=== PATIENT | male | born 1930 | race Caucasian/White ===

== ENCOUNTER 2016-07-08 23:19 | Inpatient (IN) | payer MEDICARE, OTHER ==
[~2016-07-08] VITALS: Ht 172.7 cm; Wt 69.3 kg
[2016-07-08] MEDS ORDERED: SOD CHLORIDE 0.9% 1,000 ML IV STA (23:38)
[2016-07-08] MEDS ORDERED: PIPER-TAZO 3.375 GM IV (PMX) 100 ML IVPB STA (23:38)
[2016-07-08] MEDS ORDERED: SODIUM CHLORIDE 0.9% 1L BAG IV* STA (23:38)
[2016-07-09] VITALS (19 sets, daily range): BP systolic 76–125; BP diastolic 43–66; PULSE 71–87; RESP 16–24; TEMP 97.9; Ht 172.7 cm; Wt 69.3 kg
[2016-07-09] MEDS ORDERED: ETOMIDATE 20 MG INJ ONE
[2016-07-09] MEDS ORDERED: MIDAZOLAM 1 MG/ML 2 ML INJ ONE
[2016-07-09] MEDS ORDERED: ROCURONIUM 50 MG INJ ONE
--- NOTE | 2016-07-09 00:11 | RADRPT ---
PROCEDURE: XR Chest. CLINICAL INDICATION: Shortness of breath. TECHNIQUE: Portable AP supine view of the chest was obtained. COMPARISON: None available. FINDINGS: The cardiomediastinal silhouette is within normal limits. Distal tip of an endotracheal tube projec ts 2.7 cm above the galo, satisfactory in position. Mild left greater than right basilar subsegme ntal atelectasis is present. The right hemidiaphragm is slightly elevated. There is no evidence fo r pleural effusion, pneumothorax or pulmonary vascular congestion. Demineralization is noted with m ild thoracic spondylosis but no evidence of acute osseous abnormality. Clips within the right axilla are seen. Faint calcification of the aortic arch is seen. RPTAT:HJJR IMPRESSION: 1. Distal tip of the endotracheal tube projecting 2.7 cm above the galo in satisfactory position. 2. Mild subsegmental atelectasis of the left greater than right lower lobes with slight elevation o f the right hemidiaphragm. 3. Aortic atherosclerosis is present. Physician Jorge Date Time Electronically viewed and signed by Physician Jorge on 07/09/2016 00:10 JR/
[2016-07-09 00:13] LABS: ADD SCAN DIFF NO; BASOPHILS % 0.4 % (0.0-2.0); EOSINOPHILS # 0.1 10^3/ul (0.0-0.5); EOSINOPHILS % 1.1 % (0.0-7.0); HEMATOCRIT 28.2 % (42.0-52.0); HEMOGLOBIN 9.4 g/dl (14.0-18.0); LYMPHOCYTES # 2.2 10^3/ul (0.8-2.9); MEAN CORPUSCULAR HEMOGLOBIN 33.2 pg (29.0-33.0); MEAN CORPUSCULAR HGB CONC 33.3 g/dl (32.0-37.0); MEAN CORPUSCULAR VOLUME 99.6 fl (82.0-101.0); MEAN PLATELET VOLUME 10.9 fl (7.4-10.4); MONOCYTE # 1.1 10^3/ul (0.3-0.9); MONOCYTES % 9.7 % (0.0-11.0); NEUTROPHIL # 7.6 10^3/ul (1.6-7.5); NEUTROPHILS % 67.6 % (39.0-77.0); PLATELET COUNT 178 10^3/UL (140-415); RED BLOOD COUNT 2.83 10^6/ul (4.70-6.10); RED CELL DISTRIBUTION WIDTH 12.2 % (11.5-14.5); WHITE BLOOD COUNT 11.2 10^3/ul (4.8-10.8)
[2016-07-09 00:22] LABS: AADO2 Arterial 199.9 mmHg (7.0-24.0); Allen Test ACCEPTAB; Arterial Base Excess -3.2 mmol/L (-3.0-3); Arterial COHb 0.3 % (0.0-3.0); Arterial Fraction of Oxyhgb 98.8 % (93.0-99.0); Arterial HCO3 20.8 mmol/L (22.0-26.0); Arterial MetHb 0.6 % (0.0-1.5); Arterial Total Hemglobin 8.6 g/dl (12.0-18.0); MODE VENT - AC
[2016-07-09] MEDS: MIDAZOLAM (DRIP) 50 mg/50 mL 50 ML IV SCH ×2 (00:23→12:31)
[2016-07-09 00:26] LABS: INR 1.1; PROTIME 14.2 Sec (12.2-14.2); PT RATIO 1.1
[2016-07-09 00:27] LABS: PARTIAL THROMBOPLASTIN TIME 30.3 Sec (25.0-35.0)
[2016-07-09 00:29] LABS: ADD UMIC YES; URINE BILIRUBIN (Dip) NEGATIVE (NEGATIVE); URINE BLOOD (Dip) 3+ (NEGATIVE); URINE COLOR YELLOW (YELLOW); URINE GLUCOSE (Dip) NEGATIVE (NEGATIVE); URINE KETONES (Dip) NEGATIVE (NEGATIVE); URINE LEUKOCYTE ESTERASE (Dip) 3+ (NEGATIVE); URINE NITRITE (Dip) NEGATIVE (NEGATIVE); URINE TOTAL PROTEIN (Dip) 2+ (NEGATIVE); URINE UROBILINOGEN (Dip) 1.0 E.U./dL (0.1-1.0)
[2016-07-09] MEDS ORDERED: MIDAZOLAM 1 MG/ML 2 ML INJ IV ONE (00:30)
[2016-07-09 00:33] LABS: ALBUMIN 2.9 g/dl (3.3-4.9); ALBUMIN/GLOBULIN RATIO 0.93; BILIRUBIN,INDIRECT 0.2 mg/dl (0-1.1); BILIRUBIN,TOTAL 0.2 mg/dl (0.2-1.3); CREATININE 1.43 mg/dl (0.61-1.24); POTASSIUM 4.5 mmol/L (3.5-5.1)
[2016-07-09 00:42] LABS: TROPONIN-I 0.043 ng/ml (0.00-0.12)
[2016-07-09 00:59] LABS: BACTERIA,URINE FEW; SQUAMOUS EPITHELIAL CELL,UR FEW; URINE RBCS >200 /HPF (0)
--- NOTE | 2016-07-09 01:27 | ERA ---
ER Documentation Chief Complaint Date/Time DATE: 07/09/16 TIME: 01:25 Chief Complaint SOB 80% ON ROOM AIR, INCREASED ALOC FROM SNF HPI 86-year-old male brought in by ambulance for respiratory distress at his nursing facility with an saturation of 80% on room air. Per EMS, the patient has a history of a subdural hemorrhage about 1 month ago. He is status post neurosurgery. They transported the same patient about 1 week ago to [facility] for similar complaints of shortness of breath, likely secondary to aspiration. Today, about 20 minutes prior to presentation, the [facility] noticed that the patient was more altered than usual and appeared to be in respiratory distress. He was sent here for further evaluation. His saturations improved with supplemental oxygen by face mask in route. There was no report that the patient vomited prior to this episode. Otherwise history is limited as patient is altered and in extremis ROS Review of systems limited as patient is in extremis Medications Home Meds Reported Medications Ranitidine Hcl* (Zantac*) 300 Mg Tablet, 300 MG G-TUBE HS, #30 TAB 07/09/16 Rosuvastatin Calcium* (Crestor*) 10 Mg Tablet, 10 MG G-TUBE QHS, #30 TAB 07/09/16 Magnesium Hydroxide* (Milk Of Magnesia*) 400 Mg/5 Ml Oral.susp, 30 ML G-TUBE DAILY for BOWEL MGT, ML 07/09/16 Guaifenesin-Dextromethorphan* (Robitussin* DM) 100MG/10MG/5ML Syrup, 10 ML G- TUBE Q4H for COUGH, ML 07/09/16 Esomeprazole Mag Trihydrate (Nexium) 40 Mg Capsule.dr, 40 MG G-TUBE AC BREAKFAST , #30 CAP 07/09/16 Dutasteride* (Avodart*) 0.5 Mg Capsule, 0.5 MG G-TUBE DAILY, CAP 07/09/16 Olmesartan-Hydrochlorothiazide (Benicar HCT) 20-12.5 Mg Tablet, 1 TAB G-TUBE DAILY, #30 TAB HOLD IF SBP<110 07/09/16 Ascorbic Acid* (Ascorbic Acid*) 500 Mg/5 Ml Syrup, 500 MG G-TUBE DAILY, #150 ML 07/09/16 Amlodipine Besylate* (Norvasc*) 5 Mg Tablet, 5 MG G-TUBE DAILY, TAB HOLD OF SBP <110 07/09/16 Albuterol Sulfate* (Albuterol Sulfate* Neb) 0.083%-3 Ml Neb, 2.5 MG NEB Q4H, # 30 VIAL TAKE 2.5mg BY NEB EVERY 4HOURS WHILE AWAKE 07/09/16 Multivitamin with Minerals (Multivitamins with Minerals) 1 Each Tablet, 1 EACH G -TUBE DAILY, TAB 07/09/16 Acetaminophen* (Acetaminophen*) 325 Mg Tablet, 325 MG G-TUBE Q4H Y for PAIN LEVEL 1-5, #30 TAB 07/09/16 Lactobac #2-S. Therm-Bifido #1 (Vsl#3 Capsule) 1 Each Capsule, 1 EACH G-TUBE WITH BREAKFAST DINNE, CAP TAKE 1 CAPSULE VIA GTUBE DAILY WITH BREAKFAST & DINNER FOR 20 DAYS 07/09/16 Ipratropium-Albuterol (Ipratropium-Albuterol) 0.5-3 Mg/3 Ml Ampul.neb, 3 ML INHALATION Q6, #30 VIAL 07/09/16 Allergies Allergies: Coded Allergies: No Known Allergy (Unverified , 07/08/16) PMhx/Soc Medical and Surgical Hx: Unable to obtain Hx Neurological Disorder: Yes (Subdural hematoma and subarachnoid hemorrhage in May 2016) Hx Respiratory Disorders: Yes (Aspiration pneumonitis) Smoking Status: Unknown if ever smoked FmHx Family History: other (Unable to obtain) Physical Exam Vitals Vital Signs Date Time Temp Pulse Resp B/P Pulse Ox O2 Delivery O2 Flow Rate FiO2 07/09/16 03:53 92 28 100 40 07/09/16 03:04 80 18 88/43 100 Mechanical Ventilator 07/09/16 02:01 98.3 98 28 90/49 98 Mechanical Ventilator 07/09/16 01:41 102 23 100 40 07/09/16 01:01 98.1 94 19 113/64 99 Mechanical Ventilator 07/09/16 00:44 98.1 82 20 110/57 98 Mechanical Ventilator 07/09/16 00:36 40 07/08/16 23:38 91 20 100 100 07/08/16 23:26 97.7 109 12 60/44 100 Physical Exam INITIAL VITAL SIGNS: Reviewed by me GENERAL: Patient is lying on gurney in respiratory distress, eyes closed HEAD: Head is normocephalic. No evidence of trauma. No scalp or facial swelling. There are multiple scabs on his scalp which are old, likely surgical EYES: No scleral icterus bilaterally, PERRLA ENT: Oropharynx is clear of exudate and erythema, dry mucous membranes NECK: Supple. No meningismus. No masses. No evidence of trauma. No cervical spine bony step-offs or crepitus to palpation RESPIRATORY: Tachypneic, using accessory muscles, diffuse rhonchi bilaterally CV: Regular rate and rhythm. No murmurs, rubs, or gallops ABDOMEN: Soft, non-distended. G-tube in place. No masses BACK: No ecchymoses. No evidence of trauma : Wang in place EXTREMITIES: Normal to inspection and palpation. No deformity SKIN: Warm and dry. No obvious rash. No jaundice NEUROLOGIC: Eyes closed, not responding to verbal stimuli, does not withdraw to pain, nonverbal Result Diagram: 07/08/16 2355 07/08/16 8193 Results 24 hrs Laboratory Tests Test 07/08/16 23:38 07/08/16 23:55 07/08/16 23:59 07/09/16 00:40 Blood Gas Specimen Source Blood arterial Arterial Blood Date Drawn 07/09/2016 12:15:06 AM Arterial Blood pH (Temp corrected) 7.421 Arterial Blood pCO2 (Temp correct) 32.7mmhg Arterial Blood pO2 (Temp corrected) 480.4mmHG Arterial Blood HCO3 20.8mmol/L Arterial Blood Base Excess -3.2mmol/L Arterial Blood Oxygen Saturation 99.7mmHG Tavo Test ACCEPTAB Arterial Blood Gas Puncture Site Right Radial Arterial Blood Carboxyhemoglobin 0.3% Arterial Blood Methemoglobin 0.6% Blood Gas A-a O2 Differential 199.9mmHg Oxyhemoglobin Percent 98.8% Total Hemoglobin 8.6g/dl Blood Gas Temperature 37.0C Blood Gas Respiration Rate 20.0 Blood Gas Actual Respiration Rate 20 Blood Gas Modality VENT - AC FiO2 100.0% Blood Gas Tidal Volume 500.0mL Blood Gas Low PEEP Setting 5.0cmH2O Blood Gas Notified Whom MH Blood Gas Notified Time 07/09/2016 12:22:03 AM White Blood Count 11.210^3/ul Red Blood Count 2.8310^6/ul Hemoglobin 9.4g/dl Hematocrit 28.2% Mean Corpuscular Volume 99.6fl Mean Corpuscular Hemoglobin 33.2pg Mean Corpuscular Hemoglobin Concent 33.3g/dl Red Cell Distribution Width 12.2% Platelet Count 94632^3/UL Mean Platelet Volume 10.9fl Neutrophils % 67.6% Lymphocytes % 20.0% Monocytes % 9.7% Eosinophils % 1.1% Basophils % 0.4% Nucleated Red Blood Cells % 0.0/100WBC Neutrophils # 7.610^3/ul Lymphocytes # 2.210^3/ul Monocytes # 1.110^3/ul Eosinophils # 0.110^3/ul Basophils # 0.010^3/ul Nucleated Red Blood Cells # 0.010^3/ul Prothrombin Time 14.2Sec Prothrombin Time Ratio 1.1 INR International Normalized Ratio 1.10 Activated Partial Thromboplast Time 30.3Sec Sodium Level 128mmol/L Potassium Level 4.5mmol/L Chloride Level 98mmol/L Carbon Dioxide Level 23mmol/L Anion Gap 12 Blood Urea Nitrogen 54mg/dl Creatinine 1.43mg/dl Glucose Level 143mg/dl Lactic Acid Level 3.1mmol/L Calcium Level 9.0mg/dl Total Bilirubin 0.2mg/dl Direct Bilirubin 0.00mg/dl Indirect Bilirubin 0.2mg/dl Aspartate Amino Transf (AST/SGOT) 41IU/L Alanine Aminotransferase (ALT/SGPT) 49IU/L Alkaline Phosphatase 116IU/L Troponin I 0.043ng/ml B-Type Natriuretic Peptide 835PG/ML Total Protein 6.0g/dl Albumin 2.9g/dl Globulin 3.10g/dl Albumin/Globulin Ratio 0.93 Urine Color YELLOW Urine Clarity SLIGHTLY CLOUDY Urine pH 7.0 Urine Specific [place] 1.020 Urine Ketones NEGATIVE Urine Nitrite NEGATIVE Urine Bilirubin NEGATIVE Urine Urobilinogen 1.0 E.U./dL Urine Leukocyte Esterase 3+ Urine Microscopic RBC >200/HPF Urine Microscopic WBC >200/HPF Urine Squamous Epithelial Cells FEW Urine Bacteria FEW Urine Hemoglobin 3+ Urine Glucose NEGATIVE% Urine Total Protein 2+ Bedside Glucose 132mg/dL Test 07/09/16 02:25 Lactic Acid Level 2.7mmol/L Current Medications Medications (Trade) Dose Ordered Sig/Mahnaz Route PRN Reason Start Time Stop Time Status Last Admin Dose Admin Sodium Chloride (NS) 1,000 ml @ 1,000 mls/hr Q1H STAT IV 07/08/16 23:38 07/09/16 00:37 DC 07/08/16 23:47 Sodium Chloride 1250 ml 1,250 ml BOLUS OVER 2 HOURS STAT IV* 07/08/16 23:38 07/08/16 23:41 DC 07/09/16 00:18 Piperacillin Sod/ Tazobactam Sod (Zosyn 3.375gm/ 100 ml (Pmx)) 100 ml @ 200 mls/hr ONCE STAT IVPB 07/08/16 23:38 07/09/16 00:07 DC 07/08/16 23:48 Midazolam HCl 2 mg 2 mg ONCE ONCE IV 07/09/16 00:30 07/09/16 00:31 DC 07/09/16 00:16 Midazolam HCl 50 ml @ 1 mls/hr TITRATE IV 07/09/16 00:30 07/09/16 00:23 Norepinephrine 250 ml @ 1.875 mls/ hr PER PROTOCOL IV 07/09/16 03:00 Dextrose/Sodium Chloride (D5-1/2ns) 1,000 ml @ 80 mls/hr [id number] IV 07/09/16 02:41 07/09/16 02:54 DC Ondansetron HCl (Zofran Inj) 4 mg Q6H PRN IV NAUSEA AND/OR VOMITING 07/09/16 03:00 Albuterol (Ventolin Hfa) 4 puff Q2H RESP THERAPY PRN INH SHORTNESS OF BREATH 07/09/16 03:00 Ipratropium [place] (Atrovent Hfa) 4 puff Q2H RESP THERAPY PRN INH SHORTNESS OF BREATH 07/09/16 03:00 Acetaminophen (Tylenol Supp) 650 mg Q4H PRN NM PAIN LEVEL 1-3 OR FEVER 07/09/16 03:00 Morphine Sulfate (morphine) 2 mg Q4H PRN IV PAIN LEVEL 7-10 07/09/16 03:00 Lorazepam (Ativan) 1 mg Q2H PRN IV ANXIETY 07/09/16 03:00 Famotidine 20 mg 20 mg DAILY IV 07/09/16 09:00 Propofol (Diprivan) 100 ml @ 2.182 mls/ hr PER PROTOCOL IV 07/09/16 03:00 Vancomycin HCl VANCOMYCIN PER PHARMACY PER PROTOCOL XX 07/09/16 03:00 Cefepime HCl 50 ml @ 100 mls/hr Q12 IVPB 07/09/16 09:00 Dextrose/Sodium Chloride 1,000 ml @ 100 mls/hr Q10H IV 07/09/16 03:00 07/09/16 03:00 Vancomycin HCl 1.5 gm/Sodium Chloride 250 ml @ 83.333 mls/ hr ONCE ONCE IVPB 07/09/16 04:00 07/09/16 06:59 Vancomycin HCl (Vancocin) 250 ml @ 125 mls/hr Q24H IVPB 07/10/16 04:00 Procedures/MDM EMERGENT LABS AND DIAGNOSTIC STUDIES: Lab Results above were reviewed and interpreted by me. CBC shows mild leukocytosis and anemia BMP shows hyponatremia, elevated BUN and creatinine Lactate elevated BNP elevated 12-lead EKG was interpreted by Justino Ortiz MD: Normal Sinus Rhythm Normal axis Normal intervals No acute ST or T wave changes suggestive of acute ischemia or STEMI. Radiology Results as interpreted by Radiology below were reviewed by Emmy Ortiz MD: Chest x-ray: IMPRESSION: 1. Distal tip of the endotracheal tube projecting 2.7 cm above the galo in satisfactory position. 2. Mild subsegmental atelectasis of the left greater than right lower lobes with slight elevation of the right hemidiaphragm. 3. Aortic atherosclerosis is present. Physician Jorge Date Time Electronically viewed and signed by Physician Jorge on 07/09/2016 00:10 CT head: IMPRESSION: 1. Bifrontal subdural collections measuring 11 mm on the right side and 12 mm on the left side similar in appearance compared to the patient's prior outside CT scan from July 01, 2016. 2. Moderate diffuse atrophy. 3. Microangiopathic ischemic changes. 4. Left frontal elsa hole. 5. Paranasal sinus mucosal thickening with air-fluid level within the right sphenoid sinus without interval change. 6. Persistent left otomastoid disease. .Yared Webster MD, Date Time Electronically viewed and signed by .Yared Webster MD, MD on 07/09/2016 02:25 Initial Nursing notes reviewed. Previous Medical Records requested via the Electronic Health Record. EMERGENCY DEPARTMENT COURSE / MEDICAL DECISION MAKING: Endotracheal Intubation by me: Pre assessment performed. See preceding note for details. Pre-oxygenation performed with 100% oxygen RSI: Performed w/o complication or hypoxic events. Medications as ordered. Blade: Mac 4 ET Tube: 7.5 cm Depth: 21 cm at the lip Intubation confirmed by colorimetric CO2, equal breath sounds, quiet over the stomach. Chest X-ray 1V Interpreted by me: 2.7 cm above the galo ET tube. Normal soft tissue, No pneumothorax. Patient is presenting with respiratory distress that I suspect is secondary to aspiration. He was emergently intubated for low GCS and respiratory distress. Vitals were notable for hypertension and hypoxia without fever. Other source could be a UTI given the patient's chronic Wang. Urinalysis initially done with urine obtained from Wang that the patient presented with. Repeat urinalysis was sent after Wang was replaced. Broad-spectrum antibiotics were given. His shock may be also secondary to hypovolemia and does not necessarily septic. CT head was done given his history of recent subdural. Extensive subdural hemorrhage was noted bilaterally, however according to the radiologist , his hematoma is stable compared to the CT done on July 01 at the outside hospital. There is no evidence of new bleeding. Thus I do not think an emergent neurosurgical consultation is necessary at this time. patient's symptoms have not stabilized and the patient is at risk of rapid decompensation. The patient will be admitted for careful hydration, antibiotic therapy, and infectious source control. Severe Sepsis Assessment: Infectious Source: Pneumonia End organ damage indicated by: Lactate > 2.0 mmol/L Hypotension( SBP < 90 or >40 mmHG drop or MAP < 65) Acute Resp Failure (sat < 92% w/o oxygen) Severe Sepsis Managment: Blood Cultures X 2 before broad spectrum antibiotics initiated within 3 hours of recognition. 30 ml/kg NS bolus Completed Initial Lactate: 3.1 Repeat Lactate 2.7 Critical Care: Time: 40 minutes Treatments/Evaluations: Emergent fluid management, while maintaining close respiratory support. Immediate broad spectrum antibiotic therapy. Simultaneous assessment for possible sources in order to direct therapy. Consideration for invasive and chemical support to prevent respiratory or cardiac collapse. Septic Shock Assessment (1 hour post 30 ml/kg fluid bolus): Hypotension (SBP < 90 or 40 mmHg drop, MAP < 65): No Lactic acid > 4.0 no Accepting Care Team: Current data and ongoing care discussed. Time: Time of admission Primary Provider: Shanique Consulting: none Outstanding Data: cultures, repeat UA Departure Diagnosis: Primary Impression: Acute respiratory failure Qualified Code: J96.01 - Acute respiratory failure with hypoxia Additional Impressions: Hyponatremia Hypotension Qualified Code: I95.9 - Hypotension, unspecified hypotension type Acute renal failure Qualified Code: N17.9 - Acute renal failure, unspecified acute renal failure type History of subdural hematoma (post traumatic) Condition: Critical EKLANCE ARIAS MD July 09, 2016 01:27
[2016-07-09] MEDS ORDERED: IPRA3AMP INHALATION (01:36)
[2016-07-09] MEDS ORDERED: MULT-105 G-TUBE (02:03)
[2016-07-09] MEDS ORDERED: MAGN400O4 G-TUBE (02:03)
[2016-07-09] MEDS ORDERED: UDROBDM G-TUBE (02:03)
[2016-07-09] MEDS ORDERED: RANI300T3 G-TUBE (02:03)
[2016-07-09] MEDS ORDERED: LACT1CAP24 G-TUBE (02:03)
[2016-07-09] MEDS ORDERED: DUTA0.5C G-TUBE (02:03)
[2016-07-09] MEDS ORDERED: ALBU2.5V3 NEB (02:03)
[2016-07-09] MEDS ORDERED: ASCO500S2 G-TUBE (02:03)
[2016-07-09] MEDS ORDERED: ACET325T45 G-TUBE (02:03)
[2016-07-09] MEDS ORDERED: BENHCT2012 G-TUBE (02:03)
[2016-07-09] MEDS ORDERED: ESOM40CA G-TUBE (02:03)
[2016-07-09] MEDS ORDERED: CRES10 G-TUBE (02:03)
[2016-07-09] MEDS ORDERED: AMLO5TAB4 G-TUBE (02:03)
--- NOTE | 2016-07-09 02:25 | RADRPT ---
PROCEDURE: CT BRAIN WITHOUT CONTRAST CLINICAL INDICATION: 86-year-old male with altered level of consciousness. TECHNIQUE: The study was performed utilizing [place] VCT 64-slice CT scanner. Direct axial sections were obtained from the foramen magnum to the vertex without the use of intravenous contrast material. Sagittal and coronal reformations were obtained. Sagittal and coronal reformations were obtained. One or more the following dose reduction techniques were utilized: automated exposure cont rol, adjustment of the mA and/or kV according to patient's size or use of iterative reconstruction t echnique. The images were viewed on a PACS workstation. CTD/vol = 43.7 mGy; Total Exam DLP = 810.3 mGy-cm. COMPARISON: CT brain July 01, 2016; CT brain June 24, 2016 performed at [facility]. FINDINGS: There is a left frontal elsa hole. There are persistent bilateral frontal subdural collections with the greatest transverse dimension on the right side measuring approximately 11 mm and on the left s juan measuring approximately 12 mm. These are similar in appearance to the patient's prior study. T here is no longer evidence for pneumocephalus. There is moderate degree of diffuse cortical and cent ral atrophy with compensatory ventricular enlargement. There is no evidence for midline shift. The re are periventricular areas of decreased density consistent with microangiopathic ischemic changes. There is no evidence for acute intra or extra-axial blood. There is fluid identified within the na sopharynx. There is mild mucosal thickening within the ethmoid air cells and maxillary sinuses. Th ere is a air-fluid level within the right sphenoid sinus. There is persistent soft tissue within th e left mastoid air cells and middle ear. IMPRESSION: 1. Bifrontal subdural collections measuring 11 mm on the right side and 12 mm on the left side nithin lar in appearance compared to the patient's prior outside CT scan from July 01, 2016. 2. Moderate diffuse atrophy. 3. Microangiopathic ischemic changes. 4. Left frontal elsa hole. 5. Paranasal sinus mucosal thickening with air-fluid level within the right sphenoid sinus without interval change. 6. Persistent left otomastoid disease. .Yared Webster MD, MD Date Time Electronically viewed and signed by .Yared Webster MD, on 07/09/2016 02:25 .Shraddha/
[2016-07-09] MEDS ORDERED: DEXTROSE 5%-0.45% NACL 1,000 ML IV SCH (02:41)
[2016-07-09] MEDS ORDERED: ACETAMINOPHEN 650 MG SUPP PR PRN (03:00)
[2016-07-09] MEDS: DEXTROSE 5%-0.9% NACL 1,000 ML IV SCH ×3 (03:00→18:08)
[2016-07-09] MEDS ORDERED: NORepinephrine 8MG/250 ML (PMX 250 ML IV SCH (03:00)
[2016-07-09] MEDS ORDERED: ONDANSETRON 4 MG INJ IV PRN (03:00)
[2016-07-09] MEDS ORDERED: VANCOMYCIN IV PER PHARMACY XX SCH (03:00)
[2016-07-09] MEDS ORDERED: PROPOFOL 100 ML IV SCH (03:00)
[2016-07-09] MEDS ORDERED: IPRATROPIUM (HFA) 12.9 GM INHALER INH PRN (03:00)
[2016-07-09] MEDS ORDERED: ALBUTEROL 18 GM INHALER INH PRN (03:00)
[2016-07-09] MEDS ORDERED: morphine 2 MG INJ IV PRN (03:00)
[2016-07-09] MEDS ORDERED: LORAZEPAM 2 MG INJ IV PRN (03:00)
[2016-07-09] MEDS ORDERED: VANCOMYCIN 1.5 GM in SOD CHLORIDE 0.9% 250 ML IVPB ONE (04:00)
[2016-07-09 05:56] LABS: ADD SCAN DIFF NO
[2016-07-09 05:58] LABS: ABNORMAL IP MESSAGE 1; HEMATOCRIT 19.7 % (42.0-52.0); MEAN CORPUSCULAR HEMOGLOBIN 32.4 pg (29.0-33.0); MEAN CORPUSCULAR VOLUME 104.8 fl (82.0-101.0); MEAN PLATELET VOLUME 10.2 fl (7.4-10.4); PLATELET COUNT 120 10^3/UL (140-415); RED BLOOD COUNT 1.88 10^6/ul (4.70-6.10); RED CELL DISTRIBUTION WIDTH 12.5 % (11.5-14.5)
[2016-07-09 06:03] LABS: WHITE BLOOD COUNT 7.9 10^3/ul (4.8-10.8)
[2016-07-09 06:07] LABS: HEMOGLOBIN 6.1 g/dl (14.0-18.0)
[2016-07-09 07:48] LABS: HEMATOCRIT 25.3 % (42.0-52.0); HEMOGLOBIN 8.3 g/dl (14.0-18.0)
--- NOTE | 2016-07-09 08:05 | RADRPT ---
PROCEDURE: CT Brain without contrast. CLINICAL INDICATION: Subdural hematoma. Follow-up study. TECHNIQUE: Axial images from the skull base through the vertex without IV contrast. Multiplanar r eformatted images were made. Images were reviewed on a PACS workstation. The CTDIvol is 43.68 mGy and the DLP is 810.25 mGycm. One or more of the following dose reduction techniques were used: auto mated exposure control, adjustment of the mA and/or kV according to patient size, or use of iterativ e reconstruction technique. COMPARISON: 07/09/2016 FINDINGS: Low density bifrontal subdural collections are unchanged. Ventricular dilatation and atrophy again seen. Left frontal elsa hole is again seen. Fluid throughout the paranasal sinuses is similar to p rior. No new abnormality is seen. IMPRESSION: Stable exam. RPTAT: HLBE Physician Joana Date Time Electronically viewed and signed by Annie Rivas Physician on 07/09/2016 08:04 GARIMA/
[2016-07-09 08:06] LABS: ALBUMIN 2.4 g/dl (3.3-4.9); ALBUMIN/GLOBULIN RATIO 0.82; BILIRUBIN,INDIRECT 0.5 mg/dl (0-1.1); BILIRUBIN,TOTAL 0.5 mg/dl (0.2-1.3); CALCIUM 8.1 mg/dl (8.4-10.2); CREATININE 1.24 mg/dl (0.61-1.24); POTASSIUM 4.5 mmol/L (3.5-5.1); TOTAL PROTEIN 5.3 g/dl (6.1-8.1)
--- NOTE | 2016-07-09 08:14 | HP ---
DATE OF ADMISSION: 07/08/2016 TIME SEEN: 6 a.m. CHIEF COMPLAINT: Shortness of breath and worsening mentation. HISTORY OF PRESENT ILLNESS: The patient is an 86-year-old nonverbal male with a history of dementia , hypertension and dyslipidemia. The patient was sent from a [facility] facility for shortness of breath and worsening mentation. The patient is not able to provide any history, and as such, inf ormation was gathered from chart review and from the ER physician. The patient was recently admitte d at [facility] for possible aspiration pneumonia and was actually just discharged a day ago back to the half-way. The patient also was diagnosed with a subdural hemorrhage a month ag o. At the half-way the patient was noted to be hypoxic, with an oxygen saturation in the low 80 s, and also reportedly he was more altered than usual. When he presented to the ER his blood pressure was 60/44, heart rate 109, respiratory rate 12, tempe rature 97.7, oxygen saturation 100%. CT of the brain shows a bifrontal subdural collection measurin g 11 mm on the right side and 12 mm on the left side, similar in appearance compared to the patient' s prior outside CT scan from July 01. Labs show a sodium of 128, BUN 54, creatinine 1.43. Lactic a clifton 3.1, which trended down slightly to 2.7. WBC 11.2, hemoglobin 9.4. Once the patient arrived to the ER he was intubated. Currently the patient is awaiting admission to the ICU. While I was in th e middle of this dictation I was called by the ER nurse and was just notified that was the patient's hemoglobin this morning was 6.1, which is a drop from 9.4 just 5 hours ago. Will send the patient for a stat head CT and will also repeat his hemoglobin to make sure that this actually is accurate. REVIEW OF SYSTEMS: Unable to fully assess. PAST MEDICAL HISTORY: As per HPI. SOCIAL HISTORY: Unknown. ALLERGIES: NO KNOWN DRUG ALLERGIES. HOME MEDICATIONS: 1. Albuterol. 2. Atrovent. 3. Norvasc. 4. Benicar. 5. Crestor. 6. Tylenol. 7. Robitussin. 8. Nexium. 9. Milk of Magnesia. 10. Zantac. 11. Vitamin C. 12. Multivitamin. 13. Avodart. PHYSICAL EXAMINATION: VITAL SIGNS: Blood pressure 103/49, heart rate 74, respiratory rate 16, temperature 98.7, oxygen sa turation 100% on 40% FIO2. GENERAL: The patient is intubated, looks comfortable on the vent. HEENT: Normocephalic, atraumatic. There are some on his scalp. LUNGS: Diminished breath sounds at the bases, with some scattered crackles. CARDIOVASCULAR: Regul ar rate and rhythm. ABDOMEN: Soft. There is a G-tube in place. Positive bowel sounds. EXTREMITIES: No edema. LABORATORY: Pertinent positives as mentioned in the HPI. IMAGING: Brain CT results as mentioned in the HPI. Chest x-ray shows mild subsegmental atelectasis of the left greater than right lower lobes, with a slight elevation of the right hemidiaphragm. IMPRESSION: 1. Shock. 2. Vent-dependent respiratory failure. 3. Severe anemia, with an acute drop in hemoglobin. 4. Recently diagnosed subdural hematoma. 5. Presumed acute kidney injury. 6. Hyponatremia. PLAN: The patient is currently awaiting admission to the ICU. As mentioned in the HPI, I just out there is an acute drop in his hemoglobin, from 9.4 to 6.1. We will send the patient for a stat head CT. Will repeat his H and H to make sure the drop in hemoglobin is accurate. 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 Will co ntinue pressor and ventilator support and wean off as tolerated. Will transfuse PRBCs. Will place a pulmonary consult to help manage the vent. Will correct electrolytes as needed. Further workup and management per clinical course. Dictated By: JORJE CISNEROS/IWONA Conf#: [id number] DID#: [id number]
[2016-07-09] MEDS: FAMOTIDINE 20 MG INJ IV SCH (08:43)
[2016-07-09] MEDS: CEFEPIME 1GM/50 ML (PMX) 50 ML IVPB SCH ×2 (09:03→21:57)
[2016-07-09 13:12] LABS: EOSINOPHILS # 0.1 10^3/ul (0.0-0.5); LYMPHOCYTES # 0.6 10^3/ul (0.8-2.9); MONOCYTE # 0.4 10^3/ul (0.3-0.9); NEUTROPHIL # 6.8 10^3/ul (1.6-7.5)
[2016-07-10] VITALS (34 sets, daily range): BP systolic 90–141; BP diastolic 44–83; PULSE 60–110; RESP 16–27
[2016-07-10] MEDS: VANCOMYCIN 1 GM in NS 250 ML IVPB SCH (04:08)
[2016-07-10] MEDS: DEXTROSE 5%-0.9% NACL 1,000 ML IV SCH ×2 (04:08→18:03)
[2016-07-10 05:57] LABS: ADD SCAN DIFF NO
[2016-07-10 06:01] LABS: BASOPHILS % 0.4 % (0.0-2.0); EOSINOPHILS # 0.2 10^3/ul (0.0-0.5); EOSINOPHILS % 2.7 % (0.0-7.0); HEMATOCRIT 25.1 % (42.0-52.0); HEMOGLOBIN 7.8 g/dl (14.0-18.0); LYMPHOCYTES # 1.6 10^3/ul (0.8-2.9); LYMPHOCYTES % 19.3 % (15.0-51.0); MEAN CORPUSCULAR HGB CONC 31.1 g/dl (32.0-37.0); MEAN CORPUSCULAR VOLUME 102.9 fl (82.0-101.0); MEAN PLATELET VOLUME 10.4 fl (7.4-10.4); MONOCYTE # 0.7 10^3/ul (0.3-0.9); MONOCYTES % 8.4 % (0.0-11.0); NEUTROPHIL # 5.6 10^3/ul (1.6-7.5); NEUTROPHILS % 68.5 % (39.0-77.0); PLATELET COUNT 140 10^3/UL (140-415); RED BLOOD COUNT 2.44 10^6/ul (4.70-6.10); RED CELL DISTRIBUTION WIDTH 12.4 % (11.5-14.5); WHITE BLOOD COUNT 8.2 10^3/ul (4.8-10.8)
[2016-07-10 07:03] LABS: CALCIUM 8.6 mg/dl (8.4-10.2); CREATININE 0.98 mg/dl (0.61-1.24); POTASSIUM 4.3 mmol/L (3.5-5.1)
[2016-07-10 08:08] LABS: MAGNESIUM 2.2 mg/dl (1.7-2.5); PHOSPHORUS 2.8 mg/dl (2.5-4.9)
[2016-07-10] MEDS: FAMOTIDINE 20 MG INJ IV SCH (09:12)
[2016-07-10] MEDS: CEFEPIME 1GM/50 ML (PMX) 50 ML IVPB SCH ×2 (09:12→20:12)
--- NOTE | 2016-07-10 11:06 | CONS ---
DATE OF ADMISSION: 07/09/2016 DATE OF CONSULTATION: 07/09/2016 TYPE OF CONSULTATION: Pulmonary. REASON FOR CONSULTATION: Ventilator management. Thank you, Dr. Bay, for this consultation. HISTORY OF PRESENT ILLNESS: This is an 86-year-old gentleman with a history of dementia, hypertensi on, hyperlipidemia, transferred for increasing shortness of breath, altered mental status, found on admission to have recent subdural hemorrhage which was nonoperative. In addition, on arrival, the p atient was mildly hypoxemic. The patient has dementia and is unable to give me further details. He was noted to have a hemoglobin of 6.1 with no evidence of acute GI bleed. He required emergent int ubation for airway protection and hypoxemia and, in addition, volume resuscitation for his low blood pressure. This morning he is more awake, alert, comfortable, in no acute distress. PAST MEDICAL HISTORY: 1. Dementia. 2. Recent subdural hematoma. 3. Hyperlipidemia. 4. Hypertension. 5. Bronchitis. MEDICATIONS: Per chart. ALLERGIES: NONE. SOCIAL HISTORY: Nonsmoker, no alcohol, no history of drug use. FAMILY HISTORY: Noncontributory. SYSTEMS REVIEW: A 12-point review of systems currently unable to perform. PHYSICAL EXAMINATION: GENERAL: Elderly-appearing gentleman, opens eyes to voice, makes eye contact. VITAL SIGNS: Currently afebrile, temperature 98, pulse 65, blood pressure 125/55, O2 saturation 96% , FIO2 of 40%. NECK: Supple. No JVD or lymphadenopathy. CARDIAC: S1, S2, no added sounds or murmurs. CHEST: Diminished air entry both lung hutchison. ABDOMEN: Soft, nontender. No guarding or rebound. EXTREMITIES: No cyanosis, clubbing, edema. NEUROLOGIC: Generalized weakness. DIAGNOSTIC DATA: Chest x-ray on admission showed mild atelectasis, right hemidiaphragm. LABORATORY DATA: White count 8.2, hemoglobin 7.8, platelets of 140, BUN 31, creatinine 0.98. INR 1 .1. ABG on mechanical ventilation with pH 7.42, pCO2 of 32, PaO2 480. IMPRESSION: 1. Hypoxemic respiratory failure, possibly secondary to altered mental status and alveolar hypovent ilation. 2. Acute anemia, questionable gastrointestinal bleed. We will need GI consultation. 3. Recent subdural hematoma, currently stable on CT brain. No neurosurgical intervention indicated at present. 4. Baseline history of dementia. 5. History of essential hypertension. 6. Likely hypovolemic shock from low hemoglobin. 7. Possible component of septic shock given positive urinalysis. PLAN: The patient will require 1. Continued packed red blood cells. 2. Gastrointestinal evaluation for endoscopy. 3. CPAP weaning trial with safe extubation. 4. Volume resuscitation. 5. Aspiration precautions. 6. Speech therapy evaluation. 7. Deep venous thrombosis and gastrointestinal prophylaxis. Dictated By: MAMTA CONTE/IWONA Conf#: [id number] DID#: [id number]
[2016-07-10 12:02] LABS: AADO2 Arterial 110.4 mmHg (7.0-24.0); Allen Test ACCEPTAB; Arterial Base Excess -3.8 mmol/L (-3.0-3); Arterial COHb 0.3 % (0.0-3.0); Arterial Fraction of Oxyhgb 97.7 % (93.0-99.0); Arterial HCO3 19.8 mmol/L (22.0-26.0); Arterial MetHb 0.6 % (0.0-1.5); Arterial Total Hemglobin 8.3 g/dl (12.0-18.0); Blood Gas PS 10; MODE VENT - CPAP
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
[2016-07-11] VITALS (27 sets, daily range): BP systolic 112–148; BP diastolic 56–108; PULSE 45–94; RESP 18–28
[2016-07-11] MEDS: VANCOMYCIN 1 GM in NS 250 ML IVPB SCH (03:49)
[2016-07-11] MEDS: DEXTROSE 5%-0.9% NACL 1,000 ML IV SCH ×2 (03:49→16:39)
[2016-07-11 06:31] LABS: ADD SCAN DIFF NO
[2016-07-11 06:36] LABS: BASOPHIL # 0.1 10^3/ul (0.0-0.1); BASOPHILS % 0.6 % (0.0-2.0); EOSINOPHILS # 0.2 10^3/ul (0.0-0.5); HEMATOCRIT 24.2 % (42.0-52.0); HEMOGLOBIN 7.8 g/dl (14.0-18.0); LYMPHOCYTES # 1.5 10^3/ul (0.8-2.9); MEAN CORPUSCULAR HEMOGLOBIN 32.8 pg (29.0-33.0); MEAN CORPUSCULAR HGB CONC 32.2 g/dl (32.0-37.0); MEAN CORPUSCULAR VOLUME 101.7 fl (82.0-101.0); MEAN PLATELET VOLUME 10.5 fl (7.4-10.4); MONOCYTE # 0.7 10^3/ul (0.3-0.9); MONOCYTES % 8.1 % (0.0-11.0); NEUTROPHIL # 5.6 10^3/ul (1.6-7.5); NEUTROPHILS % 69.3 % (39.0-77.0); PLATELET COUNT 146 10^3/UL (140-415); RED BLOOD COUNT 2.38 10^6/ul (4.70-6.10); RED CELL DISTRIBUTION WIDTH 12.1 % (11.5-14.5)
[2016-07-11 07:01] LABS: CALCIUM 8.7 mg/dl (8.4-10.2); CREATININE 0.94 mg/dl (0.61-1.24); POTASSIUM 3.7 mmol/L (3.5-5.1)
[2016-07-11] MEDS: FAMOTIDINE 20 MG INJ IV SCH (08:08)
[2016-07-11] MEDS: CEFEPIME 1GM/50 ML (PMX) 50 ML IVPB SCH ×2 (08:09→22:29)
[2016-07-11 08:44] LABS: AADO2 Arterial 67.7 mmHg (7.0-24.0); Arterial Base Excess -2.3 mmol/L (-3.0-3); Arterial COHb 0.3 % (0.0-3.0); Arterial Fraction of Oxyhgb 97.4 % (93.0-99.0); Arterial HCO3 21.6 mmol/L (22.0-26.0); Arterial MetHb 0.5 % (0.0-1.5); Arterial Total Hemglobin 9.4 g/dl (12.0-18.0); MODE NASAL CANNULA
--- NOTE | 2016-07-11 10:52 | CONS ---
Date/Time of Note Date/Time of Note DATE: 07/11/16 TIME: 10:49 Consult Date/Type/Reason Admit Date/Time July 09, 2016 at 02:49 Initial Consult Date Subjective Extubated yesterday. Still very confused. Objective Vital Signs Date Time Temp Pulse Resp B/P Pulse Ox O2 Delivery O2 Flow Rate FiO2 07/11/16 10:00 78 28 134/105 100 07/11/16 09:30 Nasal Cannula 07/11/16 08:00 3.0 07/11/16 07:30 98.5 07/10/16 11:00 40 Intake and Output 07/10/16 07/10/16 07/11/16 15:00 23:00 07:00 Intake Total 806.024 ml 550 ml 1050 ml Output Total 680 ml 1050 ml 525 ml Balance 126.024 ml -500 ml 525 ml Exam HEENT: Neck supple; no JVD; no LAD CVS: RRR, S1 and S2 CHEST: ++rhonchi b/l ABD: Soft, NT, + BS EXT: No c/c/e Results/Medications Result Diagram: 07/11/16 0607 07/11/16 0601 Results 24 hrs Laboratory Tests Test 07/10/16 11:45 07/10/16 12:20 07/10/16 17:40 07/11/16 06:01 Blood Gas Specimen Source Blood arterial Arterial Blood Date Drawn 07/10/2016 11:45:20 AM Arterial Blood pH (Temp corrected) 7.435 Arterial Blood pCO2 (Temp correct) 30.2 L Arterial Blood pO2 (Temp corrected) 140.1 H Arterial Blood HCO3 19.8 L Arterial Blood Base Excess -3.8 L Arterial Blood Oxygen Saturation 98.6 Tavo Test ACCEPTAB Arterial Blood Gas Puncture Site Right Radial Arterial Blood Carboxyhemoglobin 0.3 Arterial Blood Methemoglobin 0.6 Blood Gas A-a O2 Differential 110.4 H Oxyhemoglobin Percent 97.7 Total Hemoglobin 8.3 L Blood Gas Temperature 37.0 Blood Gas Actual Respiration Rate 23 Blood Gas Modality VENT - CPAP FiO2 40.0 Blood Gas Low PEEP Setting 5.0 Blood Gas Pressure Support 10 Blood Gas Notified Whom JLD Blood Gas Notified Time 07/10/2016 12:02:09 PM Lactic Acid Level 0.6 0.7 Sodium Level 135 Potassium Level 3.7 Chloride Level 112 H Carbon Dioxide Level 22 Anion Gap 5 L Blood Urea Nitrogen 20 # Creatinine 0.94 Glucose Level 97 Calcium Level 8.7 Test 07/11/16 06:07 07/11/16 07:00 White Blood Count 8.0 Red Blood Count 2.38 L Hemoglobin 7.8 L Hematocrit 24.2 L Mean Corpuscular Volume 101.7 H Mean Corpuscular Hemoglobin 32.8 Mean Corpuscular Hemoglobin Concent 32.2 Red Cell Distribution Width 12.1 Platelet Count 146 Mean Platelet Volume 10.5 H Neutrophils % 69.3 Lymphocytes % 18.0 Monocytes % 8.1 Eosinophils % 3.0 Basophils % 0.6 Nucleated Red Blood Cells % 0.0 Neutrophils # 5.6 Lymphocytes # 1.5 Monocytes # 0.7 Eosinophils # 0.2 Basophils # 0.1 Nucleated Red Blood Cells # 0.0 Blood Gas Specimen Source Blood arterial Arterial Blood Date Drawn 07/11/2016 8:06:39 AM Arterial Blood pH (Temp corrected) 7.427 Arterial Blood pCO2 (Temp correct) 33.5 L Arterial Blood pO2 (Temp corrected) 128.5 H Arterial Blood HCO3 21.6 L Arterial Blood Base Excess -2.3 Arterial Blood Oxygen Saturation 98.2 Tavo Test N/A Arterial Blood Gas Puncture Site LB Arterial Blood Carboxyhemoglobin 0.3 Arterial Blood Methemoglobin 0.5 Blood Gas A-a O2 Differential 67.7 H Oxyhemoglobin Percent 97.4 Total Hemoglobin 9.4 L Blood Gas Temperature 37.0 Blood Gas Modality NASAL CANNULA FiO2 33.0 Blood Gas Notified Whom AT Blood Gas Notified Time 07/11/2016 8:43:03 AM Medications Current Medications Ondansetron HCl (Zofran Inj) 4 mg Q6H PRN IV NAUSEA AND/OR VOMITING; Start 01/15 at 03:00 Acetaminophen (Tylenol Supp) 650 mg Q4H PRN [place] PAIN LEVEL 1-3 OR FEVER; Start 07/09/16 at 03:00 Morphine Sulfate (morphine) 2 mg Q4H PRN IV PAIN LEVEL 7-10; Start 07/09/16 at 03:00 Lorazepam (Ativan) 1 mg Q2H PRN IV ANXIETY; Start 07/09/16 at 03:00 Famotidine 20 mg 20 mg DAILY IV Last administered on 07/11/16t 08:08; Admin Dose 20 MG; Start 07/09/16 at 09:00 Cefepime HCl 50 ml @ 100 mls/hr Q12 IVPB Last administered on 07/11/16 08:09 ; Admin Dose 100 MLS/HR; Start 07/09/16 at 09:00 Dextrose/Sodium Chloride 1,000 ml @ 100 mls/hr Q10H IV Last administered on 03:49; Admin Dose 100 MLS/HR; Start 07/09/16 at 03:00 Vancomycin HCl (Vancocin) 250 ml @ 125 mls/hr Q24H IVPB Last administered on 03:49; Admin Dose 125 MLS/HR; Start 07/10/16 at 04:00 Assessment/Plan Additional Assessment/Plan IMPRESSION: 1. Hypoxemic respiratory failure--due to reduced LOC, now extubated. 2. Urosepsis 3. Recent subdural hematoma, currently stable on CT brain. No neurosurgical intervention indicated at present. 4. Baseline history of dementia. 5. History of essential hypertension. 6. Likely hypovolemic shock from low hemoglobin. 7. Urosepsis PLAN: 1. Follow H/H 2. Abx; f/u cultures 3. Mobilize OOB 4. Swallow evaluation 5. Aspiration precautions. 6. Chest PT 35 min cc time TANGELA DYER MD July 11, 2016 10:52
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
--- NOTE | 2016-07-11 11:12 | RADRPT ---
PROCEDURE: XR Chest. CLINICAL INDICATION: Pneumonia, CHF TECHNIQUE: Single frontal chest x-ray. COMPARISON: 07/08/2016 FINDINGS: No acute infiltrate, pleural effusion or pneumothorax is identified. Cardiomediastinal silhouette i s within normal limits. Aortic atherosclerotic calcification is noted. Endotracheal tube has been removed. The osseous structures are unremarkable. Surgical clips project over the right axilla. IMPRESSION: 1. No evidence of acute cardiopulmonary process. 2. Endotracheal tube has been removed. 3. Aortic atherosclerosis. RPTAT: QQ .Mateusz Milner MD, MD Date Time Electronically viewed and signed by .Mateusz Milner MD, on 07/11/2016 11:12 .R/
--- NOTE | 2016-07-11 21:31 | SP ---
DATE OF PROCEDURE: 07/11/2016 PROCEDURE: Electroencephalogram. REFERRING PHYSICIAN: Dr. Bay. TECHNIQUE: EEG done using 10-20 International electrode system with photic stimulation. FINDINGS: Bilateral occipital hemisphere view showed delta and theta waves, medium sized, low ampli tude, asymmetric, bilateral. Photic stimulation done did elicit a drive. Some electromyogram artif act recorded. No epileptiform discharge or seizure activity is recorded. IMPRESSION: This is an abnormal electroencephalogram showing generalized slowing consistent with a history of underlying encephalopathy. No epileptiform discharge or seizure activity is recorded. F ollowup EEG may be needed if clinically indicated. Thank you for asking me to see the patient with you. Dictated By: TANGELA ROBERTS/IWONA Conf#: [id number] DID#: [id number]
--- NOTE | 2016-07-11 22:45 | CONS ---
DATE OF ADMISSION: 07/09/2016 DATE OF CONSULTATION: 07/11/2016 Thank you for asking me to see the patient with you. HISTORY OF PRESENT ILLNESS: The patient is 86 years old, status post bilateral subdural hematomas, hypertension, dyslipidemia, dementia, possibility of underlying seizure activity, in which EEG was o rdered. Follow up with the results. CURRENT MEDICATIONS: Includes: 1. Zofran 4 mg every 6 hours as needed. 2. Albuterol 4 puffs every 2 hours respiratory therapy as needed. 3. Atrovent 4 puffs q.2h. respiratory therapy as needed. 4. Inhaler for shortness of breath. 5. Morphine 2 mg every 4 hours. 6. Vancomycin IV by the pharmacy. 7. Dextrose as needed. 8. Cefepime 50 mL of 100 mL per hour q.12h., which was stopped. 9. Pepcid 20 mg IV once a day. PHYSICAL EXAMINATION: GENERAL: On exam today, the patient is alert, awake, can follow simple commands, speaks only Pedro n, looks confused. CRANIAL NERVES: Cranial nerve II: Pupils equal on both sides, reactive to light. Cranial nerves I II, IV and : Extraocular muscles intact. Cranial nerve V: Equal sensation to face. Cranial ner ve VII: Symmetrical face. Cranial nerve VIII: Decreased hearing bilaterally. Cranial nerve IX an d X: Elevates palate. Cranial nerve XI: Elevates shoulder 5/5. Cranial nerve XII: With straight tongue. MOTOR bilateral upper extremity weakness. The patient can move both upper extremities against gravi ty, 3/5. Sensation decreased for glove and sock area for light touch and temperature. COORDINATION: Znalda-ij-cvpr test intact. HEART: Regular rate and rhythm. LUNGS: Equal breath sounds. ABDOMEN: Soft, relaxed, nondistended. No tenderness. ASSESSMENT AND PLAN: 1. The patient is 86 years old status post subdural hematoma. 2. Underlying seizure activity. We will follow up the patient with electroencephalogram for more e valuation and treatment for possible underlying seizure. 3. Status post aspiration pneumonia. The patient is intubated in intensive care unit. 4. Keep the patient under deep venous thrombosis prophylaxis as well as decubitus ulcer prophylaxis . Again, thank you for asking me to see the patient with you. EEG showed generalized slowing consist ent with a history of underlying encephalopathy. Followup EEG may be needed if clinically indicated . Dictated By: TANGELA ROBERTS/IWONA Conf#: [id number] DID#: [id number]
[2016-07-12] VITALS (13 sets, daily range): BP systolic 137–160; BP diastolic 64–83; PULSE 61–97; RESP 18–20
[2016-07-12] MEDS: DEXTROSE 5%-0.9% NACL 1,000 ML IV SCH ×2 (01:00→04:43)
[2016-07-12 03:42] LABS: ADD SCAN DIFF NO
[2016-07-12 04:02] LABS: BASOPHIL # 0.1 10^3/ul (0.0-0.1); BASOPHILS % 0.6 % (0.0-2.0); EOSINOPHILS # 0.2 10^3/ul (0.0-0.5); HEMATOCRIT 25.5 % (42.0-52.0); HEMOGLOBIN 8.5 g/dl (14.0-18.0); LYMPHOCYTES # 1.3 10^3/ul (0.8-2.9); LYMPHOCYTES % 15.4 % (15.0-51.0); MEAN CORPUSCULAR HEMOGLOBIN 32.9 pg (29.0-33.0); MEAN CORPUSCULAR HGB CONC 33.3 g/dl (32.0-37.0); MEAN CORPUSCULAR VOLUME 98.8 fl (82.0-101.0); MEAN PLATELET VOLUME 10.5 fl (7.4-10.4); MONOCYTE # 0.5 10^3/ul (0.3-0.9); MONOCYTES % 5.7 % (0.0-11.0); NEUTROPHIL # 6.2 10^3/ul (1.6-7.5); NEUTROPHILS % 75.8 % (39.0-77.0); PLATELET COUNT 161 10^3/UL (140-415); POTASSIUM 3.6 mmol/L (3.5-5.1); RED BLOOD COUNT 2.58 10^6/ul (4.70-6.10); WHITE BLOOD COUNT 8.1 10^3/ul (4.8-10.8)
[2016-07-12 04:04] LABS: CREATININE 0.89 mg/dl (0.61-1.24)
[2016-07-12 04:05] LABS: CALCIUM 8.8 mg/dl (8.4-10.2)
[2016-07-12] MEDS: VANCOMYCIN 1 GM in NS 250 ML IVPB SCH (05:03)
[2016-07-12] MEDS: FAMOTIDINE 20 MG INJ IV SCH (08:54)
[2016-07-12] MEDS: CEFEPIME 1GM/50 ML (PMX) 50 ML IVPB SCH ×2 (09:42→20:47)
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
[2016-07-12] MEDS: DEXTROSE 5%-0.45% NACL 1,000 ML IV SCH ×2 (12:00→20:49)
--- NOTE | 2016-07-12 15:06 | CONS ---
Date/Time of Note Date/Time of Note DATE: 07/12/16 TIME: 15:05 Consult Date/Type/Reason Admit Date/Time July 09, 2016 at 02:49 Subjective No events overnight. Objective Vital Signs Date Time Temp Pulse Resp B/P Pulse Ox O2 Delivery O2 Flow Rate FiO2 07/12/16 12:20 82 07/12/16 11:10 98.9 20 139/67 98 07/12/16 08:30 Nasal Cannula 2.0 07/10/16 11:00 40 Intake and Output 07/11/16 07/11/16 07/12/16 15:00 23:00 07:00 Intake Total 600 ml 0 ml 0 ml Output Total 670 ml 400 ml 380 ml Balance -70 ml -400 ml -380 ml Exam HEENT: Neck supple; no JVD; no LAD CVS: RRR, S1 and S2 CHEST: ++rhonchi b/l ABD: Soft, NT, + BS EXT: No c/c/e Results/Medications Result Diagram: 07/12/16 0330 07/12/16 0330 Results 24 hrs Laboratory Tests Test 07/12/16 03:30 07/12/16 13:23 White Blood Count 8.1 Red Blood Count 2.58 L Hemoglobin 8.5 L Hematocrit 25.5 L Mean Corpuscular Volume 98.8 Mean Corpuscular Hemoglobin 32.9 Mean Corpuscular Hemoglobin Concent 33.3 Red Cell Distribution Width 12.0 Platelet Count 161 Mean Platelet Volume 10.5 H Neutrophils % 75.8 Lymphocytes % 15.4 Monocytes % 5.7 Eosinophils % 2.0 Basophils % 0.6 Nucleated Red Blood Cells % 0.0 Neutrophils # 6.2 Lymphocytes # 1.3 Monocytes # 0.5 Eosinophils # 0.2 Basophils # 0.1 Nucleated Red Blood Cells # 0.0 Sodium Level 136 Potassium Level 3.6 Chloride Level 107 Carbon Dioxide Level 24 Anion Gap 9 Blood Urea Nitrogen 15 Creatinine 0.89 Glucose Level 103 Calcium Level 8.8 Vancomycin Level Trough 9.9 L Ammonia < 9 L Medications Current Medications Ondansetron HCl (Zofran Inj) 4 mg Q6H PRN IV NAUSEA AND/OR VOMITING; Start 01/15 at 03:00 Acetaminophen (Tylenol Supp) 650 mg Q4H PRN [place] PAIN LEVEL 1-3 OR FEVER; Start 5/11/17 at 03:00 Morphine Sulfate (morphine) 2 mg Q4H PRN IV PAIN LEVEL 7-10; Start 07/09/16 at 03:00 Famotidine 20 mg 20 mg DAILY IV Last administered on 07/12/16 08:54; Admin Dose 20 MG; Start 07/09/16 at 09:00 Cefepime HCl 50 ml @ 100 mls/hr Q12 IVPB Last administered on 07/12/16 09:42 ; Admin Dose 100 MLS/HR; Start 07/09/16 at 09:00 Vancomycin HCl 1.25 gm/Sodium Chloride 250 ml @ 83.333 mls/ hr Q24H IVPB ; Start 07/13/16 at 05:00 Dextrose/Sodium Chloride (D5-1/2ns) 1,000 ml @ 60 mls/hr [id number] IV Last administered on 07/12/16 12:00; Admin Dose 60 MLS/HR; Start 07/12/16 at 12:00 Assessment/Plan Additional Assessment/Plan IMPRESSION: 1. s/p Hypoxemic respiratory failure--due to reduced LOC, now extubated. 2. Urosepsis 3. Recent subdural hematoma, currently stable on CT brain. No neurosurgical intervention indicated at present. 4. Baseline history of dementia. 5. History of essential hypertension. 6. Likely hypovolemic shock from low hemoglobin. 7. Urosepsis PLAN: 1. Swallow eval 2. Abx; f/u cultures 3. Mobilize OOB 4. Aspiration precautions. 5. Chest PT TANGELA DYER MD July 12, 2016 15:06
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
[2016-07-12] MEDS ORDERED: VANCOMYCIN 1.25 GM in SOD CHLORIDE 0.9% 250 ML IVPB SCH (22:00)
[2016-07-13] VITALS (12 sets, daily range): BP systolic 113–140; BP diastolic 60–67; PULSE 50–107; RESP 18–20
[2016-07-13] MEDS: VANCOMYCIN 1.25 GM in SOD CHLORIDE 0.9% 250 ML IVPB SCH (05:24)
[2016-07-13] MEDS: FAMOTIDINE 20 MG INJ IV SCH (09:42)
[2016-07-13] MEDS: CEFEPIME 1GM/50 ML (PMX) 50 ML IVPB SCH ×2 (09:42→20:56)
[2016-07-13 10:00] LABS: ADD SCAN DIFF NO
[2016-07-13 10:02] LABS: BASOPHILS % 0.5 % (0.0-2.0); EOSINOPHILS # 0.3 10^3/ul (0.0-0.5); EOSINOPHILS % 3.8 % (0.0-7.0); HEMATOCRIT 27.7 % (42.0-52.0); LYMPHOCYTES # 1.6 10^3/ul (0.8-2.9); LYMPHOCYTES % 19.9 % (15.0-51.0); MEAN CORPUSCULAR HEMOGLOBIN 32.4 pg (29.0-33.0); MEAN CORPUSCULAR HGB CONC 32.5 g/dl (32.0-37.0); MEAN CORPUSCULAR VOLUME 99.6 fl (82.0-101.0); MEAN PLATELET VOLUME 10.3 fl (7.4-10.4); MONOCYTE # 0.6 10^3/ul (0.3-0.9); MONOCYTES % 7.6 % (0.0-11.0); NEUTROPHIL # 5.6 10^3/ul (1.6-7.5); NEUTROPHILS % 67.7 % (39.0-77.0); PLATELET COUNT 158 10^3/UL (140-415); RED BLOOD COUNT 2.78 10^6/ul (4.70-6.10); WHITE BLOOD COUNT 8.2 10^3/ul (4.8-10.8)
[2016-07-13 10:30] LABS: POTASSIUM 3.6 mmol/L (3.5-5.1)
[2016-07-13 10:33] LABS: CREATININE 0.88 mg/dl (0.61-1.24)
[2016-07-13 10:34] LABS: CALCIUM 8.9 mg/dl (8.4-10.2)
--- NOTE | 2016-07-13 13:42 | CONS ---
Date/Time of Note Date/Time of Note DATE: 07/13/16 TIME: 13:41 Consult Date/Type/Reason Admit Date/Time July 09, 2016 at 02:49 Initial Consult Date Type of Consultation: Pulm Subjective Comfortable. Objective Vital Signs Date Time Temp Pulse Resp B/P Pulse Ox O2 Delivery O2 Flow Rate FiO2 07/13/16 13:08 63 07/13/16 11:34 98.6 20 125/64 99 07/13/16 08:20 2.0 07/13/16 08:05 Nasal Cannula 07/10/16 11:00 40 Intake and Output 07/12/16 07/12/16 07/13/16 15:00 23:00 07:00 Intake Total 50 ml 0 ml 720 ml Output Total 1000 ml Balance 50 ml -1000 ml 720 ml Exam PHYSICAL EXAMINATION: GENERAL: Elderly-appearing gentleman, opens eyes to voice, makes eye contact. VITAL SIGNS: as above NECK: Supple. No JVD or lymphadenopathy. CARDIAC: S1, S2, no added sounds or murmurs. CHEST: Diminished air entry both lung hutchison. ABDOMEN: Soft, nontender. No guarding or rebound. EXTREMITIES: No cyanosis, clubbing, edema. NEUROLOGIC: Generalized weakness. Results/Medications Result Diagram: 07/13/16 0940 07/13/16 0940 Results 24 hrs Laboratory Tests Test 07/13/16 09:40 White Blood Count 8.2 Red Blood Count 2.78 L Hemoglobin 9.0 L Hematocrit 27.7 L Mean Corpuscular Volume 99.6 Mean Corpuscular Hemoglobin 32.4 Mean Corpuscular Hemoglobin Concent 32.5 Red Cell Distribution Width 12.0 Platelet Count 158 Mean Platelet Volume 10.3 Neutrophils % 67.7 Lymphocytes % 19.9 Monocytes % 7.6 Eosinophils % 3.8 Basophils % 0.5 Nucleated Red Blood Cells % 0.0 Neutrophils # 5.6 Lymphocytes # 1.6 Monocytes # 0.6 Eosinophils # 0.3 Basophils # 0.0 Nucleated Red Blood Cells # 0.0 Sodium Level 137 Potassium Level 3.6 Chloride Level 107 Carbon Dioxide Level 23 Anion Gap 11 Blood Urea Nitrogen 15 Creatinine 0.88 Glucose Level 99 Calcium Level 8.9 Medications Current Medications Ondansetron HCl (Zofran Inj) 4 mg Q6H PRN IV NAUSEA AND/OR VOMITING; Start 01/15 at 03:00 Acetaminophen (Tylenol Supp) 650 mg Q4H PRN [place] PAIN LEVEL 1-3 OR FEVER; Start 07/09/16 at 03:00 Morphine Sulfate (morphine) 2 mg Q4H PRN IV PAIN LEVEL 7-10; Start 07/09/16 at 03:00 Famotidine 20 mg 20 mg DAILY IV Last administered on 07/13/16 09:42; Admin Dose 20 MG; Start 07/09/16 at 09:00 Cefepime HCl 50 ml @ 100 mls/hr Q12 IVPB Last administered on 07/13/16 09:42 ; Admin Dose 100 MLS/HR; Start 07/09/16 at 09:00 Vancomycin HCl 1.25 gm/Sodium Chloride 250 ml @ 83.333 mls/ hr Q24H IVPB Last administered on 07/13/16 05:24; Admin Dose 83.333 MLS/HR; Start 07/13/16 at 05: 00 Dextrose/Sodium Chloride (D5-1/2ns) 1,000 ml @ 60 mls/hr [id number] IV Last administered on 07/12/16 20:49; Admin Dose 60 MLS/HR; Start 07/12/16 at 12:00 Assessment/Plan Chief Complaint/Hosp Course IMPRESSION: 1. s/p Hypoxemic respiratory failure--due to reduced LOC, now extubated. 2. Urosepsis 3. Recent subdural hematoma, currently stable on CT brain. No neurosurgical intervention indicated at present. 4. Baseline history of dementia. 5. History of essential hypertension. 6. Likely hypovolemic shock from low hemoglobin. 7. Urosepsis PLAN: 1. ST recs 2. Abx; f/u cultures 3. Mobilize OOB 4. Aspiration precautions. 5. Chest PT Problems: MAMTA MIMS MD, [facility] July 13, 2016 13:42
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
--- NOTE | 2016-07-13 15:35 | RADRPT ---
PROCEDURE: MR Brain. CLINICAL INDICATION: Encephalopathy TECHNIQUE: An MRI of the brain was performed utilizing the following sequences: Sagittal T1 weigh herve, axial T2 weighted, axial FLAIR, coronal GRE, axial diffusion weighted (EPI technique s=[id number]), a xial ADC mapping. The images were reviewed on a high-resolution PACS workstation. COMPARISON: CT brain from 07/09/2016 FINDINGS: MRI BRAIN: Bilateral frontal and temporal subdural fluid collections are seen which are not near CSF at signal intensity. The bilateral subdural fluid collections have not changed significantly in size compared to the prior examination. Diffuse ventriculomegaly is also once again seen which has not changed s ignificantly. A left frontal elsa hole is once again seen. No diffusion weighted abnormalities are seen to suggest the presence of acute ischemia or recent inf arct. No susceptibility abnormality is seen. There is no intracranial hemorrhage, mass effect, or midline shift. No extra-axial fluid collection is seen. Mild diffuse cerebral volume loss is seen. Very mild amount of scattered nonspecific white matter disease in the periventricular white matte r is seen. Normal flow voids are visible the proximal intracranial arteries and dural sinuses, indic ating patency. Retention cyst in the bilateral maxillary sinuses is seen. The remaining visualized paranasal sinuses are clear. The mastoid air cells, orbits, and calvarium are unremarkable. IMPRESSION: 1. Bilateral cerebral convexity subdural fluid collections which have not changed significantly comp ared to the prior examination. 2. Diffuse ventriculomegaly which appears stable. 3. Stable mild volume loss with mild chronic microvascular ischemic changes. RPTAT: HPNM Physician Eboni Date Time Electronically viewed and signed by Physician Eboni on 07/13/2016 15:35 /
[2016-07-13 17:12] LABS: INR 1.31; PROTIME 16.4 Sec (12.2-14.2); PT RATIO 1.3
[2016-07-13 17:13] LABS: PARTIAL THROMBOPLASTIN TIME 37.4 Sec (25.0-35.0)
[2016-07-13] MEDS: DEXTROSE 5%-0.45% NACL 1,000 ML IV SCH (19:44)
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
[2016-07-13] MEDS ORDERED: PRIMIDONE 50 MG TAB GTB SCH (21:00)
[2016-07-14] VITALS (13 sets, daily range): BP systolic 128–163; BP diastolic 61–76; PULSE 49–70; RESP 16–20
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
[2016-07-14] MEDS: VANCOMYCIN 1.25 GM in SOD CHLORIDE 0.9% 250 ML IVPB SCH (04:46)
[2016-07-14] MEDS: FAMOTIDINE 20 MG INJ IV SCH (08:14)
[2016-07-14] MEDS: CEFEPIME 1GM/50 ML (PMX) 50 ML IVPB SCH ×2 (08:14→22:47)
[2016-07-14 10:02] LABS: ADD SCAN DIFF NO
[2016-07-14 10:49] LABS: BASOPHILS % 0.6 % (0.0-2.0); EOSINOPHILS # 0.4 10^3/ul (0.0-0.5); EOSINOPHILS % 5.9 % (0.0-7.0); HEMATOCRIT 29.2 % (42.0-52.0); HEMOGLOBIN 9.7 g/dl (14.0-18.0); LYMPHOCYTES # 1.6 10^3/ul (0.8-2.9); LYMPHOCYTES % 23.4 % (15.0-51.0); MEAN CORPUSCULAR HEMOGLOBIN 32.4 pg (29.0-33.0); MEAN CORPUSCULAR HGB CONC 33.2 g/dl (32.0-37.0); MEAN CORPUSCULAR VOLUME 97.7 fl (82.0-101.0); MEAN PLATELET VOLUME 10.3 fl (7.4-10.4); MONOCYTE # 0.5 10^3/ul (0.3-0.9); MONOCYTES % 6.9 % (0.0-11.0); NEUTROPHIL # 4.3 10^3/ul (1.6-7.5); NEUTROPHILS % 62.5 % (39.0-77.0); PLATELET COUNT 179 10^3/UL (140-415); RED BLOOD COUNT 2.99 10^6/ul (4.70-6.10); RED CELL DISTRIBUTION WIDTH 11.9 % (11.5-14.5); WHITE BLOOD COUNT 6.8 10^3/ul (4.8-10.8)
[2016-07-14] MEDS ORDERED: LEVO500T72 PO (11:12)
[2016-07-14 11:17] LABS: CALCIUM 8.9 mg/dl (8.4-10.2); CREATININE 0.83 mg/dl (0.61-1.24)
--- NOTE | 2016-07-14 14:16 | CONS ---
Date/Time of Note Date/Time of Note DATE: 07/14/16 TIME: 14:15 Consult Date/Type/Reason Admit Date/Time July 09, 2016 at 02:49 Type of Consultation: Pulm Subjective Patient appears comfortable no new events Objective Vital Signs Date Time Temp Pulse Resp B/P Pulse Ox O2 Delivery O2 Flow Rate FiO2 07/14/16 12:26 57 07/14/16 11:14 98.4 18 163/70 98 07/14/16 06:04 2.0 07/13/16 20:00 Nasal Cannula 07/10/16 11:00 40 Intake and Output 07/13/16 07/13/16 07/14/16 15:00 23:00 07:00 Intake Total 330 ml 600 ml Output Total 850 ml Balance 330 ml -250 ml Exam PHYSICAL EXAMINATION: GENERAL: Elderly-appearing gentleman, opens eyes to voice, makes eye contact. VITAL SIGNS: as above NECK: Supple. No JVD or lymphadenopathy. CARDIAC: S1, S2, no added sounds or murmurs. CHEST: Diminished air entry both lung h[place]. ABDOMEN: Soft, nontender. No guarding or rebound. EXTREMITIES: No cyanosis, clubbing, edema. NEUROLOGIC: Generalized weakness. Results/Medications Result Diagram: 07/14/16 0920 07/14/16 0920 Results 24 hrs Laboratory Tests Test 07/13/16 16:45 07/14/16 09:20 Prothrombin Time 16.4 H Prothrombin Time Ratio 1.3 INR International Normalized Ratio 1.31 Activated Partial Thromboplast Time 37.4 H White Blood Count 6.8 Red Blood Count 2.99 L Hemoglobin 9.7 L Hematocrit 29.2 L Mean Corpuscular Volume 97.7 Mean Corpuscular Hemoglobin 32.4 Mean Corpuscular Hemoglobin Concent 33.2 Red Cell Distribution Width 11.9 Platelet Count 179 Mean Platelet Volume 10.3 Neutrophils % 62.5 Lymphocytes % 23.4 Monocytes % 6.9 Eosinophils % 5.9 Basophils % 0.6 Nucleated Red Blood Cells % 0.0 Neutrophils # 4.3 Lymphocytes # 1.6 Monocytes # 0.5 Eosinophils # 0.4 Basophils # 0.0 Nucleated Red Blood Cells # 0.0 Sodium Level 134 L Potassium Level 4.0 Chloride Level 107 Carbon Dioxide Level 23 Anion Gap 8 Blood Urea Nitrogen 14 Creatinine 0.83 Glucose Level 100 Calcium Level 8.9 Medications Current Medications Ondansetron HCl (Zofran Inj) 4 mg Q6H PRN IV NAUSEA AND/OR VOMITING; Start 01/15 at 03:00 Acetaminophen (Tylenol Supp) 650 mg Q4H PRN [place] PAIN LEVEL 1-3 OR FEVER; Start 07/09/16 at 03:00 Morphine Sulfate (morphine) 2 mg Q4H PRN IV PAIN LEVEL 7-10; Start 07/09/16 at 03:00 Famotidine 20 mg 20 mg DAILY IV Last administered on 07/14/16 08:14; Admin Dose 20 MG; Start 07/09/16 at 09:00 Cefepime HCl 50 ml @ 100 mls/hr Q12 IVPB Last administered on 07/14/16 08:14 ; Admin Dose 100 MLS/HR; Start 07/09/16 at 09:00 Vancomycin HCl 1.25 gm/Sodium Chloride 250 ml @ 83.333 mls/ hr Q24H IVPB Last administered on 07/14/16 04:46; Admin Dose 83.333 MLS/HR; Start 07/13/16 at 05: 00 Dextrose/Sodium Chloride (D5-1/2ns) 1,000 ml @ 60 mls/hr [id number] IV Last administered on 07/13/16 19:44; Admin Dose 60 MLS/HR; Start 07/12/16 at 12:00 Primidone (Mysoline) 25 mg QHS GTB ; Start 07/14/16 at 21:00 Assessment/Plan Chief Complaint/Hosp Course IMPRESSION: 1. s/p Hypoxemic respiratory failure--due to reduced LOC, now extubated. 2. Urosepsis 3. Recent subdural hematoma, currently stable on CT brain. No neurosurgical intervention indicated at present. 4. Baseline history of dementia. 5. History of essential hypertension. 6. Likely hypovolemic shock from low hemoglobin. 7. Urosepsis PLAN: 1. ST recs aspiration precautions 2. Abx; f/u cultures 3. Mobilize OOB Transfer to [facility] Problems: MAMTA MIMS [facility] July 14, 2016 14:16
--- NOTE | 2016-07-14 14:44 | PN ---
DATE: 07/14/2016 SUBJECTIVE: The patient was sleeping very comfortably, easily arousable. Once aroused, he seems to track and communicative, but I spoke with the daughter in detail over the telephone. She had a few concerns. First, she was hoping her father could be started on swallow evaluations again, aracely neri also was requesting that physical therapy see the patient in the hospital for in-bed exercises. S he also wanted to know when we would be resuming the patient's tube feeds. She was also somewhat co ncerned that her father's mentation was decreased compared to when he first came in. I explained to her the plan of care in detail and I explained that the mentation issues I expected with the subdur al hematomas, and plan of care and I explained that if the patient remains stable, we will plan on d ischarging the patient back to the alf facility tomorrow. PHYSICAL EXAMINATION: VITAL SIGNS: Temperature 98.4, pulse 57, respirations 18, blood pressure 163/70, saturations were 9 8% on oxygen via nasal cannula at 2 liters. GENERAL: Sleeping but arousable. HEENT: Head is normocephalic, atraumatic. Pupils equal and reactive. Mucous membranes are slightl y dry. CHEST: Diminished breath sounds bilaterally. CARDIOVASCULAR: S1, S2. No murmurs. ABDOMEN: Soft. G-tube in place. Positive bowel sounds. LOWER EXTREMITIES: Negative for edema. LABORATORY DATA: His CBC was essentially unremarkable except for chronic anemia, but his hemoglobin is stable at 9.7. Basic metabolic profile was also normal, but his sodium is low at 134. Coagulat ion profile done yesterday put INR at 1.3 and mildly elevated PT and APTT. Urinalysis back on 07/08 was suggestive of a UTI; however, urine culture on 07/09/2016 was negative. IMAGING STUDIES: He had an MRI that was done yesterday and it showed that his subdural hematomas trent ve not changed significantly compared to prior exam. He was also seen by neurology yesterday and an EEG last done 07/11/2016 at that time had shown some slowing consistent with encephalopathy, but [facility] neurologist's notes yesterday, apparently the patient used to be primidone for essential tremor an d he was restarted on this last night. This supposedly could also help with underlying seizures if present. Also, I spoke extensively with the speech therapist and the patient does have a significan t risk for aspiration pneumonia. At this time, she has recommended just G-tube feedings until he im proves overall clinically. ASSESSMENT: An 86-year-old male with a history of chronic dementia, hypertension and dyslipidemia garcia sunshine was sent to us for shortness of breath and worsening mentation, now with the followin. Bilateral subdural hematomas about 1 month old, with stable findings on CAT scan. The patient i s nonsurgical per neurosurgery. 2. Acute ventilator-dependent respiratory failure secondary to altered mental status and alveolar h ypoventilation. This has significantly improved. The patient currently stable on 2 liters of oxyge n via nasal cannula. 3. Chronic normocytic anemia. Hemoglobin and hematocrit stable, no signs of bleeding. 4. Acute kidney injury, resolved. 5. Urinary tract infection, on antibiotics. 6. Mild right upper extremity cellulitis with blister formation. The patient continues on antibiot ics. 7. Hyponatremia, now resolved. 8. Prior intracranial bleed in the past, status post bur holes on CT. 9. 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 10. Chronic dysphagia, on tube feeds. Not stable for oral trials. PLAN: 1. At this point, the plan is to continue him on current antimicrobials. 2. Resume tube feeds. 3. Repeat urine cultures to ensure that his urinary tract infection is indeed improving. 4. Continue in-house physical therapy and speech therapy. 5. Plan for transfer back to alf facility tomorrow. 6. I am going to also cut back on the dose of the primidone if okay with neurology to see if this m ight improve the patient's mentation somewhat. 7. Plan of care has been discussed with nursing staff. Questions have been answered. 8. For prophylaxis, he remains on sequential compression devices only as well as intravenous famoti dine. Dictated By: GREGORY ESPINO MD, BA/NTS Conf#: [id number] DID#: [id number]
[2016-07-14] MEDS: DEXTROSE 5%-0.45% NACL 1,000 ML IV SCH (15:35)
--- NOTE | 2016-07-14 16:20 | RADRPT ---
PROCEDURE: XR Chest. CLINICAL INDICATION: Cough TECHNIQUE: Single frontal chest x-ray. COMPARISON: 07/11/2016 FINDINGS: There are low lung volumes with hilar vascular crowding and mild bibasilar atelectasis. There are n o acute infiltrates or effusions. . Calcific atherosclerosis of the aorta is present.. The cardiom ediastinal silhouette is unremarkable. The osseous structures are intact. IMPRESSION: Low lung volumes with hilar vascular crowding and bibasilar atelectasis.. RPTAT: JJ .Regan Collins MD, MD Date Time Electronically viewed and signed by .Regan Collins MD, MD on 07/14/2016 16:20 .L/
[2016-07-14 17:34] LABS: ADD UMIC YES; URINE BILIRUBIN (Dip) NEGATIVE (NEGATIVE); URINE BLOOD (Dip) 3+ (NEGATIVE); URINE COLOR LT. YELLOW (YELLOW); URINE GLUCOSE (Dip) NEGATIVE (NEGATIVE); URINE KETONES (Dip) NEGATIVE (NEGATIVE); URINE LEUKOCYTE ESTERASE (Dip) 1+ (NEGATIVE); URINE NITRITE (Dip) NEGATIVE (NEGATIVE); URINE TOTAL PROTEIN (Dip) NEGATIVE (NEGATIVE); URINE UROBILINOGEN (Dip) 0.2 E.U./dL (0.1-1.0)
[2016-07-14 17:51] LABS: SQUAMOUS EPITHELIAL CELL,UR RARE; URINE RBCS >50 /HPF (0)
[2016-07-14] MEDS ORDERED: PRIMIDONE 50 MG TAB GTB SCH (21:00)
[2016-07-15] MEDS: ALBUTEROL/IPRATROPIUM (NEB) 3 ML AMP HHN PRN (01:35)
[2016-07-15] MEDS: VANCOMYCIN 1.25 GM in SOD CHLORIDE 0.9% 250 ML IVPB SCH (05:09)
[2016-07-15 05:31] LABS: ADD SCAN DIFF NO
[2016-07-15 05:36] LABS: BASOPHILS % 0.6 % (0.0-2.0); EOSINOPHILS # 0.3 10^3/ul (0.0-0.5); EOSINOPHILS % 4.3 % (0.0-7.0); HEMATOCRIT 25.1 % (42.0-52.0); HEMOGLOBIN 8.7 g/dl (14.0-18.0); LYMPHOCYTES # 1.4 10^3/ul (0.8-2.9); LYMPHOCYTES % 20.7 % (15.0-51.0); MEAN CORPUSCULAR HEMOGLOBIN 33.2 pg (29.0-33.0); MEAN CORPUSCULAR HGB CONC 34.7 g/dl (32.0-37.0); MEAN CORPUSCULAR VOLUME 95.8 fl (82.0-101.0); MEAN PLATELET VOLUME 9.8 fl (7.4-10.4); MONOCYTE # 0.4 10^3/ul (0.3-0.9); MONOCYTES % 5.9 % (0.0-11.0); NEUTROPHIL # 4.7 10^3/ul (1.6-7.5); NEUTROPHILS % 68.1 % (39.0-77.0); PLATELET COUNT 183 10^3/UL (140-415); RED BLOOD COUNT 2.62 10^6/ul (4.70-6.10); RED CELL DISTRIBUTION WIDTH 11.9 % (11.5-14.5); WHITE BLOOD COUNT 6.9 10^3/ul (4.8-10.8)
[2016-07-15 06:03] LABS: POTASSIUM 3.2 mmol/L (3.5-5.1)
[2016-07-15 06:05] LABS: CREATININE 0.82 mg/dl (0.61-1.24)
[2016-07-15 06:06] LABS: CALCIUM 8.6 mg/dl (8.4-10.2); MAGNESIUM 1.9 mg/dl (1.7-2.5)
[2016-07-15] MEDS: DEXTROSE 5%-0.45% NACL 1,000 ML IV SCH ×3 (06:40→23:20)
[2016-07-15 07:26] VITALS: BP 141/75; RESP 16
[2016-07-15] MEDS: CEFEPIME 1GM/50 ML (PMX) 50 ML IVPB SCH ×2 (09:16→21:30)
[2016-07-15] MEDS: FAMOTIDINE 20 MG INJ IV SCH (09:16)
[2016-07-15] MEDS ORDERED: POTASSIUM CHLORIDE (SR) 20 MEQ TAB PO ONE (13:00)
--- NOTE | 2016-07-15 13:05 | CONS ---
Date/Time of Note Date/Time of Note DATE: 07/15/16 TIME: 13:03 Assessment/Plan Assessment/Plan Additional Assessment/Plan Assessment recommendations; 1. Patient admitted for UTI and sepsis. 2. Advanced dementia. 3. History of hypertension. 4. History of recent subdural hemorrhage. Continue current treatment. Prognosis is poor Consultation Date/Type/Reason Admit Date/Time July 09, 2016 at 02:49 Initial Consult Date Type of Consultation: Pulm 24 HR Interval Summary Free Text/Dictation Patient condition remains stable. Remains essentially unresponsive. Has remained hemodynamically stable. Next General exam; elderly male, currently in no distress. Currently unresponsive. Exam/Review of Systems Vital Signs Vitals Vital Signs Date Time Temp Pulse Resp B/P Pulse Ox O2 Delivery O2 Flow Rate FiO2 07/15/16 07:26 98.2 75 16 141/75 98 07/15/16 02:49 Nasal Cannula 2.0 07/15/16 01:37 21 Intake and Output 07/14/16 07/14/16 07/15/16 15:00 23:00 07:00 Intake Total 55 ml 865 ml 810 ml Output Total 900 ml Balance -845 ml 865 ml 810 ml Exam HEENT exam; supple neck, no JVD. No lymphadenopathy. Midline trachea. No thyromegaly. Pupils are small bilaterally. Chest examination; clear to ulceration. S1-S2 audible, no murmurs. Regular rhythm. Abdomen examination; soft, nondistended. No organomegaly. G-tube in place. Bowel sounds audible. Extremity examination; no peripheral edema. OSTEOLOGY TEACHER examination; patient remains essentially unresponsive. Results Result Diagram: 07/15/16 0515 07/15/16 0515 Results 24 hrs Laboratory Tests Test 07/14/16 15:00 07/15/16 05:15 Urine Color LT. YELLOW Urine Clarity CLEAR Urine pH 6.0 Urine Specific [place] 1.020 Urine Ketones NEGATIVE Urine Nitrite NEGATIVE Urine Bilirubin NEGATIVE Urine Urobilinogen 0.2 E.U./dL Urine Leukocyte Esterase 1+ H Urine Microscopic RBC >50 Urine Microscopic WBC 10-25 Urine Squamous Epithelial Cells RARE Urine Hemoglobin 3+ H Urine Glucose NEGATIVE Urine Total Protein NEGATIVE White Blood Count 6.9 Red Blood Count 2.62 L Hemoglobin 8.7 L Hematocrit 25.1 L Mean Corpuscular Volume 95.8 Mean Corpuscular Hemoglobin 33.2 H Mean Corpuscular Hemoglobin Concent 34.7 Red Cell Distribution Width 11.9 Platelet Count 183 Mean Platelet Volume 9.8 Neutrophils % 68.1 Lymphocytes % 20.7 Monocytes % 5.9 Eosinophils % 4.3 Basophils % 0.6 Nucleated Red Blood Cells % 0.0 Neutrophils # 4.7 Lymphocytes # 1.4 Monocytes # 0.4 Eosinophils # 0.3 Basophils # 0.0 Nucleated Red Blood Cells # 0.0 Sodium Level 135 Potassium Level 3.2 L Chloride Level 105 Carbon Dioxide Level 23 Anion Gap 10 Blood Urea Nitrogen 14 Creatinine 0.82 Glucose Level 147 # Calcium Level 8.6 Magnesium Level 1.9 Medications Medications Current Medications Ondansetron HCl (Zofran Inj) 4 mg Q6H PRN IV NAUSEA AND/OR VOMITING; Start 01/15 at 03:00 Acetaminophen (Tylenol Supp) 650 mg Q4H PRN [place] PAIN LEVEL 1-3 OR FEVER; Start 07/09/16 at 03:00 Morphine Sulfate (morphine) 2 mg Q4H PRN IV PAIN LEVEL 7-10; Start 07/09/16 at 03:00 Famotidine 20 mg 20 mg DAILY IV Last administered on 07/15/16 09:16; Admin Dose 20 MG; Start 07/09/16 at 09:00 Cefepime HCl 50 ml @ 100 mls/hr Q12 IVPB Last administered on 07/15/16 09:16 ; Admin Dose 100 MLS/HR; Start 07/09/16 at 09:00 Vancomycin HCl 1.25 gm/Sodium Chloride 250 ml @ 83.333 mls/ hr Q24H IVPB Last administered on 07/15/16 05:09; Admin Dose 83.333 MLS/HR; Start 07/13/16 at 05: 00 Dextrose/Sodium Chloride (D5-1/2ns) 1,000 ml @ 60 mls/hr [id number] IV Last administered on 07/14/16 15:35; Admin Dose 60 MLS/HR; Start 07/12/16 at 12:00 Primidone (Mysoline) 25 mg QHS GTB Last administered on 07/14/16 22:47; Admin Dose 25 MG; Start 07/14/16 at 21:00 JIGNESH LI July 15, 2016 13:05
[2016-07-15] MEDS ORDERED: POTASSIUM CHLORIDE 250 ML IVPB ONE ×2 (14:30→15:00)
[2016-07-15 19:30] VITALS: BP 135/72; RESP 18
--- NOTE | 2016-07-15 20:12 | PN ---
Date/Time of Note Date/Time of Note DATE: 07/15/16 TIME: 20:07 Assessment/Plan VTE Prophylaxis VTE Prophylaxis Intervention: SCD's Lines/Catheters IV [facility]ter Type ([facility] Peripheral IV Urinary Cath still in place: Yes Reason Cath still needed: urinary retention, other (indicate) (strict I/O) Assessment/Plan Assessment/Plan 1. Bilateral subdural hematomas about 1 month old, with stable findings on CAT scan. s/p Neurosurgery consult- pt is non surgical 2. Acute ventilator-dependent respiratory failure secondary to altered mental status and alveolar hypoventilation. 3. Chronic normocytic anemia. Hemoglobin and hematocrit stable, no signs of bleeding. 4. Acute kidney injury, resolved. 5. Urinary tract infection, on antibiotics. 6. Mild right upper extremity cellulitis with blister formation. The patient continues on antibiotics. 7. Hyponatremia, now resolved. 8. Prior intracranial bleed in the past, status post bur holes on CT. 9. 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 10. Chronic dysphagia, on tube feeds. Not stable for oral trials. KCL replacement Speech therapy consult d/c rios catheter in AM Subjective 24 Hr Interval Summary Free Text/Dictation pt was lethargic , Bp stable Exam/Review of Systems Vital Signs Vitals Vital Signs Date Time Temp Pulse Resp B/P Pulse Ox O2 Delivery O2 Flow Rate FiO2 07/15/16 19:30 99.1 68 18 135/72 97 07/15/16 08:00 Nasal Cannula 2.0 07/15/16 01:37 21 Intake and Output 07/14/16 07/14/16 07/15/16 15:00 23:00 07:00 Intake Total 55 ml 865 ml 810 ml Output Total 900 ml Balance -845 ml 865 ml 810 ml Exam GENERAL: Sleeping but arousable. HEENT: Head is normocephalic, atraumatic. Pupils equal and reactive. Mucous membranes are slightly dry. CHEST: Diminished breath sounds bilaterally. CARDIOVASCULAR: S1, S2. No murmurs. ABDOMEN: Soft. G-tube in place. Positive bowel sounds. LOWER EXTREMITIES: Negative for edema. Results Result Diagram: 07/15/16 0515 07/15/16 0515 Results 24 hrs Laboratory Tests Test 07/15/16 05:15 White Blood Count 6.9 Red Blood Count 2.62 L Hemoglobin 8.7 L Hematocrit 25.1 L Mean Corpuscular Volume 95.8 Mean Corpuscular Hemoglobin 33.2 H Mean Corpuscular Hemoglobin Concent 34.7 Red Cell Distribution Width 11.9 Platelet Count 183 Mean Platelet Volume 9.8 Neutrophils % 68.1 Lymphocytes % 20.7 Monocytes % 5.9 Eosinophils % 4.3 Basophils % 0.6 Nucleated Red Blood Cells % 0.0 Neutrophils # 4.7 Lymphocytes # 1.4 Monocytes # 0.4 Eosinophils # 0.3 Basophils # 0.0 Nucleated Red Blood Cells # 0.0 Sodium Level 135 Potassium Level 3.2 L Chloride Level 105 Carbon Dioxide Level 23 Anion Gap 10 Blood Urea Nitrogen 14 Creatinine 0.82 Glucose Level 147 # Calcium Level 8.6 Magnesium Level 1.9 Medications Medications Current Medications Ondansetron HCl (Zofran Inj) 4 mg Q6H PRN IV NAUSEA AND/OR VOMITING; Start 01/15 at 03:00 Acetaminophen (Tylenol Supp) 650 mg Q4H PRN [place] PAIN LEVEL 1-3 OR FEVER; Start 07/09/16 at 03:00 Morphine Sulfate (morphine) 2 mg Q4H PRN IV PAIN LEVEL 7-10; Start 07/09/16 at 03:00 Famotidine 20 mg 20 mg DAILY IV Last administered on 07/15/16 09:16; Admin Dose 20 MG; Start 07/09/16 at 09:00 Cefepime HCl 50 ml @ 100 mls/hr Q12 IVPB Last administered on 07/15/16 09:16 ; Admin Dose 100 MLS/HR; Start 07/09/16 at 09:00 Vancomycin HCl 1.25 gm/Sodium Chloride 250 ml @ 83.333 mls/ hr Q24H IVPB Last administered on 07/15/16 05:09; Admin Dose 83.333 MLS/HR; Start 07/13/16 at 05: 00 Dextrose/Sodium Chloride (D5-1/2ns) 1,000 ml @ 60 mls/hr [id number] IV Last administered on 07/15/16 14:52; Admin Dose 60 MLS/HR; Start 07/12/16 at 12:00 Miscellaneous Information (*Rx Drug Level Order Reminder*) VANCOMYCIN TROUGH AT 0400 ONCE ONCE XX ; Start 07/16/16 at 04:00; Stop 07/16/16 at 04:01 IMAN BLACKMAN MD July 15, 2016 20:12
--- NOTE | 2016-07-15 20:25 | RADRPT ---
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 Physician: GREGORY ESPINO Quality: Adequate Procedures: Transthoracic echocardiogram with complete 2D, M-Mode, and doppler examination. Indications: RESP. FAILURE. 2D/M Mode Doppler Measurement Value Normal Ranges Measurement Value Normal Ranges LVIDd 2D 4.5 3.5 - 5.6 cm AV Peak Chandu 2.1 m/sec LVIDs 2D 3.3 2.1 - 4.1 cm AV Peak PG 17.5 mmHg LVPWd 2D 1.3 0.6 - 1.1 cm AI Peak PG 13.7 mmHg IVSd 2D 1.3 0.6 - 1.1 cm AI Peak Chandu 1.9 m/sec AoR Diam 2D 3.1 2.0 - 3.7 cm AI PHT 745.1 msec EDV 2D 93.1 cm3 LVOT Peak Chandu 1.2 m/sec ESV 2D 36.0 cm3 LVOT Peak PG 5.3 mmHg LA Dimen 2D 3.7 2.3 - 4.0 cm MV E Peak Chandu 0.7 m/sec MV A Peak Chandu 0.9 m/sec MV E/A 0.8 MV Decel Time 197 msec MV Decel [place] 4 MV E/A 0.8 TR Peak Chandu 2.4 m/sec TR Peak PG 22.5 mmHg Findings Left Ventricle: Normal left ventricular systolic function. Normal left ventricular cavity size. Mild concentric left ventricular hypertrophy. Ejection fraction is visually estimated at 60 %. Tissue Doppler/Mitral Doppler indices are consistent with impaired relaxation (Stage I diastolic dysfunction). Right Ventricle: Normal right ventricular systolic function. Mild enlargement of right ventricle. Left Atrium: The left atrium is normal in size. Right Atrium: Right atrium at upper limits of normal. Mitral Valve: Mild mitral annular calcification. Trace mitral regurgitation. Aortic Valve: Aortic sclerosis without stenosis. Trace aortic valve regurgitation. Tricuspid Valve: Tricuspid valve not well visualized. Estimated peak PA systolic pressure 23 mmHg. There is mild tricuspid regurgitation. Pulmonic Valve: Pulmonic valve not well visualized. No evidence of pulmonic regurgitation. Pericardium: Normal pericardium with no significant pericardial effusion. Aorta: Normal aortic root. IVC: The IVC is not well visualized. Conclusions 1.Normal left ventricular systolic function. Normal left ventricular cavity size. Mild concentric left ventricular hypertrophy. Ejection fraction is visually estimated at 60 %. Tissue Doppler/Mitral Doppler indices are consistent with impaired relaxation (Stage I diastolic dysfunction). 2.Normal right ventricular systolic function. Mild enlargement of right ventricle. 3.Mild mitral annular calcification. Trace mitral regurgitation. 4.Aortic sclerosis without stenosis. Trace aortic valve regurgitation. 5.Tricuspid valve not well visualized. Estimated peak PA systolic pressure 23 mmHg. There is mild tricuspid regurgitation. Electronically Signed By: Miguel Stevens 15-Jul-2016 20:24:41 -0700 Patient Name: GALO BLAIR Study Date: 14-Jul-[id number]
[2016-07-16] MEDS: ALBUTEROL/IPRATROPIUM (NEB) 3 ML AMP HHN PRN ×3 (00:56→20:37)
[2016-07-16 04:00] LABS: ADD SCAN DIFF NO
[2016-07-16 04:07] LABS: BASOPHILS % 0.4 % (0.0-2.0); EOSINOPHILS # 0.3 10^3/ul (0.0-0.5); EOSINOPHILS % 3.5 % (0.0-7.0); HEMATOCRIT 26.3 % (42.0-52.0); HEMOGLOBIN 8.7 g/dl (14.0-18.0); LYMPHOCYTES # 1.5 10^3/ul (0.8-2.9); LYMPHOCYTES % 20.5 % (15.0-51.0); MEAN CORPUSCULAR HEMOGLOBIN 32.5 pg (29.0-33.0); MEAN CORPUSCULAR HGB CONC 33.1 g/dl (32.0-37.0); MEAN CORPUSCULAR VOLUME 98.1 fl (82.0-101.0); MEAN PLATELET VOLUME 9.7 fl (7.4-10.4); MONOCYTE # 0.5 10^3/ul (0.3-0.9); MONOCYTES % 6.2 % (0.0-11.0); NEUTROPHIL # 5.1 10^3/ul (1.6-7.5); NEUTROPHILS % 68.6 % (39.0-77.0); PLATELET COUNT 169 10^3/UL (140-415); RED BLOOD COUNT 2.68 10^6/ul (4.70-6.10); RED CELL DISTRIBUTION WIDTH 12.1 % (11.5-14.5); WHITE BLOOD COUNT 7.4 10^3/ul (4.8-10.8)
[2016-07-16 04:25] LABS: POTASSIUM 3.8 mmol/L (3.5-5.1)
[2016-07-16 04:28] LABS: CREATININE 0.82 mg/dl (0.61-1.24)
[2016-07-16 04:29] LABS: CALCIUM 8.7 mg/dl (8.4-10.2)
[2016-07-16] MEDS: VANCOMYCIN 1.25 GM in SOD CHLORIDE 0.9% 250 ML IVPB SCH (04:41)
[2016-07-16 07:24] VITALS: BP 164/79; RESP 20
[2016-07-16] MEDS: CEFEPIME 1GM/50 ML (PMX) 50 ML IVPB SCH (08:16)
[2016-07-16] MEDS: FAMOTIDINE 20 MG INJ IV SCH (08:16)
[2016-07-16] MEDS ORDERED: FUROSEMIDE 20 MG INJ IV ONE (09:00)
--- NOTE | 2016-07-16 11:56 | CONS ---
Date/Time of Note Date/Time of Note DATE: 07/16/16 TIME: 11:55 Assessment/Plan Assessment/Plan Additional Assessment/Plan Assessment recommendations; 1. Patient admitted for UTI and sepsis with significant clinical improvement. 2. Advanced dementia. Consider stopping antibiotics. Consider discharge. Consultation Date/Type/Reason Admit Date/Time July 09, 2016 at 02:49 Type of Consultation: Pulm 24 HR Interval Summary Free Text/Dictation Patient condition remains stable. Remains essentially unresponsive due to advanced dementia. Has remained hemodynamically stable. General exam; elderly male, currently in no distress, not arousable. Exam/Review of Systems Vital Signs Vitals Vital Signs Date Time Temp Pulse Resp B/P Pulse Ox O2 Delivery O2 Flow Rate FiO2 07/16/16 08:58 67 20 97 Nasal Cannula 07/16/16 08:00 2.0 07/16/16 07:24 98.7 164/79 07/15/16 01:37 21 Intake and Output 07/15/16 07/15/16 07/16/16 15:00 23:00 07:00 Intake Total 300 ml 700 ml 870 ml Output Total 650 ml 750 ml 700 ml Balance -350 ml -50 ml 170 ml Exam H EENT exam is; supple neck, no JVD. No lymphadenopathy. Midline trachea. No neck masses. Chest examination; clear to auscultation. S1-S2 audible, no murmurs. Abdomen examination; soft, G-tube in place. Bowel started. Normal distended abdomen. No organomegaly. Extremity examination; no peripheral edema. HYSTER MACHINE OPERATOR examination; patient remains essentially unresponsive. Results Result Diagram: 07/16/16 0350 07/16/16 0350 Results 24 hrs Laboratory Tests Test 07/16/16 03:50 White Blood Count 7.4 Red Blood Count 2.68 L Hemoglobin 8.7 L Hematocrit 26.3 L Mean Corpuscular Volume 98.1 Mean Corpuscular Hemoglobin 32.5 Mean Corpuscular Hemoglobin Concent 33.1 Red Cell Distribution Width 12.1 Platelet Count 169 Mean Platelet Volume 9.7 Neutrophils % 68.6 Lymphocytes % 20.5 Monocytes % 6.2 Eosinophils % 3.5 Basophils % 0.4 Nucleated Red Blood Cells % 0.0 Neutrophils # 5.1 Lymphocytes # 1.5 Monocytes # 0.5 Eosinophils # 0.3 Basophils # 0.0 Nucleated Red Blood Cells # 0.0 Sodium Level 138 Potassium Level 3.8 Chloride Level 107 Carbon Dioxide Level 24 Anion Gap 11 Blood Urea Nitrogen 14 Creatinine 0.82 Glucose Level 143 Calcium Level 8.7 Magnesium Level 1.9 Vancomycin Level Trough 12.2 Medications Medications Current Medications Ondansetron HCl (Zofran Inj) 4 mg Q6H PRN IV NAUSEA AND/OR VOMITING; Start 01/15 at 03:00 Acetaminophen (Tylenol Supp) 650 mg Q4H PRN [place] PAIN LEVEL 1-3 OR FEVER; Start 07/09/16 at 03:00 Morphine Sulfate (morphine) 2 mg Q4H PRN IV PAIN LEVEL 7-10; Start 07/09/16 at 03:00 Famotidine 20 mg 20 mg DAILY IV Last administered on 07/16/16 08:16; Admin Dose 20 MG; Start 07/09/16 at 09:00 Cefepime HCl 50 ml @ 100 mls/hr Q12 IVPB Last administered on 07/16/16 08:16 ; Admin Dose 100 MLS/HR; Start 07/09/16 at 09:00 Vancomycin HCl 1.25 gm/Sodium Chloride 250 ml @ 83.333 mls/ hr Q24H IVPB Last administered on 07/16/16 04:41; Admin Dose 83.333 MLS/HR; Start 07/13/16 at 05: 00 Dextrose/Sodium Chloride (D5-1/2ns) 1,000 ml @ 60 mls/hr [id number] IV Last administered on 07/15/16 14:52; Admin Dose 60 MLS/HR; Start 07/12/16 at 12:00 Furosemide (Lasix) 40 mg DAILY GTB ; Start 07/17/16 at 09:00 JIGNESH LI July 16, 2016 11:56
[2016-07-16] MEDS: DEXTROSE 5%-0.45% NACL 1,000 ML IV SCH (15:35)
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
[2016-07-16 20:18] VITALS: BP 161/71; RESP 18
[2016-07-17] MEDS: ALBUTEROL/IPRATROPIUM (NEB) 3 ML AMP HHN PRN ×2 (00:43→19:27)
[2016-07-17 06:03] LABS: ADD SCAN DIFF NO
[2016-07-17 06:12] LABS: BASOPHILS % 0.4 % (0.0-2.0); EOSINOPHILS # 0.3 10^3/ul (0.0-0.5); EOSINOPHILS % 2.5 % (0.0-7.0); HEMATOCRIT 27.4 % (42.0-52.0); HEMOGLOBIN 9.1 g/dl (14.0-18.0); LYMPHOCYTES # 1.9 10^3/ul (0.8-2.9); MEAN CORPUSCULAR HEMOGLOBIN 32.6 pg (29.0-33.0); MEAN CORPUSCULAR HGB CONC 33.2 g/dl (32.0-37.0); MEAN CORPUSCULAR VOLUME 98.2 fl (82.0-101.0); MEAN PLATELET VOLUME 9.9 fl (7.4-10.4); MONOCYTE # 0.6 10^3/ul (0.3-0.9); MONOCYTES % 5.3 % (0.0-11.0); NEUTROPHIL # 7.7 10^3/ul (1.6-7.5); NEUTROPHILS % 73.2 % (39.0-77.0); PLATELET COUNT 186 10^3/UL (140-415); RED BLOOD COUNT 2.79 10^6/ul (4.70-6.10); WHITE BLOOD COUNT 10.5 10^3/ul (4.8-10.8)
[2016-07-17 06:36] LABS: CREATININE 0.77 mg/dl (0.61-1.24)
[2016-07-17 06:37] LABS: POTASSIUM 3.7 mmol/L (3.5-5.1)
[2016-07-17 07:19] VITALS: BP 150/91; RESP 20
[2016-07-17 09:10] VITALS: BP 142/89; PULSE 84; PULSE 86; RESP 22
[2016-07-17] MEDS: FAMOTIDINE 20 MG INJ IV SCH (09:17)
[2016-07-17] MEDS: FUROSEMIDE 40 MG TAB GTB SCH (09:21)
[2016-07-17] MEDS: DEXTROSE 5%-0.45% NACL 1,000 ML IV SCH (09:30)
[2016-07-17] MEDS: ASCORBIC ACID 500 MG TAB GTB SCH (13:56)
[2016-07-17] MEDS: AMLODIPINE 5 MG TAB GTB SCH (13:56)
[2016-07-17] MEDS: GUAIFENESIN/DM 5ML CUP GTB PRN (13:57)
[2016-07-17] MEDS: DUTASTERIDE 0.5 MG CAP GTB SCH (15:49)
[2016-07-17 20:00] VITALS: BP 136/83; RESP 20
--- NOTE | 2016-07-17 23:02 | PN ---
Date/Time of Note Date/Time of Note DATE: 07/17/16 TIME: 23:01 Assessment/Plan VTE Prophylaxis VTE Prophylaxis Intervention: SCD's Lines/Catheters IV Catheter Type (from [facility]): Peripheral IV Urinary Cath still in place: Yes Reason Cath still needed: urinary retention Assessment/Plan Assessment/Plan 1. Bilateral subdural hematomas about 1 month old, with stable findings on CAT scan. s/p Neurosurgery consult- pt is non surgical 2. Acute ventilator-dependent respiratory failure secondary to altered mental status and alveolar hypoventilation. 3. Chronic normocytic anemia. Hemoglobin and hematocrit stable, no signs of bleeding. 4. Acute kidney injury, resolved. 5. Urinary tract infection, on antibiotics. 6. Mild right upper extremity cellulitis with blister formation. The patient continues on antibiotics. 7. Hyponatremia, now resolved. 8. Prior intracranial bleed in the past, status post bur holes on CT. 9. 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 10. Chronic dysphagia, on tube feeds. Not stable for oral trials. IVF Bp stable PT follow up pt will need SNF placement Subjective 24 Hr Interval Summary Free Text/Dictation pt was sleepy not waking up , vitals stable Exam/Review of Systems Vital Signs Vitals Vital Signs Date Time Temp Pulse Resp B/P Pulse Ox O2 Delivery O2 Flow Rate FiO2 07/17/16 20:00 98.2 90 20 136/83 98 07/17/16 19:32 2.0 07/17/16 19:27 Nasal Cannula 07/15/16 01:37 21 Intake and Output 07/16/16 07/16/16 07/17/16 15:00 23:00 07:00 Intake Total 520 ml 1210 ml Output Total 900 ml 850 ml Balance -380 ml 360 ml Results Result Diagram: 07/17/16 0535 07/17/16 0535 Results 24 hrs Laboratory Tests Test 07/17/16 05:35 White Blood Count 10.5 # Red Blood Count 2.79 L Hemoglobin 9.1 L Hematocrit 27.4 L Mean Corpuscular Volume 98.2 Mean Corpuscular Hemoglobin 32.6 Mean Corpuscular Hemoglobin Concent 33.2 Red Cell Distribution Width 12.0 Platelet Count 186 Mean Platelet Volume 9.9 Neutrophils % 73.2 Lymphocytes % 18.0 Monocytes % 5.3 Eosinophils % 2.5 Basophils % 0.4 Nucleated Red Blood Cells % 0.0 Neutrophils # 7.7 H Lymphocytes # 1.9 Monocytes # 0.6 Eosinophils # 0.3 Basophils # 0.0 Nucleated Red Blood Cells # 0.0 Sodium Level 135 Potassium Level 3.7 Chloride Level 101 Carbon Dioxide Level 26 Anion Gap 12 Blood Urea Nitrogen 15 Creatinine 0.77 Glucose Level 127 Calcium Level 9.0 Medications Medications Current Medications Ondansetron HCl (Zofran Inj) 4 mg Q6H PRN IV NAUSEA AND/OR VOMITING; Start 01/15 at 03:00 Acetaminophen (Tylenol Supp) 650 mg Q4H PRN [place] PAIN LEVEL 1-3 OR FEVER; Start 07/09/16 at 03:00 Morphine Sulfate (morphine) 2 mg Q4H PRN IV PAIN LEVEL 7-10; Start 07/09/16 at 03:00 Famotidine (Pepcid Iv) 20 mg DAILY IV Last administered on 07/17/16 09:17; Admin Dose 20 MG; Start 07/09/16 at 09:00 Furosemide (Lasix) 40 mg DAILY GTB Last administered on 07/17/16 09:21; Admin Dose 40 MG; Start 07/17/16 at 09:00 Amlodipine Besylate (Norvasc) 5 mg DAILY GTB Last administered on 07/17/16 13: 56; Admin Dose 5 MG; Start 07/17/16 at 14:00 Dutasteride (Avodart) 0.5 mg DAILY GTB Last administered on 07/17/16 15:49; Admin Dose 0.5 MG; Start 07/17/16 at 15:00 Guaifenesin/ Dextromethorphan (Robitussin Dm Liquid Cup) 10 ml Q4H PRN GTB COUGH Last administered on 07/17/16 13:57; Admin Dose 10 ML; Start 07/17/16 at 13:30 Ascorbic Acid (Vitamin C) 500 mg DAILY GTB Last administered on 07/17/16 13:56 ; Admin Dose 500 MG; Start 07/17/16 at 14:00 IMAN BLACKMAN MD July 17, 2016 23:02
[2016-07-18 07:24] VITALS: BP 133/66; RESP 22
[2016-07-18] MEDS ORDERED: ASCORBIC ACID 100 MG/ML 120ML BTL GTB SCH (09:00)
[2016-07-18] MEDS: ASCORBIC ACID 500 MG TAB GTB SCH (09:00)
[2016-07-18] MEDS: FUROSEMIDE 40 MG TAB GTB SCH (09:00)
[2016-07-18] MEDS: AMLODIPINE 5 MG TAB GTB SCH (09:00)
[2016-07-18] MEDS: DUTASTERIDE 0.5 MG CAP GTB SCH (09:00)
[2016-07-18 09:57] VITALS: BP 133/72; RESP 26
[2016-07-18] MEDS: FAMOTIDINE 20 MG INJ IV SCH (10:15)
[2016-07-18] MEDS: ALBUTEROL/IPRATROPIUM (NEB) 3 ML AMP HHN PRN (10:45)
--- NOTE | 2016-07-18 10:45 | RADRPT ---
PROCEDURE: XR Chest AP portable CLINICAL INDICATION: Possible aspiration TECHNIQUE: An AP portable radiograph of the chest was submitted. COMPARISON: 07/18/2016 FINDINGS: Support Hardware: None Cardiovascular: The cardiovascular silhouette appears unremarkable. Lung Hanna: Although exaggerated by suboptimal inspiration, increased density is again seen at the lung bases most extensive through the heart suspicious for infiltrate. Pleural Spaces: No pneumothorax or pleural effusion is identified. Osseous Structures: Mild diffuse degenerative spine changes are noted. Soft Tissues: The soft tissues appear unremarkable. IMPRESSION: 1. Infiltrates again projects to the lung bases, exaggerated by poor inspiratory effort and unchang ed. 2. Mild degenerative spine changes. Physician Pop Date Time Electronically viewed and signed by Physician Pop on 07/18/2016 10:44 RH/
[2016-07-18] MEDS ORDERED: NA PHOSPHATE/BIPHOS 133 ML ENEMA PR ONE (12:00)
[2016-07-18] MEDS ORDERED: ACETAMINOPHEN 325 MG TAB PO ONE (12:00)
[2016-07-18] MEDS: METOCLOPRAMIDE 10 MG INJ IV SCH ×2 (12:52→21:55)
--- NOTE | 2016-07-18 13:16 | PN ---
Date/Time of Note Date/Time of Note DATE: 07/18/16 TIME: 13:09 Assessment/Plan VTE Prophylaxis VTE Prophylaxis Intervention: SCD's Lines/Catheters IV C[facility]ter Type (from [facility]): Peripheral IV Urinary Cath still in place: Yes Reason Cath still needed: urinary retention Assessment/Plan Assessment/Plan 1. Bilateral subdural hematomas about 1 month old, with stable findings on CAT scan. s/p Neurosurgery consult- pt is non surgical 2. Acute ventilator-dependent respiratory failure secondary to altered mental status and alveolar hypoventilation. 3. Chronic normocytic anemia. Hemoglobin and hematocrit stable, no signs of bleeding. 4. Acute kidney injury, resolved. 5. Urinary tract infection, on antibiotics. 6. Mild right upper extremity cellulitis with blister formation. The patient continues on antibiotics. 7. Hyponatremia, now resolved. 8. Prior intracranial bleed in the past, status post bur holes on CT. 9. 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 10. Chronic dysphagia, on tube feeds. Not stable for oral trials. stop tube feeding, due to high residual , start D51/2 NS at 40 cc/hr Reglan 10mg iV Q 8 hr Change lasix to IV 20 mg daily Pt is full code, Palliative care consult requested yesterday SCD for DVT prophylaxis no Heparin/Lovenox duet bilateral Subdural hematoma Subjective 24 Hr Interval Summary Free Text/Dictation pt has Tube feeding problems, becomes Hypoxic, chest x ray showed bibasilar infiltrates Exam/Review of Systems Vital Signs Vitals Vital Signs Date Time Temp Pulse Resp B/P Pulse Ox O2 Delivery O2 Flow Rate FiO2 07/18/16 10:19 113 18 92 Simple Mask 8.0 07/18/16 09:57 101.3 133/72 07/15/16 01:37 21 Intake and Output 07/17/16 07/17/16 07/18/16 15:00 23:00 07:00 Intake Total 1240 ml 1000 ml Output Total 400 ml Balance 1240 ml 1000 ml -400 ml Exam GENERAL: lethargic HEENT: Head is normocephalic, atraumatic. Pupils equal and reactive. Mucous membranes are slightly dry. CHEST: Diminished breath sounds bilaterally. CARDIOVASCULAR: S1, S2. No murmurs. ABDOMEN: Soft. G-tube in place. Positive bowel sounds. LOWER EXTREMITIES: Negative for edema. Constitutional: alert, oriented, well developed Results Result Diagram: 07/17/16 0535 07/17/16 0535 Medications Medications Current Medications Ondansetron HCl (Zofran Inj) 4 mg Q6H PRN IV NAUSEA AND/OR VOMITING; Start 01/15 at 03:00 Acetaminophen (Tylenol Supp) [address] PAIN LEVEL 1-3 OR FEVER Last administered on 07/18/16 10:02; Admin Dose 650 MG; Start 07/09/16 at 03:00 Morphine Sulfate (morphine) 2 mg Q4H PRN IV PAIN LEVEL 7-10; Start 07/09/16 at 03:00 Famotidine (Pepcid Iv) 20 mg DAILY IV Last administered on 07/18/16 10:15; Admin Dose 20 MG; Start 07/09/16 at 09:00 Furosemide (Lasix) 40 mg DAILY GTB Last administered on 07/17/16 09:21; Admin Dose 40 MG; Start 07/17/16 at 09:00 Amlodipine Besylate (Norvasc) 5 mg DAILY GTB Last administered on 07/17/16 13: 56; Admin Dose 5 MG; Start 07/17/16 at 14:00 Dutasteride (Avodart) 0.5 mg DAILY GTB Last administered on 07/17/16 15:49; Admin Dose 0.5 MG; Start 07/17/16 at 15:00 Guaifenesin/ Dextromethorphan (Robitussin Dm Liquid Cup) 10 ml Q4H PRN GTB COUGH Last administered on 07/17/16 13:57; Admin Dose 10 ML; Start 07/17/16 at 13:30 Ascorbic Acid (Vitamin C) 500 mg DAILY GTB Last administered on 07/17/16 13:56 ; Admin Dose 500 MG; Start 07/17/16 at 14:00 Metoclopramide HCl (Reglan) 10 mg Q8 IV Last administered on 07/18/16 12:52; Admin Dose 10 MG; Start 07/18/16 at 13:00 IMAN BLACKMAN MD July 18, 2016 13:16
[2016-07-18] MEDS: D5W-0.45 NACL + KCL 10 MEQ 1,000 ML IV SCH (14:27)
[2016-07-18] MEDS: FUROSEMIDE 20 MG INJ IV SCH (14:27)
--- NOTE | 2016-07-18 16:21 | CONS ---
Date/Time of Note Date/Time of Note DATE: 07/18/16 TIME: 16:19 Assessment/Plan Assessment/Plan Additional Assessment/Plan Chest x-ray was reviewed from today which is essentially clear. Assessment recommendations; next 1. Patient admitted for UTI and sepsis clinically improved. 2. Advanced dementia. 3. Episode of chest congestion, chest x-ray from today is clear. Continue current supportive care. [facility] be [facility]. Consultation Date/Type/Reason Admit Date/Time July 09, 2016 at 02:49 Type of Consultation: Pulm 24 HR Interval Summary Free Text/Dictation Patient's condition is essentially unchanged. However having episodes of chest congestion off and on. General exam; elderly male, unresponsive. Currently in no distress. Exam/Review of Systems Vital Signs Vitals Vital Signs Date Time Temp Pulse Resp B/P Pulse Ox O2 Delivery O2 Flow Rate FiO2 07/18/16 10:19 113 18 92 Simple Mask 8.0 07/18/16 09:57 101.3 133/72 07/15/16 01:37 21 Intake and Output 07/17/16 07/17/16 07/18/16 15:00 23:00 07:00 Intake Total 1240 ml 1000 ml Output Total 400 ml Balance 1240 ml 1000 ml -400 ml Exam HEENT exam is; supple neck, no JVD. No lymphadenopathy. Midline trachea. No thyromegaly. Chest examination; diminished but clear vessel. S1-S2 audible, no murmurs. Abdomen examination; soft, non-distended. G-tube in place. No organomegaly. Bowel sounds audible. Extremity exam; no peripheral edema. [employer] examination; patient remains unresponsive. Results Result Diagram: 07/17/16 0535 07/17/16 0535 Medications Medications Current Medications Ondansetron HCl (Zofran Inj) 4 mg Q6H PRN IV NAUSEA AND/OR VOMITING; Start 01/15 at 03:00 Acetaminophen (Tylenol Supp) [address] PAIN LEVEL 1-3 OR FEVER Last administered on 07/18/16t 10:02; Admin Dose 650 MG; Start 07/09/16 at 03:00 Morphine Sulfate (morphine) 2 mg Q4H PRN IV PAIN LEVEL 7-10; Start 07/09/16 at 03:00 Famotidine (Pepcid Iv) 20 mg DAILY IV Last administered on 07/18/16 10:15; Admin Dose 20 MG; Start 07/09/16 at 09:00 Amlodipine Besylate (Norvasc) 5 mg DAILY GTB Last administered on 07/17/16 13: 56; Admin Dose 5 MG; Start 07/17/16 at 14:00 Dutasteride (Avodart) 0.5 mg DAILY GTB Last administered on 07/17/16 15:49; Admin Dose 0.5 MG; Start 07/17/16 at 15:00 Guaifenesin/ Dextromethorphan (Robitussin Dm Liquid Cup) 10 ml Q4H PRN GTB COUGH Last administered on 07/17/16 13:57; Admin Dose 10 ML; Start 07/17/16 at 13:30 Ascorbic Acid (Vitamin C) 500 mg DAILY GTB Last administered on 07/17/16 13:56 ; Admin Dose 500 MG; Start 07/17/16 at 14:00 Metoclopramide HCl (Reglan) 10 mg Q8 IV Last administered on 07/18/16 12:52; Admin Dose 10 MG; Start 07/18/16 at 13:00 Furosemide 20 mg 20 mg DAILY IV Last administered on 07/18/16 14:27; Admin Dose 20 MG; Start 07/18/16 at 13:30 Potassium Chloride/Dextrose/ Sod Cl (D5-1/2ns + KCl 10 Meq) 1,000 ml @ 40 mls/ hr Q24H IV Last administered on 07/18/16 14:27; Admin Dose 40 MLS/HR; Start at 13:30 JIGNESH LI July 18, 2016 16:20
[2016-07-18 20:00] VITALS: BP 114/66; RESP 20
[2016-07-19] VITALS (12 sets, daily range): BP systolic 97–116; BP diastolic 51–60; PULSE 76–84; RESP 16–20
[2016-07-19] MEDS: METOCLOPRAMIDE 10 MG INJ IV SCH ×3 (05:16→21:24)
[2016-07-19] MEDS: FUROSEMIDE 20 MG INJ IV SCH (08:11)
[2016-07-19] MEDS: AMLODIPINE 5 MG TAB GTB SCH (08:11)
[2016-07-19] MEDS: ASCORBIC ACID 500 MG TAB GTB SCH (08:11)
[2016-07-19] MEDS: FAMOTIDINE 20 MG INJ IV SCH (08:11)
[2016-07-19] MEDS: DUTASTERIDE 0.5 MG CAP GTB SCH (08:12)
--- NOTE | 2016-07-19 10:24 | CONS ---
Date/Time of Note Date/Time of Note DATE: 07/19/16 TIME: 10:23 Assessment/Plan Assessment/Plan Additional Assessment/Plan Assessment recommendations; 1. Patient admitted for UTI and sepsis with clinical improvement. 2. Advanced dementia. 3. Recent history of intracranial bleed. 4. Possibly some element of bronchitis. Continue current treatment. Consider discharge to residential. Prognosis remains poor. Consultation Date/Type/Reason Admit Date/Time July 09, 2016 at 02:49 Type of Consultation: Pulm 24 HR Interval Summary Free Text/Dictation Patient condition remains stable. Remains essentially unresponsive. Remains hemodynamically stable. General exam; elderly male, currently in no distress. Unresponsive. Exam/Review of Systems Vital Signs Vitals Vital Signs Date Time Temp Pulse Resp B/P Pulse Ox O2 Delivery O2 Flow Rate FiO2 07/19/16 08:08 79 07/19/16 07:51 98.4 16 97/51 97 07/19/16 00:55 10.0 07/19/16 00:10 Simple Mask Intake and Output 07/18/16 07/18/16 07/19/16 15:00 23:00 07:00 Intake Total 580 ml 460 ml 220 ml Output Total 350 ml 300 ml Balance 580 ml 110 ml -80 ml Exam HEENT examination; supple neck, no JVD. No lymphadenopathy. Midline trachea. No thyromegaly. Patient is mostly edentulous. Chest examined; diminished but clear vessel. S1-S2 audible, no murmurs. Abdomen exam is; soft, nondistended. No organomegaly. G-tube in place. Bowel sounds audible. Extremity exam is; no peripheral edema. 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 Results Result Diagram: 07/17/16 0535 07/17/16 0535 Medications Medications Current Medications Ondansetron HCl (Zofran Inj) 4 mg Q6H PRN IV NAUSEA AND/OR VOMITING; Start 01/15 at 03:00 Acetaminophen (Tylenol Supp) 650 mg Q4H PRN [place] PAIN LEVEL 1-3 OR FEVER Last administered on 07/18/16t 10:02; Admin Dose 650 MG; Start 07/09/16 at 03:00 Morphine Sulfate (morphine) 2 mg Q4H PRN IV PAIN LEVEL 7-10; Start 07/09/16 at 03:00 Famotidine (Pepcid Iv) 20 mg DAILY IV Last administered on 07/19/16 08:11; Admin Dose 20 MG; Start 07/09/16 at 09:00 Amlodipine Besylate (Norvasc) 5 mg DAILY GTB Last administered on 07/17/16 13: 56; Admin Dose 5 MG; Start 07/17/16 at 14:00 Dutasteride (Avodart) 0.5 mg DAILY GTB Last administered on 07/17/16 15:49; Admin Dose 0.5 MG; Start 07/17/16 at 15:00 Guaifenesin/ Dextromethorphan (Robitussin Dm Liquid Cup) 10 ml Q4H PRN GTB COUGH Last administered on 07/17/16 13:57; Admin Dose 10 ML; Start 07/17/16 at 13:30 Ascorbic Acid (Vitamin C) 500 mg DAILY GTB Last administered on 07/17/16 13:56 ; Admin Dose 500 MG; Start 07/17/16 at 14:00 Metoclopramide HCl (Reglan) 10 mg Q8 IV Last administered on 07/19/16 05:16; Admin Dose 10 MG; Start 07/18/16 at 13:00 Furosemide 20 mg 20 mg DAILY IV Last administered on 07/18/16 14:27; Admin Dose 20 MG; Start 07/18/16 at 13:30 Potassium Chloride/Dextrose/ Sod Cl (D5-1/2ns + KCl 10 Meq) 1,000 ml @ 40 mls/ hr Q24H IV Last administered on 07/18/16 14:27; Admin Dose 40 MLS/HR; Start at 13:30 JIGNESH LI July 19, 2016 10:24
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
[2016-07-19] MEDS ORDERED: VANCOMYCIN IV PER PHARMACY XX SCH (12:00)
[2016-07-19] MEDS: CIPROFLOXACIN 400MG/D5W 200 ML IVPB SCH ×2 (12:56→21:24)
[2016-07-19 14:16] LABS: ADD UMIC YES; URINE BILIRUBIN (Dip) NEGATIVE (NEGATIVE); URINE BLOOD (Dip) 2+ (NEGATIVE); URINE COLOR YELLOW (YELLOW); URINE GLUCOSE (Dip) NEGATIVE (NEGATIVE); URINE KETONES (Dip) NEGATIVE (NEGATIVE); URINE LEUKOCYTE ESTERASE (Dip) NEGATIVE (NEGATIVE); URINE NITRITE (Dip) NEGATIVE (NEGATIVE); URINE TOTAL PROTEIN (Dip) 1+ (NEGATIVE); URINE UROBILINOGEN (Dip) 1.0 E.U./dL (0.1-1.0)
[2016-07-19 14:16] LABS: IRON 17 ug/dl (35-150)
[2016-07-19] MEDS: VANCOMYCIN 1.25 GM in SOD CHLORIDE 0.9% 250 ML IVPB SCH (14:18)
[2016-07-19 14:25] LABS: TOTAL IRON BINDING CAPACITY 184 ug/dl (241-421)
[2016-07-19] MEDS: D5W-0.45 NACL + KCL 10 MEQ 1,000 ML IV SCH (14:30)
[2016-07-19] MEDS: POLYETHYLENE GLYCOL 17 GM PACKET NGT SCH (14:33)
--- NOTE | 2016-07-19 16:13 | CONS ---
DATE OF ADMISSION: 07/09/2016 DATE OF CONSULTATION: 07/19/2016 TYPE OF CONSULTATION: Palliative care. HISTORY OF PRESENT ILLNESS: I have had the opportunity to see this gentleman today. He is on teleme try at this time and was asked to see him by Dr. Pepe Rainey. This is an 86-year-old gentleman wh o was admitted to [facility] on 07/09/2016 in shock, on vent dependent respiratory failure and a recent diagnosis of subdural hematoma and a repeat CT scan done in the emergency room at that time showed bifrontal subdural collection measuring 11 mm on the right side and 12 mm on th e left side, similar in appearance compared to the patient's prior CT scan. Repeat study, MRI at th is time, which was done on 07/13/2016 shows bilateral cerebral convexity subdural fluid collections which have not changed significantly compared to the prior examination, diffuse ventriculomegaly whi ch appears stable and mild volume loss with mild chronic microvascular ischemic changes. Unfortunat megan, 1 week ago prior to this consultation, patient had a sudden deterioration in his overall clinic al condition and became much less responsive. I was asked to speak to family members and at this ti me there are no family members available. However, there is a first-degree family member who is zhou arently on the way to the hospital and I am to be contacted when she arrives here. ASSESSMENT AND PLAN: I have had a brief conversation with patient's first degree relative by phone, which I believe is his daughter and reviewed all clinical conditions at this time. Overall, his di scussion of his cognitive status and a decline which has occurred since he has been here and severe respiratory distress. Most importantly, we spoke about his cognitive abilities. What I do not have is whether or not this patient was cognitively intact prior to this hospitalization. PLAN: To discuss goals of care with family members when they arrive and the rest of this dictation will be done after that meeting. OBJECTIVE: VITAL SIGNS: Blood pressure 97/51, pulse is 79 and regular, respirations of 16, temperature 98.4 de grees, 97% saturation on 10% FIO2. HEENT: He is normocephalic and atraumatic. Anicteric, acyanotic on examination. CHEST: Bilateral distant wheezing, right greater than left, and distant wet crackles. COR: S1, S2, without S3, S4, murmur, gallop, rub. Normal rate, normal rhythm. ABDOMEN: Grossly benign. NEUROLOGIC: He does not follow any commands. He does not respond to any verbal or tactile stimulat ion whatsoever. He has oculocephalics. On examination he is not doing any purposeful activity. He is somewhat tachypneic on examination, but does not appear to be in significant distress. GOALS: As outlined above, the rest of the formal consultation and assessment with family members wi ll be dictated after family conference. Dictated By: KRISTEN GOMES MD LP/NTS Conf#: [id number] DID#: [id number]
[2016-07-20] VITALS (12 sets, daily range): BP systolic 99–138; BP diastolic 55–70; PULSE 65–95; RESP 17–20
[2016-07-20] MEDS: METOCLOPRAMIDE 10 MG INJ IV SCH ×3 (06:22→20:42)
[2016-07-20 08:56] LABS: CREATININE 0.9 mg/dl (0.61-1.24)
[2016-07-20] MEDS: ASCORBIC ACID 500 MG TAB GTB SCH (09:30)
[2016-07-20] MEDS: CIPROFLOXACIN 400MG/D5W 200 ML IVPB SCH ×2 (09:30→23:13)
[2016-07-20] MEDS: FUROSEMIDE 20 MG INJ IV SCH (09:30)
[2016-07-20] MEDS: AMLODIPINE 5 MG TAB GTB SCH (09:30)
[2016-07-20] MEDS: FAMOTIDINE 20 MG INJ IV SCH (09:30)
[2016-07-20] MEDS: POLYETHYLENE GLYCOL 17 GM PACKET NGT SCH (09:31)
[2016-07-20] MEDS: DUTASTERIDE 0.5 MG CAP GTB SCH (09:31)
--- NOTE | 2016-07-20 10:30 | CONS ---
Date/Time of Note Date/Time of Note DATE: 07/20/16 TIME: 10:26 Assessment/Plan Assessment/Plan Additional Assessment/Plan Assessment recommendations; 1. Patient admitted for UTI and sepsis currently on broad-spectrum antibiotic coverage. 2. Advanced dementia. 3. Bronchitis. 4. Poor overall functional status. Continue current treatment. Prognosis is very poor. Consultation Date/Type/Reason Admit Date/Time July 09, 2016 at 02:49 Type of Consultation: Pulm 24 HR Interval Summary Free Text/Dictation Patient condition remains unchanged. Has remained hemodynamically stable. Still requiring high FiO2 for O2 saturation maintenance. General exam; elderly male, unresponsive. Currently in no distress. Exam/Review of Systems Vital Signs Vitals Vital Signs Date Time Temp Pulse Resp B/P Pulse Ox O2 Delivery O2 Flow Rate FiO2 07/20/16 08:25 94 07/20/16 07:30 98.5 20 99/67 97 07/19/16 22:00 Simple Mask 10.0 Intake and Output 07/19/16 07/19/16 07/20/16 15:00 23:00 07:00 Intake Total 200 ml 530 ml 500 ml Output Total 500 ml 400 ml Balance 200 ml 30 ml 100 ml Exam HEENT exam is; supple neck, no JVD. No lymphadenopathy. Midline trachea. No thyromegaly. Pupils are small bilaterally. Chest examination; diminished breath sounds bilaterally. No added sound. S1- S2 audible, no murmurs. Regular rhythm. Abdomen examination; soft, no organomegaly. Bowel sounds audible. G-tube in place. Extremity examination; no peripheral edema. 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 Results Result Diagram: 07/17/16 0535 07/20/16 0758 Results 24 hrs Laboratory Tests Test 07/19/16 13:00 07/20/16 07:58 Iron Level 17 L Total Iron Binding Capacity 184 L Percent Iron Saturation 9 L Ferritin 283.0 H Vitamin B12 Level 913 Rapid Plasma Reagin NONREACTIVE Hepatitis B Surface Antigen NEGATIVE Hepatitis C Antibody NEGATIVE Blood Urea Nitrogen 34 H Creatinine 0.90 Medications Medications Current Medications Ondansetron HCl (Zofran Inj) 4 mg Q6H PRN IV NAUSEA AND/OR VOMITING; Start 01/15 at 03:00 Acetaminophen (Tylenol Supp) 650 mg Q4H PRN [place] PAIN LEVEL 1-3 OR FEVER Last administered on 07/18/16t 10:02; Admin Dose 650 MG; Start 07/09/16 at 03:00 Morphine Sulfate (morphine) 2 mg Q4H PRN IV PAIN LEVEL 7-10; Start 07/09/16 at 03:00 Famotidine (Pepcid Iv) 20 mg DAILY IV Last administered on 07/20/16 09:30; Admin Dose 20 MG; Start 07/09/16 at 09:00 Amlodipine Besylate (Norvasc) 5 mg DAILY GTB Last administered on 07/20/16 09: 30; Admin Dose 5 MG; Start 07/17/16 at 14:00 Dutasteride (Avodart) 0.5 mg DAILY GTB Last administered on 07/20/16 09:31; Admin Dose 0.5 MG; Start 07/17/16 at 15:00 Guaifenesin/ Dextromethorphan (Robitussin Dm Liquid Cup) 10 ml Q4H PRN GTB COUGH Last administered on 07/17/16 13:57; Admin Dose 10 ML; Start 07/17/16 at 13:30 Ascorbic Acid (Vitamin C) 500 mg DAILY GTB Last administered on 07/20/16 09:30 ; Admin Dose 500 MG; Start 07/17/16 at 14:00 Metoclopramide HCl (Reglan) 10 mg Q8 IV Last administered on 07/20/16 06:22; Admin Dose 10 MG; Start 07/18/16 at 13:00 Furosemide 20 mg 20 mg DAILY IV Last administered on 07/20/16 09:30; Admin Dose 20 MG; Start 07/18/16 at 13:30 Potassium Chloride/Dextrose/ Sod Cl (D5-1/2ns + KCl 10 Meq) 1,000 ml @ 40 mls/ hr Q24H IV Last administered on 07/19/16 14:30; Admin Dose 40 MLS/HR; Start at 13:30 Polyethylene Glycol 17 gm 17 gm DAILY NGT Last administered on 07/20/16 09:31 ; Admin Dose 17 GM; Start 07/19/16 at 11:30 Ciprofloxacin/ Dextrose 200 ml @ 200 mls/hr Q12 IVPB Last administered on 07/20 09:30; Admin Dose 200 MLS/HR; Start 07/19/16 at 12:00 Vancomycin HCl/ Sodium Chloride (Vancocin/NS) 250 ml @ 83.333 mls/ hr Q24H IVPB Last administered on 07/19/16t 14:18; Admin Dose 83.333 MLS/HR; Start at 13:00 JIGNESH LI July 20, 2016 10:30
[2016-07-20] MEDS: D5W-0.45 NACL + KCL 10 MEQ 1,000 ML IV SCH ×2 (13:30→22:35)
[2016-07-20] MEDS ORDERED: DUTASTERIDE 0.5 MG CAP GTB SCH (13:30)
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
[2016-07-20] MEDS: VANCOMYCIN 1.25 GM in SOD CHLORIDE 0.9% 250 ML IVPB SCH (14:48)
[2016-07-20] MEDS: HEPARIN 5,000 UNIT/0.5 ML VIAL SC SCH ×2 (14:54→20:45)
[2016-07-20] MEDS: metroNIDAZOLE 500 MG/NS (PMX) 100 ML IVPB SCH ×2 (15:16→20:43)
[2016-07-20] MEDS: GUAIFENESIN/DM 5ML CUP GTB PRN (18:48)
[2016-07-20] MEDS: ATORVASTATIN 20 MG TAB GTB SCH (20:43)
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
[2016-07-21] VITALS (11 sets, daily range): BP systolic 104–156; BP diastolic 56–91; PULSE 59–110; RESP 18–20
[2016-07-21] MEDS: LANSOPRAZOLE 30 MG CAP GTB SCH (05:48)
[2016-07-21] MEDS: metroNIDAZOLE 500 MG/NS (PMX) 100 ML IVPB SCH ×3 (05:48→22:13)
[2016-07-21] MEDS: METOCLOPRAMIDE 10 MG INJ IV SCH ×3 (05:48→22:11)
[2016-07-21] MEDS ORDERED: PANTOPRAZOLE (EC) 40 MG TAB PO SCH (06:00)
[2016-07-21 08:29] LABS: ADD SCAN DIFF NO
[2016-07-21 08:36] LABS: BASOPHILS % 0.4 % (0.0-2.0); EOSINOPHILS # 0.3 10^3/ul (0.0-0.5); EOSINOPHILS % 3.4 % (0.0-7.0); HEMATOCRIT 25.3 % (42.0-52.0); LYMPHOCYTES # 1.5 10^3/ul (0.8-2.9); LYMPHOCYTES % 20.6 % (15.0-51.0); MEAN CORPUSCULAR HGB CONC 31.6 g/dl (32.0-37.0); MEAN CORPUSCULAR VOLUME 101.2 fl (82.0-101.0); MEAN PLATELET VOLUME 10.3 fl (7.4-10.4); MONOCYTE # 0.5 10^3/ul (0.3-0.9); MONOCYTES % 6.6 % (0.0-11.0); NEUTROPHILS % 68.2 % (39.0-77.0); PLATELET COUNT 263 10^3/UL (140-415); RED CELL DISTRIBUTION WIDTH 12.3 % (11.5-14.5); WHITE BLOOD COUNT 7.4 10^3/ul (4.8-10.8)
[2016-07-21] MEDS ORDERED: DUTASTERIDE 0.5 MG CAP GTB SCH (09:00)
[2016-07-21] MEDS: AMLODIPINE 2.5 MG TAB PO SCH (09:07)
[2016-07-21] MEDS: POLYETHYLENE GLYCOL 17 GM PACKET NGT SCH (09:07)
[2016-07-21] MEDS: HEPARIN 5,000 UNIT/0.5 ML VIAL SC SCH ×2 (09:07→22:12)
[2016-07-21] MEDS: ASCORBIC ACID 500 MG TAB GTB SCH (09:07)
[2016-07-21] MEDS: CIPROFLOXACIN 400MG/D5W 200 ML IVPB SCH (09:07)
[2016-07-21] MEDS: FUROSEMIDE 20 MG INJ IV SCH (09:07)
[2016-07-21 09:10] LABS: CALCIUM 8.9 mg/dl (8.4-10.2); CREATININE 0.84 mg/dl (0.61-1.24); POTASSIUM 4.2 mmol/L (3.5-5.1)
[2016-07-21] MEDS: GUAIFENESIN/DM 5ML CUP GTB PRN ×2 (09:24→22:39)
--- NOTE | 2016-07-21 09:45 | CONS ---
Date/Time of Note Date/Time of Note DATE: 07/21/16 TIME: 09:43 Assessment/Plan Assessment/Plan Additional Assessment/Plan Assessment recommendations; next 1. Patient admitted for UTI and sepsis with significant improvement with most recent urine analysis negative. 2. Advanced dementia. 3. Status post G-tube placement. 4. Underlying chronic bronchitis. Discontinue ciprofloxacin and vancomycin. Consider stopping Flagyl as well. Continue other medications. Prognosis is poor. Consider transfer to custodial. Consultation Date/Type/Reason Admit Date/Time July 09, 2016 at 02:49 Type of Consultation: Pulm 24 HR Interval Summary Free Text/Dictation Patient condition remains unchanged. Remains unresponsive. Has remained hemodynamically stable. General exam; elderly male, currently in no distress, unresponsive. Exam/Review of Systems Vital Signs Vitals Vital Signs Date Time Temp Pulse Resp B/P Pulse Ox O2 Delivery O2 Flow Rate FiO2 07/21/16 08:10 65 07/21/16 07:42 98.9 20 104/56 100 07/21/16 06:18 10.0 07/20/16 21:00 Simple Mask Intake and Output 07/20/16 07/20/16 07/21/16 15:00 23:00 07:00 Intake Total 200 ml 1250 ml 588 ml Output Total 1300 ml Balance 200 ml -50 ml 588 ml Exam HEENT examination; supple neck, no JVD. No lymphadenopathy. Midline trachea. No thyromegaly. Pupils are small bilaterally. Chest examination; diminished breath sound bilaterally no added sounds S1-S2 audible, no murmurs. Abdomen examination; soft, G-tube in place. Bowel sounds audible. Abdomen is nondistended. Extremity examination; no peripheral edema. EMERGENCY SERVICE RESTORER examination; patient remains unresponsive. Results Result Diagram: 07/21/16 0734 07/21/16 0734 Results 24 hrs Laboratory Tests Test 07/21/16 07:34 White Blood Count 7.4 # Red Blood Count 2.50 L Hemoglobin 8.0 L Hematocrit 25.3 L Mean Corpuscular Volume 101.2 H Mean Corpuscular Hemoglobin 32.0 Mean Corpuscular Hemoglobin Concent 31.6 L Red Cell Distribution Width 12.3 Platelet Count 263 # Mean Platelet Volume 10.3 Neutrophils % 68.2 Lymphocytes % 20.6 Monocytes % 6.6 Eosinophils % 3.4 Basophils % 0.4 Nucleated Red Blood Cells % 0.0 Neutrophils # 5.0 Lymphocytes # 1.5 Monocytes # 0.5 Eosinophils # 0.3 Basophils # 0.0 Nucleated Red Blood Cells # 0.0 Sodium Level 134 L Potassium Level 4.2 Chloride Level 104 Carbon Dioxide Level 27 Anion Gap 7 L Blood Urea Nitrogen 27 H Creatinine 0.84 Glucose Level 114 Calcium Level 8.9 Medications Medications Current Medications Ondansetron HCl (Zofran Inj) 4 mg Q6H PRN IV NAUSEA AND/OR VOMITING; Start 01/15 at 03:00 Acetaminophen (Tylenol Supp) 650 mg Q4H PRN [place] PAIN LEVEL 1-3 OR FEVER Last administered on 07/18/16 10:02; Admin Dose 650 MG; Start 07/09/16 at 03:00 Morphine Sulfate (morphine) 2 mg Q4H PRN IV PAIN LEVEL 7-10; Start 07/09/16 at 03:00 Guaifenesin/ Dextromethorphan (Robitussin Dm Liquid Cup) 10 ml Q4H PRN GTB COUGH Last administered on 07/21/16 09:24; Admin Dose 10 ML; Start 07/17/16 at 13:30 Ascorbic Acid (Vitamin C) 500 mg DAILY GTB Last administered on 07/21/16 09:07 ; Admin Dose 500 MG; Start 07/17/16 at 14:00 Metoclopramide HCl (Reglan) 10 mg Q8 IV Last administered on 07/21/16 05:48; Admin Dose 10 MG; Start 07/18/16 at 13:00 Furosemide 20 mg 20 mg DAILY IV Last administered on 07/21/16 09:07; Admin Dose 20 MG; Start 07/18/16 at 13:30 Potassium Chloride/Dextrose/ Sod Cl (D5-1/2ns + KCl 10 Meq) 1,000 ml @ 40 mls/ hr Q24H IV Last administered on 07/20/16 22:35; Admin Dose 40 MLS/HR; Start at 13:30 Polyethylene Glycol 17 gm 17 gm DAILY NGT Last administered on 07/21/16 09:07 ; Admin Dose 17 GM; Start 07/19/16 at 11:30 Ciprofloxacin/ Dextrose 200 ml @ 200 mls/hr Q12 IVPB Last administered on 07/21 09:07; Admin Dose 200 MLS/HR; Start 07/19/16 at 12:00 Vancomycin HCl/ Sodium Chloride (Vancocin/NS) 250 ml @ 83.333 mls/ hr Q24H IVPB Last administered on 07/20/16 14:48; Admin Dose 83.333 MLS/HR; Start at 13:00 Amlodipine Besylate (Norvasc) 2.5 mg DAILY PO Last administered on 07/21/16 09 :07; Admin Dose 2.5 MG; Start 07/21/16 at 09:00 Atorvastatin Calcium (Lipitor) 20 mg HS GTB Last administered on 07/20/16 20: 43; Admin Dose 20 MG; Start 07/20/16 at 21:00 Heparin Sodium (Porcine) 5000 unit 5,000 unit BID SC Last administered on 09:07; Admin Dose 5,000 UNIT; Start 07/20/16 at 13:30 Metronidazole (Flagyl 500 Mg (Pmx)) 100 ml @ 100 mls/hr Q8 IVPB Last administered on 07/21/16 05:48; Admin Dose 100 MLS/HR; Start 07/20/16 at 14:00 Lansoprazole (Prevacid) 30 mg DAILY@06 GTB Last administered on 07/21/16 05:48 ; Admin Dose 30 MG; Start 07/21/16 at 06:00 Dutasteride (Avodart) 0.5 mg DAILY GTB ; Start 07/21/16 at 09:00; Status Future Hold JIGNESH LI July 21, 2016 09:45
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
[2016-07-21 16:16] LABS: ADD SCAN DIFF NO
[2016-07-21 16:18] LABS: BASOPHILS % 0.2 % (0.0-2.0); EOSINOPHILS # 0.2 10^3/ul (0.0-0.5); EOSINOPHILS % 2.7 % (0.0-7.0); HEMATOCRIT 26.2 % (42.0-52.0); HEMOGLOBIN 8.5 g/dl (14.0-18.0); LYMPHOCYTES # 1.8 10^3/ul (0.8-2.9); LYMPHOCYTES % 22.5 % (15.0-51.0); MEAN CORPUSCULAR HEMOGLOBIN 32.6 pg (29.0-33.0); MEAN CORPUSCULAR HGB CONC 32.4 g/dl (32.0-37.0); MEAN CORPUSCULAR VOLUME 100.4 fl (82.0-101.0); MEAN PLATELET VOLUME 9.8 fl (7.4-10.4); MONOCYTE # 0.6 10^3/ul (0.3-0.9); NEUTROPHIL # 5.5 10^3/ul (1.6-7.5); NEUTROPHILS % 66.9 % (39.0-77.0); PLATELET COUNT 300 10^3/UL (140-415); RED BLOOD COUNT 2.61 10^6/ul (4.70-6.10); RED CELL DISTRIBUTION WIDTH 12.4 % (11.5-14.5); WHITE BLOOD COUNT 8.2 10^3/ul (4.8-10.8)
[2016-07-21] MEDS: LACTULOSE 30ML CUP PO PRN (17:15)
[2016-07-21] MEDS: ATORVASTATIN 20 MG TAB GTB SCH (22:12)
[2016-07-22] VITALS (10 sets, daily range): BP systolic 120–148; BP diastolic 64–68; PULSE 57–70; RESP 16–24
[2016-07-22] MEDS: METOCLOPRAMIDE 10 MG INJ IV SCH ×2 (05:30→13:52)
[2016-07-22] MEDS: LANSOPRAZOLE 30 MG CAP GTB SCH (05:30)
[2016-07-22] MEDS: D5W-0.45 NACL + KCL 10 MEQ 1,000 ML IV SCH (05:51)
[2016-07-22] MEDS: metroNIDAZOLE 500 MG/NS (PMX) 100 ML IVPB SCH ×2 (05:56→14:54)
[2016-07-22] MEDS ORDERED: LEVOFLOXACIN 500 MG TAB GTB SCH (06:00)
[2016-07-22] MEDS: ASCORBIC ACID 500 MG TAB GTB SCH (09:06)
[2016-07-22] MEDS: AMLODIPINE 2.5 MG TAB PO SCH (09:06)
[2016-07-22] MEDS: FUROSEMIDE 20 MG INJ IV SCH (09:07)
[2016-07-22] MEDS: LACTULOSE 30ML CUP PO PRN (09:07)
[2016-07-22] MEDS: POLYETHYLENE GLYCOL 17 GM PACKET NGT SCH (09:07)
[2016-07-22] MEDS: HEPARIN 5,000 UNIT/0.5 ML VIAL SC SCH (09:12)
[2016-07-22 09:14] LABS: CREATININE 0.79 mg/dl (0.61-1.24); POTASSIUM 4.4 mmol/L (3.5-5.1)
--- NOTE | 2016-07-22 09:50 | CONS ---
Date/Time of Note Date/Time of Note DATE: 07/22/16 TIME: 09:48 Assessment/Plan Assessment/Plan Additional Assessment/Plan Assessment recommendations; 1. Patient admitted for UTI with significant clinical improvement. 2. Advanced dementia. 3. Bronchitis with interval improvement. Continue current treatment. Patient can be discharged to long-term. Prognosis remains poor. Consultation Date/Type/Reason Admit Date/Time July 09, 2016 at 02:49 Type of Consultation: Pulm 24 HR Interval Summary Free Text/Dictation Patient condition is stable. Remains essentially unresponsive due to advanced dementia. Has remained hemodynamically stable. General exam; elderly male, currently in no distress, unresponsive. Exam/Review of Systems Vital Signs Vitals Vital Signs Date Time Temp Pulse Resp B/P Pulse Ox O2 Delivery O2 Flow Rate FiO2 07/22/16 08:09 10.0 07/22/16 08:00 68 07/22/16 07:52 98.6 22 144/67 100 07/21/16 23:58 Simple Mask Intake and Output 07/21/16 07/21/16 07/22/16 15:00 23:00 07:00 Intake Total 900 ml 1680 ml Output Total 1500 ml 650 ml Balance -600 ml 1030 ml Exam HEENT examination; supple neck, no JVD. No lymphadenopathy. Midline trachea. No thyromegaly. Chest examined; improved breath sounds bilaterally. No crackles. S1-S2 audible , no murmurs. Abdomen examination; soft, non-distended. G-tube in place. Bowel sounds audible. Extremity examination; no peripheral edema. RUBY DEVELOPER examination; patient remains unresponsive. Results Result Diagram: 07/21/16 1520 07/22/16 0752 Results 24 hrs Laboratory Tests Test 07/21/16 15:20 07/22/16 07:52 White Blood Count 8.2 Red Blood Count 2.61 L Hemoglobin 8.5 L Hematocrit 26.2 L Mean Corpuscular Volume 100.4 Mean Corpuscular Hemoglobin 32.6 Mean Corpuscular Hemoglobin Concent 32.4 Red Cell Distribution Width 12.4 Platelet Count 300 Mean Platelet Volume 9.8 Neutrophils % 66.9 Lymphocytes % 22.5 Monocytes % 7.0 Eosinophils % 2.7 Basophils % 0.2 Nucleated Red Blood Cells % 0.0 Neutrophils # 5.5 Lymphocytes # 1.8 Monocytes # 0.6 Eosinophils # 0.2 Basophils # 0.0 Nucleated Red Blood Cells # 0.0 Sodium Level 134 L Potassium Level 4.4 Chloride Level 104 Carbon Dioxide Level 28 Anion Gap 6 L Blood Urea Nitrogen 23 H Creatinine 0.79 Glucose Level 116 Calcium Level 9.0 Medications Medications Current Medications Ondansetron HCl (Zofran Inj) 4 mg Q6H PRN IV NAUSEA AND/OR VOMITING; Start 01/15 at 03:00 Acetaminophen (Tylenol Supp) 650 mg Q4H PRN [place] PAIN LEVEL 1-3 OR FEVER Last administered on 07/18/16 10:02; Admin Dose 650 MG; Start 07/09/16 at 03:00 Morphine Sulfate (morphine) 2 mg Q4H PRN IV PAIN LEVEL 7-10; Start 07/09/16 at 03:00 Guaifenesin/ Dextromethorphan (Robitussin Dm Liquid Cup) 10 ml Q4H PRN GTB COUGH Last administered on 07/21/16 22:39; Admin Dose 10 ML; Start 07/17/16 at 13:30 Ascorbic Acid (Vitamin C) 500 mg DAILY GTB Last administered on 07/22/16 09:06 ; Admin Dose 500 MG; Start 07/17/16 at 14:00 Metoclopramide HCl (Reglan) 10 mg Q8 IV Last administered on 07/22/16 05:30; Admin Dose 10 MG; Start 07/18/16 at 13:00 Furosemide 20 mg 20 mg DAILY IV Last administered on 07/22/16 09:07; Admin Dose 20 MG; Start 07/18/16 at 13:30 Potassium Chloride/Dextrose/ Sod Cl (D5-1/2ns + KCl 10 Meq) 1,000 ml @ 40 mls/ hr Q24H IV Last administered on 07/22/16 05:51; Admin Dose 40 MLS/HR; Start at 13:30 Polyethylene Glycol (Miralax) 17 gm DAILY NGT Last administered on 07/22/16 09 :07; Admin Dose 17 GM; Start 07/19/16 at 11:30 Amlodipine Besylate (Norvasc) 2.5 mg DAILY PO Last administered on 07/22/16 09 :06; Admin Dose 2.5 MG; Start 07/21/16 at 09:00 Atorvastatin Calcium (Lipitor) 20 mg HS GTB Last administered on 07/21/16 22: 12; Admin Dose 20 MG; Start 07/20/16 at 21:00 Heparin Sodium (Porcine) 5000 unit 5,000 unit BID SC Last administered on 09:12; Admin Dose 5,000 UNIT; Start 07/20/16 at 13:30 Metronidazole (Flagyl 500 Mg (Pmx)) 100 ml @ 100 mls/hr Q8 IVPB Last administered on 07/22/16 05:56; Admin Dose 100 MLS/HR; Start 07/20/16 at 14:00 Lansoprazole (Prevacid) 30 mg DAILY@06 GTB Last administered on 07/22/16 05:30 ; Admin Dose 30 MG; Start 07/21/16 at 06:00 Dutasteride (Avodart) 0.5 mg DAILY GTB ; Start 07/21/16 at 09:00; Status Future Hold Levofloxacin (Levaquin) 500 mg DAILY@06 GTB Last administered on 07/22/16 05: 30; Admin Dose 500 MG; Start 07/22/16 at 06:00 Lactulose (Enulose) 30 gm BID PRN PO CONSTIPATION Last administered on 09:07; Admin Dose 30 GM; Start 07/21/16 at 17:00 JIGNESH IL July 22, 2016 09:50
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
== END 2016-07-22 18:42 | DRG 871 ==
LOC: E/R 23:19 → ICU 07-09 02:49 → TEL 07-11 13:12 → MS2 07-14 16:47 → MS4 07-18 23:56
PROVIDERS: ADMIT Internal Medicine; ATTEND Internal Medicine
PROC: 5A1945Z Respiratory Ventilation, 24-96 Consecutive Hours (ICD-10-PCS; principal; 2016-07-08)
PROC: 0BH17EZ Insertion of Endotracheal Airway into Trachea, Via Natural or Artificial Opening (ICD-10-PCS; 2016-07-08)
DX: A41.9 Sepsis, unspecified organism (principal); R57.1 Hypovolemic shock; J96.21 Acute and chronic respiratory failure with hypoxia; J69.0 Pneumonitis due to inhalation of food and vomit; J18.9 Pneumonia, unspecified organism; N17.9 Acute kidney failure, unspecified; G92 Toxic encephalopathy; E87.1 Hypo-osmolality and hyponatremia; N39.0 Urinary tract infection, site not specified; R71.0 Precipitous drop in hematocrit; L03.113 Cellulitis of right upper limb; H70.002 Acute mastoiditis without complications, left ear; D64.9 Anemia, unspecified; R40.2432 Glasgow coma scale score 3-8, at arrival to emergency department; I10 Essential (primary) hypertension; G40.909 Epilepsy, unspecified, not intractable, without status epilepticus; F03.90 Unspecified dementia, unspecified severity, without behavioral disturbance, psychotic disturbance, mood disturbance, and anxiety; R47.02 Dysphasia; G25.0 Essential tremor; N40.1 Benign prostatic hyperplasia with lower urinary tract symptoms; E78.00 Pure hypercholesterolemia, unspecified; Z87.820 Personal history of traumatic brain injury; J42 Unspecified chronic bronchitis
CPT/HCPCS: 31500; 36415; 36600; 70450; 70551; 71010; 80048; 80053; 80202; 81001; 81003; 82140; 82565; 82607; 82728; 82803; 82962; 83540; 83605; 83735; 83880; 84100; 84484; 84520; 85014; 85018; 85025; 85610; 85730; 86592; 86803; 86850; 86900; 86901; 86920; 87040; 87081; 87086; 87340; 92610; 93005; 93306; 94002; 94003; 94640; 94664; 94770; 95819; 96365; 96366; 96367; 96368; 96375; 96376; 97110; 97162; 97530; J1940; J0692; J0744; J1644; J2250; J2405; J2543; J2765; J3370; J3480; J7030; J7042; J7050

== ENCOUNTER 2016-08-07 00:23 | Inpatient (IN) | payer MEDICARE, OTHER ==
[2016-08-07] VITALS (24 sets, daily range): BP systolic 97–121; BP diastolic 38–88; PULSE 94–111; RESP 16–31; Ht 165.1 cm; Wt 59.1 kg
[~2016-08-07] VITALS: Ht 165.1 cm; Wt 59.1 kg
[~2016-08-07 00:23] MED LIST: ACET325T45 G-TUBE; ALBU2.5V3 NEB; AMLO5TAB4 G-TUBE; ASCO500S2 G-TUBE; BENHCT2012 G-TUBE; CRES10 G-TUBE; DUTA0.5C G-TUBE; ESOM40CA G-TUBE; IPRA3AMP INHALATION; LACT1CAP24 G-TUBE; LEVO500T72 PO; MAGN400O4 G-TUBE; MULT-105 G-TUBE; UDROBDM G-TUBE
[2016-08-07] MEDS ORDERED: ACETAMINOPHEN 650 MG SUPP PR PRN (00:30)
[2016-08-07] MEDS ORDERED: ONDANSETRON 4 MG INJ IV PRN (00:30)
[2016-08-07] MEDS ORDERED: ALBUTEROL/IPRATROPIUM (NEB) 3 ML AMP HHN PRN (00:30)
[2016-08-07] MEDS ORDERED: LACTULOSE 30ML CUP GTB PRN (00:30)
[2016-08-07] MEDS ORDERED: IPRATROPIUM (HFA) 12.9 GM INHALER INH PRN (00:30)
[2016-08-07] MEDS ORDERED: NYSTATIN 30 GM POWDER BTL TOP PRN (01:00)
[2016-08-07] MEDS ORDERED: PENDING SANTYL ORDER FOR WOUND CARE XX PRN (04:00)
[2016-08-07] MEDS ORDERED: LANSOPRAZOLE 30 MG CAP GTB SCH (06:00)
[2016-08-07 07:23] LABS: ADD SCAN DIFF NO
[2016-08-07 07:27] LABS: BASOPHILS % 0.2 % (0.0-2.0); EOSINOPHILS % 0.1 % (0.0-7.0); HEMATOCRIT 36.8 % (42.0-52.0); HEMOGLOBIN 11.2 g/dl (14.0-18.0); LYMPHOCYTES # 3.1 10^3/ul (0.8-2.9); LYMPHOCYTES % 18.1 % (15.0-51.0); MEAN CORPUSCULAR HGB CONC 30.4 g/dl (32.0-37.0); MEAN CORPUSCULAR VOLUME 108.6 fl (82.0-101.0); MEAN PLATELET VOLUME 11.5 fl (7.4-10.4); MONOCYTE # 0.8 10^3/ul (0.3-0.9); MONOCYTES % 4.7 % (0.0-11.0); NEUTROPHIL # 12.9 10^3/ul (1.6-7.5); NEUTROPHILS % 76.4 % (39.0-77.0); PLATELET COUNT 268 10^3/UL (140-415); RED BLOOD COUNT 3.39 10^6/ul (4.70-6.10); RED CELL DISTRIBUTION WIDTH 14.5 % (11.5-14.5); WHITE BLOOD COUNT 16.9 10^3/ul (4.8-10.8)
[2016-08-07 07:49] LABS: CALCIUM 10.1 mg/dl (8.4-10.2); CREATININE 1.03 mg/dl (0.61-1.24); MAGNESIUM 2.9 mg/dl (1.7-2.5); PHOSPHORUS 4.6 mg/dl (2.5-4.9); POTASSIUM 4.3 mmol/L (3.5-5.1)
[2016-08-07] MEDS: LACTOBACILLUS RHAMNOSUS CAP GTB SCH ×2 (09:00→20:43)
[2016-08-07] MEDS: ASCORBIC ACID 500 MG TAB GTB SCH (09:00)
[2016-08-07] MEDS: AMLODIPINE 2.5 MG TAB GTB SCH (09:00)
[2016-08-07] MEDS: FINASTERIDE 5 MG TAB GTB SCH (09:00)
[2016-08-07] MEDS ORDERED: ALBUTEROL/IPRATROPIUM (NEB) 3 ML AMP HHN SCH (09:00)
[2016-08-07] MEDS ORDERED: HEPARIN 5,000 UNIT/0.5 ML VIAL SC SCH (09:00)
[2016-08-07] MEDS: ACETYLCYSTEINE 20% 4 ML VIAL NEB SCH ×2 (09:15→20:08)
[2016-08-07 09:26] LABS: INR 1.26; PROTIME 15.9 Sec (12.2-14.2); PT RATIO 1.2
[2016-08-07 09:27] LABS: PARTIAL THROMBOPLASTIN TIME 33.7 Sec (25.0-35.0)
[2016-08-07] MEDS: NYSTATIN 30 GM POWDER BTL TOP SCH ×2 (09:37→20:44)
[2016-08-07] MEDS: ARTIFICIAL TEARS 15 ML OPH BOTH EYES SCH ×2 (09:37→20:43)
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
[2016-08-07] MEDS ORDERED: LEVOFLOXACIN 500MG/D5W (PMX) 100 ML IVPB SCH ×2 (12:00)
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
[2016-08-07] MEDS ORDERED: LACTOBACILLUS RHAMNOSUS CAP PO SCH (13:00)
[2016-08-07] MEDS: SOD CHLORIDE 0.45% 1,000 ML IV SCH (13:19)
[2016-08-07 15:33] LABS: ADD UMIC YES; UR BILIRUBIN (Dip) NEGATIVE (NEGATIVE); UR BLOOD (Dip) NEGATIVE (NEGATIVE); UR CLARITY CLEAR (CLEAR); UR COLOR LT. YELLOW (YELLOW); UR GLUCOSE (Dip) NEGATIVE (NEGATIVE); UR KETONES (Dip) NEGATIVE (NEGATIVE); UR LEUKOCYTE ESTERASE (Dip) TRACE (NEGATIVE); UR NITRITE (Dip) NEGATIVE (NEGATIVE); UR TOTAL PROTEIN (Dip) TRACE (NEGATIVE); UR UROBILINOGEN (Dip) 0.2 E.U./dL (0.1-1.0)
--- NOTE | 2016-08-07 15:33 | RADRPT ---
PROCEDURE: XR Abdomen. CLINICAL INDICATION: Abdominal pain, gastrostomy tube evaluation. TECHNIQUE: AP abdomen x-ray. COMPARISON: None. FINDINGS: Gastrostomy tube has its distal end over the expected location of the stomach. Scattered air and st ool are noted in the colon. No dilated loops of small bowel are observed. No organomegaly is observ ed. Rounded calcifications are seen over the right upper quadrant. Degenerative changes are seen i n the hips and spine. IMPRESSION: Gastrostomy tube with its distal end over the expected location of the stomach. Nonspecific bowel gas pattern. Rounded calcifications of the right upper quadrant that may reflect gallstones or potentially renal stones. If further characterization is needed CT can be considered. If further characterization of the abdomen is needed CT is recommended. RPTAT: AA .Rico Null MD, Date Time Electronically viewed and signed by .Rico Null MD, on 08/07/2016 15:33 .P/
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
[2016-08-07 15:40] LABS: UR BACTERIA FEW
[2016-08-07] MEDS: ALBUTEROL/IPRATROPIUM (NEB) 3 ML AMP HHN SCH (16:17)
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
--- NOTE | 2016-08-07 18:33 | RADRPT ---
PROCEDURE: MR Brain with and without contrast. CLINICAL INDICATION: Encephalopathy. TECHNIQUE: Multiplanar multisequence MRI of the brain was performed before and after the administra tion of 10 cc of Magnevist. COMPARISON: Noncontrast CT of the head from August 05, 2016 as well as the noncontrast MRI of the brai n from July 13, 2016. FINDINGS: There is a left frontal elsa hole. There is severe ventricular dilatation greater than mild sulcal prominence suggesting central greate r than peripheral volume loss. There are 9 mm bilateral frontal subdural collection/hygromas. There is a thin peripheral dural enh ancement within this region without evidence of circumferential peripheral enhancement to suggest pompa bdural empyema. This is unchanged in appearance compared to the prior examination. There is moderate bilateral hippocampal volume loss. There are moderate confluent periventricular scattered bilateral subcortical T2 hyperintensities sug gesting chronic microvascular ischemic changes. There is no acute infarction. There is no intracranial hemorrhage or extra-axial fluid collection. There is no midline shift. The brainstem is within normal limits. The posterior fossa is unremarkable. The normal intracranial, intravascular flow voids are preserved. The orbits are grossly unremarkable. The visualized paranasal sinuses are well-aerated. There is no destructive osseous lesion. There are moderate to extensive left and mild right mastoid air cell effusions which are unchanged. IMPRESSION: No significant change since MRI of the brain from July 13, 2016. 1. No acute infarction or intracranial hemorrhage. 2. Severe ventriculomegaly which is greater than sulcal prominence suggesting central greater than p eripheral volume loss. A component of normal pressure hydrocephalus is not excluded. 3. Stable chronic bilateral frontal subdural collections/hygromas without evidence of subdural empy emas. 4. Moderate bilateral hippocampal volume loss. 5. Left frontal elsa hole. 6. No abnormal intracranial enhancement. Further findings as detailed above. RPTAT: PP .Mervin Blake MD, Date Time Electronically viewed and signed by .Mervin Blake MD, MD on 08/07/2016 18:32 .F/
[2016-08-07] MEDS: ALBUTEROL/IPRATROPIUM (NEB) 3 ML AMP HHN PRN (20:08)
[2016-08-07] MEDS: FAMOTIDINE 20 MG TAB GTB SCH (20:43)
[2016-08-07] MEDS: ATORVASTATIN 20 MG TAB GTB SCH (20:43)
[2016-08-07] MEDS: METOPROLOL 25 MG TAB PO SCH (20:44)
[2016-08-08] VITALS (23 sets, daily range): BP systolic 97–136; BP diastolic 62–109; PULSE 81–110; RESP 23–36
[2016-08-08] MEDS: ALBUTEROL/IPRATROPIUM (NEB) 3 ML AMP HHN SCH ×3 (01:00→16:42)
[2016-08-08] MEDS: CEFTRIAXONE 1 GM/50 ML (PMX) 50 ML IVPB SCH (01:45)
[2016-08-08] MEDS ORDERED: METOCLOPRAMIDE 10 MG INJ IV ONE (03:00)
[2016-08-08 06:31] LABS: ADD SCAN DIFF NO
[2016-08-08 06:35] LABS: BASOPHILS % 0.2 % (0.0-2.0); EOSINOPHILS # 0.1 10^3/ul (0.0-0.5); EOSINOPHILS % 0.5 % (0.0-7.0); HEMOGLOBIN 10.8 g/dl (14.0-18.0); LYMPHOCYTES # 2.3 10^3/ul (0.8-2.9); LYMPHOCYTES % 17.5 % (15.0-51.0); MEAN CORPUSCULAR HEMOGLOBIN 32.9 pg (29.0-33.0); MEAN CORPUSCULAR VOLUME 109.8 fl (82.0-101.0); MEAN PLATELET VOLUME 11.8 fl (7.4-10.4); MONOCYTE # 0.7 10^3/ul (0.3-0.9); MONOCYTES % 5.3 % (0.0-11.0); NEUTROPHILS % 75.7 % (39.0-77.0); PLATELET COUNT 243 10^3/UL (140-415); RED BLOOD COUNT 3.28 10^6/ul (4.70-6.10); RED CELL DISTRIBUTION WIDTH 14.5 % (11.5-14.5); WHITE BLOOD COUNT 13.2 10^3/ul (4.8-10.8)
[2016-08-08 06:52] LABS: INR 1.22; PROTIME 15.5 Sec (12.2-14.2); PT RATIO 1.2
[2016-08-08 07:02] LABS: PHOSPHORUS 4.7 mg/dl (2.5-4.9)
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
[2016-08-08 08:13] LABS: ALBUMIN 3.2 g/dl (3.3-4.9); ALBUMIN/GLOBULIN RATIO 1.18; BILIRUBIN,INDIRECT 0.2 mg/dl (0-1.1); BILIRUBIN,TOTAL 0.2 mg/dl (0.2-1.3); CALCIUM 10.5 mg/dl (8.4-10.2); CREATININE 1.18 mg/dl (0.61-1.24); POTASSIUM 4.1 mmol/L (3.5-5.1); TOTAL PROTEIN 5.9 g/dl (6.1-8.1)
[2016-08-08] MEDS: ACETYLCYSTEINE 20% 4 ML VIAL NEB SCH ×2 (08:21→19:29)
[2016-08-08] MEDS: AMLODIPINE 2.5 MG TAB GTB SCH (08:31)
[2016-08-08] MEDS: LACTOBACILLUS RHAMNOSUS CAP GTB SCH ×2 (08:31→21:07)
[2016-08-08] MEDS: ASCORBIC ACID 500 MG TAB GTB SCH (08:31)
[2016-08-08] MEDS: BACLOFEN 10 MG TAB PO PRN (08:31)
[2016-08-08] MEDS: FINASTERIDE 5 MG TAB GTB SCH (08:31)
[2016-08-08] MEDS: METOPROLOL 25 MG TAB PO SCH ×2 (08:31→21:08)
[2016-08-08] MEDS: NYSTATIN 30 GM POWDER BTL TOP SCH ×2 (08:32→21:08)
[2016-08-08] MEDS: SOD CHLORIDE 0.45% 1,000 ML IV SCH (08:32)
[2016-08-08 08:33] LABS: THYROID STIMULATING HORMONE 2.49 MIU/L (0.465-4.680)
[2016-08-08] MEDS: ARTIFICIAL TEARS 15 ML OPH BOTH EYES SCH ×2 (08:33→21:07)
[2016-08-08 09:31] LABS: AADO2 Arterial 74.4 mmHg (7.0-24.0); Arterial Base Excess -1.7 mmol/L (-3.0-3); Arterial COHb 0.3 % (0.0-3.0); Arterial Fraction of Oxyhgb 94.6 % (93.0-99.0); Arterial HCO3 21.3 mmol/L (22.0-26.0); Arterial MetHb 0.3 % (0.0-1.5); Arterial Total Hemglobin 11.8 g/dl (12.0-18.0); MODE NASAL CANNULA
--- NOTE | 2016-08-08 10:17 | RADRPT ---
PROCEDURE: XR Chest. CLINICAL INDICATION: Congestive heart failure. Pneumonia. TECHNIQUE: Single frontal chest x-ray. COMPARISON: 07/30/2016 FINDINGS: The lungs are clear of acute infiltrates, edema, effusions, or masses. Low volumes with mild bibasil ar atelectasis unchanged.. The cardiomediastinal silhouette is unremarkable. The osseous structures are intact. Right axillary node dissection clips are present. Multiple artifacts overlying the ch est limit evaluation. IMPRESSION: Low lung volumes with mild bibasilar atelectasis unchanged.. RPTAT: QQ .Regan Collins MD, Date Time Electronically viewed and signed by .Regan Collins MD, MD on 08/08/2016 10:17 .L/
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
[2016-08-08] MEDS ORDERED: LEVOFLOXACIN 250MG/D5W (PMX) 50 ML IVPB SCH (12:00)
[2016-08-08] MEDS: DEXTROSE 5% 1,000 ML IV SCH ×2 (12:12→22:41)
--- NOTE | 2016-08-08 15:12 | CONS ---
Date/Time of Note Date/Time of Note DATE: 08/08/16 TIME: 15:10 Consult Date/Type/Reason Admit Date/Time Aug 07, 2016 at 00:23 Initial Consult Date 08/07/16 Type of Consultation: Pulm Ordering Provider: JESUS STUART Subjective Remains confused. Objective Vital Signs Date Time Temp Pulse Resp B/P Pulse Ox O2 Delivery O2 Flow Rate FiO2 08/08/16 15:00 108 23 120/91 98 Nasal Cannula 2.0 08/08/16 12:00 97.0 08/08/16 08:31 28 Intake and Output 08/07/16 08/07/16 08/08/16 15:00 23:00 07:00 Intake Total 490 ml 430 ml 450 ml Output Total 300 ml 470 ml 170 ml Balance 190 ml -40 ml 280 ml Exam HEENT: Neck supple; no JVD; no LAD CVS: RRR, S1 and S2 CHEST: Clear ABD: Soft, NT, + BS EXT: No c/c/e Results/Medications Result Diagram: 08/08/16 0600 08/08/16 0600 Results 24 hrs Laboratory Tests Test 08/07/16 15:15 08/07/16 18:50 08/08/16 00:39 08/08/16 06:00 Urine Color LT. YELLOW Urine Clarity CLEAR Urine pH 6.5 Urine Specific [place] 1.015 Urine Ketones NEGATIVE Urine Nitrite NEGATIVE Urine Bilirubin NEGATIVE Urine Urobilinogen 0.2 E.U./dL Urine Leukocyte Esterase TRACE H Urine Microscopic RBC 5-10 Urine Microscopic WBC 10-25 Urine Epithelial Cells FEW Urine Bacteria FEW Urine Hemoglobin NEGATIVE Urine Osmolality 764 Urine Glucose NEGATIVE Urine Total Protein TRACE Troponin I 0.035 0.034 0.038 White Blood Count 13.2 #H Red Blood Count 3.28 L Hemoglobin 10.8 L Hematocrit 36.0 L Mean Corpuscular Volume 109.8 H Mean Corpuscular Hemoglobin 32.9 Mean Corpuscular Hemoglobin Concent 30.0 L Red Cell Distribution Width 14.5 Platelet Count 243 Mean Platelet Volume 11.8 H Neutrophils % 75.7 Lymphocytes % 17.5 Monocytes % 5.3 Eosinophils % 0.5 Basophils % 0.2 Nucleated Red Blood Cells % 0.0 Neutrophils # 10.0 H Lymphocytes # 2.3 Monocytes # 0.7 Eosinophils # 0.1 Basophils # 0.0 Nucleated Red Blood Cells # 0.0 Prothrombin Time 15.5 H Prothrombin Time Ratio 1.2 INR International Normalized Ratio 1.22 Sodium Level 161 *H Potassium Level 4.1 Chloride Level 124 H Carbon Dioxide Level 24 Anion Gap 17 H Blood Urea Nitrogen 80 H Creatinine 1.18 Glucose Level 98 Hemoglobin A1c 4.4 Osmolality 350 H Uric Acid 8.7 H Calcium Level 10.5 H Phosphorus Level 4.7 Magnesium Level 3.0 H Total Bilirubin 0.2 Direct Bilirubin 0.00 Indirect Bilirubin 0.2 Aspartate Amino Transf (AST/SGOT) 31 Alanine Aminotransferase (ALT/SGPT) 61 Alkaline Phosphatase 107 Total Protein 5.9 L Albumin 3.2 L Globulin 2.70 Albumin/Globulin Ratio 1.18 Thyroid Stimulating Hormone (TSH) 2.490 Test 08/08/16 07:00 Blood Gas Specimen Source Blood arterial Arterial Blood Date Drawn 08/08/2016 9:15:55 AM Arterial Blood pH (Temp corrected) 7.459 H Arterial Blood pCO2 (Temp correct) 30.7 L Arterial Blood pO2 (Temp corrected) 81.8 Arterial Blood HCO3 21.3 L Arterial Blood Base Excess -1.7 Arterial Blood Oxygen Saturation 95.2 Tavo Test N/A Arterial Blood Gas Puncture Site Right Brachial Arterial Blood Carboxyhemoglobin 0.3 Arterial Blood Methemoglobin 0.3 Blood Gas A-a O2 Differential 74.4 H Oxyhemoglobin Percent 94.6 Total Hemoglobin 11.8 L Blood Gas Temperature 37.0 Blood Gas Modality NASAL CANNULA FiO2 27.0 Blood Gas Notified Whom CW Blood Gas Notified Time 08/08/2016 9:30:45 AM Medications Current Medications Lactobacillus Acidophilus/ Rhamnosus (Culturelle) 1 cap BID GTB Last administered on 08/08/16 08:31; Admin Dose 1 CAP; Start 08/07/16 at 09:00 Lactulose (Enulose) 20 gm BID PRN GTB CONSTIPATION; Start 08/07/16 at 00:30 Nystatin (Nystatin Powder) 1 applic Q12 TOP Last administered on 08/08/16 08: 32; Admin Dose 1 APPLIC; Start 08/07/16 at 09:00 Nystatin (Nystatin Powder) 1 applic PRN PRN TOP NEEDED; Start 08/07/16 at 01: 00 Ondansetron HCl (Zofran Inj) 4 mg Q6H PRN IV NAUSEA AND/OR VOMITING; Start 08/07 at 00:30 Acetaminophen (Tylenol Supp) 650 mg Q4H PRN [place] PAIN AND OR ELEVATED TEMP; Start 08/07/16 at 00:30 Amlodipine Besylate (Norvasc) 2.5 mg DAILY GTB Last administered on 08/08/16 08:31; Admin Dose 2.5 MG; Start 08/07/16 at 09:00 Eye Lubricant (Artificial Tears Oph) 1 drop Q12 BOTH EYES Last administered on 08/08/16 08:33; Admin Dose 1 DROP; Start 08/07/16 at 09:00 Eye Lubricant (Artificial Tears Oph) 1 drop PRN PRN BOTH EYES DRY EYES; Start 08/07/16 at 01:00 Ascorbic Acid (Vitamin C) 500 mg DAILY GTB Last administered on 08/08/16 08:31 ; Admin Dose 500 MG; Start 08/07/16 at 09:00 Atorvastatin Calcium (Lipitor) 20 mg DAILY@21 GTB Last administered on 20:43; Admin Dose 20 MG; Start 08/07/16 at 21:00 Finasteride (Proscar) 5 mg DAILY GTB Last administered on 08/08/16 08:31; Admin Dose 5 MG; Start 08/07/16 at 09:00 Miscellaneous Information This patient trent... PRN PRN XX WOUND CARE; Start at 04:00 Levofloxacin/ Dextrose (Levaquin 250 Mg/ D5W 50 ml (Pmx)) 50 ml @ 50 mls/hr Q24H IVPB Last administered on 08/08/16 11:57; Admin Dose 50 MLS/HR; Start 12/15 at 12:00 Famotidine (Pepcid) 20 mg HS GTB Last administered on 08/07/16 20:43; Admin Dose 20 MG; Start 08/07/16 at 21:00 Metoprolol Tartrate 25 mg 25 mg BID PO Last administered on 08/08/16 08:31; Admin Dose 25 MG; Start 08/07/16 at 21:00 Ceftriaxone Sodium (Rocephin) 50 ml @ 100 mls/hr Q24H IVPB Last administered on 08/08/16 01:45; Admin Dose 100 MLS/HR; Start 08/08/16 at 01:00 Baclofen 10 mg 10 mg TID PRN PO NOTE Last administered on 08/08/16 08:31; Admin Dose 10 MG; Start 08/08/16 at 03:00 Dextrose (D5W) 1,000 ml @ 125 mls/hr Q8H IV Last administered on 08/08/16 12: 12; Admin Dose 125 MLS/HR; Start 08/08/16 at 12:30 Assessment/Plan Additional Assessment/Plan IMP: 1. 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 HyperNa+ 4. Anemia RECS: 1. Aspiration precautions 2. Await [employer] [employer] shunt placement by NS 3. Follow Na+ TANGELA DYER MD Aug 08, 2016 15:12
[2016-08-08] MEDS: ALBUTEROL/IPRATROPIUM (NEB) 3 ML AMP HHN PRN (19:30)
[2016-08-08 19:36] LABS: AADO2 Arterial 95.7 mmHg (7.0-24.0); Arterial Base Excess -1.5 mmol/L (-3.0-3); Arterial COHb 0.3 % (0.0-3.0); Arterial Fraction of Oxyhgb 95.3 % (93.0-99.0); Arterial HCO3 20.8 mmol/L (22.0-26.0); Arterial MetHb 0.3 % (0.0-1.5); MODE NASAL CANNULA
[2016-08-08] MEDS: FAMOTIDINE 20 MG TAB GTB SCH (21:07)
[2016-08-08] MEDS: ATORVASTATIN 20 MG TAB GTB SCH (21:07)
[2016-08-09] VITALS (24 sets, daily range): BP systolic 99–137; BP diastolic 62–89; PULSE 67–94; RESP 16–30
[2016-08-09] MEDS: CEFTRIAXONE 1 GM/50 ML (PMX) 50 ML IVPB SCH (01:10)
[2016-08-09] MEDS ORDERED: LEVOFLOXACIN 250 MG TAB GTB SCH (06:00)
[2016-08-09 06:06] LABS: ADD SCAN DIFF NO
[2016-08-09 06:13] LABS: BASOPHILS % 0.2 % (0.0-2.0); EOSINOPHILS % 0.2 % (0.0-7.0); LYMPHOCYTES # 2.1 10^3/ul (0.8-2.9); LYMPHOCYTES % 16.7 % (15.0-51.0); MEAN CORPUSCULAR HEMOGLOBIN 31.6 pg (29.0-33.0); MEAN CORPUSCULAR HGB CONC 29.4 g/dl (32.0-37.0); MEAN CORPUSCULAR VOLUME 107.6 fl (82.0-101.0); MEAN PLATELET VOLUME 11.8 fl (7.4-10.4); MONOCYTE # 0.7 10^3/ul (0.3-0.9); MONOCYTES % 5.6 % (0.0-11.0); NEUTROPHIL # 9.7 10^3/ul (1.6-7.5); PLATELET COUNT 226 10^3/UL (140-415); RED BLOOD COUNT 3.16 10^6/ul (4.70-6.10); RED CELL DISTRIBUTION WIDTH 14.3 % (11.5-14.5); WHITE BLOOD COUNT 12.5 10^3/ul (4.8-10.8)
[2016-08-09 06:35] LABS: CREATININE 1.13 mg/dl (0.61-1.24); MAGNESIUM 2.8 mg/dl (1.7-2.5); PHOSPHORUS 4.2 mg/dl (2.5-4.9); POTASSIUM 3.3 mmol/L (3.5-5.1)
[2016-08-09] MEDS: DEXTROSE 5% 1,000 ML IV SCH ×3 (07:26→17:30)
[2016-08-09] MEDS: ACETYLCYSTEINE 20% 4 ML VIAL NEB SCH ×2 (07:31→19:30)
[2016-08-09] MEDS: ALBUTEROL/IPRATROPIUM (NEB) 3 ML AMP HHN SCH ×3 (07:31→16:00)
[2016-08-09] MEDS: FINASTERIDE 5 MG TAB GTB SCH (08:33)
[2016-08-09] MEDS: ASCORBIC ACID 500 MG TAB GTB SCH (08:33)
[2016-08-09] MEDS: LACTOBACILLUS RHAMNOSUS CAP GTB SCH ×2 (08:34→21:27)
[2016-08-09] MEDS: BACLOFEN 10 MG TAB PO PRN ×2 (08:34→21:27)
[2016-08-09] MEDS: METOPROLOL 25 MG TAB PO SCH ×2 (08:34→21:00)
[2016-08-09] MEDS: NYSTATIN 30 GM POWDER BTL TOP SCH ×2 (08:34→21:27)
--- NOTE | 2016-08-09 08:34 | RADRPT ---
PROCEDURE: XR Chest. CLINICAL INDICATION: Shortness of breath. TECHNIQUE: Single frontal chest x-ray. COMPARISON: 08/08/2016 07:56 a.m. FINDINGS: The lung apices are not included on this exam. There is mild central vascular crowding versus conge stion. Otherwise, the lungs are clear of acute infiltrates, edema, effusions, or masses. Low volume s with mild bibasilar atelectasis unchanged. The cardiomediastinal silhouette is unremarkable. The osseous structures are intact. Right axillary node dissection clips are present. Multiple artifact s overlying the chest limit evaluation. IMPRESSION: Hypoinflation with mild central vascular crowding versus mild congestion. Otherwise, no significant interval change. RPTAT: AA .Wagner Mariano MD, Date Time Electronically viewed and signed by .Wagner Mariano MD, on 08/09/2016 08:34 .A/
[2016-08-09] MEDS: ARTIFICIAL TEARS 15 ML OPH BOTH EYES SCH ×2 (08:35→21:28)
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
[2016-08-09] MEDS ORDERED: ONDANSETRON 4 MG INJ IV PRN (12:30)
[2016-08-09] MEDS ORDERED: ACETAMINOPHEN 325 MG TAB PO PRN (12:30)
[2016-08-09] MEDS ORDERED: NACL 0.9% 3 ML SYG IV SCH (12:30)
[2016-08-09] MEDS ORDERED: ACETAMINOPHEN 650 MG SUPP PR PRN (12:30)
--- NOTE | 2016-08-09 14:03 | CONS ---
Date/Time of Note Date/Time of Note DATE: 08/09/16 TIME: 14:01 Consult Date/Type/Reason Admit Date/Time Aug 07, 2016 at 00:23 Initial Consult Date 08/07/16 Type of Consultation: Pulm Ordering Provider: JESUS STUART Subjective Appreciate cards input. No events. Objective Vital Signs Date Time Temp Pulse Resp B/P Pulse Ox O2 Delivery O2 Flow Rate FiO2 08/09/16 13:00 22 120/69 98 Nasal Cannula 2.0 08/09/16 12:00 97.8 70 08/09/16 04:33 27 Intake and Output 08/08/16 08/08/16 08/09/16 15:00 23:00 07:00 Intake Total 675 ml 1000 ml 775 ml Output Total 165 ml 350 ml 100 ml Balance 510 ml 650 ml 675 ml Exam HEENT: Neck supple; no JVD; no LAD CVS: RRR, S1 and S2 CHEST: Clear ABD: Soft, NT, + BS EXT: No c/c/e Results/Medications Result Diagram: 08/09/16 0536 08/09/16 0536 Results 24 hrs Laboratory Tests Test 08/08/16 19:03 08/09/16 05:36 Blood Gas Specimen Source Blood arterial Arterial Blood Date Drawn 08/08/2016 7:20:48 PM Arterial Blood pH (Temp corrected) 7.486 H Arterial Blood pCO2 (Temp correct) 28.2 L Arterial Blood pO2 (Temp corrected) 85.1 Arterial Blood HCO3 20.8 L Arterial Blood Base Excess -1.5 Arterial Blood Oxygen Saturation 95.9 Tavo Test N/A Arterial Blood Gas Puncture Site Right Brachial Arterial Blood Carboxyhemoglobin 0.3 Arterial Blood Methemoglobin 0.3 Blood Gas A-a O2 Differential 95.7 H Oxyhemoglobin Percent 95.3 Total Hemoglobin 12.0 Blood Gas Temperature 37.0 Blood Gas Modality NASAL CANNULA FiO2 30.0 Blood Gas Notified Whom UP Blood Gas Notified Time 08/08/2016 7:36:49 PM White Blood Count 12.5 H Red Blood Count 3.16 L Hemoglobin 10.0 L Hematocrit 34.0 L Mean Corpuscular Volume 107.6 H Mean Corpuscular Hemoglobin 31.6 Mean Corpuscular Hemoglobin Concent 29.4 L Red Cell Distribution Width 14.3 Platelet Count 226 Mean Platelet Volume 11.8 H Neutrophils % 77.0 Lymphocytes % 16.7 Monocytes % 5.6 Eosinophils % 0.2 Basophils % 0.2 Nucleated Red Blood Cells % 0.0 Neutrophils # 9.7 H Lymphocytes # 2.1 Monocytes # 0.7 Eosinophils # 0.0 Basophils # 0.0 Nucleated Red Blood Cells # 0.0 Sodium Level 151 H Potassium Level 3.3 L Chloride Level 119 H Carbon Dioxide Level 25 Anion Gap 10 # Blood Urea Nitrogen 74 H Creatinine 1.13 Glucose Level 147 # Calcium Level 10.0 Phosphorus Level 4.2 Magnesium Level 2.8 H Medications Current Medications Lactobacillus Acidophilus/ Rhamnosus (Culturelle) 1 cap BID GTB Last administered on 08/09/16 08:34; Admin Dose 1 CAP; Start 08/07/16 at 09:00 Lactulose (Enulose) 20 gm BID PRN GTB CONSTIPATION; Start 08/07/16 at 00:30 Nystatin (Nystatin Powder) 1 applic Q12 TOP Last administered on 08/09/16 08: 34; Admin Dose 1 APPLIC; Start 08/07/16 at 09:00 Nystatin (Nystatin Powder) 1 applic PRN PRN TOP NEEDED; Start 08/07/16 at 01: 00 Ondansetron HCl (Zofran Inj) 4 mg Q6H PRN IV NAUSEA AND/OR VOMITING; Start 08/07 at 00:30 Eye Lubricant (Artificial Tears Oph) 1 drop Q12 BOTH EYES Last administered on 08/09/16 08:35; Admin Dose 1 DROP; Start 08/07/16 at 09:00 Eye Lubricant (Artificial Tears Oph) 1 drop PRN PRN BOTH EYES DRY EYES; Start 08/07/16 at 01:00 Ascorbic Acid (Vitamin C) 500 mg DAILY GTB Last administered on 08/09/16 08:33 ; Admin Dose 500 MG; Start 08/07/16 at 09:00 Atorvastatin Calcium (Lipitor) 20 mg DAILY@21 GTB Last administered on 21:07; Admin Dose 20 MG; Start 08/07/16 at 21:00 Finasteride (Proscar) 5 mg DAILY GTB Last administered on 08/09/16 08:33; Admin Dose 5 MG; Start 08/07/16 at 09:00 Miscellaneous Information (Pending Santyl Order For Wound Care) This patient trent... PRN PRN XX WOUND CARE; Start 08/07/16 at 04:00 Famotidine (Pepcid) 20 mg HS GTB Last administered on 08/08/16 21:07; Admin Dose 20 MG; Start 08/07/16 at 21:00 Metoprolol Tartrate 25 mg 25 mg BID PO Last administered on 08/09/16 08:34; Admin Dose 25 MG; Start 08/07/16 at 21:00 Ceftriaxone Sodium (Rocephin) 50 ml @ 100 mls/hr Q24H IVPB Last administered on 08/09/16 01:10; Admin Dose 100 MLS/HR; Start 08/08/16 at 01:00 Baclofen 10 mg 10 mg TID PRN PO NOTE Last administered on 08/09/16 08:34; Admin Dose 10 MG; Start 08/08/16 at 03:00 Dextrose (D5W) 1,000 ml @ 80 mls/hr [id number] IV Last administered on 08/09/16 09:00; Admin Dose 125 MLS/HR; Start 08/08/16 at 12:30 Levofloxacin (Levaquin) 250 mg DAILY@06 GTB Last administered on 08/09/16 05: 40; Admin Dose 250 MG; Start 08/09/16 at 06:00 Docusate Sodium (Colace Liquid Cup) 100 mg HS GTB ; Start 08/09/16 at 21:00 Ondansetron HCl (Zofran Inj) 4 mg Q4 PRN IV NAUSEA AND/OR VOMITING; Start 08/09 at 12:30 Acetaminophen (Tylenol Tab) 650 mg Q6H PRN [place] PAIN LEVEL 1-3 OR FEVER; Start at 12:30 Acetaminophen (Tylenol Supp) 650 mg Q6H PRN [place] PAIN LEVEL 1-3 OR FEVER; Start 08/09/16 at 12:30 Morphine Sulfate (morphine) 2 mg Q3H PRN IV MODERATE PAIN LEVEL 4-6; Start 01/15 at 12:30 Assessment/Plan Additional Assessment/Plan IMP: 1. 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 HyperNa+ 4. Anemia RECS: 1. Aspiration precautions 2. Ok to proceed to CERTIFIED TECHNICIAN SPECIALIST shunt placement 3. Follow Na+ TANGELA DYER MD Aug 09, 2016 14:03
[2016-08-09] MEDS ORDERED: POTASSIUM CHLORIDE 20 MEQ POWDER FOR ORAL SOLN GTB ONE (17:30)
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
[2016-08-09] MEDS: ALBUTEROL/IPRATROPIUM (NEB) 3 ML AMP HHN PRN (19:30)
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
[2016-08-09 20:48] LABS: INR 1.15; PROTIME 14.7 Sec (12.2-14.2); PT RATIO 1.1
[2016-08-09] MEDS: DOCUSATE SODIUM 10 MG/ML (10ML CUP) GTB SCH (21:27)
[2016-08-09] MEDS: ATORVASTATIN 20 MG TAB GTB SCH (21:27)
[2016-08-09] MEDS: FAMOTIDINE 20 MG TAB GTB SCH (21:27)
[2016-08-09] MEDS: PIPER-TAZO 3.375 GM IV (PMX) 100 ML IVPB SCH (22:42)
[2016-08-10] VITALS (33 sets, daily range): BP systolic 98–138; BP diastolic 50–116; PULSE 54–94; RESP 12–40
[2016-08-10] MEDS: PIPER-TAZO 3.375 GM IV (PMX) 100 ML IVPB SCH (06:27)
[2016-08-10] MEDS ORDERED: NEOSTIGMINE 3 MG/3 ML SYRINGE ONE (07:00)
[2016-08-10] MEDS ORDERED: LIDOCAINE 2% (SDV) 5 ML INJ ONE (07:00)
[2016-08-10 07:10] LABS: ADD SCAN DIFF NO
[2016-08-10 07:20] LABS: BASOPHILS % 0.2 % (0.0-2.0); EOSINOPHILS # 0.1 10^3/ul (0.0-0.5); EOSINOPHILS % 1.3 % (0.0-7.0); HEMATOCRIT 30.4 % (42.0-52.0); HEMOGLOBIN 9.5 g/dl (14.0-18.0); LYMPHOCYTES # 1.8 10^3/ul (0.8-2.9); LYMPHOCYTES % 16.2 % (15.0-51.0); MEAN CORPUSCULAR HEMOGLOBIN 32.5 pg (29.0-33.0); MEAN CORPUSCULAR HGB CONC 31.3 g/dl (32.0-37.0); MEAN CORPUSCULAR VOLUME 104.1 fl (82.0-101.0); MEAN PLATELET VOLUME 11.4 fl (7.4-10.4); MONOCYTE # 0.6 10^3/ul (0.3-0.9); MONOCYTES % 5.8 % (0.0-11.0); NEUTROPHIL # 8.3 10^3/ul (1.6-7.5); PLATELET COUNT 191 10^3/UL (140-415); RED BLOOD COUNT 2.92 10^6/ul (4.70-6.10); RED CELL DISTRIBUTION WIDTH 13.7 % (11.5-14.5)
--- NOTE | 2016-08-10 07:25 | PN ---
DATE: 08/09/2016 SUBJECTIVE: The patient is lying comfortably in bed. He is afebrile. LABORATORY DATA: WBC today 12.5, platelets 226, H 10 and 34, no shift. BUN 74 , creatinine 1.13. MICROBIOLOGY: Urine culture on 08/08/2016 growing enterococcus and gram- negative rods. ANTIMICROBIALS: The patient is on: 1. Oral Levaquin. 2. Rocephin. DIAGNOSTICS: Chest x-ray from yesterday revealed low lung volume ____ with mild bibasilar atelectasis. INDWELLINGS: Wang catheter. PHYSICAL EXAMINATION: GENERAL: Fragile, elderly ____. HEENT: Sclerae anicteric. Buccal mucosa dry. NECK: Supple. CHEST: Rise symmetrical. Breath sounds diminished to bases. HEART: S1, S2. ABDOMEN: Soft. Bowel tones present. EXTREMITIES: Without cyanosis. ASSESSMENT: 1. Acute encephalopathy, possible normal pressure hydrocephalus, possibly toxic metabolic given positive urine cultures. 2. Urinary tract infection 3. Anemia. 4. Aspiration risk. 5. History of traumatic subdural hemorrhage. PLAN: The patient is hemodynamically stable. He is being seen by multiple consultants. White blood cell count is tracing down. We are going to change antibiotics to Zosyn to cover both enterococcus and gram-negative rods. Dictated By: ROMINA SCHREIBER HEEL TRIMMER for SARAHY JIMENEZ MD NI/NTS Conf#: [id number] DID#: [id number] CC: JESUS STUART MD;*EndCC* MTDD
[2016-08-10 07:36] LABS: CALCIUM 9.7 mg/dl (8.4-10.2); CREATININE 1.03 mg/dl (0.61-1.24); INR 1.2; MAGNESIUM 2.6 mg/dl (1.7-2.5); POTASSIUM 3.6 mmol/L (3.5-5.1); PROTIME 15.3 Sec (12.2-14.2); PT RATIO 1.2
[2016-08-10 07:37] LABS: PARTIAL THROMBOPLASTIN TIME 31.6 Sec (25.0-35.0)
[2016-08-10] MEDS: ALBUTEROL/IPRATROPIUM (NEB) 3 ML AMP HHN SCH ×4 (08:20→23:36)
--- NOTE | 2016-08-10 08:32 | RADRPT ---
PROCEDURE: CT Brain without contrast. CLINICAL INDICATION: Hydrocephalus , neurologic deficit TECHNIQUE: A CT of the brain was performed on multidetector high-resolution CT scanner utilizing a xial sections from the skull base through the vertex without contrast. One or more of the following dose reduction techniques were used: Automated exposure control, Adjustment of the mA and/or kV acc ording to patient size, and/or use of iterative reconstruction technique. DOSE: CTDI = 40 mGy and the DLP = 854 mGy-cm. COMPARISON: Head CT 08/05/2016 FINDINGS: Old left frontal craniotomy. 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 No acute intracranial hemorrh age, progressive mass effect or midline shift. Periventricular hypoattenuation again noted. The ventricles are diffusely enlarged but not significantly changed in size since 08/05/2016. The b ifrontal horn diameter measures 61 mm, unchanged from prior. Generalized volume loss. Opacified left mastoid and middle ear cavity with associated sclerosis. Sclerotic appearance of the right mastoid . Paranasal sinus mucosal thickening with retention cysts. Right ethmoid sinus 4 mm osteoma. IMPRESSION: No significant interval change. 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 Stable appearance of hydrocephalus and transependymal edema. RPTAT: AA .Jad Jin MD, Date Time Electronically viewed and signed by .Jad Jin MD, MD on 08/10/2016 08:31 .T/
[2016-08-10] MEDS: ACETYLCYSTEINE 20% 4 ML VIAL NEB SCH ×2 (08:34→20:21)
[2016-08-10] MEDS: METOPROLOL 25 MG TAB PO SCH ×2 (08:46→21:00)
[2016-08-10] MEDS: FINASTERIDE 5 MG TAB GTB SCH (08:46)
[2016-08-10] MEDS: LACTOBACILLUS RHAMNOSUS CAP GTB SCH ×2 (08:47→20:50)
[2016-08-10] MEDS: NYSTATIN 30 GM POWDER BTL TOP SCH ×2 (08:47→20:50)
[2016-08-10] MEDS: ASCORBIC ACID 500 MG TAB GTB SCH (08:47)
[2016-08-10] MEDS: ARTIFICIAL TEARS 15 ML OPH BOTH EYES SCH ×2 (08:48→21:04)
--- NOTE | 2016-08-10 09:19 | RADRPT ---
Vent Rate: 84 bpm RR Interval: 0 msec ID Interval: 168 msec QRS Duration: 106 msec QT Interval: 392 msec QTC Interval: 463 msec P-R-T [place]: 61 - -22 - 57 degrees Normal sinus rhythm Poor R-wave progression LAD Left Anterior Hemiblock Minimal voltage criteria for LVH, may be normal variant Abnormal ECG No previous tracing available for comparison Electronically Signed By: Regan Sullivan [id number]
[2016-08-10] MEDS: BACLOFEN 10 MG TAB PO PRN (09:42)
--- NOTE | 2016-08-10 09:42 | CONS ---
Date/Time of Note Date/Time of Note DATE: 08/10/16 TIME: 09:35 Assessment/Plan Assessment/Plan Additional Assessment/Plan Assesment and Plan He is an ill-appearing 86-year-old gentleman who was admitted to the intensive care unit for her progressively increasing mental status changes, respiratory distress. 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 The patient is in the intensive care unit because of acute on chronic mental status changes. The patient is a non-historian and no family members are available at bedside where I could speak to them. He has multiple fluid and electrolyte abnormalities when presenting, which is possibly contributing to his underlying mental status changes. He is presumed to be encephalopathic at this time. Following the trend of notes from Dr. Beckett, Dr. Padilla, Dr. Rhodes, Dr. Stevens, and ____, patient, according to ____, is stable at this point to proceed with INSOLE PRESSER shunt placement. Plan..Will contact family members today Isues to be discussed Patient's baseline mental status..? Dementia Patient's ability to do any activities of daily living Acceptable quality of life Communication preferences Caregiver concerns code Code status Goals of care Prognosis Surrogates Consultation Date/Type/Reason Admit Date/Time Aug 07, 2016 at 00:23 Initial Consult Date 08/07/16 Type of Consultation: Pulm Referring Provider: JESUS STUART Exam/Review of Systems Vital Signs Vitals Vital Signs Date Time Temp Pulse Resp B/P Pulse Ox O2 Delivery O2 Flow Rate FiO2 08/10/16 08:00 78 08/10/16 06:00 27 121/76 95 Nasal Cannula 2.0 08/10/16 04:00 98.3 08/10/16 01:58 27 Intake and Output 08/09/16 08/09/16 08/10/16 15:00 23:00 07:00 Intake Total 1075 ml 930 ml 240 ml Output Total 130 ml 410 ml 300 ml Balance 945 ml 520 ml -60 ml Results Result Diagram: 08/10/16 0700 08/10/16 0700 Results 24 hrs Laboratory Tests Test 08/09/16 20:29 08/10/16 07:00 Prothrombin Time 14.7 H 15.3 H Prothrombin Time Ratio 1.1 1.2 INR International Normalized Ratio 1.15 1.20 White Blood Count 11.0 H Red Blood Count 2.92 L Hemoglobin 9.5 L Hematocrit 30.4 L Mean Corpuscular Volume 104.1 H Mean Corpuscular Hemoglobin 32.5 Mean Corpuscular Hemoglobin Concent 31.3 L Red Cell Distribution Width 13.7 Platelet Count 191 Mean Platelet Volume 11.4 H Neutrophils % 76.0 Lymphocytes % 16.2 Monocytes % 5.8 Eosinophils % 1.3 Basophils % 0.2 Nucleated Red Blood Cells % 0.0 Neutrophils # 8.3 H Lymphocytes # 1.8 Monocytes # 0.6 Eosinophils # 0.1 Basophils # 0.0 Nucleated Red Blood Cells # 0.0 Activated Partial Thromboplast Time 31.6 Sodium Level 146 H Potassium Level 3.6 Chloride Level 115 H Carbon Dioxide Level 24 Anion Gap 11 Blood Urea Nitrogen 50 H Creatinine 1.03 Glucose Level 97 # Calcium Level 9.7 Magnesium Level 2.6 H Medications Medications Current Medications Lactobacillus Acidophilus/ Rhamnosus (Culturelle) 1 cap BID GTB Last administered on 08/09/16 21:27; Admin Dose 1 CAP; Start 08/07/16 at 09:00 Lactulose (Enulose) 20 gm BID PRN GTB CONSTIPATION; Start 08/07/16 at 00:30 Nystatin (Nystatin Powder) 1 applic Q12 TOP Last administered on 08/10/16 08: 47; Admin Dose 1 APPLIC; Start 08/07/16 at 09:00 Nystatin (Nystatin Powder) 1 applic PRN PRN TOP NEEDED; Start 08/07/16 at 01: 00 Ondansetron HCl (Zofran Inj) 4 mg Q6H PRN IV NAUSEA AND/OR VOMITING; Start 08/07 at 00:30 Eye Lubricant (Artificial Tears Oph) 1 drop Q12 BOTH EYES Last administered on 08/10/16 08:48; Admin Dose 1 DROP; Start 08/07/16 at 09:00 Eye Lubricant (Artificial Tears Oph) 1 drop PRN PRN BOTH EYES DRY EYES; Start 08/07/16 at 01:00 Ascorbic Acid (Vitamin C) 500 mg DAILY GTB Last administered on 08/09/16 08:33 ; Admin Dose 500 MG; Start 08/07/16 at 09:00 Atorvastatin Calcium (Lipitor) 20 mg DAILY@21 GTB Last administered on 21:27; Admin Dose 20 MG; Start 08/07/16 at 21:00 Finasteride (Proscar) 5 mg DAILY GTB Last administered on 08/10/16 08:46; Admin Dose 5 MG; Start 08/07/16 at 09:00 Miscellaneous Information (Pending Santyl Order For Wound Care) This patient trent... PRN PRN XX WOUND CARE; Start 08/07/16 at 04:00 Famotidine (Pepcid) 20 mg HS GTB Last administered on 08/09/16 21:27; Admin Dose 20 MG; Start 08/07/16 at 21:00 Metoprolol Tartrate (Lopressor) 25 mg BID PO Last administered on 08/10/16 08: 46; Admin Dose 25 MG; Start 08/07/16 at 21:00 Baclofen 10 mg 10 mg TID PRN PO NOTE Last administered on 08/09/16 21:27; Admin Dose 10 MG; Start 08/08/16 at 03:00 Dextrose (D5W) 1,000 ml @ 80 mls/hr [id number] IV Last administered on 08/09/16 17:30; Admin Dose 80 MLS/HR; Start 08/08/16 at 12:30 Docusate Sodium (Colace Liquid Cup) 100 mg HS GTB Last administered on 21:27; Admin Dose 100 MG; Start 08/09/16 at 21:00 Ondansetron HCl (Zofran Inj) 4 mg Q4 PRN IV NAUSEA AND/OR VOMITING; Start 08/09 at 12:30 Acetaminophen (Tylenol Tab) 650 mg Q6H PRN PO PAIN LEVEL 1-3 OR FEVER; Start at 12:30 Acetaminophen (Tylenol Supp) 650 mg Q6H PRN [place] PAIN LEVEL 1-3 OR FEVER; Start 08/09/16 at 12:30 Morphine Sulfate 2 mg 2 mg Q3H PRN IV MODERATE PAIN LEVEL 4-6; Start 08/09/16 at 12:30 Piperacillin Sod/ Tazobactam Sod (Zosyn 3.375gm/ 100 ml (Pmx)) 100 ml @ 200 mls /hr Q8 IVPB Last administered on 08/10/16t 06:27; Admin Dose 200 MLS/HR; Start 08/09/16 at 22:00 KRISTEN GOMES Aug 10, 2016 09:42
--- NOTE | 2016-08-10 09:43 | CONS ---
Date/Time of Note Date/Time of Note DATE: 08/10/16 TIME: 09:42 Consult Date/Type/Reason Admit Date/Time Aug 07, 2016 at 00:23 Initial Consult Date 08/07/16 Type of Consultation: Pulm Ordering Provider: JESUS STUART Subjective Patient remains minimally responsive on nasal cannula oxygen Objective Vital Signs Date Time Temp Pulse Resp B/P Pulse Ox O2 Delivery O2 Flow Rate FiO2 08/10/16 08:00 78 08/10/16 06:00 27 121/76 95 Nasal Cannula 2.0 08/10/16 04:00 98.3 08/10/16 01:58 27 Intake and Output 08/09/16 08/09/16 08/10/16 14:59 22:59 06:59 Intake Total 1075 ml 975 ml 345 ml Output Total 130 ml 380 ml 350 ml Balance 945 ml 595 ml -5 ml Exam GENERAL: Frail elderly gentleman who appears comfortable no acute distress VITAL SIGNS: per chart NECK: Supple. No JVD or lymphadenopathy. CARDIAC EXAM: S1, S2. No added sounds or murmurs. CHEST: Diminished air entry both lung hutch[place] ABDOMEN: Soft, nontender. No guarding or rebound. EXTREMITIES: No cyanosis, clubbing or edema. NEUROLOGIC: Generalized weakness. No focal deficits. Results/Medications Result Diagram: 08/10/16 0700 08/10/16 0700 Results 24 hrs Laboratory Tests Test 08/09/16 20:29 08/10/16 07:00 Prothrombin Time 14.7 H 15.3 H Prothrombin Time Ratio 1.1 1.2 INR International Normalized Ratio 1.15 1.20 White Blood Count 11.0 H Red Blood Count 2.92 L Hemoglobin 9.5 L Hematocrit 30.4 L Mean Corpuscular Volume 104.1 H Mean Corpuscular Hemoglobin 32.5 Mean Corpuscular Hemoglobin Concent 31.3 L Red Cell Distribution Width 13.7 Platelet Count 191 Mean Platelet Volume 11.4 H Neutrophils % 76.0 Lymphocytes % 16.2 Monocytes % 5.8 Eosinophils % 1.3 Basophils % 0.2 Nucleated Red Blood Cells % 0.0 Neutrophils # 8.3 H Lymphocytes # 1.8 Monocytes # 0.6 Eosinophils # 0.1 Basophils # 0.0 Nucleated Red Blood Cells # 0.0 Activated Partial Thromboplast Time 31.6 Sodium Level 146 H Potassium Level 3.6 Chloride Level 115 H Carbon Dioxide Level 24 Anion Gap 11 Blood Urea Nitrogen 50 H Creatinine 1.03 Glucose Level 97 # Calcium Level 9.7 Magnesium Level 2.6 H Medications Current Medications Lactobacillus Acidophilus/ Rhamnosus (Culturelle) 1 cap BID GTB Last administered on 08/09/16 21:27; Admin Dose 1 CAP; Start 08/07/16 at 09:00 Lactulose (Enulose) 20 gm BID PRN GTB CONSTIPATION; Start 08/07/16 at 00:30 Nystatin (Nystatin Powder) 1 applic Q12 TOP Last administered on 08/10/16 08: 47; Admin Dose 1 APPLIC; Start 08/07/16 at 09:00 Nystatin (Nystatin Powder) 1 applic PRN PRN TOP NEEDED; Start 08/07/16 at 01: 00 Ondansetron HCl (Zofran Inj) 4 mg Q6H PRN IV NAUSEA AND/OR VOMITING; Start 08/07 at 00:30 Eye Lubricant (Artificial Tears Oph) 1 drop Q12 BOTH EYES Last administered on 08/10/16 08:48; Admin Dose 1 DROP; Start 08/07/16 at 09:00 Eye Lubricant (Artificial Tears Oph) 1 drop PRN PRN BOTH EYES DRY EYES; Start 08/07/16 at 01:00 Ascorbic Acid (Vitamin C) 500 mg DAILY GTB Last administered on 08/09/16 08:33 ; Admin Dose 500 MG; Start 08/07/16 at 09:00 Atorvastatin Calcium (Lipitor) 20 mg DAILY@21 GTB Last administered on 21:27; Admin Dose 20 MG; Start 08/07/16 at 21:00 Finasteride (Proscar) 5 mg DAILY GTB Last administered on 08/10/16 08:46; Admin Dose 5 MG; Start 08/07/16 at 09:00 Miscellaneous Information (Pending Santyl Order For Wound Care) This patient trent... PRN PRN XX WOUND CARE; Start 08/07/16 at 04:00 Famotidine (Pepcid) 20 mg HS GTB Last administered on 08/09/16 21:27; Admin Dose 20 MG; Start 08/07/16 at 21:00 Metoprolol Tartrate (Lopressor) 25 mg BID PO Last administered on 08/10/16 08: 46; Admin Dose 25 MG; Start 08/07/16 at 21:00 Baclofen 10 mg 10 mg TID PRN PO NOTE Last administered on 08/09/16 21:27; Admin Dose 10 MG; Start 08/08/16 at 03:00 Dextrose (D5W) 1,000 ml @ 80 mls/hr [id number] IV Last administered on 08/09/16 17:30; Admin Dose 80 MLS/HR; Start 08/08/16 at 12:30 Docusate Sodium (Colace Liquid Cup) 100 mg HS GTB Last administered on 21:27; Admin Dose 100 MG; Start 08/09/16 at 21:00 Ondansetron HCl (Zofran Inj) 4 mg Q4 PRN IV NAUSEA AND/OR VOMITING; Start 08/09 at 12:30 Acetaminophen (Tylenol Tab) 650 mg Q6H PRN PO PAIN LEVEL 1-3 OR FEVER; Start at 12:30 Acetaminophen (Tylenol Supp) 650 mg Q6H PRN [place] PAIN LEVEL 1-3 OR FEVER; Start 08/09/16 at 12:30 Morphine Sulfate 2 mg 2 mg Q3H PRN IV MODERATE PAIN LEVEL 4-6; Start 08/09/16 at 12:30 Piperacillin Sod/ Tazobactam Sod (Zosyn 3.375gm/ 100 ml (Pmx)) 100 ml @ 200 mls /hr Q8 IVPB Last administered on 08/10/16 06:27; Admin Dose 200 MLS/HR; Start 08/09/16 at 22:00 Assessment/Plan Chief Complaint/Hosp Course Additional Assessment/Plan IMP: 1. AMS--due to normal pressure hydrocephalus 2. NPH 3. HyperNa+ 4. Anemia likely of chronic disease RECS: 1. Aspiration precautions 2. 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 Follow Na+ 4. DVT GI prophylaxis Disposition Continue ICU care Problems: [facility]IMS [facility] Aug 10, 2016 09:43
--- NOTE | 2016-08-10 11:28 | PN ---
Date/Time of Note Date/Time of Note DATE: 08/10/16 TIME: 11:14 Assessment/Plan VTE Prophylaxis VTE Prophylaxis Intervention: SCD's Lines/Catheters IV [facility] Peripheral IV Urinary Cath still in place: No Assessment/Plan Chief Complaint/Hosp Course Assessment/Plan 1. 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 NPH 3. HyperNa+ Improving continue IV fluids 4. Anemia likely of chronic disease 5. VRE urine Start Linezolid, and cefazolin, infectious disease doctor consulted 6. Benign prostatic hypertrophy, continue home meds 7. Essential hypertension, well-controlled on metoprolol 8. Dyslipidemia, continue statin DVT GI prophylaxis Disposition Continue ICU care Problems: Subjective 24 Hr Interval Summary Free Text/Dictation Patient does not respond to verbal stimuli Not on sedation Afebrile No acute event throughout the night Exam/Review of Systems Vital Signs Vitals Vital Signs Date Time Temp Pulse Resp B/P Pulse Ox O2 Delivery O2 Flow Rate FiO2 08/10/16 10:00 68 32 110/57 97 Nasal Cannula 2.0 08/10/16 08:00 97.9 08/10/16 01:58 27 Intake and Output 08/09/16 08/09/16 08/10/16 15:00 23:00 07:00 Intake Total 1075 ml 930 ml 340 ml Output Total 130 ml 410 ml 300 ml Balance 945 ml 520 ml 40 ml Exam General: The patient is Not in acute distress. HEENT: Atraumatic, normocephalic. The pupils are equal and symmetric. Neck: Supple Chest: Normal Lungs: Clear to auscultation bilaterally, shallow breathing Heart: Normal S1-S2, Regular rhythm and rate. Abdomen: Soft , nontender, nondistended , bowel sounds are present. Extremities: Decubitus ulcer, multiple bruises and ulcer in lower extremity, no edema no cyanosis Neurologic: Patient is arousable although does not respond to verbal stimuli, does not follow any commands Results Result Diagram: 08/10/16 0700 08/10/16 0700 Results 24 hrs Laboratory Tests Test 08/09/16 20:29 08/10/16 07:00 Prothrombin Time 14.7 H 15.3 H Prothrombin Time Ratio 1.1 1.2 INR International Normalized Ratio 1.15 1.20 White Blood Count 11.0 H Red Blood Count 2.92 L Hemoglobin 9.5 L Hematocrit 30.4 L Mean Corpuscular Volume 104.1 H Mean Corpuscular Hemoglobin 32.5 Mean Corpuscular Hemoglobin Concent 31.3 L Red Cell Distribution Width 13.7 Platelet Count 191 Mean Platelet Volume 11.4 H Neutrophils % 76.0 Lymphocytes % 16.2 Monocytes % 5.8 Eosinophils % 1.3 Basophils % 0.2 Nucleated Red Blood Cells % 0.0 Neutrophils # 8.3 H Lymphocytes # 1.8 Monocytes # 0.6 Eosinophils # 0.1 Basophils # 0.0 Nucleated Red Blood Cells # 0.0 Activated Partial Thromboplast Time 31.6 Sodium Level 146 H Potassium Level 3.6 Chloride Level 115 H Carbon Dioxide Level 24 Anion Gap 11 Blood Urea Nitrogen 50 H Creatinine 1.03 Glucose Level 97 # Calcium Level 9.7 Magnesium Level 2.6 H Medications Medications Current Medications Lactobacillus Acidophilus/ Rhamnosus (Culturelle) 1 cap BID GTB Last administered on 08/09/16 21:27; Admin Dose 1 CAP; Start 08/07/16 at 09:00 Lactulose (Enulose) 20 gm BID PRN GTB CONSTIPATION; Start 08/07/16 at 00:30 Nystatin (Nystatin Powder) 1 applic Q12 TOP Last administered on 08/10/16 08: 47; Admin Dose 1 APPLIC; Start 08/07/16 at 09:00 Nystatin (Nystatin Powder) 1 applic PRN PRN TOP NEEDED; Start 08/07/16 at 01: 00 Ondansetron HCl (Zofran Inj) 4 mg Q6H PRN IV NAUSEA AND/OR VOMITING; Start 08/07 at 00:30 Eye Lubricant (Artificial Tears Oph) 1 drop Q12 BOTH EYES Last administered on 08/10/16 08:48; Admin Dose 1 DROP; Start 08/07/16 at 09:00 Eye Lubricant (Artificial Tears Oph) 1 drop PRN PRN BOTH EYES DRY EYES; Start 08/07/16 at 01:00 Ascorbic Acid (Vitamin C) 500 mg DAILY GTB Last administered on 08/09/16 08:33 ; Admin Dose 500 MG; Start 08/07/16 at 09:00 Atorvastatin Calcium (Lipitor) 20 mg DAILY@21 GTB Last administered on 21:27; Admin Dose 20 MG; Start 08/07/16 at 21:00 Finasteride (Proscar) 5 mg DAILY GTB Last administered on 08/10/16 08:46; Admin Dose 5 MG; Start 08/07/16 at 09:00 Miscellaneous Information (Pending Santyl Order For Wound Care) This patient trent... PRN PRN XX WOUND CARE; Start 08/07/16 at 04:00 Famotidine (Pepcid) 20 mg HS GTB Last administered on 08/09/16 21:27; Admin Dose 20 MG; Start 08/07/16 at 21:00 Metoprolol Tartrate (Lopressor) 25 mg BID PO Last administered on 08/10/16 08: 46; Admin Dose 25 MG; Start 08/07/16 at 21:00 Baclofen 10 mg 10 mg TID PRN PO NOTE Last administered on 08/10/16 09:42; Admin Dose 10 MG; Start 08/08/16 at 03:00 Dextrose (D5W) 1,000 ml @ 80 mls/hr [id number] IV Last administered on 08/09/16 17:30; Admin Dose 80 MLS/HR; Start 08/08/16 at 12:30 Docusate Sodium (Colace Liquid Cup) 100 mg HS GTB Last administered on 21:27; Admin Dose 100 MG; Start 08/09/16 at 21:00 Ondansetron HCl (Zofran Inj) 4 mg Q4 PRN IV NAUSEA AND/OR VOMITING; Start 08/09 at 12:30 Acetaminophen (Tylenol Tab) 650 mg Q6H PRN PO PAIN LEVEL 1-3 OR FEVER; Start at 12:30 Acetaminophen (Tylenol Supp) 650 mg Q6H PRN [place] PAIN LEVEL 1-3 OR FEVER; Start 08/09/16 at 12:30 Morphine Sulfate 2 mg 2 mg Q3H PRN IV MODERATE PAIN LEVEL 4-6; Start 08/09/16 at 12:30 Piperacillin Sod/ Tazobactam Sod (Zosyn 3.375gm/ 100 ml (Pmx)) 100 ml @ 200 mls /hr Q8 IVPB Last administered on 08/10/16 06:27; Admin Dose 200 MLS/HR; Start 08/09/16 at 22:00 NAVDEEP GAONA MD Aug 10, 2016 11:24
[2016-08-10] MEDS: DEXTROSE 5% 1,000 ML IV SCH ×2 (12:57→22:32)
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
[2016-08-10] MEDS: CEFAZOLIN 1 GM/50 ML (PMX) 50 ML IVPB SCH ×2 (14:06→22:32)
--- NOTE | 2016-08-10 14:42 | PN ---
DATE: 08/10/2016 INFECTIOUS DISEASE PROGRESS NOTE SUBJECTIVE: No acute changes. The patient is lying comfortably in bed. No fevers. LABORATORY DATA: WBC today 11, platelets 191, no shift. BUN 50, creatinine 1.03. MICROBIOLOGY: Urine culture grew E coli and VRE. INDWELLINGS: The patient has Wang catheter, peripheral IV, NG tube. PHYSICAL EXAMINATION: GENERAL: This is a chronically ill-appearing, elderly man who is in no distress. HEENT: Head atraumatic, normocephalic. Sclerae anicteric. Buccal mucosa dry. NECK: Supple. CHEST: Rise symmetrical. Breath sounds diminished to bases. HEART: S1, S2. ABDOMEN: Soft. Bowel sounds present. EXTREMITIES: Without cyanosis. ASSESSMENT: 1. Systemic inflammatory response syndrome, possible sepsis with acute encephalopathy and not questionable on normal pressure hydrocephalus per MRI and brain CT. 2. Polymicrobial urinary tract infection. 3. Anemia. 4. History of subdural hemorrhage. 5. Dysphagia, at risk for aspiration. PLAN: The patient remains stable on appropriate antimicrobials. WBC decreasing. Continue present care. 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 Dictated By: ROMINA SCHREIBER POSTAL MAIL CARRIER for SARAHY BEAR/IWONA Conf#: [id number] DID#: [id number]
[2016-08-10] MEDS ORDERED: THROMBIN 5000 UNIT VIAL ONE (15:58)
[2016-08-10] MEDS ORDERED: POLYMYXIN/BACITRACIN 1L IRRIG ONE (16:26)
[2016-08-10] MEDS ORDERED: BUPIVACAINE 0.5%/EPI (SDV) 30 ML INJ ONE (16:26)
[2016-08-10] MEDS ORDERED: BACITRACIN/POLYMYXIN 28.35 GM OINT TOP ONE (16:27)
[2016-08-10] MEDS ORDERED: ROCURONIUM 50 MG INJ ONE (16:45)
[2016-08-10] MEDS ORDERED: MIDAZOLAM 1 MG/ML 2 ML INJ ONE (16:46)
[2016-08-10] MEDS ORDERED: ETOMIDATE 20 MG INJ ONE (17:49)
[2016-08-10] MEDS ORDERED: FENTAnyl 50 MCG/ML VIAL ONE (17:50)
[2016-08-10] MEDS ORDERED: VANCOMYCIN 1 GM (PMX) 250 ML ONE (18:23)
[2016-08-10] MEDS ORDERED: HYDROmorphONE 1 MG/ML SYG IV PRN ×2 (18:30)
[2016-08-10] MEDS ORDERED: EPHEDrine SULFATE 50 MG/5 ML SYG IV PRN (18:30)
[2016-08-10] MEDS ORDERED: MEPERIDINE 25 MG INJ IV PRN (18:30)
[2016-08-10] MEDS ORDERED: DIPHENHYDRAMINE 50 MG INJ IV PRN (18:30)
[2016-08-10] MEDS ORDERED: LABETALOL HCL 20MG INJ IV PRN (18:30)
[2016-08-10] MEDS ORDERED: hydrALAzine 20 MG INJ IV PRN (18:30)
[2016-08-10] MEDS ORDERED: FENTAnyl 50 MCG/ML VIAL IV PRN ×2 (18:30)
[2016-08-10] MEDS ORDERED: ONDANSETRON 4 MG INJ IV PRN (18:30)
[2016-08-10] MEDS ORDERED: LABETALOL HCL 20MG INJ ONE (19:17)
[2016-08-10] MEDS ORDERED: GLYCOPYRROLATE 0.4 MG INJ ONE (19:17)
[2016-08-10] MEDS: ATORVASTATIN 20 MG TAB GTB SCH (20:50)
[2016-08-10] MEDS: LINEZOLID 600 MG/D5W (PMX) 300 ML IVPB SCH (20:50)
[2016-08-10] MEDS: DOCUSATE SODIUM 10 MG/ML (10ML CUP) GTB SCH (20:50)
[2016-08-10] MEDS: ARTIFICIAL TEARS 15 ML OPH BOTH EYES PRN (20:50)
[2016-08-10] MEDS: FAMOTIDINE 20 MG TAB GTB SCH (20:50)
[2016-08-10 20:55] LABS: CSF COLOR COLORLESS
[2016-08-10 20:56] LABS: CSF#TUBE COUNT TUBE#1; CSF#TUBES REC'D 1
[2016-08-10 20:58] LABS: # OF CELLS COUNTED 1
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
[2016-08-11] VITALS (39 sets, daily range): BP systolic 92–136; BP diastolic 43–82; PULSE 70–110; RESP 14–30
[2016-08-11] MEDS: CEFAZOLIN 1 GM/50 ML (PMX) 50 ML IVPB SCH ×3 (05:30→22:36)
[2016-08-11 06:38] LABS: ADD SCAN DIFF NO
[2016-08-11 06:52] LABS: BASOPHILS % 0.2 % (0.0-2.0); EOSINOPHILS # 0.1 10^3/ul (0.0-0.5); EOSINOPHILS % 1.3 % (0.0-7.0); HEMATOCRIT 32.7 % (42.0-52.0); HEMOGLOBIN 10.3 g/dl (14.0-18.0); MEAN CORPUSCULAR HEMOGLOBIN 32.3 pg (29.0-33.0); MEAN CORPUSCULAR HGB CONC 31.5 g/dl (32.0-37.0); MEAN CORPUSCULAR VOLUME 102.5 fl (82.0-101.0); MEAN PLATELET VOLUME 11.7 fl (7.4-10.4); MONOCYTE # 0.6 10^3/ul (0.3-0.9); MONOCYTES % 5.4 % (0.0-11.0); NEUTROPHIL # 8.2 10^3/ul (1.6-7.5); NEUTROPHILS % 74.5 % (39.0-77.0); PLATELET COUNT 201 10^3/UL (140-415); RED BLOOD COUNT 3.19 10^6/ul (4.70-6.10); RED CELL DISTRIBUTION WIDTH 13.5 % (11.5-14.5); WHITE BLOOD COUNT 11.1 10^3/ul (4.8-10.8)
[2016-08-11 07:21] LABS: CALCIUM 9.2 mg/dl (8.4-10.2); CREATININE 0.88 mg/dl (0.61-1.24); MAGNESIUM 2.4 mg/dl (1.7-2.5); PHOSPHORUS 3.1 mg/dl (2.5-4.9); POTASSIUM 3.9 mmol/L (3.5-5.1)
--- NOTE | 2016-08-11 07:53 | RADRPT ---
PROCEDURE: XR Chest. CLINICAL INDICATION: Pneumonia, CHF TECHNIQUE: An AP view of the chest was obtained. COMPARISON: Chest x-ray dated 08/08/2016 FINDINGS: Lung volumes are low. There is prominence of the interstitial markings. No pleural effusion or pn eumothorax is seen. The cardiomediastinal silhouette is mildly enlarged . Calcifications are seen within the aortic arch. The osseous structures demonstrate senescent changes. Surgical clips are s een within the right axillary soft tissues. There is a right upper quadrant calcification which may reflect a gallstone. IMPRESSION: 1. Mild prominence of the interstitial markings, may reflect mild underlying interstitial edema or chronic lung changes. No significant interval change. 2. Low lung volumes. 3. Mild cardiomegaly and aortic atherosclerosis. RPTAT: HH .Helen Avila MD, MD Date Time Electronically viewed and signed by .Helen Avila MD, on 08/11/2016 07:53 .G/
[2016-08-11] MEDS: METOPROLOL 25 MG TAB PO SCH ×2 (08:44→20:45)
[2016-08-11] MEDS: ASCORBIC ACID 500 MG TAB GTB SCH (08:44)
[2016-08-11] MEDS: LINEZOLID 600 MG/D5W (PMX) 300 ML IVPB SCH ×2 (08:44→20:50)
[2016-08-11] MEDS: LACTOBACILLUS RHAMNOSUS CAP GTB SCH ×2 (08:44→20:45)
[2016-08-11] MEDS: FINASTERIDE 5 MG TAB GTB SCH (08:45)
[2016-08-11] MEDS: NYSTATIN 30 GM POWDER BTL TOP SCH ×2 (08:45→20:53)
[2016-08-11] MEDS: ARTIFICIAL TEARS 15 ML OPH BOTH EYES SCH ×2 (08:46→20:53)
[2016-08-11] MEDS: ALBUTEROL/IPRATROPIUM (NEB) 3 ML AMP HHN SCH ×2 (08:48→16:13)
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
[2016-08-11] MEDS: ACETYLCYSTEINE 20% 4 ML VIAL NEB SCH ×2 (08:57→20:35)
[2016-08-11] MEDS: morphine 2 MG INJ IV PRN ×3 (09:00→20:52)
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
--- NOTE | 2016-08-11 10:31 | CONS ---
Date/Time of Note Date/Time of Note DATE: 08/11/16 TIME: 10:28 Assessment/Plan Assessment/Plan Additional Assessment/Plan Chest x-ray was reviewed from today which is essentially clear. Assessment recommendations; next 1. 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 2. Advanced dementia. 3. E. coli as well as VRE UTI. Continue current supportive care. Patient can be transferred to the medical floor. Consultation Date/Type/Reason Admit Date/Time Aug 07, 2016 at 00:23 Initial Consult Date 08/07/16 Type of Consultation: Pulmonary/critical care Referring Provider: JESUS STUART 24 HR Interval Summary Free Text/Dictation Patient condition remains stable. Patient has remained hemodynamically stable. Underwent ventriculoperitoneal shunt placement by neurosurgical team yesterday. Procedure was uneventful. Patient remains unresponsive. General exam; elderly male, currently in no distress. Exam/Review of Systems Vital Signs Vitals Vital Signs Date Time Temp Pulse Resp B/P Pulse Ox O2 Delivery O2 Flow Rate FiO2 08/11/16 09:15 84 22 113/46 98 Nasal Cannula 08/11/16 08:00 2.0 08/11/16 08:00 97.4 08/10/16 01:58 27 Intake and Output 08/10/16 08/10/16 08/11/16 15:00 23:00 07:00 Intake Total 690 ml 1310 ml 650 ml Output Total 310 ml 275 ml 115 ml Balance 380 ml 1035 ml 535 ml Exam HEENT exam is; supple neck, no JVD. No lymphadenopathy. Midline trachea. Pupils are midsize and reactive to light bilaterally. Patient is edentulous. Currently maintained on nasal cannula. Next Chest examined; clear to auscultation. S1-S2 audible, no murmurs. Regular rhythm. Abdomen examination; soft, no organomegaly. Bowel sounds audible. He is a G- tube in place. Extremity exam; no peripheral edema. LOCAL COORDINATOR examination; patient remains unresponsive. Results Result Diagram: 08/11/16 0623 08/11/16 0623 Results 24 hrs Laboratory Tests Test 08/10/16 19:25 08/11/16 04:45 08/11/16 06:23 CSF Tubes Submitted 1 CSF Volume 5.0 CSF Appearance CLEAR CSF Color COLORLESS CSF WBC 1 CSF RBC 0 CSF Cell Count Tube # TUBE#1 CSF Total Cells Counted 1 CSF Neutrophils % 100 CSF Lymphocytes % 0 CSF Monocytes % 0 CSF Crenated Cells CSF Total Protein 31 Lab Scanned Report BLOOD TRANSFUSION White Blood Count 11.1 H Red Blood Count 3.19 L Hemoglobin 10.3 L Hematocrit 32.7 L Mean Corpuscular Volume 102.5 H Mean Corpuscular Hemoglobin 32.3 Mean Corpuscular Hemoglobin Concent 31.5 L Red Cell Distribution Width 13.5 Platelet Count 201 Mean Platelet Volume 11.7 H Neutrophils % 74.5 Lymphocytes % 18.0 Monocytes % 5.4 Eosinophils % 1.3 Basophils % 0.2 Nucleated Red Blood Cells % 0.0 Neutrophils # 8.2 H Lymphocytes # 2.0 Monocytes # 0.6 Eosinophils # 0.1 Basophils # 0.0 Nucleated Red Blood Cells # 0.0 Sodium Level 142 Potassium Level 3.9 Chloride Level 111 H Carbon Dioxide Level 23 Anion Gap 12 Blood Urea Nitrogen 38 #H Creatinine 0.88 Glucose Level 107 Calcium Level 9.2 Phosphorus Level 3.1 Magnesium Level 2.4 Medications Medications Current Medications Lactobacillus Acidophilus/ Rhamnosus (Culturelle) 1 cap BID GTB Last administered on 08/11/16 08:44; Admin Dose 1 CAP; Start 08/07/16 at 09:00 Lactulose (Enulose) 20 gm BID PRN GTB CONSTIPATION; Start 08/07/16 at 00:30 Nystatin (Nystatin Powder) 1 applic Q12 TOP Last administered on 08/11/16 08: 45; Admin Dose 1 APPLIC; Start 08/07/16 at 09:00 Nystatin (Nystatin Powder) 1 applic PRN PRN TOP NEEDED; Start 08/07/16 at 01: 00 Eye Lubricant (Artificial Tears Oph) 1 drop Q12 BOTH EYES Last administered on 08/11/16 08:46; Admin Dose 1 DROP; Start 08/07/16 at 09:00 Eye Lubricant (Artificial Tears Oph) 1 drop PRN PRN BOTH EYES DRY EYES Last administered on 08/10/16 20:50; Admin Dose 1 DROP; Start 08/07/16 at 01:00 Ascorbic Acid (Vitamin C) 500 mg DAILY GTB Last administered on 08/11/16 08:44 ; Admin Dose 500 MG; Start 08/07/16 at 09:00 Atorvastatin Calcium (Lipitor) 20 mg DAILY@21 GTB Last administered on 20:50; Admin Dose 20 MG; Start 08/07/16 at 21:00 Finasteride (Proscar) 5 mg DAILY GTB Last administered on 08/11/16 08:45; Admin Dose 5 MG; Start 08/07/16 at 09:00 Miscellaneous Information (Pending Santyl Order For Wound Care) This patient trent... PRN PRN XX WOUND CARE; Start 08/07/16 at 04:00 Famotidine (Pepcid) 20 mg HS GTB Last administered on 08/10/16 20:50; Admin Dose 20 MG; Start 08/07/16 at 21:00 Metoprolol Tartrate (Lopressor) 25 mg BID PO Last administered on 08/11/16 08: 44; Admin Dose 25 MG; Start 08/07/16 at 21:00 Baclofen 10 mg 10 mg TID PRN PO NOTE Last administered on 08/10/16 09:42; Admin Dose 10 MG; Start 08/08/16 at 03:00 Dextrose (D5W) 1,000 ml @ 80 mls/hr [id number] IV Last administered on 08/10/16 22:32; Admin Dose 80 MLS/HR; Start 08/08/16 at 12:30 Docusate Sodium (Colace Liquid Cup) 100 mg HS GTB Last administered on 20:50; Admin Dose 100 MG; Start 08/09/16 at 21:00 Ondansetron HCl (Zofran Inj) 4 mg Q4 PRN IV NAUSEA AND/OR VOMITING; Start 08/09 at 12:30 Acetaminophen (Tylenol Tab) 650 mg Q6H PRN PO PAIN LEVEL 1-3 OR FEVER; Start at 12:30 Acetaminophen (Tylenol Supp) 650 mg Q6H PRN [place] PAIN LEVEL 1-3 OR FEVER; Start 08/09/16 at 12:30 Morphine Sulfate 2 mg 2 mg Q3H PRN IV MODERATE PAIN LEVEL 4-6 Last administered on 08/11/16 09:00; Admin Dose 2 MG; Start 08/09/16 at 12:30 Linezolid 300 ml @ 300 mls/hr Q12 IVPB Last administered on 08/11/16 08:44; Admin Dose 300 MLS/HR; Start 08/10/16 at 21:00 Cefazolin Sodium (Ancef 1 Gm/50 ml (Pmx)) 50 ml @ 100 mls/hr Q8 IVPB Last administered on 08/11/16t 05:30; Admin Dose 100 MLS/HR; Start 08/10/16 at 14:00 JIGNESH LI Aug 11, 2016 10:31
--- NOTE | 2016-08-11 11:11 | CONS ---
Date/Time of Note Date/Time of Note DATE: 08/11/16 TIME: 11:09 Assessment/Plan Assessment/Plan Additional Assessment/Plan Family conference to be scheduled tomorrow 08/12 by JENARO... will address goals of care and code status. Consultation Date/Type/Reason Admit Date/Time Aug 07, 2016 at 00:23 Initial Consult Date 08/07/16 Type of Consultation: Pulmonary/critical care Referring Provider: JESUS STUART 24 HR Interval Summary Free Text/Dictation ssesment and Plan He is an ill-appearing 86-year-old gentleman who was admitted to the intensive care unit for her progressively increasing mental status changes, respiratory distress. 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 The patient is in the intensive care unit because of acute on chronic mental status changes. The patient is a non-historian and no family members are available at bedside where I could speak to them. He has multiple fluid and electrolyte abnormalities when presenting, which is possibly contributing to his underlying mental status changes. He is presumed to be encephalopathic at this time. Following the trend of notes from Dr. Beckett, Dr. Padilla, Dr. Rhodes, Dr. Stevens, and ____, patient, according to DrDo ____, is stable at this point to proceed with [employer] REP shunt placement. Exam/Review of Systems Vital Signs Vitals Vital Signs Date Time Temp Pulse Resp B/P Pulse Ox O2 Delivery O2 Flow Rate FiO2 08/11/16 09:15 84 22 113/46 98 Nasal Cannula 08/11/16 08:00 2.0 08/11/16 08:00 97.4 08/10/16 01:58 27 Intake and Output 08/10/16 08/10/16 08/11/16 15:00 23:00 07:00 Intake Total 690 ml 1310 ml 650 ml Output Total 310 ml 275 ml 115 ml Balance 380 ml 1035 ml 535 ml Results Result Diagram: 08/11/16 0623 08/11/16 0623 Results 24 hrs Laboratory Tests Test 08/10/16 19:25 08/11/16 04:45 08/11/16 06:23 CSF Tubes Submitted 1 CSF Volume 5.0 CSF Appearance CLEAR CSF Color COLORLESS CSF WBC 1 CSF RBC 0 CSF Cell Count Tube # TUBE#1 CSF Total Cells Counted 1 CSF Neutrophils % 100 CSF Lymphocytes % 0 CSF Monocytes % 0 CSF Crenated Cells CSF Total Protein 31 Lab Scanned Report BLOOD TRANSFUSION White Blood Count 11.1 H Red Blood Count 3.19 L Hemoglobin 10.3 L Hematocrit 32.7 L Mean Corpuscular Volume 102.5 H Mean Corpuscular Hemoglobin 32.3 Mean Corpuscular Hemoglobin Concent 31.5 L Red Cell Distribution Width 13.5 Platelet Count 201 Mean Platelet Volume 11.7 H Neutrophils % 74.5 Lymphocytes % 18.0 Monocytes % 5.4 Eosinophils % 1.3 Basophils % 0.2 Nucleated Red Blood Cells % 0.0 Neutrophils # 8.2 H Lymphocytes # 2.0 Monocytes # 0.6 Eosinophils # 0.1 Basophils # 0.0 Nucleated Red Blood Cells # 0.0 Sodium Level 142 Potassium Level 3.9 Chloride Level 111 H Carbon Dioxide Level 23 Anion Gap 12 Blood Urea Nitrogen 38 #H Creatinine 0.88 Glucose Level 107 Calcium Level 9.2 Phosphorus Level 3.1 Magnesium Level 2.4 Medications Medications Current Medications Lactobacillus Acidophilus/ Rhamnosus (Culturelle) 1 cap BID GTB Last administered on 08/11/16 08:44; Admin Dose 1 CAP; Start 08/07/16 at 09:00 Lactulose (Enulose) 20 gm BID PRN GTB CONSTIPATION; Start 08/07/16 at 00:30 Nystatin (Nystatin Powder) 1 applic Q12 TOP Last administered on 08/11/16 08: 45; Admin Dose 1 APPLIC; Start 08/07/16 at 09:00 Nystatin (Nystatin Powder) 1 applic PRN PRN TOP NEEDED; Start 08/07/16 at 01: 00 Eye Lubricant (Artificial Tears Oph) 1 drop Q12 BOTH EYES Last administered on 08/11/16 08:46; Admin Dose 1 DROP; Start 08/07/16 at 09:00 Eye Lubricant (Artificial Tears Oph) 1 drop PRN PRN BOTH EYES DRY EYES Last administered on 08/10/16 20:50; Admin Dose 1 DROP; Start 08/07/16 at 01:00 Ascorbic Acid (Vitamin C) 500 mg DAILY GTB Last administered on 08/11/16 08:44 ; Admin Dose 500 MG; Start 08/07/16 at 09:00 Atorvastatin Calcium (Lipitor) 20 mg DAILY@21 GTB Last administered on 20:50; Admin Dose 20 MG; Start 08/07/16 at 21:00 Finasteride (Proscar) 5 mg DAILY GTB Last administered on 08/11/16 08:45; Admin Dose 5 MG; Start 08/07/16 at 09:00 Miscellaneous Information (Pending Santyl Order For Wound Care) This patient trent... PRN PRN XX WOUND CARE; Start 08/07/16 at 04:00 Famotidine (Pepcid) 20 mg HS GTB Last administered on 08/10/16 20:50; Admin Dose 20 MG; Start 08/07/16 at 21:00 Metoprolol Tartrate (Lopressor) 25 mg BID PO Last administered on 08/11/16 08: 44; Admin Dose 25 MG; Start 08/07/16 at 21:00 Baclofen 10 mg 10 mg TID PRN PO NOTE Last administered on 08/10/16 09:42; Admin Dose 10 MG; Start 08/08/16 at 03:00 Dextrose (D5W) 1,000 ml @ 80 mls/hr [id number] IV Last administered on 08/10/16 22:32; Admin Dose 80 MLS/HR; Start 08/08/16 at 12:30 Docusate Sodium (Colace Liquid Cup) 100 mg HS GTB Last administered on 20:50; Admin Dose 100 MG; Start 08/09/16 at 21:00 Ondansetron HCl (Zofran Inj) 4 mg Q4 PRN IV NAUSEA AND/OR VOMITING; Start 08/09 at 12:30 Acetaminophen (Tylenol Tab) 650 mg Q6H PRN PO PAIN LEVEL 1-3 OR FEVER; Start at 12:30 Acetaminophen (Tylenol Supp) 650 mg Q6H PRN PA PAIN LEVEL 1-3 OR FEVER; Start 08/09/16 at 12:30 Morphine Sulfate 2 mg 2 mg Q3H PRN IV MODERATE PAIN LEVEL 4-6 Last administered on 08/11/16 09:00; Admin Dose 2 MG; Start 08/09/16 at 12:30 Linezolid 300 ml @ 300 mls/hr Q12 IVPB Last administered on 08/11/16 08:44; Admin Dose 300 MLS/HR; Start 08/10/16 at 21:00 Cefazolin Sodium (Ancef 1 Gm/50 ml (Pmx)) 50 ml @ 100 mls/hr Q8 IVPB Last administered on 08/11/16 05:30; Admin Dose 100 MLS/HR; Start 08/10/16 at 14:00 KRISTEN GOMES Aug 11, 2016 11:11
--- NOTE | 2016-08-11 11:56 | CONS ---
Date/Time of Note Date/Time of Note DATE: 08/11/16 TIME: 11:54 Assessment/Plan Assessment/Plan Chief Complaint/Hosp Course SUBJECTIVE: No acute changes. The patient is lying comfortably in bed. No fevers. MICROBIOLOGY: Urine culture grew E coli and VRE. INDWELLINGS: The patient has Wang catheter, peripheral IV, NG tube, VPS. Abx: Zyvox, Ancef PHYSICAL EXAMINATION: GENERAL: This is a chronically ill-appearing, elderly man who is in no distress. HEENT: Head atraumatic, normocephalic. Sclerae anicteric. Buccal mucosa dry. NECK: Supple. CHEST: Rise symmetrical. Breath sounds diminished to bases. HEART: S1, S2. ABDOMEN: Soft. Bowel sounds present. EXTREMITIES: Without cyanosis. ASSESSMENT: 1. Systemic inflammatory response syndrome, possible sepsis with acute encephalopathy and hydrocephalus 2. Polymicrobial urinary tract infection. 3. Anemia. 4. History of subdural hemorrhage. 5. Dysphagia, at risk for aspiration. PLAN: The patient remains stable, s/p VPS, continue abx. DW staff Problems: Consultation Date/Type/Reason Admit Date/Time Aug 07, 2016 at 00:23 Initial Consult Date 08/07/16 Type of Consultation: id Referring Provider: JESUS STUART Exam/Review of Systems Vital Signs Vitals Vital Signs Date Time Temp Pulse Resp B/P Pulse Ox O2 Delivery O2 Flow Rate FiO2 08/11/16 09:15 84 22 113/46 98 Nasal Cannula 08/11/16 08:48 2.0 08/11/16 08:00 97.4 08/10/16 01:58 27 Intake and Output 08/10/16 08/10/16 08/11/16 15:00 23:00 07:00 Intake Total 690 ml 1310 ml 650 ml Output Total 310 ml 275 ml 115 ml Balance 380 ml 1035 ml 535 ml Results Result Diagram: 08/11/16 0623 08/11/16 0623 Results 24 hrs Laboratory Tests Test 08/10/16 19:25 08/11/16 04:45 08/11/16 06:23 CSF Tubes Submitted 1 CSF Volume 5.0 CSF Appearance CLEAR CSF Color COLORLESS CSF WBC 1 CSF RBC 0 CSF Cell Count Tube # TUBE#1 CSF Total Cells Counted 1 CSF Neutrophils % 100 CSF Lymphocytes % 0 CSF Monocytes % 0 CSF Crenated Cells CSF Total Protein 31 Lab Scanned Report BLOOD TRANSFUSION White Blood Count 11.1 H Red Blood Count 3.19 L Hemoglobin 10.3 L Hematocrit 32.7 L Mean Corpuscular Volume 102.5 H Mean Corpuscular Hemoglobin 32.3 Mean Corpuscular Hemoglobin Concent 31.5 L Red Cell Distribution Width 13.5 Platelet Count 201 Mean Platelet Volume 11.7 H Neutrophils % 74.5 Lymphocytes % 18.0 Monocytes % 5.4 Eosinophils % 1.3 Basophils % 0.2 Nucleated Red Blood Cells % 0.0 Neutrophils # 8.2 H Lymphocytes # 2.0 Monocytes # 0.6 Eosinophils # 0.1 Basophils # 0.0 Nucleated Red Blood Cells # 0.0 Sodium Level 142 Potassium Level 3.9 Chloride Level 111 H Carbon Dioxide Level 23 Anion Gap 12 Blood Urea Nitrogen 38 #H Creatinine 0.88 Glucose Level 107 Calcium Level 9.2 Phosphorus Level 3.1 Magnesium Level 2.4 Medications Medications Current Medications Lactobacillus Acidophilus/ Rhamnosus (Culturelle) 1 cap BID GTB Last administered on 08/11/16 08:44; Admin Dose 1 CAP; Start 08/07/16 at 09:00 Lactulose (Enulose) 20 gm BID PRN GTB CONSTIPATION; Start 08/07/16 at 00:30 Nystatin (Nystatin Powder) 1 applic Q12 TOP Last administered on 08/11/16 08: 45; Admin Dose 1 APPLIC; Start 08/07/16 at 09:00 Nystatin (Nystatin Powder) 1 applic PRN PRN TOP NEEDED; Start 08/07/16 at 01: 00 Eye Lubricant (Artificial Tears Oph) 1 drop Q12 BOTH EYES Last administered on 08/11/16 08:46; Admin Dose 1 DROP; Start 08/07/16 at 09:00 Eye Lubricant (Artificial Tears Oph) 1 drop PRN PRN BOTH EYES DRY EYES Last administered on 08/10/16 20:50; Admin Dose 1 DROP; Start 08/07/16 at 01:00 Ascorbic Acid (Vitamin C) 500 mg DAILY GTB Last administered on 08/11/16 08:44 ; Admin Dose 500 MG; Start 08/07/16 at 09:00 Atorvastatin Calcium (Lipitor) 20 mg DAILY@21 GTB Last administered on 20:50; Admin Dose 20 MG; Start 08/07/16 at 21:00 Finasteride (Proscar) 5 mg DAILY GTB Last administered on 08/11/16 08:45; Admin Dose 5 MG; Start 08/07/16 at 09:00 Miscellaneous Information (Pending Santyl Order For Wound Care) This patient trent... PRN PRN XX WOUND CARE; Start 08/07/16 at 04:00 Famotidine (Pepcid) 20 mg HS GTB Last administered on 08/10/16 20:50; Admin Dose 20 MG; Start 08/07/16 at 21:00 Metoprolol Tartrate (Lopressor) 25 mg BID PO Last administered on 08/11/16 08: 44; Admin Dose 25 MG; Start 08/07/16 at 21:00 Baclofen 10 mg 10 mg TID PRN PO NOTE Last administered on 08/10/16 09:42; Admin Dose 10 MG; Start 08/08/16 at 03:00 Dextrose (D5W) 1,000 ml @ 80 mls/hr [id number] IV Last administered on 08/10/16 22:32; Admin Dose 80 MLS/HR; Start 08/08/16 at 12:30 Docusate Sodium (Colace Liquid Cup) 100 mg HS GTB Last administered on 20:50; Admin Dose 100 MG; Start 08/09/16 at 21:00 Ondansetron HCl (Zofran Inj) 4 mg Q4 PRN IV NAUSEA AND/OR VOMITING; Start 08/09 at 12:30 Acetaminophen (Tylenol Tab) 650 mg Q6H PRN PO PAIN LEVEL 1-3 OR FEVER; Start at 12:30 Acetaminophen (Tylenol Supp) 650 mg Q6H PRN DE PAIN LEVEL 1-3 OR FEVER; Start 08/09/16 at 12:30 Morphine Sulfate 2 mg 2 mg Q3H PRN IV MODERATE PAIN LEVEL 4-6 Last administered on 08/11/16 09:00; Admin Dose 2 MG; Start 08/09/16 at 12:30 Linezolid 300 ml @ 300 mls/hr Q12 IVPB Last administered on 08/11/16 08:44; Admin Dose 300 MLS/HR; Start 08/10/16 at 21:00 Cefazolin Sodium (Ancef 1 Gm/50 ml (Pmx)) 50 ml @ 100 mls/hr Q8 IVPB Last administered on 08/11/16t 05:30; Admin Dose 100 MLS/HR; Start 08/10/16 at 14:00 ROMINA SCHREIBER NP Aug 11, 2016 11:56
--- NOTE | 2016-08-11 12:36 | OPPN ---
Date/Time of Note Date/Time of Note DATE: 08/11/16 TIME: 12:36 Anesthesia Follow up Anesthesia Follow up Last documented vital signs Vital Signs Date Time Temp Pulse Resp B/P Pulse Ox O2 Delivery O2 Flow Rate FiO2 08/11/16 12:00 91 08/11/16 12:00 98.3 23 114/80 85 Nasal Cannula 08/11/16 08:48 2.0 08/10/16 01:58 27 Respiratory function: WNL Cardiovascular function: WNL Comments vss satisfactory recovery from anesthesia. DARNELL COLE Aug 11, 2016 12:36
[2016-08-11] MEDS: DEXTROSE 5% 1,000 ML IV SCH (14:11)
--- NOTE | 2016-08-11 16:29 | RADRPT ---
PROCEDURE: CT Head without. CLINICAL INDICATION: Postop evaluation. TECHNIQUE: The study was performed utilizing a multi-slice, multidetector CT scanner. Direct spira l 1 mm axial sections were obtained through the head without the use of intravenous contrast materia l. 1 or more of the following dose reduction techniques were utilized: Automated exposure control, adjustment of the mA and/or kV according to patient's size, iterative reconstruction technique. Co annika and sagittal reformations were obtained. The images were reviewed on a PACS workstation. RADIATION DOSE: CTDIvol: 43.5 mGyDLP: 720.2 mGy-cm COMPARISON: 08/10/2016, 08/05/2016, 07/29/2016, , 07/09/2016 MRI brain 08/07/2016, 07/13/2016 FINDINGS: There as been interval placement of a right parietal approach ventriculostomy with tip in in the bod y of the left lateral ventricle. There is a trace amount of pneumocephalus along the course of the shunt as well as along the anterolateral aspect of the right frontal lobe. There is redemonstration of postoperative changes from focal defect involving the left anterior frontal lobe with plate and screw device fixation. There is stable severe prominence of the lateral ventricles, measuring 6.0 c m in frontal transverse diameter, which is stable on multiple prior examinations dating back to 07/01, however significantly enlarged compared to the remote prior examination on 07/09/2016. Ther e is stable moderate periventricular white matter hypodensity, suggestive of transependymal CSF migr ation. On the sagittal view, there is anterior bowing of the chiasmatic recess. There is mild funn eling of the cerebral aqueduct. There is relatively mild prominence of the cerebral sulci. There is stable appearance of bilateral subdural hygromas overlying the anterior frontal lobes, measuring maximum 8-9 mm in maximal diameter. There is no intracranial hemorrhage, mass lesion or midline yessenia ft. No definite extra-axial hemorrhage is seen along the course of the ventriculostomy. IMPRESSION: 1. Interval placement of right parietal approach ventriculostomy with tip in the body of the left l ateral ventricle. Postoperative changes along the course of the ventriculostomy as well as small fo cus of subarachnoid pneumocephalus lateral to the right frontal lobe. 2. Stable severe prominence of the lateral ventricles with transependymal CSF migration, suggestive of hydrocephalous. This may be related to normal pressure hydrocephalus with other etiologies incl uding nonobstructive hydrocephalus not excluded. This is stable compared to prior examinations dati ng back to 07/29/2016, however significantly increased in size compared to the remote examination on 07/09/2016. 3. Stable appearance of bilateral subdural hygromas overlying the frontal lobes, measuring 8-9 mm i n maximal diameter. 4. Stable mild peripheral cerebral volume loss. RPTAT: HGAS .Hilario Lopez MD, Date Time Electronically viewed and signed by .Hilario Lopez MD, MD on 08/11/2016 16:28 .S/
--- NOTE | 2016-08-11 19:21 | QN ---
Documentation Comment POD #1 CT looks good with good placement of ventricular catheter and no hemorrhage or increase in SDH and persistent ventriculomegaly. CSF negative so far for infection. The patient is clinically unchanged. I advised his daughter that any improvement in mental status will likely take at least 1-2 weeks to become apparent given large size of ventricles. JAVAD CAMPBELL MD Aug 11, 2016 19:21
[2016-08-11] MEDS ORDERED: METOCLOPRAMIDE 10 MG INJ IV PRN (20:30)
[2016-08-11] MEDS: ALBUTEROL/IPRATROPIUM (NEB) 3 ML AMP HHN PRN (20:35)
[2016-08-11] MEDS: ATORVASTATIN 20 MG TAB GTB SCH (20:45)
[2016-08-11] MEDS: DOCUSATE SODIUM 10 MG/ML (10ML CUP) GTB SCH (20:45)
[2016-08-11] MEDS: FAMOTIDINE 20 MG TAB GTB SCH (20:45)
[2016-08-11] MEDS: ARTIFICIAL TEARS 15 ML OPH BOTH EYES PRN (20:52)
[2016-08-11] MEDS ORDERED: PANTOPRAZOLE 40 MG INJ IV ONE (21:30)
[2016-08-11 22:34] LABS: ADD SCAN DIFF NO
[2016-08-11 22:35] LABS: BASOPHILS % 0.2 % (0.0-2.0); EOSINOPHILS # 0.1 10^3/ul (0.0-0.5); EOSINOPHILS % 0.9 % (0.0-7.0); HEMATOCRIT 32.8 % (42.0-52.0); HEMOGLOBIN 10.7 g/dl (14.0-18.0); LYMPHOCYTES % 16.8 % (15.0-51.0); MEAN CORPUSCULAR HEMOGLOBIN 33.2 pg (29.0-33.0); MEAN CORPUSCULAR HGB CONC 32.6 g/dl (32.0-37.0); MEAN CORPUSCULAR VOLUME 101.9 fl (82.0-101.0); MEAN PLATELET VOLUME 11.1 fl (7.4-10.4); MONOCYTE # 0.4 10^3/ul (0.3-0.9); MONOCYTES % 3.4 % (0.0-11.0); NEUTROPHIL # 9.2 10^3/ul (1.6-7.5); NEUTROPHILS % 77.7 % (39.0-77.0); PLATELET COUNT 173 10^3/UL (140-415); RED BLOOD COUNT 3.22 10^6/ul (4.70-6.10); RED CELL DISTRIBUTION WIDTH 13.5 % (11.5-14.5); WHITE BLOOD COUNT 11.9 10^3/ul (4.8-10.8)
--- NOTE | 2016-08-11 22:37 | RADRPT ---
PROCEDURE: XR Chest. CLINICAL INDICATION: Vomiting TECHNIQUE: Single AP portable chest COMPARISON: None. 08/11/2016 FINDINGS: The cardiomediastinal silhouette is within normal limits of size. Mild prominence of the pulmonary v ascularity. Atherosclerotic calcification of the aorta. The lungs are clear without pleural effus ion or focal consolidation. No pneumothorax. The osseous structures and soft tissues are unremarkabl e. IMPRESSION: 1. Mild vascular congestion. No pleural effusion or focal consolidation. . RPTAT:AAJJ Phong Miller Physician Date Time Electronically viewed and signed by Physician Franky on 08/11/2016 22:36 LENO/
[2016-08-12] VITALS (34 sets, daily range): BP systolic 65–162; BP diastolic 46–77; PULSE 63–119; RESP 18–36
[2016-08-12] MEDS ORDERED: LORAZEPAM 2 MG INJ IV ONE (01:00)
[2016-08-12] MEDS ORDERED: CEFEPIME 1GM/50 ML (PMX) 50 ML IVPB ONE (01:00)
[2016-08-12] MEDS ORDERED: PANTOPRAZOLE IV 80 MG in SOD CHLORIDE 0.9% 100 ML IVPB ONE (01:00)
[2016-08-12] MEDS: ALBUTEROL/IPRATROPIUM (NEB) 3 ML AMP HHN SCH ×3 (01:07→16:15)
[2016-08-12] MEDS: PANTOPRAZOLE IV 80 MG in SOD CHLORIDE 0.9% 100 ML IV SCH ×2 (01:40→11:05)
[2016-08-12] MEDS ORDERED: SOD CHLORIDE 0.9% 500 ML IV ONE (02:30)
[2016-08-12 02:46] LABS: ADD SCAN DIFF NO
[2016-08-12 02:48] LABS: BASOPHILS % 0.1 % (0.0-2.0); EOSINOPHILS % 0.3 % (0.0-7.0); HEMATOCRIT 33.3 % (42.0-52.0); HEMOGLOBIN 10.8 g/dl (14.0-18.0); LYMPHOCYTES # 1.4 10^3/ul (0.8-2.9); LYMPHOCYTES % 12.8 % (15.0-51.0); MEAN CORPUSCULAR HEMOGLOBIN 32.3 pg (29.0-33.0); MEAN CORPUSCULAR HGB CONC 32.4 g/dl (32.0-37.0); MEAN CORPUSCULAR VOLUME 99.7 fl (82.0-101.0); MEAN PLATELET VOLUME 11.2 fl (7.4-10.4); MONOCYTE # 0.2 10^3/ul (0.3-0.9); MONOCYTES % 2.2 % (0.0-11.0); NEUTROPHILS % 83.7 % (39.0-77.0); PLATELET COUNT 206 10^3/UL (140-415); RED BLOOD COUNT 3.34 10^6/ul (4.70-6.10); RED CELL DISTRIBUTION WIDTH 13.6 % (11.5-14.5); WHITE BLOOD COUNT 10.7 10^3/ul (4.8-10.8)
[2016-08-12] MEDS: DEXTROSE 5% 1,000 ML IV SCH ×2 (03:00→11:05)
[2016-08-12] MEDS: ACETAMINOPHEN 1000MG/100ML IV 100 ML IVPB SCH ×3 (03:46→20:00)
[2016-08-12] MEDS ORDERED: SOD CHLORIDE 0.9% 1,000 ML IV ONE (04:00)
[2016-08-12] MEDS ORDERED: PANTOPRAZOLE 40 MG INJ IV SCH (06:00)
[2016-08-12] MEDS: CEFAZOLIN 1 GM/50 ML (PMX) 50 ML IVPB SCH (06:15)
[2016-08-12 06:58] LABS: ADD SCAN DIFF NO
[2016-08-12 07:13] LABS: ABNORMAL IP MESSAGE 1; HEMATOCRIT 31.5 % (42.0-52.0); HEMOGLOBIN 9.7 g/dl (14.0-18.0); MEAN CORPUSCULAR HEMOGLOBIN 32.7 pg (29.0-33.0); MEAN CORPUSCULAR HGB CONC 30.8 g/dl (32.0-37.0); MEAN CORPUSCULAR VOLUME 106.1 fl (82.0-101.0); MEAN PLATELET VOLUME 12.6 fl (7.4-10.4); RED BLOOD COUNT 2.97 10^6/ul (4.70-6.10); RED CELL DISTRIBUTION WIDTH 13.6 % (11.5-14.5); WHITE BLOOD COUNT 14.5 10^3/ul (4.8-10.8)
[2016-08-12 07:25] LABS: PLATELET COUNT 87 10^3/UL (140-415)
[2016-08-12 07:41] LABS: CALCIUM 8.2 mg/dl (8.4-10.2); CREATININE 0.97 mg/dl (0.61-1.24); POTASSIUM 4.3 mmol/L (3.5-5.1)
[2016-08-12] MEDS: ARTIFICIAL TEARS 15 ML OPH BOTH EYES PRN ×2 (08:11→21:07)
[2016-08-12] MEDS: ARTIFICIAL TEARS 15 ML OPH BOTH EYES SCH ×3 (08:13→21:14)
[2016-08-12] MEDS: ACETYLCYSTEINE 20% 4 ML VIAL NEB SCH ×2 (08:23→19:46)
[2016-08-12 08:37] LABS: AADO2 Arterial 549.4 mmHg (7.0-24.0); Arterial Base Excess -4.8 mmol/L (-3.0-3); Arterial COHb 0.2 % (0.0-3.0); Arterial Fraction of Oxyhgb 97.5 % (93.0-99.0); Arterial HCO3 18.6 mmol/L (22.0-26.0); Arterial MetHb 0.4 % (0.0-1.5); Arterial Total Hemglobin 9.5 g/dl (12.0-18.0); MODE MASK - NRB
[2016-08-12] MEDS: METOPROLOL 25 MG TAB PO SCH ×2 (09:00→21:13)
[2016-08-12] MEDS: LINEZOLID 600 MG/D5W (PMX) 300 ML IVPB SCH ×2 (09:36→21:07)
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
--- NOTE | 2016-08-12 09:39 | RADRPT ---
PROCEDURE: US Lower extremity Venous. CLINICAL INDICATION: Bilateral lower extremity edema TECHNIQUE: Multiple sonographic images of the bilateral lower extremity deep venous system was obt ained utilizing grayscale, color-flow, compressive sonography and doppler imaging with augmentation. The images were reviewed on a PACS workstation. COMPARISON: None. FINDINGS: The right common femoral vein is not compressible. The left proximal femoral vein is not compressible. There is normal compressibility and flow within the right femoral , posterior tibial and popliteal v eins. There is normal compressibility and flow within the left common femoral, mid and distal femoral , po sterior tibial and popliteal veins. RPTAT: AA IMPRESSION: DVT in the right common femoral vein and left proximal femoral vein. A call report was made and the findings discussed with nurse Mandeep at 08/12/2016 9:37:02 AM. .Conner Cordova MD, MD Date Time Electronically viewed and signed by .Conner Cordova MD, on 08/12/2016 09:38 .S/
[2016-08-12] MEDS: LACTOBACILLUS RHAMNOSUS CAP GTB SCH ×2 (09:44→21:11)
[2016-08-12] MEDS: FINASTERIDE 5 MG TAB GTB SCH (09:44)
[2016-08-12] MEDS: NYSTATIN 30 GM POWDER BTL TOP SCH ×2 (09:44→21:13)
[2016-08-12] MEDS: ASCORBIC ACID 500 MG TAB GTB SCH (09:44)
--- NOTE | 2016-08-12 09:45 | RADRPT ---
PROCEDURE: XR Chest. CLINICAL INDICATION: Aspiration TECHNIQUE: An AP view of the chest was obtained. COMPARISON: Chest x-ray dated 08/11/2016 FINDINGS: Multiple overlying monitor leads obscure evaluation.Tubing from a ventriculoperitoneal shunt is seen along the right neck and chest wall. The tip of the enteric tube extends below the left diaphragm. Lung volumes are low. There are bibasilar interstitial opacities. There is prominence of the inter stitial and central pulmonary vascular markings with small bilateral pleural effusions. No focal airspace opacification or pneumothorax is seen. The cardiomediastinal silhouette is within normal l imits for size. The osseous structures demonstrate senescent changes. IMPRESSION: 1. Low lung volumes with bibasilar atelectasis, increased when compared to the prior examination. 2. Tubes and lines, as described above. RPTAT: HH .Helen Avila MD, MD Date Time Electronically viewed and signed by .Helen Avila MD, on 08/12/2016 09:44 .G/
--- NOTE | 2016-08-12 09:46 | RADRPT ---
PROCEDURE: XR Abdomen. CLINICAL INDICATION: Emesis TECHNIQUE: Two AP views of the abdomen were obtained COMPARISON: X-ray abdomen dated 08/07/2016 FINDINGS: Ventriculoperitoneal shunt tubing is seen along the right abdomen, terminating within the right lowe r quadrant. There is a nonobstructive bowel gas pattern. There is a small calcification within the right upper quadrant. The visualized portions of the lung bases are clear. The osseous structures are unremark able. IMPRESSION: 1. Unremarkable bowel gas pattern. 2. Ventriculoperitoneal shunt tubing, terminates in the right lower quadrant. 3. Small round calcification within the right upper quadrant, may reflect cholelithiasis. RPTAT: HH .Helen Avila MD, MD Date Time Electronically viewed and signed by .Helen Avila MD, on 08/12/2016 09:46 .G/
[2016-08-12 10:37] LABS: LYMPHOCYTES # 1.6 10^3/ul (0.8-2.9); NEUTROPHIL # 9.4 10^3/ul (1.6-7.5)
--- NOTE | 2016-08-12 10:48 | CONS ---
Date/Time of Note Date/Time of Note DATE: 08/12/16 TIME: 10:45 Consult Date/Type/Reason Admit Date/Time Aug 07, 2016 at 00:23 Initial Consult Date 08/07/16 Type of Consultation: Pulmonary ICU Ordering Provider: JESUS STUART Subjective Patient more lethargic this morning with increased secretions Requires deep suctioning. Continues facemask O2. Objective Vital Signs Date Time Temp Pulse Resp B/P Pulse Ox O2 Delivery O2 Flow Rate FiO2 08/12/16 10:00 74 20 120/77 100 08/12/16 08:24 Simple Mask 15.0 08/12/16 07:30 97.6 08/12/16 00:45 100 Intake and Output 08/11/16 08/11/16 08/12/16 14:59 22:59 06:59 Intake Total 1350 ml 1160 ml 2098 ml Output Total 275 ml 195 ml 180 ml Balance 1075 ml 965 ml 1918 ml Exam GENERAL: Frail elderly gentleman on facemask O2 VITAL SIGNS: per chart NECK: Supple. No JVD or lymphadenopathy. CARDIAC EXAM: S1, S2. No added sounds or murmurs. CHEST: Diminished air entry bilaterally ABDOMEN: Soft, nontender. No guarding or rebound. EXTREMITIES: No cyanosis, clubbing or edema. NEUROLOGIC: Generalized weakness. Results/Medications Result Diagram: 08/12/16 0630 08/12/16 0630 Results 24 hrs Laboratory Tests Test 08/11/16 22:20 08/12/16 02:40 08/12/16 05:48 08/12/16 06:30 White Blood Count 11.9 H 10.7 14.5 #H Red Blood Count 3.22 L 3.34 L 2.97 L Hemoglobin 10.7 L 10.8 L 9.7 L Hematocrit 32.8 L 33.3 L 31.5 L Mean Corpuscular Volume 101.9 H 99.7 106.1 H Mean Corpuscular Hemoglobin 33.2 H 32.3 32.7 Mean Corpuscular Hemoglobin Concent 32.6 32.4 30.8 L Red Cell Distribution Width 13.5 13.6 13.6 Platelet Count 173 206 87 #L Mean Platelet Volume 11.1 H 11.2 H 12.6 H Neutrophils % 77.7 H 83.7 H 65.0 Lymphocytes % 16.8 12.8 L 11.0 L Monocytes % 3.4 2.2 Eosinophils % 0.9 0.3 Basophils % 0.2 0.1 Nucleated Red Blood Cells % 0.0 0.0 Neutrophils # 9.2 H 9.0 H 9.4 H Lymphocytes # 2.0 1.4 1.6 Monocytes # 0.4 0.2 L Eosinophils # 0.1 0.0 Basophils # 0.0 0.0 Nucleated Red Blood Cells # 0.0 0.0 Blood Gas Specimen Source Blood arterial Arterial Blood Date Drawn 08/12/2016 5:55:15 AM Arterial Blood pH (Temp corrected) 7.435 Arterial Blood pCO2 (Temp correct) 28.3 L Arterial Blood pO2 (Temp corrected) 135.3 H Arterial Blood HCO3 18.6 L Arterial Blood Base Excess -4.8 L Arterial Blood Oxygen Saturation 98.1 Tavo Test N/A Arterial Blood Gas Puncture Site LB Arterial Blood Carboxyhemoglobin 0.2 Arterial Blood Methemoglobin 0.4 Blood Gas A-a O2 Differential 549.4 H Oxyhemoglobin Percent 97.5 Total Hemoglobin 9.5 L Blood Gas Temperature 37.0 Blood Gas Modality MASK - NRB FiO2 100.0 Blood Gas Notified Whom LW Blood Gas Notified Time 08/12/2016 6:06:05 AM Band Neutrophils % 24.0 H Sodium Level 135 Potassium Level 4.3 Chloride Level 108 Carbon Dioxide Level 18 L Anion Gap 13 Blood Urea Nitrogen 32 H Creatinine 0.97 Glucose Level 92 Calcium Level 8.2 L Medications Current Medications Lactobacillus Acidophilus/ Rhamnosus (Culturelle) 1 cap BID GTB Last administered on 08/12/16 09:44; Admin Dose 1 CAP; Start 08/07/16 at 09:00 Lactulose (Enulose) 20 gm BID PRN GTB CONSTIPATION; Start 08/07/16 at 00:30 Nystatin (Nystatin Powder) 1 applic Q12 TOP Last administered on 08/12/16 09: 44; Admin Dose 1 APPLIC; Start 08/07/16 at 09:00 Nystatin (Nystatin Powder) 1 applic PRN PRN TOP NEEDED; Start 08/07/16 at 01: 00 Eye Lubricant (Artificial Tears Oph) 1 drop Q12 BOTH EYES Last administered on 08/11/16 20:53; Admin Dose 1 DROP; Start 08/07/16 at 09:00 Eye Lubricant (Artificial Tears Oph) 1 drop PRN PRN BOTH EYES DRY EYES Last administered on 08/12/16 08:11; Admin Dose 1 DROP; Start 08/07/16 at 01:00 Ascorbic Acid (Vitamin C) 500 mg DAILY GTB Last administered on 08/12/16 09:44 ; Admin Dose 500 MG; Start 08/07/16 at 09:00 Atorvastatin Calcium (Lipitor) 20 mg DAILY@21 GTB Last administered on 20:45; Admin Dose 20 MG; Start 08/07/16 at 21:00 Finasteride (Proscar) 5 mg DAILY GTB Last administered on 08/12/16 09:44; Admin Dose 5 MG; Start 08/07/16 at 09:00 [facility] This patient trent... PRN PRN XX WOUND CARE; Start 08/07/16 at 04:00 Famotidine (Pepcid) 20 mg HS GTB Last administered on 08/11/16 20:45; Admin Dose 20 MG; Start 08/07/16 at 21:00 Metoprolol Tartrate (Lopressor) 25 mg BID PO Last administered on 08/11/16 20: 45; Admin Dose 25 MG; Start 08/07/16 at 21:00 Baclofen 10 mg 10 mg TID PRN PO NOTE Last administered on 08/10/16 09:42; Admin Dose 10 MG; Start 08/08/16 at 03:00 Dextrose (D5W) 1,000 ml @ 80 mls/hr [id number] IV Last administered on 08/11/16 14:11; Admin Dose 80 MLS/HR; Start 08/08/16 at 12:30 Docusate Sodium (Colace Liquid Cup) 100 mg HS GTB Last administered on 20:45; Admin Dose 100 MG; Start 08/09/16 at 21:00 Ondansetron HCl (Zofran Inj) 4 mg Q4 PRN IV NAUSEA AND/OR VOMITING Last administered on 08/11/16 20:52; Admin Dose 4 MG; Start 08/09/16 at 12:30 Acetaminophen (Tylenol Tab) 650 mg Q6H PRN PO PAIN LEVEL 1-3 OR FEVER; Start at 12:30 Acetaminophen (Tylenol Supp) 650 mg Q6H PRN [place] PAIN LEVEL 1-3 OR FEVER; Start 08/09/16 at 12:30 Morphine Sulfate 2 mg 2 mg Q3H PRN IV MODERATE PAIN LEVEL 4-6 Last administered on 08/11/16 20:52; Admin Dose 2 MG; Start 08/09/16 at 12:30 Linezolid 300 ml @ 300 mls/hr Q12 IVPB Last administered on 08/12/16 09:36; Admin Dose 300 MLS/HR; Start 08/10/16 at 21:00 Cefazolin Sodium (Ancef 1 Gm/50 ml (Pmx)) 50 ml @ 100 mls/hr Q8 IVPB Last administered on 08/12/16 06:15; Admin Dose 100 MLS/HR; Start 08/10/16 at 14:00 Metoclopramide HCl 10 mg 10 mg Q6H PRN IV high residuals; Start 08/11/16 at 20: 30 Pantoprazole 80 mg/Sodium Chloride 100 ml @ 10 mls/hr Q10H IV Last administered on 08/12/16 01:40; Admin Dose 10 MLS/HR; Start 08/12/16 at 01:30 Acetaminophen (Ofirmev 1000mg/ 100ml Iv) 100 ml @ 400 mls/hr Q8H IVPB Last administered on 08/12/16 03:46; Admin Dose 400 MLS/HR; Start 08/12/16 at 04:00 Assessment/Plan Chief Complaint/Hosp Course Additional Assessment/Plan IMP: 1. AMS--due to normal pressure hydrocephalus status post MOTOR SETTER shunt 2. NPH 3. Worsening encephalopathy 4. Aspiration pneumonia hypoxemic respiratory failure acute RECS: 1. Aspiration precautions 2. Continue neurosurgical recommendations 3. Supplemental O2 4. Head of bed elevation 5. Broad-spectrum antibiotics Disposition I had a long discussion with patient's daughter at bedside today explained to her his critical condition and possibility of deterioration requiring intubation mechanical ventilation. She wishes to continue all aggressive measures for now including intubation if needed. I have explained to her that intubation would likely result in patient requiring tracheostomy as he is not weanable from mechanical ventilation. Critical care time 40 minutes. Problems: MAMTA MIMS MD, [facility] Aug 12, 2016 10:48
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
--- NOTE | 2016-08-12 13:30 | PN ---
DATE: 08/12/2016 SUBJECTIVE: The patient spiked fever of 101.5 and 101.8 last night. He also developed respiratory distress, currently on face mask. Afebrile obtunded, in no distress. Pulse 76, respirations 23, blood pressure 107/58, saturation 98%. LABORATORY DATA: WBC today 14.5, H and H 9.7 and 31.5, platelets 87, neutrophils 65, bands 24, lymphs 11. BUN 32, creatinine 0.97. MICROBIOLOGY: CSF cultures negative, preliminary. ANTIMICROBIALS: The patient is on: 1. Zyvox. 2. Ancef. DIAGNOSTICS: Chest x-ray revealed increased bibasilar atelectasis. Right lower extremity ultrasound revealed DVT. INDWELLINGS: The patient has a Wang, PEG, peripheral IV and M48 M60 ARMOR CREW[employer] shunt. PHYSICAL EXAMINATION: GENERAL: This is a chronically ill-appearing, elderly man who is in no distress. HEENT: Head atraumatic, normocephalic. Sclerae anicteric. Buccal mucosa dry. NECK: Supple, trachea midline. CHEST: Rise symmetrical. Breath sounds with bilateral rhonchi. HEART: S1, S2. ABDOMEN: Soft. Bowel sounds present. EXTREMITIES: No cyanosis. ASSESSMENT: 1. Sepsis with shock. 2. Acute respiratory failure, possibly aspiration event postprocedure. 3. Urinary tract infection. 4. Hydrocephalus, status post ventriculoperitoneal shunt placement. 5. Right lower extremity deep venous thrombosis. 6. History of subdural hemorrhage. PLAN: Pt was started on Cefepime, will dc Ancef. Continue Zyvox. Continue aspiration measures. Follow chest x-ray. Follow recommendations of consultants. Dictated By: ROMINA SCHREIBER SUPERVISOR [employer] for SARAHY BEAR/IWONA Conf#: [id number] DID#: [id number] MTDD
[2016-08-12] MEDS ORDERED: SOD CHLORIDE 0.9% 100 ML ONE (16:54)
[2016-08-12] MEDS ORDERED: IOHEXOL 350MG/ML 50 ML BTL ONE (16:54)
[2016-08-12] MEDS ORDERED: IOHEXOL 100 ML ONE (16:54)
--- NOTE | 2016-08-12 17:28 | CONS ---
Date/Time of Note Date/Time of Note DATE: 08/12/16 TIME: 17:16 Assessment/Plan Assessment/Plan Additional Assessment/Plan Pts daughter will come in zia evening for consents IVC filter. Also scheduled a conference Thursday 08/17. Consultation Date/Type/Reason Admit Date/Time Aug 07, 2016 at 00:23 Initial Consult Date 08/07/16 Type of Consultation: Palliative Care Referring Provider: JESUS STUART 24 HR Interval Summary Free Text/Dictation There has been no overall change in Mr. Arias's medical condition, shunt placed yesterday. Rescheduled a conference with Agent . Will gently introduce my place assisting in her fathers care and not addressing changing current goals of care unless she does. Later will discuss goals and expectation for quality of life. Exam/Review of Systems Vital Signs Vitals Vital Signs Date Time Temp Pulse Resp B/P Pulse Ox O2 Delivery O2 Flow Rate FiO2 08/12/16 17:03 100 8.0 08/12/16 16:15 69 22 Simple Mask 08/12/16 16:00 108/60 08/12/16 14:00 97.6 08/12/16 00:45 100 Intake and Output 08/11/16 08/11/16 08/12/16 15:00 23:00 07:00 Intake Total 1320 ml 1200 ml 2008 ml Output Total 275 ml 240 ml 535 ml Balance 1045 ml 960 ml 1473 ml Results Result Diagram: 08/12/16 0630 08/12/16 0630 Results 24 hrs Laboratory Tests Test 08/11/16 22:20 08/12/16 02:40 08/12/16 05:48 08/12/16 06:30 White Blood Count 11.9 H 10.7 14.5 #H Red Blood Count 3.22 L 3.34 L 2.97 L Hemoglobin 10.7 L 10.8 L 9.7 L Hematocrit 32.8 L 33.3 L 31.5 L Mean Corpuscular Volume 101.9 H 99.7 106.1 H Mean Corpuscular Hemoglobin 33.2 H 32.3 32.7 Mean Corpuscular Hemoglobin Concent 32.6 32.4 30.8 L Red Cell Distribution Width 13.5 13.6 13.6 Platelet Count 173 206 87 #L Mean Platelet Volume 11.1 H 11.2 H 12.6 H Neutrophils % 77.7 H 83.7 H 65.0 Lymphocytes % 16.8 12.8 L 11.0 L Monocytes % 3.4 2.2 Eosinophils % 0.9 0.3 Basophils % 0.2 0.1 Nucleated Red Blood Cells % 0.0 0.0 Neutrophils # 9.2 H 9.0 H 9.4 H Lymphocytes # 2.0 1.4 1.6 Monocytes # 0.4 0.2 L Eosinophils # 0.1 0.0 Basophils # 0.0 0.0 Nucleated Red Blood Cells # 0.0 0.0 Blood Gas Specimen Source Blood arterial Arterial Blood Date Drawn 08/12/2016 5:55:15 AM Arterial Blood pH (Temp corrected) 7.435 Arterial Blood pCO2 (Temp correct) 28.3 L Arterial Blood pO2 (Temp corrected) 135.3 H Arterial Blood HCO3 18.6 L Arterial Blood Base Excess -4.8 L Arterial Blood Oxygen Saturation 98.1 Tavo Test N/A Arterial Blood Gas Puncture Site LB Arterial Blood Carboxyhemoglobin 0.2 Arterial Blood Methemoglobin 0.4 Blood Gas A-a O2 Differential 549.4 H Oxyhemoglobin Percent 97.5 Total Hemoglobin 9.5 L Blood Gas Temperature 37.0 Blood Gas Modality MASK - NRB FiO2 100.0 Blood Gas Notified Whom LW Blood Gas Notified Time 08/12/2016 6:06:05 AM Band Neutrophils % 24.0 H Sodium Level 135 Potassium Level 4.3 Chloride Level 108 Carbon Dioxide Level 18 L Anion Gap 13 Blood Urea Nitrogen 32 H Creatinine 0.97 Glucose Level 92 Calcium Level 8.2 L Medications Medications Current Medications Lactobacillus Acidophilus/ Rhamnosus (Culturelle) 1 cap BID GTB Last administered on 08/12/16 09:44; Admin Dose 1 CAP; Start 08/07/16 at 09:00 Lactulose (Enulose) 20 gm BID PRN GTB CONSTIPATION; Start 08/07/16 at 00:30 Nystatin (Nystatin Powder) 1 applic Q12 TOP Last administered on 08/12/16 09: 44; Admin Dose 1 APPLIC; Start 08/07/16 at 09:00 Nystatin (Nystatin Powder) 1 applic PRN PRN TOP NEEDED; Start 08/07/16 at 01: 00 Eye Lubricant (Artificial Tears Oph) 1 drop Q12 BOTH EYES Last administered on 08/11/16 20:53; Admin Dose 1 DROP; Start 08/07/16 at 09:00 Eye Lubricant (Artificial Tears Oph) 1 drop PRN PRN BOTH EYES DRY EYES Last administered on 08/12/16 08:11; Admin Dose 1 DROP; Start 08/07/16 at 01:00 Ascorbic Acid (Vitamin C) 500 mg DAILY GTB Last administered on 08/12/16 09:44 ; Admin Dose 500 MG; Start 08/07/16 at 09:00 Atorvastatin Calcium (Lipitor) 20 mg DAILY@21 GTB Last administered on 20:45; Admin Dose 20 MG; Start 08/07/16 at 21:00 Finasteride (Proscar) 5 mg DAILY GTB Last administered on 08/12/16 09:44; Admin Dose 5 MG; Start 08/07/16 at 09:00 [facility] This patient trent... PRN PRN XX WOUND CARE; Start 08/07/16 at 04:00 Famotidine (Pepcid) 20 mg HS GTB Last administered on 08/11/16 20:45; Admin Dose 20 MG; Start 08/07/16 at 21:00 Metoprolol Tartrate (Lopressor) 25 mg BID PO Last administered on 08/11/16 20: 45; Admin Dose 25 MG; Start 08/07/16 at 21:00 Baclofen 10 mg 10 mg TID PRN PO NOTE Last administered on 08/10/16 09:42; Admin Dose 10 MG; Start 08/08/16 at 03:00 Dextrose (D5W) 1,000 ml @ 80 mls/hr [id number] IV Last administered on 08/12/16 11:05; Admin Dose 80 MLS/HR; Start 08/08/16 at 12:30 Docusate Sodium (Colace Liquid Cup) 100 mg HS GTB Last administered on 20:45; Admin Dose 100 MG; Start 08/09/16 at 21:00 Ondansetron HCl (Zofran Inj) 4 mg Q4 PRN IV NAUSEA AND/OR VOMITING Last administered on 08/11/16 20:52; Admin Dose 4 MG; Start 08/09/16 at 12:30 Acetaminophen (Tylenol Tab) 650 mg Q6H PRN PO PAIN LEVEL 1-3 OR FEVER; Start at 12:30 Acetaminophen (Tylenol Supp) 650 mg Q6H PRN [place] PAIN LEVEL 1-3 OR FEVER; Start 08/09/16 at 12:30 Morphine Sulfate 2 mg 2 mg Q3H PRN IV MODERATE PAIN LEVEL 4-6 Last administered on 08/11/16 20:52; Admin Dose 2 MG; Start 08/09/16 at 12:30 Linezolid (Zyvox 600mg/D5W (Pmx)) 300 ml @ 300 mls/hr Q12 IVPB Last administered on 08/12/16 09:36; Admin Dose 300 MLS/HR; Start 08/10/16 at 21:00 Metoclopramide HCl 10 mg 10 mg Q6H PRN IV high residuals; Start 08/11/16 at 20: 30 Pantoprazole 80 mg/Sodium Chloride 100 ml @ 10 mls/hr Q10H IV Last administered on 08/12/16 11:05; Admin Dose 10 MLS/HR; Start 08/12/16 at 01:30 Acetaminophen (Ofirmev 1000mg/ 100ml Iv) 100 ml @ 400 mls/hr Q8H IVPB Last administered on 08/12/16 12:29; Admin Dose 400 MLS/HR; Start 08/12/16 at 04:00 KRISTEN GOMES Aug 12, 2016 17:27
--- NOTE | 2016-08-12 17:39 | CONS ---
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 * S/P [place] hole * History of recurrent aspirations Plan * Monitor H and H q^ transfuse 1 unit PRBC hgb<7.5,2 units PRBC hgb <7.0 * Protonic drip * Continue present management Consultation Date/Type/Reason Admit Date/Time Aug 07, 2016 at 00:23 Date of Consultation: Aug 12, 2016 Type of Consultation: gastroenterology Reason for Consultation coffee ground emesis Referring Provider: YE JOYNER Hx of Present Illness 86 year old male with past medical history S/P [place] hole secondary to subdural hematoma,s/p vp & general counsel shunt,encephalopathy.,hypertension,respiratory failure, recurrent aspiration pneumonia on tube feeding was referred because of coffee ground vomitus.last night approximately 200 cc.Patient localize to painful stimuli,on 100 % oxygen mask,present hemoglobin was 9.7 prothrombin time 15.3.INR 1.2 Ultrasound of lower extremities DVT in the right common femoral vein and left proximal femoral vein. Presently no active bleeding per ngt,and g tube but will minimal coffee ground secretions.noted on nasogastric tube. Psychological: no complaints Past Medical History Medical History: deep vein thrombosis, hypertension, other (pneumonia,sepsis) Past Surgical History Past Surgical Hx: other (elsa hole vp & general counsel shunt) Social History Smoking Status: Unknown if ever smoked Exam/Review of Systems Vital Signs Vitals Vital Signs Date Time Temp Pulse Resp B/P Pulse Ox O2 Delivery O2 Flow Rate FiO2 08/12/16 17:03 100 8.0 08/12/16 16:15 69 22 Simple Mask 08/12/16 16:00 108/60 08/12/16 14:00 97.6 08/12/16 00:45 100 Intake and Output 08/11/16 08/11/16 08/12/16 15:00 23:00 07:00 Intake Total 1320 ml 1200 ml 2008 ml Output Total 275 ml 240 ml 535 ml Balance 1045 ml 960 ml 1473 ml Exam Constitutional: frail, other (localizes to painful stimuli) Eyes: PERRL, nl conjunctiva ENMT: other (nasogastric tube) Neck: supple Respiratory: congested cough, crackles/rales, diminished breath sounds Cardiovascular: nl pulses, regular rate and rhythm Gastrointestinal: distended, non-tender, other (gtube), soft Musculoskeletal: muscle weakness, swelling Extremities: edema Neurological: other (localizes to painful stimuli) Skin: ecchymosis, rash or lesions Lymph: nl lymph nodes Results Result Diagram: 08/12/16 0630 08/12/16 0630 Results 24 hrs Laboratory Tests Test 08/11/16 22:20 08/12/16 02:40 08/12/16 05:48 08/12/16 06:30 White Blood Count 11.9 H 10.7 14.5 #H Red Blood Count 3.22 L 3.34 L 2.97 L Hemoglobin 10.7 L 10.8 L 9.7 L Hematocrit 32.8 L 33.3 L 31.5 L Mean Corpuscular Volume 101.9 H 99.7 106.1 H Mean Corpuscular Hemoglobin 33.2 H 32.3 32.7 Mean Corpuscular Hemoglobin Concent 32.6 32.4 30.8 L Red Cell Distribution Width 13.5 13.6 13.6 Platelet Count 173 206 87 #L Mean Platelet Volume 11.1 H 11.2 H 12.6 H Neutrophils % 77.7 H 83.7 H 65.0 Lymphocytes % 16.8 12.8 L 11.0 L Monocytes % 3.4 2.2 Eosinophils % 0.9 0.3 Basophils % 0.2 0.1 Nucleated Red Blood Cells % 0.0 0.0 Neutrophils # 9.2 H 9.0 H 9.4 H Lymphocytes # 2.0 1.4 1.6 Monocytes # 0.4 0.2 L Eosinophils # 0.1 0.0 Basophils # 0.0 0.0 Nucleated Red Blood Cells # 0.0 0.0 Blood Gas Specimen Source Blood arterial Arterial Blood Date Drawn 08/12/2016 5:55:15 AM Arterial Blood pH (Temp corrected) 7.435 Arterial Blood pCO2 (Temp correct) 28.3 L Arterial Blood pO2 (Temp corrected) 135.3 H Arterial Blood HCO3 18.6 L Arterial Blood Base Excess -4.8 L Arterial Blood Oxygen Saturation 98.1 Tavo Test N/A Arterial Blood Gas Puncture Site LB Arterial Blood Carboxyhemoglobin 0.2 Arterial Blood Methemoglobin 0.4 Blood Gas A-a O2 Differential 549.4 H Oxyhemoglobin Percent 97.5 Total Hemoglobin 9.5 L Blood Gas Temperature 37.0 Blood Gas Modality MASK - NRB FiO2 100.0 Blood Gas Notified Whom LW Blood Gas Notified Time 08/12/2016 6:06:05 AM Band Neutrophils % 24.0 H Sodium Level 135 Potassium Level 4.3 Chloride Level 108 Carbon Dioxide Level 18 L Anion Gap 13 Blood Urea Nitrogen 32 H Creatinine 0.97 Glucose Level 92 Calcium Level 8.2 L Medications Medications Current Medications Lactobacillus Acidophilus/ Rhamnosus (Culturelle) 1 cap BID GTB Last administered on 08/12/16 09:44; Admin Dose 1 CAP; Start 08/07/16 at 09:00 Lactulose (Enulose) 20 gm BID PRN GTB CONSTIPATION; Start 08/07/16 at 00:30 Nystatin (Nystatin Powder) 1 applic Q12 TOP Last administered on 08/12/16 09: 44; Admin Dose 1 APPLIC; Start 08/07/16 at 09:00 Nystatin (Nystatin Powder) 1 applic PRN PRN TOP NEEDED; Start 08/07/16 at 01: 00 Eye Lubricant (Artificial Tears Oph) 1 drop Q12 BOTH EYES Last administered on 08/11/16 20:53; Admin Dose 1 DROP; Start 08/07/16 at 09:00 Eye Lubricant (Artificial Tears Oph) 1 drop PRN PRN BOTH EYES DRY EYES Last administered on 08/12/16 08:11; Admin Dose 1 DROP; Start 08/07/16 at 01:00 Ascorbic Acid (Vitamin C) 500 mg DAILY GTB Last administered on 08/12/16 09:44 ; Admin Dose 500 MG; Start 08/07/16 at 09:00 Atorvastatin Calcium (Lipitor) 20 mg DAILY@21 GTB Last administered on 20:45; Admin Dose 20 MG; Start 08/07/16 at 21:00 Finasteride (Proscar) 5 mg DAILY GTB Last administered on 08/12/16 09:44; Admin Dose 5 MG; Start 08/07/16 at 09:00 [facility] This patient trent... PRN PRN XX WOUND CARE; Start 08/07/16 at 04:00 Famotidine (Pepcid) 20 mg HS GTB Last administered on 08/11/16 20:45; Admin Dose 20 MG; Start 08/07/16 at 21:00 Metoprolol Tartrate (Lopressor) 25 mg BID PO Last administered on 08/11/16 20: 45; Admin Dose 25 MG; Start 08/07/16 at 21:00 Baclofen 10 mg 10 mg TID PRN PO NOTE Last administered on 08/10/16 09:42; Admin Dose 10 MG; Start 08/08/16 at 03:00 Dextrose (D5W) 1,000 ml @ 80 mls/hr [id number] IV Last administered on 08/12/16 11:05; Admin Dose 80 MLS/HR; Start 08/08/16 at 12:30 Docusate Sodium (Colace Liquid Cup) 100 mg HS GTB Last administered on 20:45; Admin Dose 100 MG; Start 08/09/16 at 21:00 Ondansetron HCl (Zofran Inj) 4 mg Q4 PRN IV NAUSEA AND/OR VOMITING Last administered on 08/11/16 20:52; Admin Dose 4 MG; Start 08/09/16 at 12:30 Acetaminophen (Tylenol Tab) 650 mg Q6H PRN PO PAIN LEVEL 1-3 OR FEVER; Start at 12:30 Acetaminophen (Tylenol Supp) 650 mg Q6H PRN [place] PAIN LEVEL 1-3 OR FEVER; Start 08/09/16 at 12:30 Morphine Sulfate 2 mg 2 mg Q3H PRN IV MODERATE PAIN LEVEL 4-6 Last administered on 08/11/16 20:52; Admin Dose 2 MG; Start 08/09/16 at 12:30 Linezolid (Zyvox 600mg/D5W (Pmx)) 300 ml @ 300 mls/hr Q12 IVPB Last administered on 08/12/16 09:36; Admin Dose 300 MLS/HR; Start 08/10/16 at 21:00 Metoclopramide HCl 10 mg 10 mg Q6H PRN IV high residuals; Start 08/11/16 at 20: 30 Pantoprazole 80 mg/Sodium Chloride 100 ml @ 10 mls/hr Q10H IV Last administered on 08/12/16 11:05; Admin Dose 10 MLS/HR; Start 08/12/16 at 01:30 Acetaminophen (Ofirmev 1000mg/ 100ml Iv) 100 ml @ 400 mls/hr Q8H IVPB Last administered on 08/12/16t 12:29; Admin Dose 400 MLS/HR; Start 08/12/16 at 04:00 JF HONG MD Aug 12, 2016 17:34
--- NOTE | 2016-08-12 17:40 | RADRPT ---
PROCEDURE: CTA Chest with contrast and with 3-D reconstructions CLINICAL INDICATION: r/o PE / resp distress TECHNIQUE: The study was performed utilizing multidetector CT scanner. Direct spiral axial section s were obtained from the thoracic inlet to the upper abdomen with the use of intravenous contrast ma terial. Sagittal, coronal and 3-D reformations were obtained. The images were reviewed on a PACS wor kstation. DLP 515.44 mGycm CTDIvol 49.29, 14.02 mGy COMPARISON: No prior studies are available for comparison. FINDINGS: There are no pulmonary emboli. There is bilateral posterior pleural thickening superiorly. There are patchy and confluent dependen t opacities involving bilateral lower lobes as well as the posterior aspect of the right upper lobe which are suspicious for a multifocal pneumonia. There is a lobulated 8 mm lesion in the lingula on series 3, image 109. There is no pleural fluid. There is no pneumothorax. There is mild cardiomegaly. There is no pericardial fluid. The aorta is within normal limits. The re are no enlarged axillary or mediastinal lymph nodes. The tip of an enteric tube is noted in the stomach. There is cholelithiasis. A gastrostomy tube is noted. Surgical clips are noted in the right axilla. IMPRESSION: No CT evidence for pulmonary embolus. Patchy and confluent opacities and consolidations and in the dependent aspects of bilateral lower lo bes as well as the posterior aspect of the right upper lobe may be due to dependent atelectasis alth ough they are suspicious for a multifocal pneumonia and / or aspiration pneumonia. Clinical correla tion is recommended. 8 mm left lower lobe nodule. Fleischner Society criteria for incidental pulmonary nodules of this s ize are for an initial follow-up CT study in 6-12 months. Mild cardiomegaly. Enteric tube in the stomach. A gastrostomy tube is also noted. Cholelithiasis. RPTAT: EE Physician Yulia Date Time Electronically viewed and signed by Peng Cantrell Physician on 08/12/2016 17:40 /
[2016-08-12 18:34] LABS: HEMATOCRIT 26.9 % (42.0-52.0); HEMOGLOBIN 8.5 g/dl (14.0-18.0)
[2016-08-12] MEDS: PANTOPRAZOLE 40 MG INJ IV SCH (18:36)
[2016-08-12] MEDS: DOCUSATE SODIUM 10 MG/ML (10ML CUP) GTB SCH (21:10)
[2016-08-12] MEDS: ATORVASTATIN 20 MG TAB GTB SCH (21:11)
[2016-08-12] MEDS: FAMOTIDINE 20 MG TAB GTB SCH (21:11)
[2016-08-13] VITALS (25 sets, daily range): BP systolic 87–133; BP diastolic 50–90; PULSE 70–91; RESP 16–28
[2016-08-13] MEDS: ALBUTEROL/IPRATROPIUM (NEB) 3 ML AMP HHN SCH ×3 (00:04→17:54)
[2016-08-13 01:37] LABS: HEMATOCRIT 26.7 % (42.0-52.0); HEMOGLOBIN 8.8 g/dl (14.0-18.0)
[2016-08-13] MEDS: DEXTROSE 5% 1,000 ML IV SCH ×2 (02:58→16:30)
[2016-08-13] MEDS: ACETAMINOPHEN 1000MG/100ML IV 100 ML IVPB SCH ×3 (04:00→20:29)
[2016-08-13] MEDS: PANTOPRAZOLE 40 MG INJ IV SCH ×2 (06:00→17:23)
[2016-08-13 06:31] LABS: ADD SCAN DIFF NO
[2016-08-13 06:39] LABS: HEMATOCRIT 29.6 % (42.0-52.0); HEMOGLOBIN 9.5 g/dl (14.0-18.0); MEAN CORPUSCULAR HEMOGLOBIN 32.2 pg (29.0-33.0); MEAN CORPUSCULAR HGB CONC 32.1 g/dl (32.0-37.0); MEAN CORPUSCULAR VOLUME 100.3 fl (82.0-101.0); MEAN PLATELET VOLUME 11.3 fl (7.4-10.4); PLATELET COUNT 208 10^3/UL (140-415); RED BLOOD COUNT 2.95 10^6/ul (4.70-6.10); RED CELL DISTRIBUTION WIDTH 13.4 % (11.5-14.5); WHITE BLOOD COUNT 17.7 10^3/ul (4.8-10.8)
[2016-08-13 07:11] LABS: ALBUMIN 3.1 g/dl (3.3-4.9); CREATININE 0.96 mg/dl (0.61-1.24); IRON 19 ug/dl (35-150); MAGNESIUM 2.1 mg/dl (1.7-2.5); PHOSPHORUS 2.8 mg/dl (2.5-4.9); POTASSIUM 3.7 mmol/L (3.5-5.1)
[2016-08-13 07:20] LABS: TOTAL IRON BINDING CAPACITY 172 ug/dl (241-421)
[2016-08-13 07:33] LABS: CALCIUM 9.1 mg/dl (8.4-10.2); CREATININE 0.98 mg/dl (0.61-1.24); PHOSPHORUS 2.8 mg/dl (2.5-4.9); POTASSIUM 3.7 mmol/L (3.5-5.1)
[2016-08-13 07:54] LABS: EOSINOPHILS # 0.4 10^3/ul (0.0-0.5); LYMPHOCYTES # 2.1 10^3/ul (0.8-2.9); MONOCYTE # 0.2 10^3/ul (0.3-0.9); NEUTROPHIL # 13.3 10^3/ul (1.6-7.5)
[2016-08-13] MEDS: ACETYLCYSTEINE 20% 4 ML VIAL NEB SCH ×2 (08:18→19:46)
[2016-08-13 08:19] LABS: AADO2 Arterial 224.2 mmHg (7.0-24.0); Allen Test ACCEPTAB; Arterial Base Excess -5.3 mmol/L (-3.0-3); Arterial COHb 0.2 % (0.0-3.0); Arterial Fraction of Oxyhgb 97.7 % (93.0-99.0); Arterial HCO3 17.5 mmol/L (22.0-26.0); Arterial MetHb 0.4 % (0.0-1.5); Arterial Total Hemglobin 10.1 g/dl (12.0-18.0); MODE MASK - SIMPLE
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
[2016-08-13] MEDS: ARTIFICIAL TEARS 15 ML OPH BOTH EYES SCH ×2 (09:00→20:30)
--- NOTE | 2016-08-13 10:02 | RADRPT ---
PROCEDURE: XR Chest. CLINICAL INDICATION: Shortness of breath TECHNIQUE: An AP view of the chest was obtained. COMPARISON: Chest x-ray and CT pulmonary angiogram dated 08/12/2016 FINDINGS: Tubing from a ventriculoperitoneal shunt is seen along the right neck and chest wall. The tip of the enteric tube projects over the upper quadrant Lung volumes are low. There are bibasilar interstitial opacities. There is prominence of the interst itial and central pulmonary vascular markings with small bilateral pleural effusions. No focal airsp neeta opacification or pneumothorax is seen. The cardiomediastinal silhouette is within normal limits for size. The osseous structures demonstrate senescent changes. IMPRESSION: 1. Low lung volumes with bibasilar atelectasis. There is improved aeration of the lung bases when c ompared to the prior examination. 2. Tubes and lines, as described above. RPTAT: HH .Helen Avila MD, MD Date Time Electronically viewed and signed by .Helen Avila MD, on 08/13/2016 10:02 .Ruperto/
[2016-08-13] MEDS: FINASTERIDE 5 MG TAB GTB SCH (10:10)
[2016-08-13] MEDS: LACTOBACILLUS RHAMNOSUS CAP GTB SCH ×2 (10:10→20:29)
[2016-08-13] MEDS: ASCORBIC ACID 500 MG TAB GTB SCH (10:10)
[2016-08-13] MEDS: METOPROLOL 25 MG TAB PO SCH ×2 (10:11→20:29)
[2016-08-13] MEDS: NYSTATIN 30 GM POWDER BTL TOP SCH ×2 (10:11→20:29)
[2016-08-13] MEDS: LINEZOLID 600 MG/D5W (PMX) 300 ML IVPB SCH ×2 (10:11→20:29)
--- NOTE | 2016-08-13 10:24 | PN ---
DATE: 08/13/2016 PULMONARY FOLLOWUP SUBJECTIVE: The patient Hugo continues facemask O2. Significant oral secretions requiring frequen t pulmonary toilet. He is not opening eyes or following commands. Does appear agitated with tactil e stimulation. PHYSICAL EXAMINATION: VITAL SIGNS: Temperature 98, pulse is 75, blood pressure 113/62, O2 saturation 96% on facemask. HEENT: Dry mucous membranes. Pupils are equal and reactive to light. CARDIAC: S1, S2, no added sounds or murmurs. CHEST: Diminished air entry bilaterally. ABDOMEN: Soft, nontender. No guarding or rebound. EXTREMITIES: No cyanosis, clubbing, 1+ edema. NEUROLOGIC: Generalized weakness. LABORATORY DATA: White count 17.7, hemoglobin 9.5, platelets of 208. Chemistry: BUN 25, creatinin e 0.96. ABG: pH of 7.5, pCO2 of 28, PaO2 of 124, bicarbonate was 17.5 on [address] a ngiogram was performed, demonstrated no evidence of pulmonary embolus but bilateral infiltrates cons istent with pneumonia. IMPRESSION: 1. Acute on chronic hypoxemic respiratory failure. 2. Aspiration pneumonia. 3. Normal-pressure hydrocephalus, status post ventriculoperitoneal shunt. 4. Encephalopathy secondary to above. 5. Deep vein thrombosis, right common femoral vein. PLAN: 1. Continue pulmonary toilet as tolerated. 2. Continue broad-spectrum antibiotics, currently on linezolid, and ID recommendations. 3. Continue GI recommendations, tube feeding as tolerated. 4. IVC filter placement today. Overall prognosis is guarded. I had an extensive discussion with the patient's next of kin. Miladys porter she wishes to continue all aggressive measures including intubation and mechanical ventilation i f necessary. I explained that prognosis is very poor, intubation would likely mean that patient was not safe to extubate and we would have to entertain discussion about tracheostomy. They wish to c ontinue all current measures. We will have input from palliative care. Critical care time 40 minutes. Dictated By: MAMTA CONTE/IWONA Conf#: [id number] DID#: [id number]
[2016-08-13 12:10] LABS: HEMATOCRIT 27.6 % (42.0-52.0); HEMOGLOBIN 8.6 g/dl (14.0-18.0)
[2016-08-13] MEDS: MEROPENEM 500 MG/100 ML (PMX) 100 ML IVPB SCH ×2 (12:56→21:46)
--- NOTE | 2016-08-13 13:17 | PN ---
DATE: 08/13/2016 SUBJECTIVE: No acute changes. The patient remains obtunded on a face mask. He is in no distress, had been afebrile overnight. WBC today 17.7 with platelets 208, neutrophils 75, bands 10, lymphs 12 , monos 1, BUN 25, creatinine 0.96. MICROBIOLOGY: Blood cultures from yesterday negative. DIAGNOSTICS: CT of the chest from yesterday revealed multifocal pneumonia, possible aspiration. ANTIMICROBIALS: The patient is on: 1. Zyvox. 2. Meropenem. 3. Status post cefepime yesterday. 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 PHYSICAL EXAMINATION: GENERAL: Chronically ill-appearing, elderly man in no distress. HEENT: Head atraumatic, normocephalic. Sclerae anicteric. Buccal mucosa dry. NECK: Supple, trachea midline. CHEST: Rise symmetrical. Breath sounds diminished with scattered rhonchi. HEART: S1, S2. ABDOMEN: Soft, bowel tones present. EXTREMITIES: No cyanosis. ASSESSMENT: 1. Sepsis with shock, off pressors. 2. Healthcare-associated pneumonia, possibly aspiration type. 3. 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 4. Acute encephalopathy. 5. Polymicrobial urinary tract infection. 6. Right lower extremity deep venous thrombosis. 7. History of subdural hemorrhage. PLAN: The patient remains unchanged. Covered with appropriate antimicrobials. We will continue hi m on current regimen, continue anti-aspiration measures. Follow recommendations of consultants. Ov alonso, prognosis poor. Dictated By: ROMINA SCHREIBER RETAIL COORDINATOR for SARAHY BEAR/IWONA Conf#: [id number] DID#: [id number]
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
[2016-08-13] MEDS ORDERED: FENTAnyl 50 MCG/ML VIAL ONE (14:50)
[2016-08-13] MEDS ORDERED: MIDAZOLAM 1 MG/ML 2 ML INJ ONE (14:50)
--- NOTE | 2016-08-13 16:26 | PN ---
Date/Time of Note Date/Time of Note DATE: 08/13/16 TIME: 16:17 Assessment/Plan VTE Prophylaxis VTE Prophylaxis Intervention: contraindicated Lines/Catheters IV [facility] (from [facility] Peripheral IV Assessment/Plan Assessment/Plan Assessment * Coffee ground emesis * Upper GI bleed, * Sepsis * Deep venous thrombosis right common femoral vein * S/P IVC filter * S/PChronic dysphasia * S/P VP PROJECT shunting * S/P Adela hole * History of recurrent aspirations Plan * Monitor H and H q^ transfuse 1 unit PRBC hgb<7.5,2 units PRBC hgb <7.0 * Protonix 40 mg bid * Continue present management * further orders will depend on clinical course * Case was discussed with Dr shi Subjective 24 Hr Interval Summary Free Text/Dictation * Course reviewed with RN * Patient seen and examined * No coffee ground emesis on NGT and G tube * Hemoglobin 8.6 * S/P IVC filter placement Exam/Review of Systems Vital Signs Vitals Vital Signs Date Time Temp Pulse Resp B/P Pulse Ox O2 Delivery O2 Flow Rate FiO2 08/13/16 13:00 78 19 107/63 100 Mask 08/13/16 12:00 97.8 08/13/16 08:19 8.0 08/12/16 00:45 100 Intake and Output 08/12/16 08/12/16 08/13/16 15:00 23:00 07:00 Intake Total 920 ml 975 ml 400 ml Output Total 225 ml 525 ml 360 ml Balance 695 ml 450 ml 40 ml Exam Constitutional: frail ENMT: other (NGT in place) Neck: non-tender, supple Respiratory: diminished breath sounds Cardiovascular: nl pulses, regular rate and rhythm Gastrointestinal: non-tender, other (gastrostomy tube clear after aspiration), soft Musculoskeletal: muscle weakness Neurological: lethargic Skin: rash or lesions Results Result Diagram: 08/13/16 1151 08/13/16 0605 Results 24 hrs Laboratory Tests Test 08/12/16 18:20 08/13/16 01:20 08/13/16 06:05 08/13/16 07:00 Hemoglobin 8.5 L 8.8 L 9.5 L Hematocrit 26.9 L 26.7 L 29.6 L White Blood Count 17.7 #H Red Blood Count 2.95 L Mean Corpuscular Volume 100.3 Mean Corpuscular Hemoglobin 32.2 Mean Corpuscular Hemoglobin Concent 32.1 Red Cell Distribution Width 13.4 Platelet Count 208 # Mean Platelet Volume 11.3 H Neutrophils % 75.0 Band Neutrophils % 10.0 H Lymphocytes % 12.0 L Monocytes % 1.0 Eosinophils % 2.0 Neutrophils # 13.3 H Lymphocytes # 2.1 Monocytes # 0.2 L Eosinophils # 0.4 Sodium Level 134 L Potassium Level 3.7 Chloride Level 105 Carbon Dioxide Level 25 Anion Gap 8 Blood Urea Nitrogen 25 H Creatinine 0.96 Glucose Level 110 Calcium Level 9.0 Phosphorus Level 2.8 Magnesium Level 2.1 Iron Level 19 L Total Iron Binding Capacity 172 L Percent Iron Saturation 11 L Albumin 3.1 L Vitamin B12 Level 980 H Blood Gas Specimen Source Blood arterial Arterial Blood Date Drawn 08/13/2016 7:30:43 AM Arterial Blood pH (Temp corrected) 7.450 Arterial Blood pCO2 (Temp correct) 25.8 L Arterial Blood pO2 (Temp corrected) 124.9 H Arterial Blood HCO3 17.5 L Arterial Blood Base Excess -5.3 L Arterial Blood Oxygen Saturation 98.3 Tavo Test ACCEPTAB Arterial Blood Gas Puncture Site Right Radial Arterial Blood Carboxyhemoglobin 0.2 Arterial Blood Methemoglobin 0.4 Blood Gas A-a O2 Differential 224.2 H Oxyhemoglobin Percent 97.7 Total Hemoglobin 10.1 L Blood Gas Temperature 37.0 Blood Gas Modality MASK - SIMPLE FiO2 53.0 Blood Gas Notified Whom JLD Blood Gas Notified Time 08/13/2016 8:19:19 AM Test 08/13/16 11:51 Hemoglobin 8.6 L Hematocrit 27.6 L Medications Medications Current Medications Lactobacillus Acidophilus/ Rhamnosus (Culturelle) 1 cap BID GTB Last administered on 08/13/16 10:10; Admin Dose 1 CAP; Start 08/07/16 at 09:00 Lactulose (Enulose) 20 gm BID PRN GTB CONSTIPATION; Start 08/07/16 at 00:30 Nystatin (Nystatin Powder) 1 applic Q12 TOP Last administered on 08/13/16 10: 11; Admin Dose 1 APPLIC; Start 08/07/16 at 09:00 Nystatin (Nystatin Powder) 1 applic PRN PRN TOP NEEDED; Start 08/07/16 at 01: 00 Eye Lubricant (Artificial Tears Oph) 1 drop Q12 BOTH EYES Last administered on 08/13/16 09:00; Admin Dose 1 DROP; Start 08/07/16 at 09:00 Eye Lubricant (Artificial Tears Oph) 1 drop PRN PRN BOTH EYES DRY EYES Last administered on 08/12/16 21:07; Admin Dose 1 DROP; Start 08/07/16 at 01:00 Ascorbic Acid (Vitamin C) 500 mg DAILY GTB Last administered on 08/13/16 10:10 ; Admin Dose 500 MG; Start 08/07/16 at 09:00 Atorvastatin Calcium (Lipitor) 20 mg DAILY@21 GTB Last administered on 21:11; Admin Dose 20 MG; Start 08/07/16 at 21:00 Finasteride (Proscar) 5 mg DAILY GTB Last administered on 08/13/16 10:10; Admin Dose 5 MG; Start 08/07/16 at 09:00 Miscellaneous Information (Pending [facility] Order For Wound Care) This patient trent... PRN PRN XX WOUND CARE; Start 08/07/16 at 04:00 Metoprolol Tartrate (Lopressor) 25 mg BID PO Last administered on 08/13/16 10: 11; Admin Dose 25 MG; Start 08/07/16 at 21:00 Baclofen 10 mg 10 mg TID PRN PO NOTE Last administered on 08/10/16 09:42; Admin Dose 10 MG; Start 08/08/16 at 03:00 Dextrose (D5W) 1,000 ml @ 80 mls/hr [id number] IV Last administered on 08/13/16 02:58; Admin Dose 80 MLS/HR; Start 08/08/16 at 12:30 Docusate Sodium (Colace Liquid Cup) 100 mg HS GTB Last administered on 21:10; Admin Dose 100 MG; Start 08/09/16 at 21:00 Ondansetron HCl (Zofran Inj) 4 mg Q4 PRN IV NAUSEA AND/OR VOMITING Last administered on 08/11/16 20:52; Admin Dose 4 MG; Start 08/09/16 at 12:30 Acetaminophen (Tylenol Tab) 650 mg Q6H PRN PO PAIN LEVEL 1-3 OR FEVER; Start at 12:30 Acetaminophen (Tylenol Supp) 650 mg Q6H PRN [place] PAIN LEVEL 1-3 OR FEVER; Start 08/09/16 at 12:30 Morphine Sulfate 2 mg 2 mg Q3H PRN IV MODERATE PAIN LEVEL 4-6 Last administered on 08/11/16 20:52; Admin Dose 2 MG; Start 08/09/16 at 12:30 Linezolid 300 ml @ 300 mls/hr Q12 IVPB Last administered on 08/13/16 10:11; Admin Dose 300 MLS/HR; Start 08/10/16 at 21:00 Acetaminophen (Ofirmev 1000mg/ 100ml Iv) 100 ml @ 400 mls/hr Q8H IVPB Last administered on 08/13/16 13:57; Admin Dose 400 MLS/HR; Start 08/12/16 at 04:00 Pantoprazole 40 mg 40 mg BID@06,18 IV Last administered on 08/13/16 06:00; Admin Dose 40 MG; Start 08/12/16 at 18:00 Meropenem 100 ml @ 200 mls/hr Q8 IVPB Last administered on 08/13/16 12:56; Admin Dose 200 MLS/HR; Start 08/13/16 at 12:00 Ferric Sodium Gluconate Complex/ Sodium Chloride (Ferrlecit/NS) 110 ml @ 100 mls/hr Q24H IVPB ; Start 08/13/16 at 16:30; Stop 08/15/16 at 17:35 Metoclopramide HCl (Reglan) 10 mg Q6 IV ; Start 08/13/16 at 15:15; Stop at 15:14 BRIE PELLETIER NP Aug 13, 2016 16:26
[2016-08-13] MEDS: SOD FERRIC GLUC COMPLX 125 MG in SOD CHLORIDE 0.9% 100 ML IVPB SCH (17:23)
[2016-08-13] MEDS: METOCLOPRAMIDE 10 MG INJ IV SCH (17:23)
--- NOTE | 2016-08-13 17:42 | RADRPT ---
PROCEDURE: INFERIOR VENA CAVA FILTER PLACEMENT AND INFERIOR VENACAVOGRAM CLINICAL INDICATION: Bilateral lower extremity deep venous thrombosis. Intracranial hemorrhage. TECHNIQUE: The procedure, risks, benefits, complications and alternatives were explained to the patient's famil y. Risks including bleeding and infection were explained. In addition, risks regarding the inferior vena cava filter including filter migration, inferior vena cava the perforation, and caval thrombosi s were explained. The patient's family understood and was willing to proceed. Consent was obtained. A procedural pause was performed. The patient's name, date of , and procedure to be performed w ere verified. The right common femoral vein was interrogated with ultrasound. It demonstrates normal compressibili ty superiorly without evidence for venous thrombosis. The inferior portion of the right common femor al vein is thrombosed. The right inguinal region was prepped and draped. One percent lidocaine was used as local anesthesia. Using ultrasound guidance, a 21 gauge single wall puncture needle was inse rted into the right common femoral vein without difficulty. A 0.018 inch guidewire was then advanced through the needle into the inferior vena cava with fluoroscopic guidance. A 5 English sheath was th en exchanged for the needle. The original guidewire was removed and a 0.035 inch wire was then advan rell into the inferior vena cava with fluoroscopic guidance. The tract was dilated to 6 English and th en the 6 English sheath for the inferior vena cava filter was inserted. An inferior venacavogram was performed through the sheath. Multiple digital images were obtained. The dilator was then removed. The sheath was flushed with normal saline. The introducer catheter pre loaded with the Argon Option vena cava filter was then advanced. The sheath was retracted. The vena cava filter was then released just below the origin of the renal veins. The introducer catheter was removed. The placement was confirmed by a spot film radiograph. The sheath was removed and pressure was held for approximately 10 minutes with good hemostasis. The patient tolerated the procedure well . COMPARISON: None. FINDINGS: The inferior vena cava is patent without evidence for filling defect to suggest thrombus. It has a n ormal diameter. The origin of the renal veins are at approximately at the upper L1 level. The final image demonstrates the superior tip of the inferior vena cava filter at the upper L1 level . Ultrasound images were recorded and stored in the patient's medical record. The ultrasound images d emonstrate the needle entering the right common femoral vein. IMPRESSION: 1. Inferior venacavogram performed as indicated above. 2. Successful placement of inferior vena cava filter. RPTAT: QQ .Kj Anguiano MD, Date Time Electronically viewed and signed by .Kj Anguiano MD, on 08/13/2016 17:42 .R/
[2016-08-13 18:41] LABS: HEMATOCRIT 25.4 % (42.0-52.0); HEMOGLOBIN 8.4 g/dl (14.0-18.0)
--- NOTE | 2016-08-13 19:18 | QN ---
Documentation Comment s/p VPS. [id number]. Pupils =, gaze conjugate. Patient is neurologically stable, perhaps minimally improved. We will check CT of the head to check on status of ventricles. JAVAD CAMPBELL MD Aug 13, 2016 19:18
[2016-08-13] MEDS: DOCUSATE SODIUM 10 MG/ML (10ML CUP) GTB SCH (20:29)
[2016-08-13] MEDS: ATORVASTATIN 20 MG TAB GTB SCH (20:30)
[2016-08-14] VITALS (23 sets, daily range): BP systolic 91–140; BP diastolic 53–72; PULSE 71–100; RESP 10–24
[2016-08-14] MEDS: METOCLOPRAMIDE 10 MG INJ IV SCH ×4 (01:09→17:21)
[2016-08-14] MEDS: ALBUTEROL/IPRATROPIUM (NEB) 3 ML AMP HHN SCH ×4 (01:21→23:33)
[2016-08-14] MEDS: ACETAMINOPHEN 1000MG/100ML IV 100 ML IVPB SCH ×3 (04:00→19:56)
[2016-08-14 05:08] LABS: ADD SCAN DIFF NO
[2016-08-14] MEDS: PANTOPRAZOLE 40 MG INJ IV SCH ×2 (05:16→17:21)
[2016-08-14] MEDS: DEXTROSE 5% 1,000 ML IV SCH ×2 (05:17→17:21)
[2016-08-14] MEDS: MEROPENEM 500 MG/100 ML (PMX) 100 ML IVPB SCH ×3 (05:17→21:47)
[2016-08-14 05:32] LABS: BASOPHILS % 0.2 % (0.0-2.0); EOSINOPHILS # 0.2 10^3/ul (0.0-0.5); EOSINOPHILS % 1.9 % (0.0-7.0); HEMATOCRIT 26.7 % (42.0-52.0); HEMOGLOBIN 8.7 g/dl (14.0-18.0); LYMPHOCYTES # 1.7 10^3/ul (0.8-2.9); LYMPHOCYTES % 13.8 % (15.0-51.0); MEAN CORPUSCULAR HEMOGLOBIN 32.7 pg (29.0-33.0); MEAN CORPUSCULAR HGB CONC 32.6 g/dl (32.0-37.0); MEAN CORPUSCULAR VOLUME 100.4 fl (82.0-101.0); MEAN PLATELET VOLUME 11.1 fl (7.4-10.4); MONOCYTE # 0.5 10^3/ul (0.3-0.9); MONOCYTES % 4.1 % (0.0-11.0); NEUTROPHIL # 9.9 10^3/ul (1.6-7.5); PLATELET COUNT 188 10^3/UL (140-415); RED BLOOD COUNT 2.66 10^6/ul (4.70-6.10); RED CELL DISTRIBUTION WIDTH 13.4 % (11.5-14.5); WHITE BLOOD COUNT 12.6 10^3/ul (4.8-10.8)
[2016-08-14 05:44] LABS: ALBUMIN 2.5 g/dl (3.3-4.9); CREATININE 0.82 mg/dl (0.61-1.24); PHOSPHORUS 2.8 mg/dl (2.5-4.9); POTASSIUM 3.2 mmol/L (3.5-5.1)
[2016-08-14] MEDS: ACETYLCYSTEINE 20% 4 ML VIAL NEB SCH ×2 (07:50→20:24)
[2016-08-14 07:51] LABS: AADO2 Arterial 110.9 mmHg (7.0-24.0); Allen Test ACCEPTAB; Arterial Base Excess 0.1 mmol/L (-3.0-3); Arterial COHb 0.2 % (0.0-3.0); Arterial Fraction of Oxyhgb 98.1 % (93.0-99.0); Arterial HCO3 23.7 mmol/L (22.0-26.0); Arterial MetHb 0.5 % (0.0-1.5); Arterial Total Hemglobin 9.4 g/dl (12.0-18.0); MODE MASK - SIMPLE
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
[2016-08-14] MEDS: METOPROLOL 25 MG TAB PO SCH ×2 (09:00→19:56)
[2016-08-14] MEDS: LINEZOLID 600 MG/D5W (PMX) 300 ML IVPB SCH ×2 (09:13→19:56)
[2016-08-14] MEDS: NYSTATIN 30 GM POWDER BTL TOP SCH ×2 (09:14→19:57)
[2016-08-14] MEDS: ASCORBIC ACID 500 MG TAB GTB SCH (09:14)
[2016-08-14] MEDS: ARTIFICIAL TEARS 15 ML OPH BOTH EYES SCH ×2 (09:14→20:03)
[2016-08-14] MEDS: LACTOBACILLUS RHAMNOSUS CAP GTB SCH ×2 (09:14→19:56)
[2016-08-14] MEDS: FINASTERIDE 5 MG TAB GTB SCH (09:14)
--- NOTE | 2016-08-14 09:37 | CONS ---
Date/Time of Note Date/Time of Note DATE: 08/14/16 TIME: 09:35 Assessment/Plan Assessment/Plan Additional Assessment/Plan Assessment recommendations; 1. Patient admitted for pneumonia possibly aspiration with significant radiological improvement as well as improving leukocytosis. 2. Normal pressure hydrocephalus, status post OIL BURNER shunt placement. 3. Right common femoral vein DVT. 4. Advanced dementia. 5. Anemia. Continue current treatment. Patient can be transferred to the medical floor. Prognosis remains poor. Consultation Date/Type/Reason Admit Date/Time Aug 07, 2016 at 00:23 Initial Consult Date 08/07/16 Type of Consultation: Pulmonary/critical care Referring Provider: YE JOYNER 24 HR Interval Summary Free Text/Dictation Patient condition remains unchanged. Remains unresponsive. Has remained hemodynamically stable. No untoward events reported. General exam; elderly male, unresponsive. Currently no distress. Exam/Review of Systems Vital Signs Vitals Vital Signs Date Time Temp Pulse Resp B/P Pulse Ox O2 Delivery O2 Flow Rate FiO2 08/14/16 06:00 78 24 98/64 100 08/14/16 01:21 6.0 08/14/16 01:21 Simple Mask 08/13/16 20:00 98.1 08/12/16 00:45 100 Intake and Output 08/13/16 08/13/16 08/14/16 15:00 23:00 07:00 Intake Total 200 ml 910 ml 1850 ml Output Total 240 ml 120 ml 40 ml Balance -40 ml 790 ml 1810 ml Exam HEENT exam; supple neck, no JVD. No lymphadenopathy midline trachea. No thyromegaly. Patient is edentulous. Chest examination; clear to ulceration. S1-S2 audible, no murmurs. Regular rhythm. Abdomen examination; soft, G-tube in place. Bowel sounds audible. No organomegaly. Extremity examination; no peripheral edema. ERGONOMICS CONSULTANT examination; patient remains unresponsive. Results Result Diagram: 08/14/16 0431 08/14/16 0431 Results 24 hrs Laboratory Tests Test 08/13/16 11:51 08/13/16 18:30 08/14/16 04:31 08/14/16 07:00 Hemoglobin 8.6 L 8.4 L 8.7 L Hematocrit 27.6 L 25.4 L 26.7 L White Blood Count 12.6 #H Red Blood Count 2.66 L Mean Corpuscular Volume 100.4 Mean Corpuscular Hemoglobin 32.7 Mean Corpuscular Hemoglobin Concent 32.6 Red Cell Distribution Width 13.4 Platelet Count 188 Mean Platelet Volume 11.1 H Neutrophils % 79.0 H Lymphocytes % 13.8 L Monocytes % 4.1 Eosinophils % 1.9 Basophils % 0.2 Nucleated Red Blood Cells % 0.0 Neutrophils # 9.9 H Lymphocytes # 1.7 Monocytes # 0.5 Eosinophils # 0.2 Basophils # 0.0 Nucleated Red Blood Cells # 0.0 Sodium Level 135 Potassium Level 3.2 L Chloride Level 105 Carbon Dioxide Level 24 Anion Gap 9 Blood Urea Nitrogen 17 Creatinine 0.82 Glucose Level 147 Calcium Level 9.0 Phosphorus Level 2.8 Albumin 2.5 L Blood Gas Specimen Source Blood arterial Arterial Blood Date Drawn 08/14/2016 7:04:40 AM Arterial Blood pH (Temp corrected) 7.453 H Arterial Blood pCO2 (Temp correct) 34.7 L Arterial Blood pO2 (Temp corrected) 170.5 H Arterial Blood HCO3 23.7 Arterial Blood Base Excess 0.1 Arterial Blood Oxygen Saturation 98.8 Tavo Test ACCEPTAB Arterial Blood Gas Puncture Site Right Radial Arterial Blood Carboxyhemoglobin 0.2 Arterial Blood Methemoglobin 0.5 Blood Gas A-a O2 Differential 110.9 H Oxyhemoglobin Percent 98.1 Total Hemoglobin 9.4 L Blood Gas Temperature 37.0 Blood Gas Modality MASK - SIMPLE FiO2 45.0 Blood Gas Notified Whom TM Blood Gas Notified Time 08/14/2016 7:25:29 AM Medications Medications Current Medications Lactobacillus Acidophilus/ Rhamnosus (Culturelle) 1 cap BID GTB Last administered on 08/14/16 09:14; Admin Dose 1 CAP; Start 08/07/16 at 09:00 Lactulose (Enulose) 20 gm BID PRN GTB CONSTIPATION; Start 08/07/16 at 00:30 Nystatin (Nystatin Powder) 1 applic Q12 TOP Last administered on 08/14/16 09: 14; Admin Dose 1 APPLIC; Start 08/07/16 at 09:00 Nystatin (Nystatin Powder) 1 applic PRN PRN TOP NEEDED; Start 08/07/16 at 01: 00 Eye Lubricant (Artificial Tears Oph) 1 drop Q12 BOTH EYES Last administered on 08/14/16 09:14; Admin Dose 1 DROP; Start 08/07/16 at 09:00 Eye Lubricant (Artificial Tears Oph) 1 drop PRN PRN BOTH EYES DRY EYES Last administered on 08/12/16 21:07; Admin Dose 1 DROP; Start 08/07/16 at 01:00 Ascorbic Acid (Vitamin C) 500 mg DAILY GTB Last administered on 08/14/16 09:14 ; Admin Dose 500 MG; Start 08/07/16 at 09:00 Atorvastatin Calcium (Lipitor) 20 mg DAILY@21 GTB Last administered on 20:30; Admin Dose 20 MG; Start 08/07/16 at 21:00 Finasteride (Proscar) 5 mg DAILY GTB Last administered on 08/14/16 09:14; Admin Dose 5 MG; Start 08/07/16 at 09:00 Miscellaneous Information (Pending Santyl Order For Wound Care) This patient trent... PRN PRN XX WOUND CARE; Start 08/07/16 at 04:00 Metoprolol Tartrate (Lopressor) 25 mg BID PO Last administered on 08/13/16 10: 11; Admin Dose 25 MG; Start 08/07/16 at 21:00 Baclofen 10 mg 10 mg TID PRN PO NOTE Last administered on 08/10/16 09:42; Admin Dose 10 MG; Start 08/08/16 at 03:00 Dextrose (D5W) 1,000 ml @ 80 mls/hr [id number] IV Last administered on 08/14/16 05:17; Admin Dose 80 MLS/HR; Start 08/08/16 at 12:30 Docusate Sodium (Colace Liquid Cup) 100 mg HS GTB Last administered on 20:29; Admin Dose 100 MG; Start 08/09/16 at 21:00 Ondansetron HCl (Zofran Inj) 4 mg Q4 PRN IV NAUSEA AND/OR VOMITING Last administered on 08/11/16 20:52; Admin Dose 4 MG; Start 08/09/16 at 12:30 Acetaminophen (Tylenol Tab) 650 mg Q6H PRN PO PAIN LEVEL 1-3 OR FEVER; Start at 12:30 Acetaminophen (Tylenol Supp) 650 mg Q6H PRN [place] PAIN LEVEL 1-3 OR FEVER; Start 08/09/16 at 12:30 Morphine Sulfate 2 mg 2 mg Q3H PRN IV MODERATE PAIN LEVEL 4-6 Last administered on 08/11/16 20:52; Admin Dose 2 MG; Start 08/09/16 at 12:30 Linezolid 300 ml @ 300 mls/hr Q12 IVPB Last administered on 08/14/16 09:13; Admin Dose 300 MLS/HR; Start 08/10/16 at 21:00 Acetaminophen (Ofirmev 1000mg/ 100ml Iv) 100 ml @ 400 mls/hr Q8H IVPB Last administered on 08/14/16 04:00; Admin Dose 400 MLS/HR; Start 08/12/16 at 04:00 Pantoprazole 40 mg 40 mg BID@06,18 IV Last administered on 08/14/16 05:16; Admin Dose 40 MG; Start 08/12/16 at 18:00 Meropenem 100 ml @ 200 mls/hr Q8 IVPB Last administered on 08/14/16 05:17; Admin Dose 200 MLS/HR; Start 08/13/16 at 12:00 Ferric Sodium Gluconate Complex/ Sodium Chloride (Ferrlecit/NS) 110 ml @ 100 mls/hr Q24H IVPB Last administered on 08/13/16 17:23; Admin Dose 100 MLS/HR; Start 08/13/16 at 16:30; Stop 08/15/16 at 17:35 Metoclopramide HCl (Reglan) 10 mg Q6 IV Last administered on 08/14/16 05:17; Admin Dose 10 MG; Start 08/13/16 at 15:15; Stop 08/15/16 at 15:14 JIGNESH LI 16, 2017 09:37
--- NOTE | 2016-08-14 09:42 | RADRPT ---
PROCEDURE: XR Chest. CLINICAL INDICATION: Shortness of breath TECHNIQUE: An AP view of the chest was obtained. COMPARISON: Chest x-ray dated 08/13/2016 FINDINGS: The tip of the enteric tube projects over the mid upper abdomen. Ventriculoperitoneal shunt tubing i s seen along the right neck and chest wall. Lung volumes are low. There is prominence of the interstitial markings. No pleural effusion or pn eumothorax is seen. The cardiomediastinal silhouette is mildly enlarged . Calcifications are seen within the aortic arch. The osseous structures demonstrate senescent changes. There is a round eduardo cification in the right upper quadrant. IMPRESSION: 1. Low lung volumes with prominence of the interstitial markings, which may reflect mild underlying interstitial edema or chronic lung changes. No significant interval change. 2. Mild cardiomegaly and aortic atherosclerosis. 3. Tubes and lines, as described above. RPTAT: HH .Helen Avila MD, MD Date Time Electronically viewed and signed by .Helen Avila MD, on 08/14/2016 09:42 .G/
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
--- NOTE | 2016-08-14 11:26 | CONS ---
Date/Time of Note Date/Time of Note DATE: 08/14/16 TIME: 11:22 Assessment/Plan Assessment/Plan Additional Assessment/Plan Post dated note from family conference on the phone 08/12 .I have spoken with patients daughter and assured her I will not attempt to change code status. My purpose is to be supportive only at this time. Consultation Date/Type/Reason Admit Date/Time Aug 07, 2016 at 00:23 Neurologic: other (non communicative) Psychological: no complaints Past Medical History Medical History: deep vein thrombosis, hypertension, other (pneumonia,sepsis) Past Surgical History Past Surgical Hx: other (elsa hole vp client services shunt) Social History Smoking Status: Unknown if ever smoked Exam/Review of Systems Vital Signs Vitals Vital Signs Date Time Temp Pulse Resp B/P Pulse Ox O2 Delivery O2 Flow Rate FiO2 08/14/16 09:00 88 22 105/64 99 Nasal Cannula 4.0 08/14/16 08:00 98.9 08/12/16 00:45 100 Intake and Output 08/13/16 08/13/16 08/14/16 15:00 23:00 07:00 Intake Total 200 ml 910 ml 1850 ml Output Total 240 ml 120 ml 40 ml Balance -40 ml 790 ml 1810 ml Results Result Diagram: 08/14/16 0431 08/14/16 0431 Results 24 hrs Laboratory Tests Test 08/13/16 11:51 08/13/16 18:30 08/14/16 04:31 08/14/16 07:00 Hemoglobin 8.6 L 8.4 L 8.7 L Hematocrit 27.6 L 25.4 L 26.7 L White Blood Count 12.6 #H Red Blood Count 2.66 L Mean Corpuscular Volume 100.4 Mean Corpuscular Hemoglobin 32.7 Mean Corpuscular Hemoglobin Concent 32.6 Red Cell Distribution Width 13.4 Platelet Count 188 Mean Platelet Volume 11.1 H Neutrophils % 79.0 H Lymphocytes % 13.8 L Monocytes % 4.1 Eosinophils % 1.9 Basophils % 0.2 Nucleated Red Blood Cells % 0.0 Neutrophils # 9.9 H Lymphocytes # 1.7 Monocytes # 0.5 Eosinophils # 0.2 Basophils # 0.0 Nucleated Red Blood Cells # 0.0 Sodium Level 135 Potassium Level 3.2 L Chloride Level 105 Carbon Dioxide Level 24 Anion Gap 9 Blood Urea Nitrogen 17 Creatinine 0.82 Glucose Level 147 Calcium Level 9.0 Phosphorus Level 2.8 Albumin 2.5 L Blood Gas Specimen Source Blood arterial Arterial Blood Date Drawn 08/14/2016 7:04:40 AM Arterial Blood pH (Temp corrected) 7.453 H Arterial Blood pCO2 (Temp correct) 34.7 L Arterial Blood pO2 (Temp corrected) 170.5 H Arterial Blood HCO3 23.7 Arterial Blood Base Excess 0.1 Arterial Blood Oxygen Saturation 98.8 Tavo Test ACCEPTAB Arterial Blood Gas Puncture Site Right Radial Arterial Blood Carboxyhemoglobin 0.2 Arterial Blood Methemoglobin 0.5 Blood Gas A-a O2 Differential 110.9 H Oxyhemoglobin Percent 98.1 Total Hemoglobin 9.4 L Blood Gas Temperature 37.0 Blood Gas Modality MASK - SIMPLE FiO2 45.0 Blood Gas Notified Whom TM Blood Gas Notified Time 08/14/2016 7:25:29 AM Medications Medications Current Medications Lactobacillus Acidophilus/ Rhamnosus (Culturelle) 1 cap BID GTB Last administered on 08/14/16 09:14; Admin Dose 1 CAP; Start 08/07/16 at 09:00 Lactulose (Enulose) 20 gm BID PRN GTB CONSTIPATION; Start 08/07/16 at 00:30 Nystatin (Nystatin Powder) 1 applic Q12 TOP Last administered on 08/14/16 09: 14; Admin Dose 1 APPLIC; Start 08/07/16 at 09:00 Nystatin (Nystatin Powder) 1 applic PRN PRN TOP NEEDED; Start 08/07/16 at 01: 00 Eye Lubricant (Artificial Tears Oph) 1 drop Q12 BOTH EYES Last administered on 08/14/16 09:14; Admin Dose 1 DROP; Start 08/07/16 at 09:00 Eye Lubricant (Artificial Tears Oph) 1 drop PRN PRN BOTH EYES DRY EYES Last administered on 08/12/16 21:07; Admin Dose 1 DROP; Start 08/07/16 at 01:00 Ascorbic Acid (Vitamin C) 500 mg DAILY GTB Last administered on 08/14/16 09:14 ; Admin Dose 500 MG; Start 08/07/16 at 09:00 Atorvastatin Calcium (Lipitor) 20 mg DAILY@21 GTB Last administered on 20:30; Admin Dose 20 MG; Start 08/07/16 at 21:00 Finasteride (Proscar) 5 mg DAILY GTB Last administered on 08/14/16 09:14; Admin Dose 5 MG; Start 08/07/16 at 09:00 Miscellaneous Information (Pending Santyl Order For Wound Care) This patient trent... PRN PRN XX WOUND CARE; Start 08/07/16 at 04:00 Baclofen 10 mg 10 mg TID PRN PO NOTE Last administered on 08/10/16 09:42; Admin Dose 10 MG; Start 08/08/16 at 03:00 Dextrose (D5W) 1,000 ml @ 80 mls/hr [id number] IV Last administered on 08/14/16 05:17; Admin Dose 80 MLS/HR; Start 08/08/16 at 12:30 Docusate Sodium (Colace Liquid Cup) 100 mg HS GTB Last administered on 20:29; Admin Dose 100 MG; Start 08/09/16 at 21:00 Ondansetron HCl (Zofran Inj) 4 mg Q4 PRN IV NAUSEA AND/OR VOMITING Last administered on 08/11/16 20:52; Admin Dose 4 MG; Start 08/09/16 at 12:30 Acetaminophen (Tylenol Tab) 650 mg Q6H PRN PO PAIN LEVEL 1-3 OR FEVER; Start at 12:30 Acetaminophen (Tylenol Supp) 650 mg Q6H PRN [place] PAIN LEVEL 1-3 OR FEVER; Start 08/09/16 at 12:30 Morphine Sulfate 2 mg 2 mg Q3H PRN IV MODERATE PAIN LEVEL 4-6 Last administered on 08/11/16 20:52; Admin Dose 2 MG; Start 08/09/16 at 12:30 Linezolid 300 ml @ 300 mls/hr Q12 IVPB Last administered on 08/14/16 09:13; Admin Dose 300 MLS/HR; Start 08/10/16 at 21:00 Acetaminophen (Ofirmev 1000mg/ 100ml Iv) 100 ml @ 400 mls/hr Q8H IVPB Last administered on 08/14/16 04:00; Admin Dose 400 MLS/HR; Start 08/12/16 at 04:00 Pantoprazole 40 mg 40 mg BID@06,18 IV Last administered on 08/14/16 05:16; Admin Dose 40 MG; Start 08/12/16 at 18:00 Meropenem 100 ml @ 200 mls/hr Q8 IVPB Last administered on 08/14/16 05:17; Admin Dose 200 MLS/HR; Start 08/13/16 at 12:00 Ferric Sodium Gluconate Complex/ Sodium Chloride (Ferrlecit/NS) 110 ml @ 100 mls/hr Q24H IVPB Last administered on 08/13/16 17:23; Admin Dose 100 MLS/HR; Start 08/13/16 at 16:30; Stop 08/15/16 at 17:35 Metoclopramide HCl (Reglan) 10 mg Q6 IV Last administered on 08/14/16 05:17; Admin Dose 10 MG; Start 08/13/16 at 15:15; Stop 08/15/16 at 15:14 Metoprolol Tartrate (Lopressor) 12.5 mg BID PO ; Start 08/14/16 at 21:00 KRISTEN GOMES Aug 14, 2016 11:26
--- NOTE | 2016-08-14 11:34 | RADRPT ---
PROCEDURE: CT Brain without contrast. CLINICAL INDICATION: Hydrocephalus; Neurologic deficit TECHNIQUE: A CT of the brain was performed on multidetector high-resolution CT scanner utilizing a xial sections from the skull base through the vertex without contrast. One or more of the following dose reduction techniques were used: Automated exposure control, Adjustment of the mA and/or kV acc ording to patient size, and/or use of iterative reconstruction technique. DOSE: CTDI = 44 mGy and the DLP = 630 mGy-cm. COMPARISON: Head CT 08/11/2016 FINDINGS: Old left frontal craniotomy. Stable position and right transparietal ventricular shunt tip traversin g the right lateral ventricle with tip in the body of the left lateral ventricle. Hypoattenuation al laura the ventriculostomy tract is unchanged. Prior scattered pneumocephalus is no longer seen. The v entricles are enlarged but not significantly changed in size with bifrontal horn diameter measuring 62 mm. The bilateral frontal subdural collections measuring up to 8 mm are unchanged size. No evide nce of midline shift. Vascular calcifications. Opacified left mastoid and middle ear cavity. Scle rotic appearance of the right mastoid tip. Mild paranasal sinus. Right ethmoid sinus 5 mm osteoma. IMPRESSION: Stable position of the right transparietal ventricular shunt. 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 Similar size bilateral 8mm frontal subdural hematomas or hygromas. Interval resolution of pneumocephalus. RPTAT: AA .Jad Jin MD, Date Time Electronically viewed and signed by .Jad Jin MD, on 08/14/2016 11:34 .T/
--- NOTE | 2016-08-14 12:27 | CONS ---
Date/Time of Note Date/Time of Note DATE: 08/14/16 TIME: 12:25 Assessment/Plan Assessment/Plan Chief Complaint/Hosp Course SUBJECTIVE: No acute changes. The patient remains obtunded, comfortable on nc , no fevers MICROBIOLOGY: Blood cultures from yesterday negative. DIAGNOSTICS: CT of the chest from yesterday revealed multifocal pneumonia, possible aspiration. ANTIMICROBIALS: The patient is on: 1. Zyvox. 2. Meropenem. 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 PHYSICAL EXAMINATION: GENERAL: Chronically ill-appearing, elderly man in no distress. HEENT: Head atraumatic, normocephalic. Sclerae anicteric. Buccal mucosa dry. NECK: Supple, trachea midline. CHEST: Rise symmetrical. Breath sounds diminished with scattered rhonchi. HEART: S1, S2. ABDOMEN: Soft, bowel tones present. EXTREMITIES: No cyanosis. ASSESSMENT: 1. Severe sepsis, s/p shock, off pressors. 2. Healthcare-associated pneumonia, possibly aspiration type. 3. 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 4. Acute encephalopathy. 5. Polymicrobial urinary tract infection. 6. Right lower extremity deep venous thrombosis. 7. History of subdural hemorrhage. PLAN: Clinically unchanged, no fevers, wbc decreasing, continue abx, aspiration precautions. Follow recommendations of consultants. DW staff Problems: Consultation Date/Type/Reason Admit Date/Time Aug 07, 2016 at 00:23 Initial Consult Date 08/07/16 Type of Consultation: ID Referring Provider: YE JOYNER Exam/Review of Systems Vital Signs Vitals Vital Signs Date Time Temp Pulse Resp B/P Pulse Ox O2 Delivery O2 Flow Rate FiO2 08/14/16 09:00 88 22 105/64 99 Nasal Cannula 4.0 08/14/16 08:00 98.9 08/12/16 00:45 100 Intake and Output 08/13/16 08/13/16 08/14/16 14:59 22:59 06:59 Intake Total 280 ml 910 ml 1850 ml Output Total 290 ml 120 ml 40 ml Balance -10 ml 790 ml 1810 ml Results Result Diagram: 08/14/16 0431 08/14/16 0431 Results 24 hrs Laboratory Tests Test 08/13/16 18:30 08/14/16 04:31 08/14/16 07:00 Hemoglobin 8.4 L 8.7 L Hematocrit 25.4 L 26.7 L White Blood Count 12.6 #H Red Blood Count 2.66 L Mean Corpuscular Volume 100.4 Mean Corpuscular Hemoglobin 32.7 Mean Corpuscular Hemoglobin Concent 32.6 Red Cell Distribution Width 13.4 Platelet Count 188 Mean Platelet Volume 11.1 H Neutrophils % 79.0 H Lymphocytes % 13.8 L Monocytes % 4.1 Eosinophils % 1.9 Basophils % 0.2 Nucleated Red Blood Cells % 0.0 Neutrophils # 9.9 H Lymphocytes # 1.7 Monocytes # 0.5 Eosinophils # 0.2 Basophils # 0.0 Nucleated Red Blood Cells # 0.0 Sodium Level 135 Potassium Level 3.2 L Chloride Level 105 Carbon Dioxide Level 24 Anion Gap 9 Blood Urea Nitrogen 17 Creatinine 0.82 Glucose Level 147 Calcium Level 9.0 Phosphorus Level 2.8 Albumin 2.5 L Blood Gas Specimen Source Blood arterial Arterial Blood Date Drawn 08/14/2016 7:04:40 AM Arterial Blood pH (Temp corrected) 7.453 H Arterial Blood pCO2 (Temp correct) 34.7 L Arterial Blood pO2 (Temp corrected) 170.5 H Arterial Blood HCO3 23.7 Arterial Blood Base Excess 0.1 Arterial Blood Oxygen Saturation 98.8 Tavo Test ACCEPTAB Arterial Blood Gas Puncture Site Right Radial Arterial Blood Carboxyhemoglobin 0.2 Arterial Blood Methemoglobin 0.5 Blood Gas A-a O2 Differential 110.9 H Oxyhemoglobin Percent 98.1 Total Hemoglobin 9.4 L Blood Gas Temperature 37.0 Blood Gas Modality MASK - SIMPLE FiO2 45.0 Blood Gas Notified Whom TM Blood Gas Notified Time 08/14/2016 7:25:29 AM Medications Medications Current Medications Lactobacillus Acidophilus/ Rhamnosus (Culturelle) 1 cap BID GTB Last administered on 08/14/16 09:14; Admin Dose 1 CAP; Start 08/07/16 at 09:00 Lactulose (Enulose) 20 gm BID PRN GTB CONSTIPATION; Start 08/07/16 at 00:30 Nystatin (Nystatin Powder) 1 applic Q12 TOP Last administered on 08/14/16 09: 14; Admin Dose 1 APPLIC; Start 08/07/16 at 09:00 Nystatin (Nystatin Powder) 1 applic PRN PRN TOP NEEDED; Start 08/07/16 at 01: 00 Eye Lubricant (Artificial Tears Oph) 1 drop Q12 BOTH EYES Last administered on 08/14/16 09:14; Admin Dose 1 DROP; Start 08/07/16 at 09:00 Eye Lubricant (Artificial Tears Oph) 1 drop PRN PRN BOTH EYES DRY EYES Last administered on 08/12/16 21:07; Admin Dose 1 DROP; Start 08/07/16 at 01:00 Ascorbic Acid (Vitamin C) 500 mg DAILY GTB Last administered on 08/14/16 09:14 ; Admin Dose 500 MG; Start 08/07/16 at 09:00 Atorvastatin Calcium (Lipitor) 20 mg DAILY@21 GTB Last administered on 20:30; Admin Dose 20 MG; Start 08/07/16 at 21:00 Finasteride (Proscar) 5 mg DAILY GTB Last administered on 08/14/16 09:14; Admin Dose 5 MG; Start 08/07/16 at 09:00 Miscellaneous Information (Pending [facility] Order For Wound Care) This patient trent... PRN PRN XX WOUND CARE; Start 08/07/16 at 04:00 Baclofen 10 mg 10 mg TID PRN PO NOTE Last administered on 08/10/16 09:42; Admin Dose 10 MG; Start 08/08/16 at 03:00 Dextrose (D5W) 1,000 ml @ 80 mls/hr [id number] IV Last administered on 08/14/16 05:17; Admin Dose 80 MLS/HR; Start 08/08/16 at 12:30 Docusate Sodium (Colace Liquid Cup) 100 mg HS GTB Last administered on 20:29; Admin Dose 100 MG; Start 08/09/16 at 21:00 Ondansetron HCl (Zofran Inj) 4 mg Q4 PRN IV NAUSEA AND/OR VOMITING Last administered on 08/11/16 20:52; Admin Dose 4 MG; Start 08/09/16 at 12:30 Acetaminophen (Tylenol Tab) 650 mg Q6H PRN PO PAIN LEVEL 1-3 OR FEVER; Start at 12:30 Acetaminophen (Tylenol Supp) 650 mg Q6H PRN [place] PAIN LEVEL 1-3 OR FEVER; Start 08/09/16 at 12:30 Morphine Sulfate 2 mg 2 mg Q3H PRN IV MODERATE PAIN LEVEL 4-6 Last administered on 08/11/16 20:52; Admin Dose 2 MG; Start 08/09/16 at 12:30 Linezolid 300 ml @ 300 mls/hr Q12 IVPB Last administered on 08/14/16 09:13; Admin Dose 300 MLS/HR; Start 08/10/16 at 21:00 Acetaminophen (Ofirmev 1000mg/ 100ml Iv) 100 ml @ 400 mls/hr Q8H IVPB Last administered on 08/14/16 12:14; Admin Dose 400 MLS/HR; Start 08/12/16 at 04:00 Pantoprazole 40 mg 40 mg BID@06,18 IV Last administered on 08/14/16 05:16; Admin Dose 40 MG; Start 08/12/16 at 18:00 Meropenem 100 ml @ 200 mls/hr Q8 IVPB Last administered on 08/14/16 05:17; Admin Dose 200 MLS/HR; Start 08/13/16 at 12:00 Ferric Sodium Gluconate Complex/ Sodium Chloride (Ferrlecit/NS) 110 ml @ 100 mls/hr Q24H IVPB Last administered on 08/13/16 17:23; Admin Dose 100 MLS/HR; Start 08/13/16 at 16:30; Stop 08/15/16 at 17:35 Metoclopramide HCl (Reglan) 10 mg Q6 IV Last administered on 08/14/16 12:14; Admin Dose 10 MG; Start 08/13/16 at 15:15; Stop 08/15/16 at 15:14 Metoprolol Tartrate (Lopressor) 12.5 mg BID PO ; Start 08/14/16 at 21:00 ROMINA SCHREIBER NP Aug 14, 2016 12:27
--- NOTE | 2016-08-14 12:30 | PN ---
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 * S/P Adela hole * History of recurrent aspirations Plan * Monitor H and H q^ transfuse 1 unit PRBC hgb<7.5,2 units PRBC hgb <7.0 * Protonix 40 mg bid * continue tube feeding * Continue present management * further orders will depend on clinical course * Case was discussed with Dr shi Subjective 24 Hr Interval Summary Free Text/Dictation * Course reviewed with RN * Patient seen and examined * Tube feeding started * No coffee ground emesis * Latest hemoglobin 8.7 Exam/Review of Systems Vital Signs Vitals Vital Signs Date Time Temp Pulse Resp B/P Pulse Ox O2 Delivery O2 Flow Rate FiO2 08/14/16 09:00 88 22 105/64 99 Nasal Cannula 4.0 08/14/16 08:00 98.9 08/12/16 00:45 100 Intake and Output 08/13/16 08/13/16 08/14/16 15:00 23:00 07:00 Intake Total 200 ml 910 ml 1850 ml Output Total 240 ml 120 ml 40 ml Balance -40 ml 790 ml 1810 ml Exam Constitutional: frail, non-verbal Neck: non-tender, supple Respiratory: crackles/rales, diminished breath sounds, normal air movement Cardiovascular: regular rate and rhythm Gastrointestinal: non-tender, other (g tube intact no leak), soft Musculoskeletal: muscle weakness Extremities: normal pulses Neurological: lethargic Skin: rash or lesions Results Result Diagram: 08/14/16 0431 08/14/16 0431 Results 24 hrs Laboratory Tests Test 08/13/16 18:30 08/14/16 04:31 08/14/16 07:00 Hemoglobin 8.4 L 8.7 L Hematocrit 25.4 L 26.7 L White Blood Count 12.6 #H Red Blood Count 2.66 L Mean Corpuscular Volume 100.4 Mean Corpuscular Hemoglobin 32.7 Mean Corpuscular Hemoglobin Concent 32.6 Red Cell Distribution Width 13.4 Platelet Count 188 Mean Platelet Volume 11.1 H Neutrophils % 79.0 H Lymphocytes % 13.8 L Monocytes % 4.1 Eosinophils % 1.9 Basophils % 0.2 Nucleated Red Blood Cells % 0.0 Neutrophils # 9.9 H Lymphocytes # 1.7 Monocytes # 0.5 Eosinophils # 0.2 Basophils # 0.0 Nucleated Red Blood Cells # 0.0 Sodium Level 135 Potassium Level 3.2 L Chloride Level 105 Carbon Dioxide Level 24 Anion Gap 9 Blood Urea Nitrogen 17 Creatinine 0.82 Glucose Level 147 Calcium Level 9.0 Phosphorus Level 2.8 Albumin 2.5 L Blood Gas Specimen Source Blood arterial Arterial Blood Date Drawn 08/14/2016 7:04:40 AM Arterial Blood pH (Temp corrected) 7.453 H Arterial Blood pCO2 (Temp correct) 34.7 L Arterial Blood pO2 (Temp corrected) 170.5 H Arterial Blood HCO3 23.7 Arterial Blood Base Excess 0.1 Arterial Blood Oxygen Saturation 98.8 Tavo Test ACCEPTAB Arterial Blood Gas Puncture Site Right Radial Arterial Blood Carboxyhemoglobin 0.2 Arterial Blood Methemoglobin 0.5 Blood Gas A-a O2 Differential 110.9 H Oxyhemoglobin Percent 98.1 Total Hemoglobin 9.4 L Blood Gas Temperature 37.0 Blood Gas Modality MASK - SIMPLE FiO2 45.0 Blood Gas Notified Whom TM Blood Gas Notified Time 08/14/2016 7:25:29 AM Medications Medications Current Medications Lactobacillus Acidophilus/ Rhamnosus (Culturelle) 1 cap BID GTB Last administered on 08/14/16 09:14; Admin Dose 1 CAP; Start 08/07/16 at 09:00 Lactulose (Enulose) 20 gm BID PRN GTB CONSTIPATION; Start 08/07/16 at 00:30 Nystatin (Nystatin Powder) 1 applic Q12 TOP Last administered on 08/14/16 09: 14; Admin Dose 1 APPLIC; Start 08/07/16 at 09:00 Nystatin (Nystatin Powder) 1 applic PRN PRN TOP NEEDED; Start 08/07/16 at 01: 00 Eye Lubricant (Artificial Tears Oph) 1 drop Q12 BOTH EYES Last administered on 08/14/16 09:14; Admin Dose 1 DROP; Start 08/07/16 at 09:00 Eye Lubricant (Artificial Tears Oph) 1 drop PRN PRN BOTH EYES DRY EYES Last administered on 08/12/16 21:07; Admin Dose 1 DROP; Start 08/07/16 at 01:00 Ascorbic Acid (Vitamin C) 500 mg DAILY GTB Last administered on 08/14/16 09:14 ; Admin Dose 500 MG; Start 08/07/16 at 09:00 Atorvastatin Calcium (Lipitor) 20 mg DAILY@21 GTB Last administered on 20:30; Admin Dose 20 MG; Start 08/07/16 at 21:00 Finasteride (Proscar) 5 mg DAILY GTB Last administered on 08/14/16 09:14; Admin Dose 5 MG; Start 08/07/16 at 09:00 Miscellaneous Information (Pending Santyl Order For Wound Care) This patient trent... PRN PRN XX WOUND CARE; Start 08/07/16 at 04:00 Baclofen 10 mg 10 mg TID PRN PO NOTE Last administered on 08/10/16 09:42; Admin Dose 10 MG; Start 08/08/16 at 03:00 Dextrose (D5W) 1,000 ml @ 80 mls/hr [id number] IV Last administered on 08/14/16 05:17; Admin Dose 80 MLS/HR; Start 08/08/16 at 12:30 Docusate Sodium (Colace Liquid Cup) 100 mg HS GTB Last administered on 20:29; Admin Dose 100 MG; Start 08/09/16 at 21:00 Ondansetron HCl (Zofran Inj) 4 mg Q4 PRN IV NAUSEA AND/OR VOMITING Last administered on 08/11/16 20:52; Admin Dose 4 MG; Start 08/09/16 at 12:30 Acetaminophen (Tylenol Tab) 650 mg Q6H PRN PO PAIN LEVEL 1-3 OR FEVER; Start at 12:30 Acetaminophen (Tylenol Supp) 650 mg Q6H PRN [place] PAIN LEVEL 1-3 OR FEVER; Start 08/09/16 at 12:30 Morphine Sulfate 2 mg 2 mg Q3H PRN IV MODERATE PAIN LEVEL 4-6 Last administered on 08/11/16 20:52; Admin Dose 2 MG; Start 08/09/16 at 12:30 Linezolid 300 ml @ 300 mls/hr Q12 IVPB Last administered on 08/14/16 09:13; Admin Dose 300 MLS/HR; Start 08/10/16 at 21:00 Acetaminophen (Ofirmev 1000mg/ 100ml Iv) 100 ml @ 400 mls/hr Q8H IVPB Last administered on 08/14/16 12:14; Admin Dose 400 MLS/HR; Start 08/12/16 at 04:00 Pantoprazole 40 mg 40 mg BID@06,18 IV Last administered on 08/14/16 05:16; Admin Dose 40 MG; Start 08/12/16 at 18:00 Meropenem 100 ml @ 200 mls/hr Q8 IVPB Last administered on 08/14/16 05:17; Admin Dose 200 MLS/HR; Start 08/13/16 at 12:00 Ferric Sodium Gluconate Complex/ Sodium Chloride (Ferrlecit/NS) 110 ml @ 100 mls/hr Q24H IVPB Last administered on 08/13/16 17:23; Admin Dose 100 MLS/HR; Start 08/13/16 at 16:30; Stop 08/15/16 at 17:35 Metoclopramide HCl (Reglan) 10 mg Q6 IV Last administered on 08/14/16 12:14; Admin Dose 10 MG; Start 08/13/16 at 15:15; Stop 08/15/16 at 15:14 Metoprolol Tartrate (Lopressor) 12.5 mg BID PO ; Start 08/14/16 at 21:00 BRIE PELLETIER NP Aug 14, 2016 12:30
[2016-08-14] MEDS: SOD FERRIC GLUC COMPLX 125 MG in SOD CHLORIDE 0.9% 100 ML IVPB SCH (16:26)
[2016-08-14] MEDS: DOCUSATE SODIUM 10 MG/ML (10ML CUP) GTB SCH (19:56)
[2016-08-14] MEDS: ATORVASTATIN 20 MG TAB GTB SCH (19:56)
[2016-08-14] MEDS: ARTIFICIAL TEARS 15 ML OPH BOTH EYES PRN ×2 (19:57→20:02)
[2016-08-15] VITALS (12 sets, daily range): BP systolic 89–126; BP diastolic 53–78; PULSE 91–103; RESP 16–18
[2016-08-15] MEDS: METOCLOPRAMIDE 10 MG INJ IV SCH ×3 (00:34→12:44)
[2016-08-15] MEDS: ACETAMINOPHEN 1000MG/100ML IV 100 ML IVPB SCH ×3 (05:57→20:20)
[2016-08-15] MEDS: DEXTROSE 5% 1,000 ML IV SCH ×3 (06:23→18:17)
[2016-08-15] MEDS: MEROPENEM 500 MG/100 ML (PMX) 100 ML IVPB SCH ×3 (06:23→23:22)
[2016-08-15] MEDS: PANTOPRAZOLE 40 MG INJ IV SCH ×2 (06:23→18:17)
--- NOTE | 2016-08-15 08:20 | PN ---
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 * S/P Adela hole * History of recurrent aspirations Plan * Monitor H and H q^ transfuse 1 unit PRBC hgb<7.5,2 units PRBC hgb <7.0 * Protonix 40 mg bid * continue tube feeding * Continue present management * further orders will depend on clinical course * Exam/Review of Systems Vital Signs Vitals Vital Signs Date Time Temp Pulse Resp B/P Pulse Ox O2 Delivery O2 Flow Rate FiO2 08/14/16 09:00 88 22 105/64 99 Nasal Cannula 4.0 08/14/16 08:00 98.9 08/12/16 00:45 100 Intake and Output 08/13/16 08/13/16 08/14/16 15:00 23:00 07:00 Intake Total 200 ml 910 ml 1850 ml Output Total 240 ml 120 ml 40 ml Balance -40 ml 790 ml 1810 ml Exam Subjective 24 Hr Interval Summary Free Text/Dictation * Course reviewed with RN * Patient seen and examined * Tube feeding started * No coffee ground emesis * Latest hemoglobin stable Exam/Review of Systems Vital Signs Vitals Vital Signs Date Time Temp Pulse Resp B/P Pulse Ox O2 Delivery O2 Flow Rate FiO2 08/15/16 07:50 97.8 95 18 105/55 90 08/15/16 01:28 2.0 08/14/16 23:33 Nasal Cannula 08/12/16 00:45 100 Intake and Output 08/14/16 08/14/16 08/15/16 15:00 23:00 07:00 Intake Total 940 ml 440 ml 360 ml Balance 940 ml 440 ml 360 ml Exam Constitutional: frail, non-verbal Neck: non-tender, supple Respiratory: crackles/rales, diminished breath sounds, normal air movement Cardiovascular: regular rate and rhythm Gastrointestinal: non-tender, other (g tube intact no leak), soft Musculoskeletal: muscle weakness Extremities: normal pulses Neurological: lethargic Skin: rash or lesions Results Result Diagram: 08/14/16 04308/14/16 0431 Medications Medications Current Medications Lactobacillus Acidophilus/ Rhamnosus (Culturelle) 1 cap BID GTB Last administered on 08/14/16 19:56; Admin Dose 1 CAP; Start 08/07/16 at 09:00 Lactulose (Enulose) 20 gm BID PRN GTB CONSTIPATION; Start 08/07/16 at 00:30 Nystatin (Nystatin Powder) 1 applic Q12 TOP Last administered on 08/14/16 19: 57; Admin Dose 1 APPLIC; Start 08/07/16 at 09:00 Nystatin (Nystatin Powder) 1 applic PRN PRN TOP NEEDED; Start 08/07/16 at 01: 00 Eye Lubricant (Artificial Tears Oph) 1 drop Q12 BOTH EYES Last administered on 08/14/16 20:03; Admin Dose 1 DROP; Start 08/07/16 at 09:00 Eye Lubricant (Artificial Tears Oph) 1 drop PRN PRN BOTH EYES DRY EYES Last administered on 08/14/16 20:02; Admin Dose 1 DROP; Start 08/07/16 at 01:00 Ascorbic Acid (Vitamin C) 500 mg DAILY GTB Last administered on 08/14/16 09:14 ; Admin Dose 500 MG; Start 08/07/16 at 09:00 Atorvastatin Calcium (Lipitor) 20 mg DAILY@21 GTB Last administered on 19:56; Admin Dose 20 MG; Start 08/07/16 at 21:00 Finasteride (Proscar) 5 mg DAILY GTB Last administered on 08/14/16 09:14; Admin Dose 5 MG; Start 08/07/16 at 09:00 Miscellaneous Information (Pending Santyl Order For Wound Care) This patient trent... PRN PRN XX WOUND CARE; Start 08/07/16 at 04:00 Baclofen 10 mg 10 mg TID PRN PO NOTE Last administered on 08/10/16 09:42; Admin Dose 10 MG; Start 08/08/16 at 03:00 Dextrose (D5W) 1,000 ml @ 80 mls/hr [id number] IV Last administered on 08/15/16 06:23; Admin Dose 80 MLS/HR; Start 08/08/16 at 12:30 Docusate Sodium (Colace Liquid Cup) 100 mg HS GTB Last administered on 19:56; Admin Dose 100 MG; Start 08/09/16 at 21:00 Ondansetron HCl (Zofran Inj) 4 mg Q4 PRN IV NAUSEA AND/OR VOMITING Last administered on 08/11/16 20:52; Admin Dose 4 MG; Start 08/09/16 at 12:30 Acetaminophen (Tylenol Tab) 650 mg Q6H PRN PO PAIN LEVEL 1-3 OR FEVER; Start at 12:30 Acetaminophen (Tylenol Supp) 650 mg Q6H PRN [place] PAIN LEVEL 1-3 OR FEVER; Start 08/09/16 at 12:30 Morphine Sulfate 2 mg 2 mg Q3H PRN IV MODERATE PAIN LEVEL 4-6 Last administered on 08/11/16 20:52; Admin Dose 2 MG; Start 08/09/16 at 12:30 Linezolid 300 ml @ 300 mls/hr Q12 IVPB Last administered on 08/14/16 19:56; Admin Dose 300 MLS/HR; Start 08/10/16 at 21:00 Acetaminophen (Ofirmev 1000mg/ 100ml Iv) 100 ml @ 400 mls/hr Q8H IVPB Last administered on 08/15/16 05:57; Admin Dose 400 MLS/HR; Start 08/12/16 at 04:00 Pantoprazole 40 mg 40 mg BID@06,18 IV Last administered on 08/15/16 06:23; Admin Dose 40 MG; Start 08/12/16 at 18:00 Meropenem 100 ml @ 200 mls/hr Q8 IVPB Last administered on 08/15/16 06:23; Admin Dose 200 MLS/HR; Start 08/13/16 at 12:00 Ferric Sodium Gluconate Complex/ Sodium Chloride (Ferrlecit/NS) 110 ml @ 100 mls/hr Q24H IVPB Last administered on 08/14/16 16:26; Admin Dose 100 MLS/HR; Start 08/13/16 at 16:30; Stop 08/15/16 at 17:35 Metoclopramide HCl (Reglan) 10 mg Q6 IV Last administered on 6/17/17at 06:23; Admin Dose 10 MG; Start 08/13/16 at 15:15; Stop 08/15/16 at 15:14 Metoprolol Tartrate (Lopressor) 12.5 mg BID PO ; Start 08/14/16 at 21:00 JF HONG MD Aug 15, 2016 08:20
[2016-08-15] MEDS: ALBUTEROL/IPRATROPIUM (NEB) 3 ML AMP HHN SCH ×3 (08:51→23:05)
[2016-08-15] MEDS: ACETYLCYSTEINE 20% 4 ML VIAL NEB SCH ×2 (08:56→19:58)
[2016-08-15] MEDS: METOPROLOL 25 MG TAB PO SCH ×2 (09:00→20:21)
[2016-08-15] MEDS: LACTOBACILLUS RHAMNOSUS CAP GTB SCH ×2 (09:05→20:20)
[2016-08-15] MEDS: FINASTERIDE 5 MG TAB GTB SCH (09:05)
[2016-08-15] MEDS: ASCORBIC ACID 500 MG TAB GTB SCH (09:05)
[2016-08-15] MEDS: LINEZOLID 600 MG/D5W (PMX) 300 ML IVPB SCH ×2 (09:05→20:21)
[2016-08-15] MEDS: ARTIFICIAL TEARS 15 ML OPH BOTH EYES PRN (09:06)
[2016-08-15] MEDS: ARTIFICIAL TEARS 15 ML OPH BOTH EYES SCH ×2 (09:06→20:23)
[2016-08-15] MEDS: NYSTATIN 30 GM POWDER BTL TOP SCH ×2 (09:06→20:23)
[2016-08-15 11:04] LABS: ADD SCAN DIFF NO
[2016-08-15 11:07] LABS: BASOPHILS % 0.1 % (0.0-2.0); EOSINOPHILS # 0.2 10^3/ul (0.0-0.5); EOSINOPHILS % 1.6 % (0.0-7.0); HEMATOCRIT 24.7 % (42.0-52.0); HEMOGLOBIN 7.9 g/dl (14.0-18.0); LYMPHOCYTES # 1.9 10^3/ul (0.8-2.9); LYMPHOCYTES % 16.8 % (15.0-51.0); MEAN CORPUSCULAR HEMOGLOBIN 32.2 pg (29.0-33.0); MEAN CORPUSCULAR VOLUME 100.8 fl (82.0-101.0); MEAN PLATELET VOLUME 10.1 fl (7.4-10.4); MONOCYTE # 0.4 10^3/ul (0.3-0.9); MONOCYTES % 3.5 % (0.0-11.0); NEUTROPHIL # 8.6 10^3/ul (1.6-7.5); NEUTROPHILS % 76.8 % (39.0-77.0); PLATELET COUNT 225 10^3/UL (140-415); RED BLOOD COUNT 2.45 10^6/ul (4.70-6.10); RED CELL DISTRIBUTION WIDTH 13.4 % (11.5-14.5); WHITE BLOOD COUNT 11.2 10^3/ul (4.8-10.8)
[2016-08-15 12:46] LABS: ALBUMIN 2.6 g/dl (3.3-4.9); CALCIUM 8.7 mg/dl (8.4-10.2); CREATININE 0.68 mg/dl (0.61-1.24); PHOSPHORUS 2.5 mg/dl (2.5-4.9); POTASSIUM 3.1 mmol/L (3.5-5.1)
--- NOTE | 2016-08-15 14:39 | CONS ---
Date/Time of Note Date/Time of Note DATE: 08/15/16 TIME: 14:39 Assessment/Plan Assessment/Plan Chief Complaint/Hosp Course ID PROGRESS NOTE ABX DAY #9 => Zyvox + Merrem 24H INTERVAL SUMMARY * Eyes open - awake, encephalopathic, moans to self, O2 via NC w/no dyspnea, (+) dry cough * No fevers, VSS, WBC normalizing * MICROBIOLOGY: Blood cultures negative preliminary * DIAGNOSTICS: CT of the chest (+)multifocal pneumonia, possible aspiration. 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 PHYSICAL EXAMINATION: GENERAL: VSS, NAD, no fever HEENT: (+)Scalp healing surgical wounds w/crusted scabs NECK: Trach-> midline CHEST: Equal chest rise bilaterally, without dyspnea on observation HEART: Pulse RRR ABDOMEN: Soft EXTREMITIES: Warm w/(+)dependent edema x4 SKIN: Warm, dry ID ASSESSMENT: 86 yo M w/PMHx of subdural hemorrhage admit with: 1. Severe sepsis, s/p shock, off pressors. 2. Healthcare-associated pneumonia, possibly aspiration type. 3. 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 4. Acute encephalopathy. 5. Polymicrobial urinary tract infection. 6. Right lower extremity deep venous thrombosis. 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 Continue current ABX => June TNS back to SNF on current ABX to complete 14 day course * Today # 9 / Days 2. Aspiration precautions . Problems: Consultation Date/Type/Reason Admit Date/Time Aug 07, 2016 at 00:23 Initial Consult Date 08/12/16 Type of Consultation: ID Referring Provider: YE JOYNER Exam/Review of Systems Vital Signs Vitals Vital Signs Date Time Temp Pulse Resp B/P Pulse Ox O2 Delivery O2 Flow Rate FiO2 08/15/16 12:33 95 08/15/16 11:45 2.0 08/15/16 11:09 97.8 16 89/53 97 08/15/16 08:57 Nasal Cannula 08/12/16 00:45 100 Intake and Output 08/14/16 08/14/16 08/15/16 15:00 23:00 07:00 Intake Total 940 ml 440 ml 360 ml Balance 940 ml 440 ml 360 ml Results Result Diagram: 08/15/16 1100 08/15/16 1213 Results 24 hrs Laboratory Tests Test 08/15/16 11:00 08/15/16 12:13 White Blood Count 11.2 H Red Blood Count 2.45 L Hemoglobin 7.9 L Hematocrit 24.7 L Mean Corpuscular Volume 100.8 Mean Corpuscular Hemoglobin 32.2 Mean Corpuscular Hemoglobin Concent 32.0 Red Cell Distribution Width 13.4 Platelet Count 225 Mean Platelet Volume 10.1 Neutrophils % 76.8 Lymphocytes % 16.8 Monocytes % 3.5 Eosinophils % 1.6 Basophils % 0.1 Nucleated Red Blood Cells % 0.0 Neutrophils # 8.6 H Lymphocytes # 1.9 Monocytes # 0.4 Eosinophils # 0.2 Basophils # 0.0 Nucleated Red Blood Cells # 0.0 Sodium Level 134 L Potassium Level 3.1 L Chloride Level 103 Carbon Dioxide Level 24 Anion Gap 10 Blood Urea Nitrogen 15 Creatinine 0.68 Glucose Level 139 Calcium Level 8.7 Phosphorus Level 2.5 Albumin 2.6 L Medications Medications Current Medications Lactobacillus Acidophilus/ Rhamnosus (Culturelle) 1 cap BID GTB Last administered on 08/15/16 09:05; Admin Dose 1 CAP; Start 08/07/16 at 09:00 Lactulose (Enulose) 20 gm BID PRN GTB CONSTIPATION; Start 08/07/16 at 00:30 Nystatin (Nystatin Powder) 1 applic Q12 TOP Last administered on 08/15/16 09: 06; Admin Dose 1 APPLIC; Start 08/07/16 at 09:00 Nystatin (Nystatin Powder) 1 applic PRN PRN TOP NEEDED; Start 08/07/16 at 01: 00 Eye Lubricant (Artificial Tears Oph) 1 drop Q12 BOTH EYES Last administered on 08/15/16 09:06; Admin Dose 1 DROP; Start 08/07/16 at 09:00 Eye Lubricant (Artificial Tears Oph) 1 drop PRN PRN BOTH EYES DRY EYES Last administered on 08/15/16 09:06; Admin Dose 1 DROP; Start 08/07/16 at 01:00 Ascorbic Acid (Vitamin C) 500 mg DAILY GTB Last administered on 08/15/16 09:05 ; Admin Dose 500 MG; Start 08/07/16 at 09:00 Atorvastatin Calcium (Lipitor) 20 mg DAILY@21 GTB Last administered on 19:56; Admin Dose 20 MG; Start 08/07/16 at 21:00 Finasteride (Proscar) 5 mg DAILY GTB Last administered on 08/15/16 09:05; Admin Dose 5 MG; Start 08/07/16 at 09:00 Miscellaneous Information (Pending Santyl Order For Wound Care) This patient trent... PRN PRN XX WOUND CARE; Start 08/07/16 at 04:00 Baclofen 10 mg 10 mg TID PRN PO NOTE Last administered on 08/10/16 09:42; Admin Dose 10 MG; Start 08/08/16 at 03:00 Dextrose (D5W) 1,000 ml @ 80 mls/hr [id number] IV Last administered on 08/15/16 14:05; Admin Dose 80 MLS/HR; Start 08/08/16 at 12:30 Docusate Sodium (Colace Liquid Cup) 100 mg HS GTB Last administered on 19:56; Admin Dose 100 MG; Start 08/09/16 at 21:00 Ondansetron HCl (Zofran Inj) 4 mg Q4 PRN IV NAUSEA AND/OR VOMITING Last administered on 08/11/16 20:52; Admin Dose 4 MG; Start 08/09/16 at 12:30 Acetaminophen (Tylenol Tab) 650 mg Q6H PRN PO PAIN LEVEL 1-3 OR FEVER; Start at 12:30 Acetaminophen (Tylenol Supp) 650 mg Q6H PRN [place] PAIN LEVEL 1-3 OR FEVER; Start 08/09/16 at 12:30 Morphine Sulfate 2 mg 2 mg Q3H PRN IV MODERATE PAIN LEVEL 4-6 Last administered on 08/11/16 20:52; Admin Dose 2 MG; Start 08/09/16 at 12:30 Linezolid 300 ml @ 300 mls/hr Q12 IVPB Last administered on 08/15/16 09:05; Admin Dose 300 MLS/HR; Start 08/10/16 at 21:00 Acetaminophen (Ofirmev 1000mg/ 100ml Iv) 100 ml @ 400 mls/hr Q8H IVPB Last administered on 08/15/16 12:47; Admin Dose 400 MLS/HR; Start 08/12/16 at 04:00 Pantoprazole 40 mg 40 mg BID@06,18 IV Last administered on 08/15/16 06:23; Admin Dose 40 MG; Start 08/12/16 at 18:00 Meropenem 100 ml @ 200 mls/hr Q8 IVPB Last administered on 08/15/16 06:23; Admin Dose 200 MLS/HR; Start 08/13/16 at 12:00 Ferric Sodium Gluconate Complex/ Sodium Chloride (Ferrlecit/NS) 110 ml @ 100 mls/hr Q24H IVPB Last administered on 08/14/16 16:26; Admin Dose 100 MLS/HR; Start 08/13/16 at 16:30; Stop 08/15/16 at 17:35 Metoclopramide HCl (Reglan) 10 mg Q6 IV Last administered on 08/15/16 12:44; Admin Dose 10 MG; Start 08/13/16 at 15:15; Stop 08/15/16 at 15:14 Metoprolol Tartrate (Lopressor) 12.5 mg BID PO ; Start 08/14/16 at 21:00 ATRIK PEOLPES NP Aug 15, 2016 14:39
[2016-08-15] MEDS: SOD FERRIC GLUC COMPLX 125 MG in SOD CHLORIDE 0.9% 100 ML IVPB SCH (17:07)
[2016-08-15] MEDS: ALBUTEROL/IPRATROPIUM (NEB) 3 ML AMP HHN PRN (20:11)
[2016-08-15] MEDS: DOCUSATE SODIUM 10 MG/ML (10ML CUP) GTB SCH (20:19)
[2016-08-15] MEDS: ATORVASTATIN 20 MG TAB GTB SCH (20:20)
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
[2016-08-16] VITALS (12 sets, daily range): BP systolic 107–148; BP diastolic 56–74; PULSE 85–106; RESP 18–20
[2016-08-16] MEDS: ACETAMINOPHEN 1000MG/100ML IV 100 ML IVPB SCH ×3 (04:20→20:26)
[2016-08-16] MEDS: PANTOPRAZOLE 40 MG INJ IV SCH ×2 (06:31→18:22)
[2016-08-16] MEDS: MEROPENEM 500 MG/100 ML (PMX) 100 ML IVPB SCH ×3 (06:31→21:33)
[2016-08-16] MEDS: ACETYLCYSTEINE 20% 4 ML VIAL NEB SCH ×2 (07:26→19:46)
[2016-08-16] MEDS: ALBUTEROL/IPRATROPIUM (NEB) 3 ML AMP HHN SCH ×2 (07:26→15:05)
[2016-08-16] MEDS: ARTIFICIAL TEARS 15 ML OPH BOTH EYES PRN (08:36)
[2016-08-16] MEDS: LINEZOLID 600 MG/D5W (PMX) 300 ML IVPB SCH ×2 (08:44→20:26)
[2016-08-16] MEDS: METOPROLOL 25 MG TAB PO SCH ×2 (08:45→21:35)
[2016-08-16] MEDS: FINASTERIDE 5 MG TAB GTB SCH (08:45)
[2016-08-16] MEDS: ASCORBIC ACID 500 MG TAB GTB SCH (08:45)
[2016-08-16] MEDS: LACTOBACILLUS RHAMNOSUS CAP GTB SCH ×2 (08:45→20:26)
[2016-08-16] MEDS: NYSTATIN 30 GM POWDER BTL TOP SCH ×2 (08:46→20:26)
[2016-08-16] MEDS: ARTIFICIAL TEARS 15 ML OPH BOTH EYES SCH ×2 (08:48→20:27)
[2016-08-16] MEDS: DEXTROSE 5% 1,000 ML IV SCH (09:00)
[2016-08-16 10:44] LABS: ADD SCAN DIFF NO
[2016-08-16 10:49] LABS: BASOPHILS % 0.2 % (0.0-2.0); EOSINOPHILS # 0.3 10^3/ul (0.0-0.5); EOSINOPHILS % 2.3 % (0.0-7.0); HEMATOCRIT 27.4 % (42.0-52.0); HEMOGLOBIN 8.5 g/dl (14.0-18.0); LYMPHOCYTES # 2.3 10^3/ul (0.8-2.9); LYMPHOCYTES % 21.3 % (15.0-51.0); MEAN CORPUSCULAR HEMOGLOBIN 31.8 pg (29.0-33.0); MEAN CORPUSCULAR VOLUME 102.6 fl (82.0-101.0); MEAN PLATELET VOLUME 11.1 fl (7.4-10.4); MONOCYTE # 0.5 10^3/ul (0.3-0.9); MONOCYTES % 4.7 % (0.0-11.0); NEUTROPHIL # 7.4 10^3/ul (1.6-7.5); NEUTROPHILS % 69.8 % (39.0-77.0); PLATELET COUNT 207 10^3/UL (140-415); RED BLOOD COUNT 2.67 10^6/ul (4.70-6.10); RED CELL DISTRIBUTION WIDTH 13.5 % (11.5-14.5); WHITE BLOOD COUNT 10.7 10^3/ul (4.8-10.8)
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
[2016-08-16 11:15] LABS: CALCIUM 8.8 mg/dl (8.4-10.2); CREATININE 0.66 mg/dl (0.61-1.24); POTASSIUM 3.7 mmol/L (3.5-5.1)
--- NOTE | 2016-08-16 13:28 | CONS ---
Date/Time of Note Date/Time of Note DATE: 08/16/16 TIME: 13:23 Assessment/Plan Assessment/Plan Chief Complaint/Hosp Course SUBJECTIVE: No acute changes. The patient remains comfortable. No fever. MICROBIOLOGY: Blood cultures from yesterday negative. DIAGNOSTICS: CT of the chest from yesterday revealed multifocal pneumonia, possible aspiration. ANTIMICROBIALS: The patient is on: 1. Zyvox. 2. Meropenem. INDWELLINGS: C SOFTWARE ENGINEER shunt, Wang, PEG. PHYSICAL EXAMINATION: GENERAL: Chronically ill-appearing, elderly man in no distress. HEENT: Head atraumatic, normocephalic. Sclerae anicteric. Buccal mucosa dry. NECK: Supple, trachea midline. CHEST: Rise symmetrical. Breath sounds diminished with scattered rhonchi. HEART: S1, S2. ABDOMEN: Soft, bowel tones present. EXTREMITIES: No cyanosis. ASSESSMENT: 1. Severe sepsis, s/p shock, off pressors. 2. Healthcare-associated pneumonia, possibly aspiration type. 3. 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 4. Acute encephalopathy. 5. Polymicrobial urinary tract infection. 6. Right lower extremity deep venous thrombosis. 7. History of subdural hemorrhage. PLAN: Clinically stable. No fevers. Continue ABX. Aspiration precautions. Follow recommendations of consultants. May be transferred back to SNF on current ABX to complete 14 days course. DW staff. Problems: Consultation Date/Type/Reason Admit Date/Time Aug 07, 2016 at 00:23 Initial Consult Date 08/12/16 Type of Consultation: ID Referring Provider: YE JOYNER Exam/Review of Systems Vital Signs Vitals Vital Signs Date Time Temp Pulse Resp B/P Pulse Ox O2 Delivery O2 Flow Rate FiO2 08/16/16 13:11 Nasal Cannula 2.0 08/16/16 12:16 93 08/16/16 11:28 98.3 18 148/74 95 Intake and Output 08/15/16 08/15/16 08/16/16 15:00 23:00 07:00 Intake Total 650 ml 1150 ml Balance 650 ml 1150 ml Results Result Diagram: 08/16/16 0936 08/16/16 0936 Results 24 hrs Laboratory Tests Test 08/15/16 16:34 08/16/16 09:36 Stool Occult Blood NEGATIVE White Blood Count 10.7 Red Blood Count 2.67 L Hemoglobin 8.5 L Hematocrit 27.4 L Mean Corpuscular Volume 102.6 H Mean Corpuscular Hemoglobin 31.8 Mean Corpuscular Hemoglobin Concent 31.0 L Red Cell Distribution Width 13.5 Platelet Count 207 Mean Platelet Volume 11.1 H Neutrophils % 69.8 Lymphocytes % 21.3 Monocytes % 4.7 Eosinophils % 2.3 Basophils % 0.2 Nucleated Red Blood Cells % 0.0 Neutrophils # 7.4 Lymphocytes # 2.3 Monocytes # 0.5 Eosinophils # 0.3 Basophils # 0.0 Nucleated Red Blood Cells # 0.0 Sodium Level 134 L Potassium Level 3.7 Chloride Level 104 Carbon Dioxide Level 22 Anion Gap 12 Blood Urea Nitrogen 14 Creatinine 0.66 Glucose Level 124 Calcium Level 8.8 Magnesium Level 2.0 Medications Medications Current Medications Lactobacillus Acidophilus/ Rhamnosus (Culturelle) 1 cap BID GTB Last administered on 08/16/16 08:45; Admin Dose 1 CAP; Start 08/07/16 at 09:00 Lactulose (Enulose) 20 gm BID PRN GTB CONSTIPATION; Start 08/07/16 at 00:30 Nystatin (Nystatin Powder) 1 applic Q12 TOP Last administered on 08/16/16 08: 46; Admin Dose 1 APPLIC; Start 08/07/16 at 09:00 Nystatin (Nystatin Powder) 1 applic PRN PRN TOP NEEDED; Start 08/07/16 at 01: 00 Eye Lubricant (Artificial Tears Oph) 1 drop Q12 BOTH EYES Last administered on 08/16/16 08:48; Admin Dose 1 DROP; Start 08/07/16 at 09:00 Eye Lubricant (Artificial Tears Oph) 1 drop PRN PRN BOTH EYES DRY EYES Last administered on 08/16/16 08:36; Admin Dose 1 DROP; Start 08/07/16 at 01:00 Ascorbic Acid (Vitamin C) 500 mg DAILY GTB Last administered on 08/16/16 08:45 ; Admin Dose 500 MG; Start 08/07/16 at 09:00 Atorvastatin Calcium (Lipitor) 20 mg DAILY@21 GTB Last administered on 20:20; Admin Dose 20 MG; Start 08/07/16 at 21:00 Finasteride (Proscar) 5 mg DAILY GTB Last administered on 08/16/16 08:45; Admin Dose 5 MG; Start 08/07/16 at 09:00 Miscellaneous Information (Pending Santyl Order For Wound Care) This patient trent... PRN PRN XX WOUND CARE; Start 08/07/16 at 04:00 Baclofen 10 mg 10 mg TID PRN PO NOTE Last administered on 08/10/16 09:42; Admin Dose 10 MG; Start 08/08/16 at 03:00 Dextrose (D5W) 1,000 ml @ 80 mls/hr [id number] IV Last administered on 08/16/16 09:00; Admin Dose 80 MLS/HR; Start 08/08/16 at 12:30 Docusate Sodium (Colace Liquid Cup) 100 mg HS GTB Last administered on 20:19; Admin Dose 100 MG; Start 08/09/16 at 21:00 Ondansetron HCl (Zofran Inj) 4 mg Q4 PRN IV NAUSEA AND/OR VOMITING Last administered on 08/11/16 20:52; Admin Dose 4 MG; Start 08/09/16 at 12:30 Acetaminophen (Tylenol Tab) 650 mg Q6H PRN PO PAIN LEVEL 1-3 OR FEVER; Start at 12:30 Acetaminophen (Tylenol Supp) 650 mg Q6H PRN [place] PAIN LEVEL 1-3 OR FEVER; Start 08/09/16 at 12:30 Morphine Sulfate 2 mg 2 mg Q3H PRN IV MODERATE PAIN LEVEL 4-6 Last administered on 08/11/16 20:52; Admin Dose 2 MG; Start 08/09/16 at 12:30 Linezolid 300 ml @ 300 mls/hr Q12 IVPB Last administered on 08/16/16 08:44; Admin Dose 300 MLS/HR; Start 08/10/16 at 21:00 Acetaminophen (Ofirmev 1000mg/ 100ml Iv) 100 ml @ 400 mls/hr Q8H IVPB Last administered on 08/16/16 04:20; Admin Dose 400 MLS/HR; Start 08/12/16 at 04:00 Pantoprazole 40 mg 40 mg BID@06,18 IV Last administered on 08/16/16 06:31; Admin Dose 40 MG; Start 08/12/16 at 18:00 Meropenem (Merrem 500 Mg/ 100 ml (Pmx)) 100 ml @ 200 mls/hr Q8 IVPB Last administered on 08/16/16 06:31; Admin Dose 200 MLS/HR; Start 08/13/16 at 12:00 Metoprolol Tartrate (Lopressor) 12.5 mg BID PO Last administered on 08/15/16 20:21; Admin Dose 12.5 MG; Start 08/14/16 at 21:00 NORMAN PEREZ NP Aug 16, 2016 13:28
--- NOTE | 2016-08-16 14:08 | CONS ---
Date/Time of Note Date/Time of Note DATE: 08/16/16 TIME: 14:06 Assessment/Plan Assessment/Plan Additional Assessment/Plan Assessment recommendations; 1. Patient admitted with pneumonia currently on appropriate antibiotic regimen. 2. Normal pressure hydrocephalus, status post PRIMARY HEALTH ORGANISATION MANAGER shunt placement. 3. Advanced dementia. 4. Right superficial common femoral vein DVT. 5. Anemia Continue current treatment. Prognosis is poor. Consultation Date/Type/Reason Admit Date/Time Aug 07, 2016 at 00:23 Initial Consult Date 08/07/16 Type of Consultation: Pulmonary Referring Provider: YE JOYNER 24 HR Interval Summary Free Text/Dictation Patient condition remains unchanged. Remains unresponsive. Has remained hemodynamically stable. General exam; elderly male, currently in no distress. Unresponsive. Exam/Review of Systems Vital Signs Vitals Vital Signs Date Time Temp Pulse Resp B/P Pulse Ox O2 Delivery O2 Flow Rate FiO2 08/16/16 13:11 Nasal Cannula 2.0 08/16/16 12:16 93 08/16/16 11:28 98.3 18 148/74 95 Intake and Output 08/15/16 08/15/16 08/16/16 15:00 23:00 07:00 Intake Total 650 ml 1150 ml Balance 650 ml 1150 ml Exam HEENT examination; supple neck, no JVD. No lymphadenopathy. Midline trachea. No thyromegaly. Patient is edentulous. Chest examination; diminished but clear vessel. S1-S2 audible, no murmurs. Abdomen examination; soft, no organomegaly. G-tube in place. Bowel sounds audible. Extremity examination; no peripheral edema. RAMPMAN examination; patient remains unresponsive. Results Result Diagram: 08/16/16 0936 08/16/16 0936 Results 24 hrs Laboratory Tests Test 08/15/16 16:34 08/16/16 09:36 Stool Occult Blood NEGATIVE White Blood Count 10.7 Red Blood Count 2.67 L Hemoglobin 8.5 L Hematocrit 27.4 L Mean Corpuscular Volume 102.6 H Mean Corpuscular Hemoglobin 31.8 Mean Corpuscular Hemoglobin Concent 31.0 L Red Cell Distribution Width 13.5 Platelet Count 207 Mean Platelet Volume 11.1 H Neutrophils % 69.8 Lymphocytes % 21.3 Monocytes % 4.7 Eosinophils % 2.3 Basophils % 0.2 Nucleated Red Blood Cells % 0.0 Neutrophils # 7.4 Lymphocytes # 2.3 Monocytes # 0.5 Eosinophils # 0.3 Basophils # 0.0 Nucleated Red Blood Cells # 0.0 Sodium Level 134 L Potassium Level 3.7 Chloride Level 104 Carbon Dioxide Level 22 Anion Gap 12 Blood Urea Nitrogen 14 Creatinine 0.66 Glucose Level 124 Calcium Level 8.8 Magnesium Level 2.0 Medications Medications Current Medications Lactobacillus Acidophilus/ Rhamnosus (Culturelle) 1 cap BID GTB Last administered on 08/16/16 08:45; Admin Dose 1 CAP; Start 08/07/16 at 09:00 Lactulose (Enulose) 20 gm BID PRN GTB CONSTIPATION; Start 08/07/16 at 00:30 Nystatin (Nystatin Powder) 1 applic Q12 TOP Last administered on 08/16/16 08: 46; Admin Dose 1 APPLIC; Start 08/07/16 at 09:00 Nystatin (Nystatin Powder) 1 applic PRN PRN TOP NEEDED; Start 08/07/16 at 01: 00 Eye Lubricant (Artificial Tears Oph) 1 drop Q12 BOTH EYES Last administered on 08/16/16 08:48; Admin Dose 1 DROP; Start 08/07/16 at 09:00 Eye Lubricant (Artificial Tears Oph) 1 drop PRN PRN BOTH EYES DRY EYES Last administered on 08/16/16 08:36; Admin Dose 1 DROP; Start 08/07/16 at 01:00 Ascorbic Acid (Vitamin C) 500 mg DAILY GTB Last administered on 08/16/16 08:45 ; Admin Dose 500 MG; Start 08/07/16 at 09:00 Atorvastatin Calcium (Lipitor) 20 mg DAILY@21 GTB Last administered on 20:20; Admin Dose 20 MG; Start 08/07/16 at 21:00 Finasteride (Proscar) 5 mg DAILY GTB Last administered on 08/16/16 08:45; Admin Dose 5 MG; Start 08/07/16 at 09:00 Miscellaneous Information (Pending Santyl Order For Wound Care) This patient trent... PRN PRN XX WOUND CARE; Start 08/07/16 at 04:00 Baclofen 10 mg 10 mg TID PRN PO NOTE Last administered on 08/10/16 09:42; Admin Dose 10 MG; Start 08/08/16 at 03:00 Dextrose (D5W) 1,000 ml @ 80 mls/hr [id number] IV Last administered on 08/16/16 09:00; Admin Dose 80 MLS/HR; Start 08/08/16 at 12:30 Docusate Sodium (Colace Liquid Cup) 100 mg HS GTB Last administered on 20:19; Admin Dose 100 MG; Start 08/09/16 at 21:00 Ondansetron HCl (Zofran Inj) 4 mg Q4 PRN IV NAUSEA AND/OR VOMITING Last administered on 08/11/16 20:52; Admin Dose 4 MG; Start 08/09/16 at 12:30 Acetaminophen (Tylenol Tab) 650 mg Q6H PRN PO PAIN LEVEL 1-3 OR FEVER; Start at 12:30 Acetaminophen (Tylenol Supp) 650 mg Q6H PRN [place] PAIN LEVEL 1-3 OR FEVER; Start 08/09/16 at 12:30 Morphine Sulfate 2 mg 2 mg Q3H PRN IV MODERATE PAIN LEVEL 4-6 Last administered on 08/11/16 20:52; Admin Dose 2 MG; Start 08/09/16 at 12:30 Linezolid 300 ml @ 300 mls/hr Q12 IVPB Last administered on 08/16/16 08:44; Admin Dose 300 MLS/HR; Start 08/10/16 at 21:00 Acetaminophen (Ofirmev 1000mg/ 100ml Iv) 100 ml @ 400 mls/hr Q8H IVPB Last administered on 08/16/16 04:20; Admin Dose 400 MLS/HR; Start 08/12/16 at 04:00 Pantoprazole 40 mg 40 mg BID@06,18 IV Last administered on 08/16/16 06:31; Admin Dose 40 MG; Start 08/12/16 at 18:00 Meropenem (Merrem 500 Mg/ 100 ml (Pmx)) 100 ml @ 200 mls/hr Q8 IVPB Last administered on 08/16/16 06:31; Admin Dose 200 MLS/HR; Start 08/13/16 at 12:00 Metoprolol Tartrate (Lopressor) 12.5 mg BID PO Last administered on 08/15/16 20:21; Admin Dose 12.5 MG; Start 08/14/16 at 21:00 JIGNESH LI 18, 2017 14:08
[2016-08-16] MEDS: ATORVASTATIN 20 MG TAB GTB SCH (20:26)
[2016-08-16] MEDS: DOCUSATE SODIUM 10 MG/ML (10ML CUP) GTB SCH (20:26)
[2016-08-17] VITALS (15 sets, daily range): BP systolic 128–183; BP diastolic 63–82; PULSE 68–100; RESP 16–20
[2016-08-17] MEDS: ALBUTEROL/IPRATROPIUM (NEB) 3 ML AMP HHN SCH ×4 (00:04→23:42)
[2016-08-17] MEDS: DEXTROSE 5% 1,000 ML IV SCH ×3 (04:38→20:33)
[2016-08-17] MEDS: ACETAMINOPHEN 1000MG/100ML IV 100 ML IVPB SCH ×3 (04:38→20:33)
[2016-08-17 06:20] LABS: ADD SCAN DIFF NO
[2016-08-17 06:28] LABS: BASOPHILS % 0.2 % (0.0-2.0); EOSINOPHILS # 0.3 10^3/ul (0.0-0.5); EOSINOPHILS % 2.2 % (0.0-7.0); HEMATOCRIT 28.3 % (42.0-52.0); HEMOGLOBIN 8.8 g/dl (14.0-18.0); LYMPHOCYTES # 2.4 10^3/ul (0.8-2.9); LYMPHOCYTES % 21.5 % (15.0-51.0); MEAN CORPUSCULAR HEMOGLOBIN 31.3 pg (29.0-33.0); MEAN CORPUSCULAR HGB CONC 31.1 g/dl (32.0-37.0); MEAN CORPUSCULAR VOLUME 100.7 fl (82.0-101.0); MONOCYTE # 0.5 10^3/ul (0.3-0.9); MONOCYTES % 4.5 % (0.0-11.0); NEUTROPHIL # 7.8 10^3/ul (1.6-7.5); NEUTROPHILS % 69.9 % (39.0-77.0); PLATELET COUNT 197 10^3/UL (140-415); RED BLOOD COUNT 2.81 10^6/ul (4.70-6.10); RED CELL DISTRIBUTION WIDTH 13.5 % (11.5-14.5); WHITE BLOOD COUNT 11.1 10^3/ul (4.8-10.8)
[2016-08-17] MEDS: MEROPENEM 500 MG/100 ML (PMX) 100 ML IVPB SCH ×3 (06:35→23:06)
[2016-08-17] MEDS: PANTOPRAZOLE 40 MG INJ IV SCH ×2 (06:35→17:10)
[2016-08-17 07:11] LABS: CALCIUM 8.8 mg/dl (8.4-10.2); CREATININE 0.56 mg/dl (0.61-1.24); POTASSIUM 4.1 mmol/L (3.5-5.1)
[2016-08-17] MEDS: LINEZOLID 600 MG/D5W (PMX) 300 ML IVPB SCH ×2 (08:28→21:41)
[2016-08-17] MEDS: LACTOBACILLUS RHAMNOSUS CAP GTB SCH ×2 (08:29→21:34)
[2016-08-17] MEDS: NYSTATIN 30 GM POWDER BTL TOP SCH ×2 (08:29→20:34)
[2016-08-17] MEDS: ASCORBIC ACID 500 MG TAB GTB SCH (08:29)
[2016-08-17] MEDS: FINASTERIDE 5 MG TAB GTB SCH (08:29)
[2016-08-17] MEDS: ARTIFICIAL TEARS 15 ML OPH BOTH EYES SCH ×2 (08:29→21:33)
[2016-08-17] MEDS: METOPROLOL 25 MG TAB PO SCH ×2 (08:30→21:35)
[2016-08-17] MEDS: ACETYLCYSTEINE 20% 4 ML VIAL NEB SCH ×2 (08:40→20:52)
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
--- NOTE | 2016-08-17 14:50 | PDOCDIS ---
Discharge Instructions CONDITION Patient Condition: Stable HOME CARE INSTRUCTIONS: Special Diet: Tube feedings CLIFTON WALKER Aug 17, 2016 14:50
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
[2016-08-17] MEDS ORDERED: hydrALAzine 20 MG INJ IV STA (17:03)
[2016-08-17] MEDS ORDERED: hydrALAzine 20 MG INJ IV PRN (17:30)
--- NOTE | 2016-08-17 17:48 | QN ---
Documentation Comment Patient is stable neurologically. He opens his eyes and tracks in response to sternal rub, but does not follow commands or verbalize. His pupils are equal, round, and reactive. His gaze is conjugate. He is s/p VPS. He has a strata valve set at 1.5; this may need to be lowered if his ventricles are not getting smaller. We will re-check CTH. He is cleared, from my perspectie, to be transferred to [place] if appropriate. JAVAD CAMPBELL MD Aug 17, 2016 17:48
[2016-08-17] MEDS: ALBUTEROL/IPRATROPIUM (NEB) 3 ML AMP HHN PRN (20:40)
--- NOTE | 2016-08-17 20:58 | CONS ---
Date/Time of Note Date/Time of Note DATE: 08/17/16 TIME: 20:55 Assessment/Plan Assessment/Plan Chief Complaint/Hosp Course SUBJECTIVE: No acute changes. The patient is lethargic, opens eyes to voice, tracking, non communicative ANTIMICROBIALS: The patient is on: 1. Zyvox. 2. Meropenem. INDWELLINGS: WOODEN BOX MAKER shunt, Wang, PEG. PHYSICAL EXAMINATION: GENERAL: Chronically ill-appearing, elderly man in no distress. HEENT: Head atraumatic, normocephalic. Sclerae anicteric. Buccal mucosa dry. NECK: Supple, trachea midline. CHEST: Rise symmetrical. Breath sounds diminished with scattered rhonchi. HEART: S1, S2. ABDOMEN: Soft, bowel tones present. EXTREMITIES: No cyanosis. ASSESSMENT: 1. S/p sepsis with shock 2. Healthcare-associated pneumonia, possibly aspiration type. 3. 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 4. Acute encephalopathy. 5. Polymicrobial urinary tract infection. 6. Right lower extremity deep venous thrombosis. 7. History of subdural hemorrhage. PLAN: Clinically improving, no fevers, continue abx, aspiration precautions. Follow recommendations of consultants. DW staff Problems: Consultation Date/Type/Reason Admit Date/Time Aug 07, 2016 at 00:23 Initial Consult Date 08/07/16 Type of Consultation: ID Referring Provider: YE JOYNER Exam/Review of Systems Vital Signs Vitals Vital Signs Date Time Temp Pulse Resp B/P Pulse Ox O2 Delivery O2 Flow Rate FiO2 08/17/16 20:44 100 20 98 Nasal Cannula 2.0 08/17/16 18:09 135/67 08/17/16 16:14 98.1 Intake and Output 08/16/16 08/16/16 08/17/16 15:00 23:00 07:00 Intake Total 300 ml 1190 ml 1040 ml Output Total 2400 ml 1000 ml Balance 300 ml -1210 ml 40 ml Results Result Diagram: 08/17/16 0550 08/17/16 0550 Results 24 hrs Laboratory Tests Test 08/17/16 05:50 White Blood Count 11.1 H Red Blood Count 2.81 L Hemoglobin 8.8 L Hematocrit 28.3 L Mean Corpuscular Volume 100.7 Mean Corpuscular Hemoglobin 31.3 Mean Corpuscular Hemoglobin Concent 31.1 L Red Cell Distribution Width 13.5 Platelet Count 197 Mean Platelet Volume 11.0 H Neutrophils % 69.9 Lymphocytes % 21.5 Monocytes % 4.5 Eosinophils % 2.2 Basophils % 0.2 Nucleated Red Blood Cells % 0.0 Neutrophils # 7.8 H Lymphocytes # 2.4 Monocytes # 0.5 Eosinophils # 0.3 Basophils # 0.0 Nucleated Red Blood Cells # 0.0 Sodium Level 133 L Potassium Level 4.1 Chloride Level 104 Carbon Dioxide Level 25 Anion Gap 8 Blood Urea Nitrogen 13 Creatinine 0.56 L Glucose Level 107 Calcium Level 8.8 Medications Medications Current Medications Lactobacillus Acidophilus/ Rhamnosus (Culturelle) 1 cap BID GTB Last administered on 08/17/16 08:29; Admin Dose 1 CAP; Start 08/07/16 at 09:00 Lactulose (Enulose) 20 gm BID PRN GTB CONSTIPATION; Start 08/07/16 at 00:30 Nystatin (Nystatin Powder) 1 applic Q12 TOP Last administered on 08/17/16 20: 34; Admin Dose 1 APPLIC; Start 08/07/16 at 09:00 Nystatin (Nystatin Powder) 1 applic PRN PRN TOP NEEDED; Start 08/07/16 at 01: 00 Eye Lubricant (Artificial Tears Oph) 1 drop Q12 BOTH EYES Last administered on 08/17/16 08:29; Admin Dose 1 DROP; Start 08/07/16 at 09:00 Eye Lubricant (Artificial Tears Oph) 1 drop PRN PRN BOTH EYES DRY EYES Last administered on 08/16/16 08:36; Admin Dose 1 DROP; Start 08/07/16 at 01:00 Ascorbic Acid (Vitamin C) 500 mg DAILY GTB Last administered on 08/17/16 08:29 ; Admin Dose 500 MG; Start 08/07/16 at 09:00 Atorvastatin Calcium (Lipitor) 20 mg DAILY@21 GTB Last administered on 20:26; Admin Dose 20 MG; Start 08/07/16 at 21:00 Finasteride (Proscar) 5 mg DAILY GTB Last administered on 08/17/16 08:29; Admin Dose 5 MG; Start 08/07/16 at 09:00 [facility] This patient trent... PRN PRN XX WOUND CARE; Start 08/07/16 at 04:00 Baclofen 10 mg 10 mg TID PRN PO NOTE Last administered on 08/10/16 09:42; Admin Dose 10 MG; Start 08/08/16 at 03:00 Dextrose (D5W) 1,000 ml @ 80 mls/hr [id number] IV Last administered on 08/17/16 20:33; Admin Dose 80 MLS/HR; Start 08/08/16 at 12:30 Docusate Sodium (Colace Liquid Cup) 100 mg HS GTB Last administered on 20:26; Admin Dose 100 MG; Start 08/09/16 at 21:00 Ondansetron HCl (Zofran Inj) 4 mg Q4 PRN IV NAUSEA AND/OR VOMITING Last administered on 08/11/16 20:52; Admin Dose 4 MG; Start 08/09/16 at 12:30 Acetaminophen (Tylenol Tab) 650 mg Q6H PRN PO PAIN LEVEL 1-3 OR FEVER; Start at 12:30 Acetaminophen (Tylenol Supp) 650 mg Q6H PRN [place] PAIN LEVEL 1-3 OR FEVER; Start 08/09/16 at 12:30 Morphine Sulfate 2 mg 2 mg Q3H PRN IV MODERATE PAIN LEVEL 4-6 Last administered on 08/11/16 20:52; Admin Dose 2 MG; Start 08/09/16 at 12:30 Linezolid 300 ml @ 300 mls/hr Q12 IVPB Last administered on 08/17/16 08:28; Admin Dose 300 MLS/HR; Start 08/10/16 at 21:00 Acetaminophen (Ofirmev 1000mg/ 100ml Iv) 100 ml @ 400 mls/hr Q8H IVPB Last administered on 08/17/16 20:33; Admin Dose 400 MLS/HR; Start 08/12/16 at 04:00 Pantoprazole 40 mg 40 mg BID@06,18 IV Last administered on 08/17/16 17:10; Admin Dose 40 MG; Start 08/12/16 at 18:00 Meropenem (Merrem 500 Mg/ 100 ml (Pmx)) 100 ml @ 200 mls/hr Q8 IVPB Last administered on 08/17/16 13:28; Admin Dose 200 MLS/HR; Start 08/13/16 at 12:00 Metoprolol Tartrate (Lopressor) 12.5 mg BID PO Last administered on 08/17/16t 08:30; Admin Dose 12.5 MG; Start 08/14/16 at 21:00 Hydralazine HCl (Apresoline) 10 mg Q6H PRN IV ELEVATED BLOOD PRESSURE; Start at 17:30 ROMINA SCHREIBER NP Aug 17, 2016 20:58
[2016-08-17] MEDS: ATORVASTATIN 20 MG TAB GTB SCH (21:34)
[2016-08-17] MEDS: DOCUSATE SODIUM 10 MG/ML (10ML CUP) GTB SCH (21:34)
[2016-08-18] VITALS (13 sets, daily range): BP systolic 119–156; BP diastolic 62–87; PULSE 88–100; RESP 17–20
[2016-08-18] MEDS: ACETAMINOPHEN 1000MG/100ML IV 100 ML IVPB SCH ×3 (03:47→20:31)
[2016-08-18] MEDS: MEROPENEM 500 MG/100 ML (PMX) 100 ML IVPB SCH ×3 (05:57→22:27)
[2016-08-18] MEDS: PANTOPRAZOLE 40 MG INJ IV SCH ×3 (05:57→20:25)
[2016-08-18 07:36] LABS: ADD SCAN DIFF NO
[2016-08-18 07:41] LABS: BASOPHILS % 0.2 % (0.0-2.0); EOSINOPHILS # 0.2 10^3/ul (0.0-0.5); EOSINOPHILS % 1.8 % (0.0-7.0); HEMATOCRIT 27.7 % (42.0-52.0); LYMPHOCYTES # 3.4 10^3/ul (0.8-2.9); LYMPHOCYTES % 26.8 % (15.0-51.0); MEAN CORPUSCULAR HEMOGLOBIN 31.9 pg (29.0-33.0); MEAN CORPUSCULAR HGB CONC 32.5 g/dl (32.0-37.0); MEAN CORPUSCULAR VOLUME 98.2 fl (82.0-101.0); MEAN PLATELET VOLUME 9.5 fl (7.4-10.4); MONOCYTE # 0.7 10^3/ul (0.3-0.9); MONOCYTES % 5.5 % (0.0-11.0); NEUTROPHIL # 8.3 10^3/ul (1.6-7.5); NEUTROPHILS % 64.2 % (39.0-77.0); PLATELET COUNT 289 10^3/UL (140-415); RED BLOOD COUNT 2.82 10^6/ul (4.70-6.10); RED CELL DISTRIBUTION WIDTH 13.5 % (11.5-14.5); WHITE BLOOD COUNT 12.8 10^3/ul (4.8-10.8)
[2016-08-18 08:13] LABS: CALCIUM 9.4 mg/dl (8.4-10.2); CREATININE 0.55 mg/dl (0.61-1.24); POTASSIUM 3.7 mmol/L (3.5-5.1)
[2016-08-18] MEDS: ALBUTEROL/IPRATROPIUM (NEB) 3 ML AMP HHN SCH ×2 (08:16→15:40)
[2016-08-18] MEDS: ACETYLCYSTEINE 20% 4 ML VIAL NEB SCH ×2 (08:16→20:08)
[2016-08-18] MEDS: LACTOBACILLUS RHAMNOSUS CAP GTB SCH ×2 (09:15→20:36)
[2016-08-18] MEDS: NYSTATIN 30 GM POWDER BTL TOP SCH ×2 (09:15→20:33)
[2016-08-18] MEDS: ARTIFICIAL TEARS 15 ML OPH BOTH EYES SCH ×2 (09:15→20:35)
[2016-08-18] MEDS: FINASTERIDE 5 MG TAB GTB SCH (09:16)
[2016-08-18] MEDS: ASCORBIC ACID 500 MG TAB GTB SCH (09:16)
[2016-08-18] MEDS: LINEZOLID 600 MG/D5W (PMX) 300 ML IVPB SCH (09:16)
[2016-08-18] MEDS: METOPROLOL 25 MG TAB PO SCH ×2 (09:16→20:37)
[2016-08-18] MEDS: DEXTROSE 5% 1,000 ML IV SCH ×2 (09:17→21:30)
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
--- NOTE | 2016-08-18 13:01 | PN ---
DATE: 08/18/2016 SUBJECTIVE: No events overnight. No fevers. The patient is lying comfortably in bed. LABORATORY DATA: WBC today 12.8, no shift, no bands. BUN 13, creatinine 0.55. INDWELLINGS: The patient has PEG, SHEET FOLDER shunt and Wang. ANTIMICROBIALS: 1. Zyvox. 2. Meropenem. PHYSICAL EXAMINATION: GENERAL: A fragile, elderly man who is in no distress. HEENT: Head atraumatic, normocephalic. Sclerae anicteric. Buccal mucosa dry. NECK: Supple, trachea midline. CHEST: Rise symmetrical. Breath sounds diminished. HEART: S1, S2. ABDOMEN: Soft, bowel tones present. EXTREMITIES: Without cyanosis. ASSESSMENT: 1. Status post sepsis with shock. 2. Aspiration pneumonia. 3. Status post vancomycin-resistant enterococci, Escherichia coli urinary tract infection. 4. Acute encephalopathy status post ventriculoperitoneal shunt placement secondary to hydrocephalus . 5. Right lower extremity deep venous thrombosis. 6. History of subdural hemorrhage. PLAN: The patient remains stable. We are going to discontinue Zyvox. Keep him on meropenem for no w. Continue anti-aspiration measures. Follow recommendations of consultants. Dictated By: ROMINA SCHREIBER NOC ANALYST for SARAHY BEAR/IWONA Conf#: [id number] DID#: [id number]
[2016-08-18 17:42] LABS: AADO2 Arterial 141.2 mmHg (7.0-24.0); Arterial Base Excess -2.9 mmol/L (-3.0-3); Arterial COHb 0 % (0.0-3.0); Arterial Fraction of Oxyhgb 91.6 % (93.0-99.0); Arterial HCO3 20.1 mmol/L (22.0-26.0); Arterial MetHb 0.1 % (0.0-1.5); Arterial Total Hemglobin 11.1 g/dl (12.0-18.0); MODE NASAL CANNULA
--- NOTE | 2016-08-18 18:35 | RADRPT ---
PROCEDURE: XR Chest. CLINICAL INDICATION: Shortness of breath. TECHNIQUE: Single frontal view. COMPARISON: 08/14/2016. FINDINGS: Mild pulmonary edema is unchanged. The nasogastric tube has been removed. The heart size is normal. There is a right-sided CHOCOLATE PRODUCTION MACHINE OPERATOR shunt catheter. There is no pleural effusion. There is no pneumothorax. IMPRESSION: 1. Mild lumbar edema, unchanged. 2. NG tube removed. 3. Right-sided CHOCOLATE PRODUCTION MACHINE OPERATOR shunt catheter. 4. No other new abnormality. RPTAT: QQ .Kj Anguiano MD, MD Date Time Electronically viewed and signed by .Kj Anguiano MD, MD on 08/18/2016 18:34 .R/
[2016-08-18] MEDS: ALBUTEROL/IPRATROPIUM (NEB) 3 ML AMP HHN PRN (20:09)
[2016-08-18] MEDS: DOCUSATE SODIUM 10 MG/ML (10ML CUP) GTB SCH (20:36)
[2016-08-18] MEDS: ATORVASTATIN 20 MG TAB GTB SCH (20:37)
[2016-08-19] VITALS (17 sets, daily range): BP systolic 102–137; BP diastolic 50–68; PULSE 92–106; RESP 12–26
[2016-08-19] MEDS: ALBUTEROL/IPRATROPIUM (NEB) 3 ML AMP HHN SCH ×3 (01:14→16:10)
[2016-08-19] MEDS: ACETAMINOPHEN 1000MG/100ML IV 100 ML IVPB SCH ×3 (03:15→21:00)
[2016-08-19] MEDS: DEXTROSE 5% 1,000 ML IV SCH ×3 (03:25→21:36)
[2016-08-19] MEDS: MEROPENEM 500 MG/100 ML (PMX) 100 ML IVPB SCH ×3 (05:05→21:42)
[2016-08-19 07:41] LABS: ADD SCAN DIFF NO
[2016-08-19 07:55] LABS: HEMATOCRIT 26.2 % (42.0-52.0); HEMOGLOBIN 8.5 g/dl (14.0-18.0); MEAN CORPUSCULAR HEMOGLOBIN 32.2 pg (29.0-33.0); MEAN CORPUSCULAR HGB CONC 32.4 g/dl (32.0-37.0); MEAN CORPUSCULAR VOLUME 99.2 fl (82.0-101.0); MEAN PLATELET VOLUME 9.4 fl (7.4-10.4); PLATELET COUNT 234 10^3/UL (140-415); RED BLOOD COUNT 2.64 10^6/ul (4.70-6.10); RED CELL DISTRIBUTION WIDTH 13.6 % (11.5-14.5); WHITE BLOOD COUNT 18.9 10^3/ul (4.8-10.8)
[2016-08-19 08:06] LABS: CALCIUM 9.1 mg/dl (8.4-10.2); CREATININE 0.54 mg/dl (0.61-1.24); POTASSIUM 3.6 mmol/L (3.5-5.1)
[2016-08-19] MEDS: LACTOBACILLUS RHAMNOSUS CAP GTB SCH ×2 (08:23→21:44)
[2016-08-19] MEDS: FINASTERIDE 5 MG TAB GTB SCH (08:23)
[2016-08-19] MEDS: METOPROLOL 25 MG TAB PO SCH ×2 (08:24→21:50)
[2016-08-19] MEDS: ASCORBIC ACID 500 MG TAB GTB SCH (08:24)
[2016-08-19] MEDS: PANTOPRAZOLE 40 MG INJ IV SCH ×2 (08:30→21:44)
[2016-08-19] MEDS: ARTIFICIAL TEARS 15 ML OPH BOTH EYES SCH ×2 (08:30→23:06)
[2016-08-19] MEDS: NYSTATIN 30 GM POWDER BTL TOP SCH ×2 (08:31→21:46)
[2016-08-19] MEDS: ACETYLCYSTEINE 20% 4 ML VIAL NEB SCH ×2 (08:37→20:00)
[2016-08-19 09:58] LABS: LYMPHOCYTES # 2.5 10^3/ul (0.8-2.9); MONOCYTE # 0.4 10^3/ul (0.3-0.9); NEUTROPHIL # 15.3 10^3/ul (1.6-7.5)
[2016-08-19 11:27] LABS: Allen Test ACCEPTAB
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
--- NOTE | 2016-08-19 13:11 | PN ---
DATE: 08/19/2016 SUBJECTIVE: The patient had a coffee-ground emesis yesterday with decreased saturation, current lethargic on face mask. Tube feeding on hold. VITAL SIGNS: Temperature 98.5, pulse 101, respirations 24, blood pressure 137/ 68, saturation 99% on 15 liters nonrebreather. WBC 18.9, platelets 234, neutrophils 81, bands 4, lymphs 13, monos 2. BUN 13, creatinine 0.54. ANTIMICROBIALS: Patient is on meropenem. INDWELLINGS: ACID FILLER shunt, PEG, Wang. PHYSICAL EXAMINATION: GENERAL: Chronically ill-appearing, elderly man who is lethargic, in no distress. HEENT: Head atraumatic, normocephalic. Sclerae anicteric. NECK: Supple. CHEST: Rise symmetrical. Breath sounds with bilateral rales. HEART: S1, S2. ABDOMEN: Soft. Bowel tones hypoactive. EXTREMITIES: With trace edema. ASSESSMENT: 1. Sepsis, ongoing. 2. Acute respiratory failure, likely secondary to acute aspiration event status post emesis. 3. Acute encephalopathy status post ACID FILLER shunt placement secondary to hydrocephalus. 4. Right lower extremity deep venous thrombosis. 5. History of subdural hemorrhage. 6. Anemia, status post coffee-ground emesis yesterday. 7. S/p VRE and E. coli UTI PLAN: The patient is doing poorly. He is on appropriate antimicrobials. Zyvox was discontinued yesterday. He is awaiting gastroenterology evaluation. Will follow chest x-ray in a.m. Dictated By: ROMINA SCHREIBER KNIFE GLAZER for SARAHY BEAR/IWONA Conf#: [id number] DID#: [id number]
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
[2016-08-19] MEDS ORDERED: PROPOFOL 20 ML ONE (17:43)
[2016-08-19] MEDS ORDERED: LIDOCAINE 2% (SDV) 5 ML INJ ONE (17:43)
[2016-08-19] MEDS ORDERED: PHENYLephrine (100 MCG/ML) 5ML SYG ONE (18:04)
[2016-08-19] MEDS: DOCUSATE SODIUM 10 MG/ML (10ML CUP) GTB SCH (21:44)
[2016-08-19] MEDS: SUCRALFATE (100 MG/ML) 10ML CUP GTB SCH (21:44)
[2016-08-19] MEDS: ATORVASTATIN 20 MG TAB GTB SCH (21:44)
[2016-08-19] MEDS: ARTIFICIAL TEARS 15 ML OPH BOTH EYES PRN ×2 (21:46→21:57)
--- NOTE | 2016-08-19 23:42 | GILP ---
DATE OF PROCEDURE: NAME OF PROCEDURE: Esophagogastroduodenoscopy with biopsies. SURGEON: Jf Trujillo MD. HISTORY AND INDICATIONS: The patient is being evaluated for gastrointestinal bleeding. PREMEDICATION: Monitored anesthesia care by anesthesiologist. INSTRUMENT USED: Olympus panendoscope. TECHNIQUE: After informed consent, with the patient/relatives understanding the procedure, its indic ations, potential risks, and complications, including but not limited to: allergic reaction, bleedin g, perforation or infection, and after all pertinent questions were answered to the patient's satisf action, the patient/relatives signed witnessed informed consent. Following this, premedication was administered slowly IV push under careful cardiovascular and respi ratory monitoring with pulse oximetry, automatic blood pressure and nurse monitoring. Once the sedative effect was achieved the patient was place in the left lateral decubitus, the panen doscope was introduced and advanced under visual control. Careful examination of the upper gastrointestinal tract, both on insertion as well as withdrawal of the instrument disclosed the following findings: ESOPHAGUS: The distal esophagus shows severe erythema, edema, and erosion as well as ulceration of the mucosa. Small hiatal hernia is present. STOMACH: Upon entrance to the stomach, air was insufflated, the gastric stokes distended normally. There is erythema and edema of the mucosa of a moderate degree. Biopsies were obtained to rule out H. pylori infection. PYLORUS: The pylorus appears patent and within normal limits, with no evidence of gastric outlet ob struction. DUODENUM: The duodenal mucosa was carefully examined in the duodenal bulb as well as the second por tion of the duodenum and appears unremarkable with no evidence of duodenitis, ulcer, or neoplasm. The instrument was then withdrawn, the patient tolerated the procedure well and was transfer out of the endoscopy suite awake, and in good condition to continue recovery under observation IMPRESSION: 1. Severe erosive/ulcerative esophagitis. 2. Hiatal hernia with gastroesophageal reflux disease. 3. Gastrostomy tube in place. 4. Gastritis, rule out Helicobacter pylori infection, biopsies obtained. PLAN: The patient will be continued on PPI double dose. Liquid Carafate will be added and further recommendation will depend on patient's clinical course. Dictated By: JF TRUJILLO MS/IWONA Conf#: [id number] DID#: [id number] CC: JF TRUJILLO; JESUS STUART MD;*[facility]*
[2016-08-20] VITALS (11 sets, daily range): BP systolic 101–142; BP diastolic 58–67; PULSE 74–100; RESP 18–19
[2016-08-20] MEDS: ALBUTEROL/IPRATROPIUM (NEB) 3 ML AMP HHN SCH ×3 (03:17→16:39)
[2016-08-20] MEDS: ACETAMINOPHEN 1000MG/100ML IV 100 ML IVPB SCH ×2 (03:42→13:03)
[2016-08-20] MEDS: MEROPENEM 500 MG/100 ML (PMX) 100 ML IVPB SCH ×2 (05:10→14:24)
[2016-08-20 07:54] LABS: ADD SCAN DIFF NO
[2016-08-20] MEDS: SUCRALFATE (100 MG/ML) 10ML CUP GTB SCH ×4 (08:05→20:10)
[2016-08-20] MEDS: FINASTERIDE 5 MG TAB GTB SCH (08:05)
[2016-08-20] MEDS: LACTOBACILLUS RHAMNOSUS CAP GTB SCH ×2 (08:05→20:10)
[2016-08-20] MEDS: METOPROLOL 25 MG TAB PO SCH (08:06)
[2016-08-20] MEDS: ASCORBIC ACID 500 MG TAB GTB SCH (08:06)
[2016-08-20] MEDS: PANTOPRAZOLE 40 MG INJ IV SCH ×2 (08:06→20:09)
[2016-08-20] MEDS: ARTIFICIAL TEARS 15 ML OPH BOTH EYES SCH ×2 (08:06→21:00)
[2016-08-20] MEDS: NYSTATIN 30 GM POWDER BTL TOP SCH ×2 (08:07→20:17)
[2016-08-20 08:19] LABS: BASOPHILS % 0.1 % (0.0-2.0); EOSINOPHILS # 0.1 10^3/ul (0.0-0.5); EOSINOPHILS % 0.9 % (0.0-7.0); LYMPHOCYTES # 1.9 10^3/ul (0.8-2.9); LYMPHOCYTES % 13.4 % (15.0-51.0); MEAN CORPUSCULAR HEMOGLOBIN 32.1 pg (29.0-33.0); MEAN CORPUSCULAR HGB CONC 31.8 g/dl (32.0-37.0); MEAN CORPUSCULAR VOLUME 100.9 fl (82.0-101.0); MEAN PLATELET VOLUME 9.6 fl (7.4-10.4); MONOCYTE # 0.5 10^3/ul (0.3-0.9); MONOCYTES % 3.6 % (0.0-11.0); NEUTROPHIL # 11.5 10^3/ul (1.6-7.5); NUCLEATED RED BLOOD CELLS% 0.1 /100WBC (0.0-0.0); PLATELET COUNT 183 10^3/UL (140-415); RED BLOOD COUNT 2.18 10^6/ul (4.70-6.10); RED CELL DISTRIBUTION WIDTH 13.7 % (11.5-14.5); WHITE BLOOD COUNT 14.2 10^3/ul (4.8-10.8)
[2016-08-20 09:04] LABS: CALCIUM 7.9 mg/dl (8.4-10.2); CREATININE 0.46 mg/dl (0.61-1.24)
[2016-08-20] MEDS: ACETYLCYSTEINE 20% 4 ML VIAL NEB SCH ×2 (09:18→20:28)
--- NOTE | 2016-08-20 09:42 | RADRPT ---
PROCEDURE: XR Chest 1 View. CLINICAL INDICATION: Shortness of breath. TECHNIQUE: AP view of the chest was obtained. COMPARISON: August 18, 2016 FINDINGS: The cardiomediastinal silhouette is within normal limits. Ventriculoperitoneal shunt over the right chest appears unchanged. The lungs are hypoinflated. Mild interstitial prominence is seen in both lungs. Blunting of the left costophrenic angle is observed. Atelectasis is seen at the left lung b ase. Osseous structures are intact. IMPRESSION: Blunting of the left costophrenic angle that may reflect small left pleural effusion with associated basilar atelectasis. Hypoinflated lungs. Mild interstitial prominence in both lungs. Interstitial prominence could be chronic. RPTAT: AA .Rico Null MD, Date Time Electronically viewed and signed by .Rico Null MD, on 08/20/2016 09:42 .P/
[2016-08-20] MEDS: DEXTROSE 5% 1,000 ML IV SCH ×2 (11:00→23:30)
[2016-08-20] MEDS ORDERED: HYDROCODONE/APAP (5/325) TAB PO PRN (12:00)
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
[2016-08-20 13:54] LABS: AADO2 Arterial 138.4 mmHg (7.0-24.0); Allen Test ACCEPTAB; Arterial Base Excess 2.6 mmol/L (-3.0-3); Arterial COHb 0.2 % (0.0-3.0); Arterial Fraction of Oxyhgb 97.9 % (93.0-99.0); Arterial HCO3 26.4 mmol/L (22.0-26.0); Arterial MetHb 0.4 % (0.0-1.5); Arterial Total Hemglobin 8.9 g/dl (12.0-18.0); MODE MASK - SIMPLE
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
--- NOTE | 2016-08-20 14:06 | CONS ---
Date/Time of Note Date/Time of Note DATE: 08/20/16 TIME: 14:04 Assessment/Plan Assessment/Plan Additional Assessment/Plan Assessment recommendations; 1. P patient admitted with pneumonia with marked radiological improvement. 2. Episode of emesis this morning without causing any aspiration pneumonia. 3. Normal pressure hydrocephalus status post FINANCIAL REPORTING DIRECTOR shunt placement. 4. Advanced dementia. 5. Right lower extremity DVT. 6. History of subdural hemorrhage. Continue current treatment. Consider stopping antibiotics. Consultation Date/Type/Reason Admit Date/Time Aug 07, 2016 at 00:23 Initial Consult Date 08/07/16 Type of Consultation: Pulmonary/critical care Referring Provider: YE JOYNER 24 HR Interval Summary Free Text/Dictation Patient condition remains unchanged. Remains unresponsive. Has remained hemodynamically stable. Patient did have an episode of emesis earlier this morning however chest x-ray done is not showing any acute infiltrates. General exam; elderly male, unresponsive. Currently in no distress. Exam/Review of Systems Vital Signs Vitals Vital Signs Date Time Temp Pulse Resp B/P Pulse Ox O2 Delivery O2 Flow Rate FiO2 08/20/16 12:35 91 08/20/16 11:22 98.1 19 137/67 98 08/20/16 09:21 Simple Mask 6.0 Intake and Output 08/19/16 08/19/16 08/20/16 15:00 23:00 07:00 Intake Total 100 ml 900 ml 700 ml Output Total 1100 ml Balance 100 ml -200 ml 700 ml Exam HEENT exam is; supple neck, no JVD. No lymphadenopathy. Midline trachea. No thyromegaly. Patient is edentulous. Chest examination; clear to auscultation. S1-S2 audible, no murmurs. Regular rhythm. Abdomen examination; soft, G-tube in place. Bowel sounds audible. Extremity examination; no peripheral edema. LIBRARY HELPER examination; patient remains unresponsive. Results Result Diagram: 08/20/16 0640 08/20/16 0640 Results 24 hrs Laboratory Tests Test 08/20/16 06:40 08/20/16 12:40 White Blood Count 14.2 #H Red Blood Count 2.18 L Hemoglobin 7.0 L Hematocrit 22.0 L Mean Corpuscular Volume 100.9 Mean Corpuscular Hemoglobin 32.1 Mean Corpuscular Hemoglobin Concent 31.8 L Red Cell Distribution Width 13.7 Platelet Count 183 # Mean Platelet Volume 9.6 Neutrophils % 81.0 H Lymphocytes % 13.4 L Monocytes % 3.6 Eosinophils % 0.9 Basophils % 0.1 Nucleated Red Blood Cells % 0.1 H Neutrophils # 11.5 H Lymphocytes # 1.9 Monocytes # 0.5 Eosinophils # 0.1 Basophils # 0.0 Nucleated Red Blood Cells # 0.0 Sodium Level 133 L Potassium Level 3.0 L Chloride Level 103 Carbon Dioxide Level 25 Anion Gap 8 Blood Urea Nitrogen 10 Creatinine 0.46 L Glucose Level 86 Calcium Level 7.9 L Blood Gas Specimen Source Blood arterial Arterial Blood Date Drawn 08/20/2016 1:40:41 PM Arterial Blood pH (Temp corrected) 7.467 H Arterial Blood pCO2 (Temp correct) 37.3 Arterial Blood pO2 (Temp corrected) 140.0 H Arterial Blood HCO3 26.4 H Arterial Blood Base Excess 2.6 Arterial Blood Oxygen Saturation 98.5 Tavo Test ACCEPTAB Arterial Blood Gas Puncture Site Right Radial Arterial Blood Carboxyhemoglobin 0.2 Arterial Blood Methemoglobin 0.4 Blood Gas A-a O2 Differential 138.4 H Oxyhemoglobin Percent 97.9 Total Hemoglobin 8.9 L Blood Gas Temperature 37.0 Blood Gas Modality MASK - SIMPLE FiO2 45.0 Blood Gas Notified Whom JLD Blood Gas Notified Time 08/20/2016 1:53:52 PM Medications Medications Current Medications Lactobacillus Acidophilus/ Rhamnosus (Culturelle) 1 cap BID GTB Last administered on 08/20/16 08:05; Admin Dose 1 CAP; Start 08/07/16 at 09:00 Lactulose (Enulose) 20 gm BID PRN GTB CONSTIPATION; Start 08/07/16 at 00:30 Nystatin (Nystatin Powder) 1 applic Q12 TOP Last administered on 08/20/16 08: 07; Admin Dose 1 APPLIC; Start 08/07/16 at 09:00 Nystatin (Nystatin Powder) 1 applic PRN PRN TOP NEEDED; Start 08/07/16 at 01: 00 Eye Lubricant (Artificial Tears Oph) 1 drop Q12 BOTH EYES Last administered on 08/20/16 08:06; Admin Dose 1 DROP; Start 08/07/16 at 09:00 Eye Lubricant (Artificial Tears Oph) 1 drop PRN PRN BOTH EYES DRY EYES Last administered on 08/19/16 21:57; Admin Dose 1 DROP; Start 08/07/16 at 01:00 Ascorbic Acid (Vitamin C) 500 mg DAILY GTB Last administered on 08/20/16 08:06 ; Admin Dose 500 MG; Start 08/07/16 at 09:00 Atorvastatin Calcium (Lipitor) 20 mg DAILY@21 GTB Last administered on 21:44; Admin Dose 20 MG; Start 08/07/16 at 21:00 Finasteride (Proscar) 5 mg DAILY GTB Last administered on 08/20/16 08:05; Admin Dose 5 MG; Start 08/07/16 at 09:00 Miscellaneous Information (Pending [facility] Order For Wound Care) This patient trent... PRN PRN XX WOUND CARE; Start 08/07/16 at 04:00 Baclofen 10 mg 10 mg TID PRN PO NOTE Last administered on 08/10/16 09:42; Admin Dose 10 MG; Start 08/08/16 at 03:00 Dextrose (D5W) 1,000 ml @ 80 mls/hr [id number] IV Last administered on 08/19/16 21:36; Admin Dose 80 MLS/HR; Start 08/08/16 at 12:30 Docusate Sodium (Colace Liquid Cup) 100 mg HS GTB Last administered on 21:44; Admin Dose 100 MG; Start 08/09/16 at 21:00 Ondansetron HCl (Zofran Inj) 4 mg Q4 PRN IV NAUSEA AND/OR VOMITING Last administered on 08/11/16 20:52; Admin Dose 4 MG; Start 08/09/16 at 12:30 Acetaminophen (Tylenol Tab) 650 mg Q6H PRN PO PAIN LEVEL 1-3 OR FEVER; Start at 12:30 Acetaminophen (Tylenol Supp) 650 mg Q6H PRN [place] PAIN LEVEL 1-3 OR FEVER; Start 08/09/16 at 12:30 Morphine Sulfate 2 mg 2 mg Q3H PRN IV MODERATE PAIN LEVEL 4-6 Last administered on 08/11/16 20:52; Admin Dose 2 MG; Start 08/09/16 at 12:30 Acetaminophen 100 ml @ 400 mls/hr Q8H IVPB Last administered on 08/20/16 13: 03; Admin Dose 400 MLS/HR; Start 08/12/16 at 04:00 Meropenem (Merrem 500 Mg/ 100 ml (Pmx)) 100 ml @ 200 mls/hr Q8 IVPB Last administered on 08/20/16 05:10; Admin Dose 200 MLS/HR; Start 08/13/16 at 12:00 Metoprolol Tartrate (Lopressor) 12.5 mg BID PO Last administered on 08/20/16 08:06; Admin Dose 12.5 MG; Start 08/14/16 at 21:00 Hydralazine HCl (Apresoline) 10 mg Q6H PRN IV ELEVATED BLOOD PRESSURE; Start at 17:30 Pantoprazole (Protonix Iv) 40 mg Q12 IV Last administered on 08/20/16 08:06; Admin Dose 40 MG; Start 08/18/16 at 21:00 Sucralfate (Carafate Susp) 1 gm QID GTB Last administered on 08/20/16 08:05; Admin Dose 1 GM; Start 08/19/16 at 21:00 JIGNESH LI Aug 20, 2016 14:06
[2016-08-20 14:23] LABS: HEMATOCRIT 25.8 % (42.0-52.0); HEMOGLOBIN 8.5 g/dl (14.0-18.0)
--- NOTE | 2016-08-20 14:47 | CONS ---
Date/Time of Note Date/Time of Note DATE: 08/20/16 TIME: 14:45 Assessment/Plan Assessment/Plan Chief Complaint/Hosp Course SUBJECTIVE: No acute changes, comfortable on face mask, obtunded, afebrile ANTIMICROBIALS: Patient is on meropenem. INDWELLINGS: QUICK PRINT OPERATOR shunt, PEG, Wang. PHYSICAL EXAMINATION: GENERAL: Chronically ill-appearing, elderly man who is lethargic, in no distress. HEENT: Head atraumatic, normocephalic. Sclerae anicteric. NECK: Supple. CHEST: Rise symmetrical. Breath sounds with bilateral rales. HEART: S1, S2. ABDOMEN: Soft. Bowel tones hypoactive. EXTREMITIES: With trace edema. ASSESSMENT: 1. Sepsis, ongoing. 2. Acute respiratory failure, likely secondary to acute aspiration event status post emesis. 3. Acute encephalopathy status post QUICK PRINT OPERATOR shunt placement secondary to hydrocephalus. 4. Right lower extremity deep venous thrombosis. 5. History of subdural hemorrhage. 6. Anemia, status post coffee-ground emesis yesterday===> severe erosive esophagitis per EGD 7. S/p VRE and E. coli UTI PLAN: Remains unchanged, on appropriate antimicrobials. GI/pulmonary rec-s DW staff Problems: Consultation Date/Type/Reason Admit Date/Time Aug 07, 2016 at 00:23 Initial Consult Date 08/07/16 Type of Consultation: ID Referring Provider: YE JOYNER Exam/Review of Systems Vital Signs Vitals Vital Signs Date Time Temp Pulse Resp B/P Pulse Ox O2 Delivery O2 Flow Rate FiO2 08/20/16 12:35 91 08/20/16 11:22 98.1 19 137/67 98 08/20/16 09:21 Simple Mask 6.0 Intake and Output 08/19/16 08/19/16 08/20/16 15:00 23:00 07:00 Intake Total 100 ml 900 ml 700 ml Output Total 1100 ml Balance 100 ml -200 ml 700 ml Results Result Diagram: 08/20/16 1350 08/20/16 0640 Results 24 hrs Laboratory Tests Test 08/20/16 06:40 08/20/16 12:40 08/20/16 13:50 White Blood Count 14.2 #H Red Blood Count 2.18 L Hemoglobin 7.0 L 8.5 #L Hematocrit 22.0 L 25.8 L Mean Corpuscular Volume 100.9 Mean Corpuscular Hemoglobin 32.1 Mean Corpuscular Hemoglobin Concent 31.8 L Red Cell Distribution Width 13.7 Platelet Count 183 # Mean Platelet Volume 9.6 Neutrophils % 81.0 H Lymphocytes % 13.4 L Monocytes % 3.6 Eosinophils % 0.9 Basophils % 0.1 Nucleated Red Blood Cells % 0.1 H Neutrophils # 11.5 H Lymphocytes # 1.9 Monocytes # 0.5 Eosinophils # 0.1 Basophils # 0.0 Nucleated Red Blood Cells # 0.0 Sodium Level 133 L Potassium Level 3.0 L Chloride Level 103 Carbon Dioxide Level 25 Anion Gap 8 Blood Urea Nitrogen 10 Creatinine 0.46 L Glucose Level 86 Calcium Level 7.9 L Blood Gas Specimen Source Blood arterial Arterial Blood Date Drawn 08/20/2016 1:40:41 PM Arterial Blood pH (Temp corrected) 7.467 H Arterial Blood pCO2 (Temp correct) 37.3 Arterial Blood pO2 (Temp corrected) 140.0 H Arterial Blood HCO3 26.4 H Arterial Blood Base Excess 2.6 Arterial Blood Oxygen Saturation 98.5 Tavo Test ACCEPTAB Arterial Blood Gas Puncture Site Right Radial Arterial Blood Carboxyhemoglobin 0.2 Arterial Blood Methemoglobin 0.4 Blood Gas A-a O2 Differential 138.4 H Oxyhemoglobin Percent 97.9 Total Hemoglobin 8.9 L Blood Gas Temperature 37.0 Blood Gas Modality MASK - SIMPLE FiO2 45.0 Blood Gas Notified Whom JLD Blood Gas Notified Time 08/20/2016 1:53:52 PM Medications Medications Current Medications Lactobacillus Acidophilus/ Rhamnosus (Culturelle) 1 cap BID GTB Last administered on 08/20/16 08:05; Admin Dose 1 CAP; Start 08/07/16 at 09:00 Lactulose (Enulose) 20 gm BID PRN GTB CONSTIPATION; Start 08/07/16 at 00:30 Nystatin (Nystatin Powder) 1 applic Q12 TOP Last administered on 08/20/16 08: 07; Admin Dose 1 APPLIC; Start 08/07/16 at 09:00 Nystatin (Nystatin Powder) 1 applic PRN PRN TOP NEEDED; Start 08/07/16 at 01: 00 Eye Lubricant (Artificial Tears Oph) 1 drop Q12 BOTH EYES Last administered on 08/20/16 08:06; Admin Dose 1 DROP; Start 08/07/16 at 09:00 Eye Lubricant (Artificial Tears Oph) 1 drop PRN PRN BOTH EYES DRY EYES Last administered on 08/19/16 21:57; Admin Dose 1 DROP; Start 08/07/16 at 01:00 Ascorbic Acid (Vitamin C) 500 mg DAILY GTB Last administered on 08/20/16 08:06 ; Admin Dose 500 MG; Start 08/07/16 at 09:00 Atorvastatin Calcium (Lipitor) 20 mg DAILY@21 GTB Last administered on 21:44; Admin Dose 20 MG; Start 08/07/16 at 21:00 Finasteride (Proscar) 5 mg DAILY GTB Last administered on 08/20/16 08:05; Admin Dose 5 MG; Start 08/07/16 at 09:00 Miscellaneous Information (Pending Santyl Order For Wound Care) This patient trent... PRN PRN XX WOUND CARE; Start 08/07/16 at 04:00 Baclofen 10 mg 10 mg TID PRN PO NOTE Last administered on 08/10/16 09:42; Admin Dose 10 MG; Start 08/08/16 at 03:00 Dextrose (D5W) 1,000 ml @ 80 mls/hr [id number] IV Last administered on 08/19/16 21:36; Admin Dose 80 MLS/HR; Start 08/08/16 at 12:30 Docusate Sodium (Colace Liquid Cup) 100 mg HS GTB Last administered on 21:44; Admin Dose 100 MG; Start 08/09/16 at 21:00 Ondansetron HCl (Zofran Inj) 4 mg Q4 PRN IV NAUSEA AND/OR VOMITING Last administered on 08/11/16 20:52; Admin Dose 4 MG; Start 08/09/16 at 12:30 Acetaminophen (Tylenol Tab) 650 mg Q6H PRN PO PAIN LEVEL 1-3 OR FEVER; Start at 12:30 Acetaminophen (Tylenol Supp) 650 mg Q6H PRN [place] PAIN LEVEL 1-3 OR FEVER; Start 08/09/16 at 12:30 Morphine Sulfate 2 mg 2 mg Q3H PRN IV MODERATE PAIN LEVEL 4-6 Last administered on 08/11/16 20:52; Admin Dose 2 MG; Start 6/11/17 at 12:30 Acetaminophen 100 ml @ 400 mls/hr Q8H IVPB Last administered on 08/20/16 13: 03; Admin Dose 400 MLS/HR; Start 08/12/16 at 04:00 Meropenem (Merrem 500 Mg/ 100 ml (Pmx)) 100 ml @ 200 mls/hr Q8 IVPB Last administered on 08/20/16 14:24; Admin Dose 200 MLS/HR; Start 08/13/16 at 12:00 Metoprolol Tartrate (Lopressor) 12.5 mg BID PO Last administered on 08/20/16 08:06; Admin Dose 12.5 MG; Start 08/14/16 at 21:00 Hydralazine HCl (Apresoline) 10 mg Q6H PRN IV ELEVATED BLOOD PRESSURE; Start at 17:30 Pantoprazole (Protonix Iv) 40 mg Q12 IV Last administered on 08/20/16 08:06; Admin Dose 40 MG; Start 08/18/16 at 21:00 Sucralfate (Carafate Susp) 1 gm QID GTB Last administered on 08/20/16 14:24; Admin Dose 1 GM; Start 08/19/16 at 21:00 ROMINA SCHREIBER NP Aug 20, 2016 14:47
[2016-08-20] MEDS: POTASSIUM CHLORIDE 250 ML IVPB SCH ×2 (16:12→20:07)
--- NOTE | 2016-08-20 16:35 | PN ---
Date/Time of Note Date/Time of Note DATE: 08/20/16 TIME: 16:29 Assessment/Plan VTE Prophylaxis VTE Prophylaxis Intervention: contraindicated Lines/Catheters IV [facility] Type [facility] Peripheral IV Assessment/Plan Assessment/Plan Assessment * Coffee ground emesis/anemia hemoglobin 8.5 * Upper GI bleed, EGD 1. Severe erosive/ulcerative esophagitis. Hiatal hernia with gastroesophageal reflux disease. Gastrostomy tube in place. . Gastritis, rule out Helicobacter pylori infection, biopsies obtained. 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 . Hiatal hernia with gastroesophageal reflux disease. . Gastrostomy tube in place. . Gastritis, rule out Helicobacter pylori infection, biopsies obtained. Exam/Review of Systems Vital Signs Vitals Vital Signs Date Time Temp Pulse Resp B/P Pulse Ox O2 Delivery O2 Flow Rate FiO2 08/20/16 16:15 6.0 08/20/16 15:52 98.3 88 19 127/58 98 08/20/16 09:21 Simple Mask Intake and Output 08/19/16 08/19/16 08/20/16 14:59 22:59 06:59 Intake Total 100 ml 900 ml 700 ml Output Total 1100 ml Balance 100 ml -200 ml 700 ml Exam Constitutional: frail ENMT: mucosa pink and moist Neck: non-tender, supple Respiratory: diminished breath sounds, normal air movement Cardiovascular: nl pulses, regular rate and rhythm Gastrointestinal: bowel sounds, non-tender, other (g tube), soft Musculoskeletal: muscle weakness, swelling Extremities: pitting pedal edema Results Result Diagram: 08/20/16 1350 08/20/16 0640 Results 24 hrs Laboratory Tests Test 08/20/16 06:40 08/20/16 12:40 08/20/16 13:50 White Blood Count 14.2 #H Red Blood Count 2.18 L Hemoglobin 7.0 L 8.5 #L Hematocrit 22.0 L 25.8 L Mean Corpuscular Volume 100.9 Mean Corpuscular Hemoglobin 32.1 Mean Corpuscular Hemoglobin Concent 31.8 L Red Cell Distribution Width 13.7 Platelet Count 183 # Mean Platelet Volume 9.6 Neutrophils % 81.0 H Lymphocytes % 13.4 L Monocytes % 3.6 Eosinophils % 0.9 Basophils % 0.1 Nucleated Red Blood Cells % 0.1 H Neutrophils # 11.5 H Lymphocytes # 1.9 Monocytes # 0.5 Eosinophils # 0.1 Basophils # 0.0 Nucleated Red Blood Cells # 0.0 Sodium Level 133 L Potassium Level 3.0 L Chloride Level 103 Carbon Dioxide Level 25 Anion Gap 8 Blood Urea Nitrogen 10 Creatinine 0.46 L Glucose Level 86 Calcium Level 7.9 L Blood Gas Specimen Source Blood arterial Arterial Blood Date Drawn 08/20/2016 1:40:41 PM Arterial Blood pH (Temp corrected) 7.467 H Arterial Blood pCO2 (Temp correct) 37.3 Arterial Blood pO2 (Temp corrected) 140.0 H Arterial Blood HCO3 26.4 H Arterial Blood Base Excess 2.6 Arterial Blood Oxygen Saturation 98.5 Tavo Test ACCEPTAB Arterial Blood Gas Puncture Site Right Radial Arterial Blood Carboxyhemoglobin 0.2 Arterial Blood Methemoglobin 0.4 Blood Gas A-a O2 Differential 138.4 H Oxyhemoglobin Percent 97.9 Total Hemoglobin 8.9 L Blood Gas Temperature 37.0 Blood Gas Modality MASK - SIMPLE FiO2 45.0 Blood Gas Notified Whom JLD Blood Gas Notified Time 08/20/2016 1:53:52 PM Medications Medications Current Medications Lactobacillus Acidophilus/ Rhamnosus (Culturelle) 1 cap BID GTB Last administered on 08/20/16 08:05; Admin Dose 1 CAP; Start 08/07/16 at 09:00 Lactulose (Enulose) 20 gm BID PRN GTB CONSTIPATION; Start 08/07/16 at 00:30 Nystatin (Nystatin Powder) 1 applic Q12 TOP Last administered on 08/20/16 08: 07; Admin Dose 1 APPLIC; Start 08/07/16 at 09:00 Nystatin (Nystatin Powder) 1 applic PRN PRN TOP NEEDED; Start 08/07/16 at 01: 00 Eye Lubricant (Artificial Tears Oph) 1 drop Q12 BOTH EYES Last administered on 08/20/16 08:06; Admin Dose 1 DROP; Start 08/07/16 at 09:00 Eye Lubricant (Artificial Tears Oph) 1 drop PRN PRN BOTH EYES DRY EYES Last administered on 08/19/16 21:57; Admin Dose 1 DROP; Start 08/07/16 at 01:00 Ascorbic Acid (Vitamin C) 500 mg DAILY GTB Last administered on 08/20/16 08:06 ; Admin Dose 500 MG; Start 08/07/16 at 09:00 Atorvastatin Calcium (Lipitor) 20 mg DAILY@21 GTB Last administered on 21:44; Admin Dose 20 MG; Start 08/07/16 at 21:00 Finasteride (Proscar) 5 mg DAILY GTB Last administered on 08/20/16 08:05; Admin Dose 5 MG; Start 08/07/16 at 09:00 Miscellaneous Information (Pending Santyl Order For Wound Care) This patient trent... PRN PRN XX WOUND CARE; Start 08/07/16 at 04:00 Baclofen 10 mg 10 mg TID PRN PO NOTE Last administered on 08/10/16 09:42; Admin Dose 10 MG; Start 08/08/16 at 03:00 Dextrose (D5W) 1,000 ml @ 80 mls/hr [id number] IV Last administered on 08/19/16 21:36; Admin Dose 80 MLS/HR; Start 08/08/16 at 12:30 Docusate Sodium (Colace Liquid Cup) 100 mg HS GTB Last administered on 21:44; Admin Dose 100 MG; Start 08/09/16 at 21:00 Ondansetron HCl (Zofran Inj) 4 mg Q4 PRN IV NAUSEA AND/OR VOMITING Last administered on 08/11/16 20:52; Admin Dose 4 MG; Start 08/09/16 at 12:30 Acetaminophen (Tylenol Tab) 650 mg Q6H PRN PO PAIN LEVEL 1-3 OR FEVER; Start at 12:30 Acetaminophen (Tylenol Supp) 650 mg Q6H PRN [place] PAIN LEVEL 1-3 OR FEVER; Start 08/09/16 at 12:30 Morphine Sulfate 2 mg 2 mg Q3H PRN IV MODERATE PAIN LEVEL 4-6 Last administered on 08/11/16 20:52; Admin Dose 2 MG; Start 08/09/16 at 12:30 Acetaminophen 100 ml @ 400 mls/hr Q8H IVPB Last administered on 08/20/16 13: 03; Admin Dose 400 MLS/HR; Start 08/12/16 at 04:00 Meropenem (Merrem 500 Mg/ 100 ml (Pmx)) 100 ml @ 200 mls/hr Q8 IVPB Last administered on 08/20/16 14:24; Admin Dose 200 MLS/HR; Start 08/13/16 at 12:00 Metoprolol Tartrate (Lopressor) 12.5 mg BID PO Last administered on 08/20/16 08:06; Admin Dose 12.5 MG; Start 08/14/16 at 21:00 Hydralazine HCl (Apresoline) 10 mg Q6H PRN IV ELEVATED BLOOD PRESSURE; Start at 17:30 Pantoprazole (Protonix Iv) 40 mg Q12 IV Last administered on 08/20/16 08:06; Admin Dose 40 MG; Start 08/18/16 at 21:00 Sucralfate 1 gm 1 gm QID GTB Last administered on 08/20/16 14:24; Admin Dose 1 GM; Start 08/19/16 at 21:00 Potassium Chloride (KCl 40 MEQ/250 ML NS) 250 ml @ 62.5 mls/hr Q4H IVPB Last administered on 08/20/16 16:12; Admin Dose 62.5 MLS/HR; Start 08/20/16 at 15:00 ; Stop 08/20/16 at 22:59 BRIE PELLETIER NP Aug 20, 2016 16:35
[2016-08-20] MEDS: DOCUSATE SODIUM 10 MG/ML (10ML CUP) GTB SCH (20:10)
[2016-08-20] MEDS: ATORVASTATIN 20 MG TAB GTB SCH (20:10)
[2016-08-20] MEDS: ARTIFICIAL TEARS 15 ML OPH BOTH EYES PRN (20:16)
[2016-08-20] MEDS: METOPROLOL 25 MG TAB GTB SCH (20:21)
[2016-08-20] MEDS: ALBUTEROL/IPRATROPIUM (NEB) 3 ML AMP HHN PRN (20:28)
[2016-08-21] VITALS (13 sets, daily range): BP systolic 117–148; BP diastolic 58–96; PULSE 72–84; RESP 18–25
[2016-08-21] MEDS: ALBUTEROL/IPRATROPIUM (NEB) 3 ML AMP HHN SCH ×3 (00:19→16:54)
[2016-08-21] MEDS: ACETAMINOPHEN 1000MG/100ML IV 100 ML IVPB SCH ×4 (00:31→20:57)
[2016-08-21] MEDS: MEROPENEM 500 MG/100 ML (PMX) 100 ML IVPB SCH ×4 (00:42→21:33)
[2016-08-21 07:11] LABS: ADD SCAN DIFF NO
[2016-08-21 07:17] LABS: BASOPHILS % 0.1 % (0.0-2.0); EOSINOPHILS # 0.2 10^3/ul (0.0-0.5); EOSINOPHILS % 1.1 % (0.0-7.0); HEMATOCRIT 25.1 % (42.0-52.0); HEMOGLOBIN 8.1 g/dl (14.0-18.0); LYMPHOCYTES # 2.4 10^3/ul (0.8-2.9); LYMPHOCYTES % 17.3 % (15.0-51.0); MEAN CORPUSCULAR HEMOGLOBIN 32.9 pg (29.0-33.0); MEAN CORPUSCULAR HGB CONC 32.3 g/dl (32.0-37.0); MEAN PLATELET VOLUME 9.1 fl (7.4-10.4); MONOCYTE # 0.8 10^3/ul (0.3-0.9); MONOCYTES % 5.3 % (0.0-11.0); NEUTROPHIL # 10.6 10^3/ul (1.6-7.5); NEUTROPHILS % 75.1 % (39.0-77.0); NUCLEATED RED BLOOD CELLS% 0.1 /100WBC (0.0-0.0); PLATELET COUNT 257 10^3/UL (140-415); RED BLOOD COUNT 2.46 10^6/ul (4.70-6.10); RED CELL DISTRIBUTION WIDTH 13.7 % (11.5-14.5); WHITE BLOOD COUNT 14.1 10^3/ul (4.8-10.8)
[2016-08-21 07:55] LABS: CALCIUM 9.2 mg/dl (8.4-10.2); CREATININE 0.49 mg/dl (0.61-1.24); POTASSIUM 4.6 mmol/L (3.5-5.1)
[2016-08-21] MEDS: ACETYLCYSTEINE 20% 4 ML VIAL NEB SCH ×2 (08:39→21:14)
--- NOTE | 2016-08-21 10:09 | PN ---
Date/Time of Note Date/Time of Note DATE: 08/21/16 TIME: 10:05 Assessment/Plan VTE Prophylaxis VTE Prophylaxis Intervention: contraindicated VTE Contraindication Reason: bleeding Lines/Catheters IV [facility] ([facility] Peripheral IV Urinary Cath still in place: No Assessment/Plan Assessment/Plan Assessment * Coffee ground emesis resolved/Anemia * Upper GI bleed, EGD Severe erosive/ulcerative esophagitis. Hiatal hernia with gastroesophageal reflux disease. Gastrostomy tube in place. . Gastritis, rule out Helicobacter pylori infection, biopsies obtained. 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 * S/P Adela hole * History of recurrent aspirations Plan * Continue present management * case discussed with Dr Trujillo * further orders will depend on clinical course Subjective 24 Hr Interval Summary Free Text/Dictation * Course reviewed with RN * patient seen and examined * Tolerating tube feeding * No coffeeground emesis Exam/Review of Systems Vital Signs Vitals Vital Signs Date Time Temp Pulse Resp B/P Pulse Ox O2 Delivery O2 Flow Rate FiO2 08/21/16 08:45 84 20 100 Simple Mask 6.0 08/21/16 07:17 98.3 147/67 Intake and Output 08/20/16 08/20/16 08/21/16 15:00 23:00 07:00 Intake Total 560 ml 560 ml Balance 560 ml 560 ml Exam Constitutional: frail, non-verbal Neck: non-tender, supple Respiratory: congested cough, diminished breath sounds, other (6 liters facemask) Cardiovascular: nl pulses, regular rate and rhythm Gastrointestinal: non-tender, other (g tube in placed), soft Musculoskeletal: muscle weakness, swelling Extremities: pitting pedal edema Neurological: lethargic Skin: rash or lesions Lymph: nl lymph nodes Results Result Diagram: 08/21/16 0550 08/21/16 0550 Results 24 hrs Laboratory Tests Test 08/20/16 12:40 08/20/16 13:50 08/21/16 05:50 Blood Gas Specimen Source Blood arterial Arterial Blood Date Drawn 08/20/2016 1:40:41 PM Arterial Blood pH (Temp corrected) 7.467 H Arterial Blood pCO2 (Temp correct) 37.3 Arterial Blood pO2 (Temp corrected) 140.0 H Arterial Blood HCO3 26.4 H Arterial Blood Base Excess 2.6 Arterial Blood Oxygen Saturation 98.5 Tavo Test ACCEPTAB Arterial Blood Gas Puncture Site Right Radial Arterial Blood Carboxyhemoglobin 0.2 Arterial Blood Methemoglobin 0.4 Blood Gas A-a O2 Differential 138.4 H Oxyhemoglobin Percent 97.9 Total Hemoglobin 8.9 L Blood Gas Temperature 37.0 Blood Gas Modality MASK - SIMPLE FiO2 45.0 Blood Gas Notified Whom JLD Blood Gas Notified Time 08/20/2016 1:53:52 PM Hemoglobin 8.5 #L 8.1 L Hematocrit 25.8 L 25.1 L White Blood Count 14.1 H Red Blood Count 2.46 L Mean Corpuscular Volume 102.0 H Mean Corpuscular Hemoglobin 32.9 Mean Corpuscular Hemoglobin Concent 32.3 Red Cell Distribution Width 13.7 Platelet Count 257 # Mean Platelet Volume 9.1 Neutrophils % 75.1 Lymphocytes % 17.3 Monocytes % 5.3 Eosinophils % 1.1 Basophils % 0.1 Nucleated Red Blood Cells % 0.1 H Neutrophils # 10.6 H Lymphocytes # 2.4 Monocytes # 0.8 Eosinophils # 0.2 Basophils # 0.0 Nucleated Red Blood Cells # 0.0 Sodium Level 134 L Potassium Level 4.6 Chloride Level 103 Carbon Dioxide Level 27 Anion Gap 9 Blood Urea Nitrogen 12 Creatinine 0.49 L Glucose Level 112 Calcium Level 9.2 Medications Medications Current Medications Lactobacillus Acidophilus/ Rhamnosus (Culturelle) 1 cap BID GTB Last administered on 08/20/16 20:10; Admin Dose 1 CAP; Start 08/07/16 at 09:00 Lactulose (Enulose) 20 gm BID PRN GTB CONSTIPATION; Start 08/07/16 at 00:30 Nystatin (Nystatin Powder) 1 applic Q12 TOP Last administered on 08/20/16 20: 17; Admin Dose 1 APPLIC; Start 08/07/16 at 09:00 Nystatin (Nystatin Powder) 1 applic PRN PRN TOP NEEDED; Start 08/07/16 at 01: 00 Eye Lubricant (Artificial Tears Oph) 1 drop Q12 BOTH EYES Last administered on 08/20/16 21:00; Admin Dose 1 DROP; Start 08/07/16 at 09:00 Eye Lubricant (Artificial Tears Oph) 1 drop PRN PRN BOTH EYES DRY EYES Last administered on 08/20/16 20:16; Admin Dose 1 DROP; Start 08/07/16 at 01:00 Ascorbic Acid (Vitamin C) 500 mg DAILY GTB Last administered on 08/20/16 08:06 ; Admin Dose 500 MG; Start 08/07/16 at 09:00 Atorvastatin Calcium (Lipitor) 20 mg DAILY@21 GTB Last administered on 20:10; Admin Dose 20 MG; Start 08/07/16 at 21:00 Finasteride (Proscar) 5 mg DAILY GTB Last administered on 08/20/16 08:05; Admin Dose 5 MG; Start 08/07/16 at 09:00 Miscellaneous Information (Pending Santyl Order For Wound Care) This patient trent... PRN PRN XX WOUND CARE; Start 08/07/16 at 04:00 Baclofen 10 mg 10 mg TID PRN PO NOTE Last administered on 08/10/16 09:42; Admin Dose 10 MG; Start 08/08/16 at 03:00 Dextrose (D5W) 1,000 ml @ 80 mls/hr [id number] IV Last administered on 08/19/16 21:36; Admin Dose 80 MLS/HR; Start 08/08/16 at 12:30 Docusate Sodium (Colace Liquid Cup) 100 mg HS GTB Last administered on 20:10; Admin Dose 100 MG; Start 08/09/16 at 21:00 Ondansetron HCl (Zofran Inj) 4 mg Q4 PRN IV NAUSEA AND/OR VOMITING Last administered on 08/11/16 20:52; Admin Dose 4 MG; Start 08/09/16 at 12:30 Acetaminophen (Tylenol Tab) 650 mg Q6H PRN PO PAIN LEVEL 1-3 OR FEVER; Start at 12:30 Acetaminophen (Tylenol Supp) 650 mg Q6H PRN [place] PAIN LEVEL 1-3 OR FEVER; Start 08/09/16 at 12:30 Morphine Sulfate 2 mg 2 mg Q3H PRN IV MODERATE PAIN LEVEL 4-6 Last administered on 08/11/16 20:52; Admin Dose 2 MG; Start 08/09/16 at 12:30 Acetaminophen 100 ml @ 400 mls/hr Q8H IVPB Last administered on 08/21/16 05: 14; Admin Dose 400 MLS/HR; Start 08/12/16 at 04:00 Meropenem (Merrem 500 Mg/ 100 ml (Pmx)) 100 ml @ 200 mls/hr Q8 IVPB Last administered on 08/21/16 05:58; Admin Dose 200 MLS/HR; Start 08/13/16 at 12:00 Hydralazine HCl (Apresoline) 10 mg Q6H PRN IV ELEVATED BLOOD PRESSURE; Start at 17:30 Pantoprazole (Protonix Iv) 40 mg Q12 IV Last administered on 08/20/16 20:09; Admin Dose 40 MG; Start 08/18/16 at 21:00 Sucralfate (Carafate Susp) 1 gm QID GTB Last administered on 08/20/16 20:10; Admin Dose 1 GM; Start 08/19/16 at 21:00 Metoprolol Tartrate (Lopressor) 12.5 mg BID GTB Last administered on 08/20/16 20:21; Admin Dose 12.5 MG; Start 08/20/16 at 21:00 BRIE PELLETIER NP Aug 21, 2016 10:09
[2016-08-21] MEDS: LACTOBACILLUS RHAMNOSUS CAP GTB SCH ×2 (10:14→20:56)
[2016-08-21] MEDS: ASCORBIC ACID 500 MG TAB GTB SCH (10:14)
[2016-08-21] MEDS: ARTIFICIAL TEARS 15 ML OPH BOTH EYES SCH ×2 (10:14→20:57)
[2016-08-21] MEDS: PANTOPRAZOLE 40 MG INJ IV SCH ×2 (10:14→20:56)
[2016-08-21] MEDS: FINASTERIDE 5 MG TAB GTB SCH (10:14)
[2016-08-21] MEDS: SUCRALFATE (100 MG/ML) 10ML CUP GTB SCH ×4 (10:14→20:56)
[2016-08-21] MEDS: METOPROLOL 25 MG TAB GTB SCH ×2 (10:14→20:57)
[2016-08-21] MEDS: NYSTATIN 30 GM POWDER BTL TOP SCH ×2 (10:15→20:56)
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
[2016-08-21] MEDS: DEXTROSE 5% 1,000 ML IV SCH (12:00)
--- NOTE | 2016-08-21 12:18 | CONS ---
Date/Time of Note Date/Time of Note DATE: 08/21/16 TIME: 12:17 Assessment/Plan Assessment/Plan Additional Assessment/Plan Assessment recommendations; 1. Patient admitted for pneumonia with marked radiological improvement. 2. Normal pressure hydrocephalus, status post SCREEN MAKING TECHNICIAN shunt present. 3. Right lower extremity DVT. 4. history of subdural hemorrhage. 5. Advanced dementia. Continue current treatment. Consider stopping antibiotics. Overall prognosis remains poor. Consultation Date/Type/Reason Admit Date/Time Aug 07, 2016 at 00:23 Initial Consult Date 08/07/16 Type of Consultation: Pulmonary Referring Provider: YE JOYNER 24 HR Interval Summary Free Text/Dictation Patient condition remains unchanged. Remains unresponsive. Patient however has remained hemodynamically stable. General exam; elderly male, unresponsive. Currently no distress. Exam/Review of Systems Vital Signs Vitals Vital Signs Date Time Temp Pulse Resp B/P Pulse Ox O2 Delivery O2 Flow Rate FiO2 08/21/16 10:59 98.1 82 18 133/75 100 08/21/16 09:10 Simple Mask 6.0 Intake and Output 08/20/16 08/20/16 08/21/16 15:00 23:00 07:00 Intake Total 560 ml 560 ml Balance 560 ml 560 ml Exam HEENT examination; supple neck, no JVD. No lymphadenopathy. Midline trachea. No thyromegaly. Chest examination; clear to ulceration. S1-S2 audible, no murmurs. Regular rhythm. Abdomen examination; soft, nondistended. G-tube in place. Bowel sounds are audible. Extremity examination; no peripheral edema. MACHINE MAINTENANCE REPAIRER examination; patient remains unresponsive. Results Result Diagram: 08/21/16 0550 08/21/16 0550 Results 24 hrs Laboratory Tests Test 08/20/16 12:40 08/20/16 13:50 08/21/16 05:50 Blood Gas Specimen Source Blood arterial Arterial Blood Date Drawn 08/20/2016 1:40:41 PM Arterial Blood pH (Temp corrected) 7.467 H Arterial Blood pCO2 (Temp correct) 37.3 Arterial Blood pO2 (Temp corrected) 140.0 H Arterial Blood HCO3 26.4 H Arterial Blood Base Excess 2.6 Arterial Blood Oxygen Saturation 98.5 Tavo Test ACCEPTAB Arterial Blood Gas Puncture Site Right Radial Arterial Blood Carboxyhemoglobin 0.2 Arterial Blood Methemoglobin 0.4 Blood Gas A-a O2 Differential 138.4 H Oxyhemoglobin Percent 97.9 Total Hemoglobin 8.9 L Blood Gas Temperature 37.0 Blood Gas Modality MASK - SIMPLE FiO2 45.0 Blood Gas Notified Whom JLD Blood Gas Notified Time 08/20/2016 1:53:52 PM Hemoglobin 8.5 #L 8.1 L Hematocrit 25.8 L 25.1 L White Blood Count 14.1 H Red Blood Count 2.46 L Mean Corpuscular Volume 102.0 H Mean Corpuscular Hemoglobin 32.9 Mean Corpuscular Hemoglobin Concent 32.3 Red Cell Distribution Width 13.7 Platelet Count 257 # Mean Platelet Volume 9.1 Neutrophils % 75.1 Lymphocytes % 17.3 Monocytes % 5.3 Eosinophils % 1.1 Basophils % 0.1 Nucleated Red Blood Cells % 0.1 H Neutrophils # 10.6 H Lymphocytes # 2.4 Monocytes # 0.8 Eosinophils # 0.2 Basophils # 0.0 Nucleated Red Blood Cells # 0.0 Sodium Level 134 L Potassium Level 4.6 Chloride Level 103 Carbon Dioxide Level 27 Anion Gap 9 Blood Urea Nitrogen 12 Creatinine 0.49 L Glucose Level 112 Calcium Level 9.2 Medications Medications Current Medications Lactobacillus Acidophilus/ Rhamnosus (Culturelle) 1 cap BID GTB Last administered on 08/21/16 10:14; Admin Dose 1 CAP; Start 08/07/16 at 09:00 Lactulose (Enulose) 20 gm BID PRN GTB CONSTIPATION; Start 08/07/16 at 00:30 Nystatin (Nystatin Powder) 1 applic Q12 TOP Last administered on 08/21/16 10: 15; Admin Dose 1 APPLIC; Start 08/07/16 at 09:00 Nystatin (Nystatin Powder) 1 applic PRN PRN TOP NEEDED; Start 08/07/16 at 01: 00 Eye Lubricant (Artificial Tears Oph) 1 drop Q12 BOTH EYES Last administered on 08/21/16 10:14; Admin Dose 1 DROP; Start 08/07/16 at 09:00 Eye Lubricant (Artificial Tears Oph) 1 drop PRN PRN BOTH EYES DRY EYES Last administered on 08/20/16 20:16; Admin Dose 1 DROP; Start 08/07/16 at 01:00 Ascorbic Acid (Vitamin C) 500 mg DAILY GTB Last administered on 08/21/16 10:14 ; Admin Dose 500 MG; Start 08/07/16 at 09:00 Atorvastatin Calcium (Lipitor) 20 mg DAILY@21 GTB Last administered on 20:10; Admin Dose 20 MG; Start 08/07/16 at 21:00 Finasteride (Proscar) 5 mg DAILY GTB Last administered on 08/21/16 10:14; Admin Dose 5 MG; Start 08/07/16 at 09:00 Miscellaneous Information (Pending [facility] Order For Wound Care) This patient trent... PRN PRN XX WOUND CARE; Start 08/07/16 at 04:00 Baclofen 10 mg 10 mg TID PRN PO NOTE Last administered on 08/10/16 09:42; Admin Dose 10 MG; Start 08/08/16 at 03:00 Dextrose (D5W) 1,000 ml @ 80 mls/hr [id number] IV Last administered on 08/19/16 21:36; Admin Dose 80 MLS/HR; Start 08/08/16 at 12:30 Docusate Sodium (Colace Liquid Cup) 100 mg HS GTB Last administered on 20:10; Admin Dose 100 MG; Start 08/09/16 at 21:00 Ondansetron HCl (Zofran Inj) 4 mg Q4 PRN IV NAUSEA AND/OR VOMITING Last administered on 08/11/16 20:52; Admin Dose 4 MG; Start 08/09/16 at 12:30 Acetaminophen (Tylenol Tab) 650 mg Q6H PRN PO PAIN LEVEL 1-3 OR FEVER; Start at 12:30 Acetaminophen (Tylenol Supp) 650 mg Q6H PRN [place] PAIN LEVEL 1-3 OR FEVER; Start 08/09/16 at 12:30 Morphine Sulfate 2 mg 2 mg Q3H PRN IV MODERATE PAIN LEVEL 4-6 Last administered on 08/11/16 20:52; Admin Dose 2 MG; Start 08/09/16 at 12:30 Acetaminophen 100 ml @ 400 mls/hr Q8H IVPB Last administered on 08/21/16 05: 14; Admin Dose 400 MLS/HR; Start 08/12/16 at 04:00 Meropenem (Merrem 500 Mg/ 100 ml (Pmx)) 100 ml @ 200 mls/hr Q8 IVPB Last administered on 08/21/16 05:58; Admin Dose 200 MLS/HR; Start 08/13/16 at 12:00 Hydralazine HCl (Apresoline) 10 mg Q6H PRN IV ELEVATED BLOOD PRESSURE; Start at 17:30 Pantoprazole (Protonix Iv) 40 mg Q12 IV Last administered on 08/21/16 10:14; Admin Dose 40 MG; Start 08/18/16 at 21:00 Sucralfate (Carafate Susp) 1 gm QID GTB Last administered on 08/21/16 10:14; Admin Dose 1 GM; Start 08/19/16 at 21:00 Metoprolol Tartrate (Lopressor) 12.5 mg BID GTB Last administered on 08/21/16 10:14; Admin Dose 12.5 MG; Start 08/20/16 at 21:00 JIGNESH LI Aug 21, 2016 12:18
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
[2016-08-21] MEDS ORDERED: SOD CHLORIDE 0.9% 250 ML IV* ONE (14:36)
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
--- NOTE | 2016-08-21 19:02 | RADRPT ---
PROCEDURE: Left upper extremity venous ultrasound CLINICAL INDICATION: Left arm pain and swelling TECHNIQUE: Multiple color Doppler and spectral Doppler images of the right upper extremity venous system were obtained. Images were reviewed on a high-resolution PACS workstation. COMPARISON: None FINDINGS: Noncompressibility of the left cephalic vein is seen with no significant color flow. Normal betito sibility and color flow is seen in the left internal jugular vein, subclavian vein, axillary vein, b rachial vein, radial vein, ulnar vein, and basilic vein. Normal respiratory ability with augmentatio n is seen. IMPRESSION: Occlusive acute superficial venous thrombosis in the left cephalic vein. RPTAT: HPNM Physician Eboni Date Time Electronically viewed and signed by Physician Eboni on 08/21/2016 19:01 /
[2016-08-21] MEDS: DOCUSATE SODIUM 10 MG/ML (10ML CUP) GTB SCH (20:56)
[2016-08-21] MEDS: ARTIFICIAL TEARS 15 ML OPH BOTH EYES PRN (20:56)
[2016-08-21] MEDS: ATORVASTATIN 20 MG TAB GTB SCH (20:56)
[2016-08-21] MEDS: ALBUTEROL/IPRATROPIUM (NEB) 3 ML AMP HHN PRN (21:14)
--- NOTE | 2016-08-21 21:32 | CONS ---
Date/Time of Note Date/Time of Note DATE: 08/21/16 TIME: 21:31 Assessment/Plan Assessment/Plan Chief Complaint/Hosp Course SUBJECTIVE: No acute changes, comfortable on face mask, obtunded, afebrile ANTIMICROBIALS: Meropenem. INDWELLINGS: MACHINE CLERICAL VERIFIER shunt, PEG, Wang. PHYSICAL EXAMINATION: GENERAL: Chronically ill-appearing, elderly man who is lethargic, in no distress. HEENT: Head atraumatic, normocephalic. Sclerae anicteric. NECK: Supple. CHEST: Rise symmetrical. Breath sounds with bilateral rales. HEART: S1, S2. ABDOMEN: Soft. Bowel tones hypoactive. EXTREMITIES: With trace edema. ASSESSMENT: 1. Sepsis. 2. Acute respiratory failure, likely secondary to acute aspiration event status post emesis. 3. Acute encephalopathy status post MACHINE CLERICAL VERIFIER shunt placement secondary to hydrocephalus. 4. Right lower extremity deep venous thrombosis. 5. History of subdural hemorrhage. 6. Anemia, status post coffee-ground emesis yesterday===> severe erosive esophagitis per EGD 7. S/p VRE and E. coli UTI PLAN: Remains unchanged, completing abx, continue aspiration precautions. GI/ pulmonary rec-s [facility] staff Problems: Consultation Date/Type/Reason Admit Date/Time Aug 07, 2016 at 00:23 Initial Consult Date 08/07/16 Type of Consultation: ID Referring Provider: YE JOYNER Exam/Review of Systems Vital Signs Vitals Vital Signs Date Time Temp Pulse Resp B/P Pulse Ox O2 Delivery O2 Flow Rate FiO2 08/21/16 21:16 6.0 08/21/16 21:16 78 20 98 Simple Mask 08/21/16 20:00 98.3 117/58 Intake and Output 08/20/16 08/20/16 08/21/16 15:00 23:00 07:00 Intake Total 560 ml 560 ml Balance 560 ml 560 ml Results Result Diagram: 08/21/16 0550 08/21/16 0550 Results 24 hrs Laboratory Tests Test 08/21/16 05:50 White Blood Count 14.1 H Red Blood Count 2.46 L Hemoglobin 8.1 L Hematocrit 25.1 L Mean Corpuscular Volume 102.0 H Mean Corpuscular Hemoglobin 32.9 Mean Corpuscular Hemoglobin Concent 32.3 Red Cell Distribution Width 13.7 Platelet Count 257 # Mean Platelet Volume 9.1 Neutrophils % 75.1 Lymphocytes % 17.3 Monocytes % 5.3 Eosinophils % 1.1 Basophils % 0.1 Nucleated Red Blood Cells % 0.1 H Neutrophils # 10.6 H Lymphocytes # 2.4 Monocytes # 0.8 Eosinophils # 0.2 Basophils # 0.0 Nucleated Red Blood Cells # 0.0 Sodium Level 134 L Potassium Level 4.6 Chloride Level 103 Carbon Dioxide Level 27 Anion Gap 9 Blood Urea Nitrogen 12 Creatinine 0.49 L Glucose Level 112 Calcium Level 9.2 Medications Medications Current Medications Lactobacillus Acidophilus/ Rhamnosus (Culturelle) 1 cap BID GTB Last administered on 08/21/16 20:56; Admin Dose 1 CAP; Start 08/07/16 at 09:00 Lactulose (Enulose) 20 gm BID PRN GTB CONSTIPATION; Start 08/07/16 at 00:30 Nystatin (Nystatin Powder) 1 applic Q12 TOP Last administered on 08/21/16 20: 56; Admin Dose 1 APPLIC; Start 08/07/16 at 09:00 Nystatin (Nystatin Powder) 1 applic PRN PRN TOP NEEDED; Start 08/07/16 at 01: 00 Eye Lubricant (Artificial Tears Oph) 1 drop Q12 BOTH EYES Last administered on 08/21/16 20:57; Admin Dose 1 DROP; Start 08/07/16 at 09:00 Eye Lubricant (Artificial Tears Oph) 1 drop PRN PRN BOTH EYES DRY EYES Last administered on 08/21/16 20:56; Admin Dose 1 DROP; Start 08/07/16 at 01:00 Ascorbic Acid (Vitamin C) 500 mg DAILY GTB Last administered on 08/21/16 10:14 ; Admin Dose 500 MG; Start 08/07/16 at 09:00 Atorvastatin Calcium (Lipitor) 20 mg DAILY@21 GTB Last administered on 20:56; Admin Dose 20 MG; Start 08/07/16 at 21:00 Finasteride (Proscar) 5 mg DAILY GTB Last administered on 08/21/16 10:14; Admin Dose 5 MG; Start 08/07/16 at 09:00 [facility]isc[facility] This patient trent... PRN PRN XX WOUND CARE; Start 08/07/16 at 04:00 Baclofen 10 mg 10 mg TID PRN PO NOTE Last administered on 08/10/16 09:42; Admin Dose 10 MG; Start 08/08/16 at 03:00 Dextrose (D5W) 1,000 ml @ 80 mls/hr [id number] IV Last administered on 08/19/16 21:36; Admin Dose 80 MLS/HR; Start 08/08/16 at 12:30 Docusate Sodium (Colace Liquid Cup) 100 mg HS GTB Last administered on 20:56; Admin Dose 100 MG; Start 08/09/16 at 21:00 Ondansetron HCl (Zofran Inj) 4 mg Q4 PRN IV NAUSEA AND/OR VOMITING Last administered on 08/11/16 20:52; Admin Dose 4 MG; Start 08/09/16 at 12:30 Acetaminophen (Tylenol Tab) 650 mg Q6H PRN PO PAIN LEVEL 1-3 OR FEVER; Start at 12:30 Acetaminophen (Tylenol Supp) 650 mg Q6H PRN [place] PAIN LEVEL 1-3 OR FEVER; Start 08/09/16 at 12:30 Morphine Sulfate 2 mg 2 mg Q3H PRN IV MODERATE PAIN LEVEL 4-6 Last administered on 08/11/16 20:52; Admin Dose 2 MG; Start 08/09/16 at 12:30 Acetaminophen 100 ml @ 400 mls/hr Q8H IVPB Last administered on 08/21/16 20: 57; Admin Dose 400 MLS/HR; Start 08/12/16 at 04:00 Meropenem (Merrem 500 Mg/ 100 ml (Pmx)) 100 ml @ 200 mls/hr Q8 IVPB Last administered on 08/21/16 13:53; Admin Dose 200 MLS/HR; Start 08/13/16 at 12:00 Hydralazine HCl (Apresoline) 10 mg Q6H PRN IV ELEVATED BLOOD PRESSURE; Start at 17:30 Pantoprazole (Protonix Iv) 40 mg Q12 IV Last administered on 08/21/16 20:56; Admin Dose 40 MG; Start 08/18/16 at 21:00 Sucralfate (Carafate Susp) 1 gm QID GTB Last administered on 08/21/16 20:56; Admin Dose 1 GM; Start 08/19/16 at 21:00 Metoprolol Tartrate (Lopressor) 12.5 mg BID GTB Last administered on 08/21/16t 20:57; Admin Dose 12.5 MG; Start 08/20/16 at 21:00 ROMINA SCHREIBER NP Aug 21, 2016 21:32
== END 2016-08-21 23:00 | DRG 853 ==
LOC: TEL 00:23 → ICU 17:14 → TEL 08-14 22:45
PROVIDERS: ADMIT Internal Medicine; ATTEND Internal Medicine
PROC: 00163J6 Bypass Cerebral Ventricle to Peritoneal Cavity with Synthetic Substitute, Percutaneous Approach (ICD-10-PCS; 2016-08-10)
PROC: 30233K1 Transfusion of Nonautologous Frozen Plasma into Peripheral Vein, Percutaneous Approach (ICD-10-PCS; 2016-08-10)
PROC: 06H03DZ Insertion of Intraluminal Device into Inferior Vena Cava, Percutaneous Approach (ICD-10-PCS; principal; 2016-08-13 13:30)
PROC: 0DB68ZX Excision of Stomach, Via Natural or Artificial Opening Endoscopic, Diagnostic (ICD-10-PCS; 2016-08-19)
PROC: 30233N1 Transfusion of Nonautologous Red Blood Cells into Peripheral Vein, Percutaneous Approach (ICD-10-PCS; 2016-08-21)
DX: A41.9 Sepsis, unspecified organism (principal); R65.21 Severe sepsis with septic shock; J96.21 Acute and chronic respiratory failure with hypoxia; J69.0 Pneumonitis due to inhalation of food and vomit; K92.0 Hematemesis; G92 Toxic encephalopathy; R53.2 Functional quadriplegia; G91.2 (Idiopathic) normal pressure hydrocephalus; E46 Unspecified protein-calorie malnutrition; N39.0 Urinary tract infection, site not specified; I82.413 Acute embolism and thrombosis of femoral vein, bilateral; K22.10 Ulcer of esophagus without bleeding; Z68.21 Body mass index [BMI] 21.0-21.9, adult; Z93.1 Gastrostomy status; B96.89 Other specified bacterial agents as the cause of diseases classified elsewhere; R13.10 Dysphagia, unspecified; B96.20 Unspecified Escherichia coli [E. coli] as the cause of diseases classified elsewhere; Z16.21 Resistance to vancomycin; I10 Essential (primary) hypertension; E78.5 Hyperlipidemia, unspecified; F03.90 Unspecified dementia, unspecified severity, without behavioral disturbance, psychotic disturbance, mood disturbance, and anxiety; K44.9 Diaphragmatic hernia without obstruction or gangrene; K21.9 Gastro-esophageal reflux disease without esophagitis; N40.0 Benign prostatic hyperplasia without lower urinary tract symptoms; D18.1 Lymphangioma, any site; B95.2 Enterococcus as the cause of diseases classified elsewhere; D63.8 Anemia in other chronic diseases classified elsewhere; D50.0 Iron deficiency anemia secondary to blood loss (chronic); D53.1 Other megaloblastic anemias, not elsewhere classified; D69.6 Thrombocytopenia, unspecified
CPT/HCPCS: 36430; 36600; 70450; 70553; 71010; 71275; 74000; 75940; 80048; 80053; 80069; 81001; 82270; 82306; 82607; 82803; 82945; 83036; 83540; 83735; 83930; 83935; 84100; 84157; 84443; 84484; 84560; 85014; 85018; 85025; 85610; 85730; 86850; 86900; 86901; 86920; 87040; 87070; 87081; 87086; 88305; 88312; 89050; 93005; 93970; 93971; 94640; 94664; 94667; 94668; C1729; C1880; C9113; J0131; J0360; J0690; J0692; J0696; J1644; J1956; J2060; J2185; J2250; J2270; J2370; J2405; J2543; J2710; J2765; J2916; J3010; J3370; J3480; J7030; J7040; J7070; P9016; P9059; Q9967

== ENCOUNTER → 2016-10-14 | Outpatient (CLI) | payer MEDICARE, OTHER ==
--- NOTE | 2016-10-15 09:50 | RADRPT ---
PROCEDURE: CT Brain without contrast. CLINICAL INDICATION: NORMAL PRESSURE HYDROCEPHALUS TECHNIQUE: A multiplanar CT of the brain was performed on a CT scanner utilizing axial imaging fro m the skull base through the vertex without IV contrast. The CTDIvol is 444.26 mGy and the DLP is 6 30.2 mGycm. One or more of the following dose reduction techniques were utilized: Automated exposu re control, adjustment of the mA and/or kV according to patient size, use of iterative reconstructio n technique. COMPARISON: CT brain 08/30/2016 FINDINGS: Redemonstration of bilateral frontal convexity subdural hematomas/hygromas measuring [address] thickness. Left frontal craniotomy. Right parietal ventriculostomy catheter in stable position. Mild interval decrease ventriculomegaly with bifrontal diameter now measuring approximately 5 cm co mpared to 6.2 on the prior examination. Mild periventricular hypoattenuation compatible sequelae of chronic microvascular ischemic disease. preservation of alvarado white differentiation. No parenchymal hemorrhage. Atherosclerotic calcification of the internal carotid and vertebral arteries. The basal cisterns, posterior fossa contents, brainstem, craniocervical junction, orbits, pituitary axis, paranasal sinuses, mastoid air cells, and calvarium are unremarkable. IMPRESSION: 1. Interval decrease communicating hydrocephalus compared to 08/14/2016 and 08/30/2016 . 2. Stable right parietal ventriculostomy and left frontal craniotomy. 3. Stable bifrontal subdural hematomas/hygromas. 4. No acute parenchymal hemorrhage RPTAT:AAJJ Physician Franky Date Time Electronically viewed and signed by Physician Franky on 10/14/2016 16:21 LENO/
== END | disposition home or self-care (01) ==
LOC: C/S 08:38
PROVIDERS: ATTEND Neurological Surgery
DX: G91.8 Other hydrocephalus (principal)
CPT/HCPCS: 70450

== ENCOUNTER → 2016-11-09 | Outpatient (CLI) | payer MEDICARE, OTHER ==
--- NOTE | 2016-11-09 13:52 | RADRPT ---
PROCEDURE: CT Brain without contrast. CLINICAL INDICATION: Trauma, Neurologic deficit TECHNIQUE: A CT of the brain was performed on multidetector high-resolution CT scanner utilizing a xial sections from the skull base through the vertex without contrast. One or more of the following dose reduction techniques were used: Automated exposure control, Adjustment of the mA and/or kV acc ording to patient size, and/or use of iterative reconstruction technique. DOSE: CTDI = 44 mGy and the DLP = 720 mGy-cm. COMPARISON: Head CT 10/14/2016 FINDINGS: Old left frontal craniotomy changes. Bilateral cerebral convexity hypodense subdural fluid collectio ns are unchanged size measuring 7 mm on the left and 5 mm on the right. No acute hemorrhage or midli ne shift. Mild hypoattenuation of the cerebral white matter is compatible with chronic microvascular ischemic changes. Vascular calcifications. Stable ventricle size with stable position of the right transparietal ventricular shunt. The bifrontal horn lateral ventricular diameter measures 49 mm, pre viously 50 mm. No significant opacification of the visualized paranasal sinuses or mastoids. IMPRESSION: No significant interval change identified. Stable size bilateral cerebral convexity chronic subdural fluid collections. No acute intracranial hemorrhage or midline shift. 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 Stable ventricle size with right transparietal ventricular shunt in place. RPTAT: AA .Jad Jin MD, MD Date Time Electronically viewed and signed by .Jad Jin MD, MD on 11/09/2016 13:52 .T/
== END | disposition home or self-care (01) ==
LOC: C/S 09:37
PROVIDERS: ATTEND Internal Medicine
DX: R41.82 Altered mental status, unspecified (principal); Z91.81 History of falling
CPT/HCPCS: 70450

== ENCOUNTER → 2017-05-25 | Outpatient (CLI) | END | disposition home or self-care (01) ==

== ENCOUNTER → 2017-05-25 | Outpatient (CLI) | END | disposition home or self-care (01) ==